=== PATIENT | male | born 1950 | race Caucasian/White ===

== ENCOUNTER → 2023-05-11 08:31 | Outpatient (REF) | payer MEDICARE, SELFPAY ==
[2023-05-11 09:22] LABS: % Basophils 0.8 % (0-2); % Immature Granulocytes 0.1 % (0-0.5); % Lymphocytes 28.5 % (20.5-51.1); % Monocytes 8.3 % (1.7-9.3); % Neutrophils 61.3 % (42.2-75.2); Absolute Basophils 0.1 10^3/uL (0-0.2); Absolute Eosinophils 0.1 10^3/uL (0-0.7); Absolute Lymphocytes 2.1 10^3/uL (1.2-3.4); Absolute Monocytes 0.6 10^3/uL (0.1-0.6); Absolute Neutrophils 4.4 10^3/uL (1.4-6.5); Hematocrit 43.9 % (39.0-52.0); Hemoglobin 15.1 g/dL (13.0-18.0); Mean Corp Hgb Conc. 34.4 g/dL (33.0-37.0); Mean Corpuscular Hgb 29.7 pg (27.0-31.0); Mean Corpuscular Volume 86.2 fL (80.0-94.0); Mean Platelet Volume 9.2 fL (7.4-10.4); Nucleated Red Blood Cells % 0 % (-); Platelet Count 311 10^3/uL (130-400); Red Blood Cell Count 5.09 10^6/uL (4.70-6.10); White Blood Cell Count 7.2 10^3/uL (4.8-10.8)
[2023-05-11 10:07] LABS: ALT (SGPT) 40 U/L (0-50); AST (SGOT) 41 U/L (17-59); Albumin 4.4 g/dl (3.5-5.0); Alkaline Phosphatase 74 U/L (38-126); Blood Urea Nitrogen 23 mg/dl (9-20); Carbon Dioxide 28 mmol/L (22-30); Chloride 101 mmol/L (98-107); Glucose 109 mg/dl (70-99); HDL Cholesterol 41 mg/dl; LDL Cholesterol, Calculated 71 mg/dl; Potassium 3.6 mmol/L (3.5-5.1); Sodium 139 mmol/L (135-145); Total Bilirubin 0.9 mg/dl (0.2-1.3); Total Cholesterol 153 mg/dl (50-199); Total Protein 7.1 g/dl (6.3-8.2); Triglyceride 207 mg/dl (10-149); Very Low Density Lipoprotein 41 mg/dl (0-30); eGFR > 60.00
[2023-05-11 12:10] LABS: C-Reactive Protein < 5.00 mg/L (0.0-10.00)
[2023-05-11 12:41] LABS: TSH 2.59 uIU/ml (0.47-4.68)
[2023-05-11 13:16] LABS: Folate > 20.0 ng/ml (2.76-20); Vitamin B12 421 pg/ml (239-931)
[2023-05-14 01:05] LABS: Albumin 4.23 g/dL (3.75-5.01); Alpha 1 Globulin 0.28 g/dL (0.19-0.46); Alpha 2 Globulin 0.73 g/dL (0.48-1.05); SPEP IFE Reflex Not Done; Total Protein-Electrophoresis 7.2 g/dL (6.3-8.2)
== END ==
LOC: REG 08:31
PROVIDERS: ATTENDING PHYSICIAN Internal Medicine Rheumatology; FAMILY PHYSICIAN Internal Medicine
DX: L40.50 Arthropathic psoriasis, unspecified (principal); L40.9 Psoriasis, unspecified; M25.511 Pain in right shoulder; M79.641 Pain in right hand; R94.5 Abnormal results of liver function studies; S43.101S Unspecified dislocation of right acromioclavicular joint, sequela; Z11.1 Encounter for screening for respiratory tuberculosis; Z11.59 Encounter for screening for other viral diseases; Z68.29 Body mass index [BMI] 29.0-29.9, adult; I48.20 Chronic atrial fibrillation, unspecified; I25.10 Atherosclerotic heart disease of native coronary artery without angina pectoris; I35.0 Nonrheumatic aortic (valve) stenosis; D68.69 Other thrombophilia; I10 Essential (primary) hypertension; E78.00 Pure hypercholesterolemia, unspecified; G62.89 Other specified polyneuropathies; Z76.89 Persons encountering health services in other specified circumstances; N40.0 Benign prostatic hyperplasia without lower urinary tract symptoms; R97.20 Elevated prostate specific antigen [PSA]; Z79.899 Other long term (current) drug therapy; R94.6 Abnormal results of thyroid function studies; E53.8 Deficiency of other specified B group vitamins
CPT/HCPCS: 36415; 80053; 80061; 82607; 82746; 84153; 84154; 84155; 84165; 84443; 85025; 86140

== ENCOUNTER → 2023-05-31 12:34 | Outpatient (REF) | payer MEDICARE, SELFPAY ==
[2023-05-31 14:49] LABS: C-Reactive Protein < 5.00 mg/L (0.0-10.00)
== END ==
LOC: REG 12:34
PROVIDERS: ATTENDING PHYSICIAN Internal Medicine Rheumatology; FAMILY PHYSICIAN Internal Medicine
DX: L40.50 Arthropathic psoriasis, unspecified (principal); L40.9 Psoriasis, unspecified
CPT/HCPCS: 36415; 86140

== ENCOUNTER → 2023-06-09 09:47 | Outpatient (REF) | payer MEDICARE, SELFPAY | LOC: MRI 3T 09:47 | PROVIDERS: ATTENDING PHYSICIAN Internal Medicine Rheumatology; FAMILY PHYSICIAN Internal Medicine | DX: L40.50 Arthropathic psoriasis, unspecified (principal); M25.531 Pain in right wrist | CPT/HCPCS: 73221 ==

== ENCOUNTER → 2023-09-15 11:33 | Outpatient (REF) | payer MEDICARE, SELFPAY ==
[2023-09-15 12:25] LABS: % Eosinophils 1.4 % (0-6); % Immature Granulocytes 0.5 % (0-0.5); % Lymphocytes 34.1 % (20.5-51.1); % Monocytes 8.6 % (1.7-9.3); % Neutrophils 54.4 % (42.2-75.2); Absolute Basophils 0.1 10^3/uL (0-0.2); Absolute Eosinophils 0.1 10^3/uL (0-0.7); Absolute Lymphocytes 2.5 10^3/uL (1.2-3.4); Absolute Monocytes 0.6 10^3/uL (0.1-0.6); Hematocrit 41.6 % (39.0-52.0); Mean Corp Hgb Conc. 36.1 g/dL (33.0-37.0); Mean Corpuscular Hgb 30.7 pg (27.0-31.0); Mean Corpuscular Volume 85.1 fL (80.0-94.0); Mean Platelet Volume 9.3 fL (7.4-10.4); Nucleated Red Blood Cells % 0 % (-); Platelet Count 294 10^3/uL (130-400); Red Blood Cell Count 4.89 10^6/uL (4.70-6.10); Red Cell Dist. Width 13.2 % (11.5-14.5); White Blood Cell Count 7.3 10^3/uL (4.8-10.8)
[2023-09-15 12:54] LABS: ALT (SGPT) 46 U/L (0-50); AST (SGOT) 55 U/L (17-59); Albumin 4.7 g/dl (3.5-5.0); Alkaline Phosphatase 73 U/L (38-126); Blood Urea Nitrogen 17 mg/dl (9-20); Calcium 10.4 mg/dl (8.4-10.2); Carbon Dioxide 27 mmol/L (22-30); Chloride 103 mmol/L (98-107); Glucose 103 mg/dl (70-99); Potassium 4.3 mmol/L (3.5-5.1); Sodium 139 mmol/L (135-145); Total Bilirubin 1.6 mg/dl (0.2-1.3); Total Protein 7.5 g/dl (6.3-8.2); eGFR > 60.00
[2023-09-15 12:58] LABS: C-Reactive Protein < 5.00 mg/L (0.0-10.00)
[2023-09-15 13:14] LABS: Vitamin D, 25-OH*** 43.4 ng/mL (30-80)
== END ==
LOC: REG 11:33
PROVIDERS: ATTENDING PHYSICIAN Internal Medicine Rheumatology; FAMILY PHYSICIAN Internal Medicine
DX: E55.9 Vitamin D deficiency, unspecified (principal); L40.50 Arthropathic psoriasis, unspecified; L40.9 Psoriasis, unspecified; M19.031 Primary osteoarthritis, right wrist; M19.049 Primary osteoarthritis, unspecified hand; M25.511 Pain in right shoulder; S43.101S Unspecified dislocation of right acromioclavicular joint, sequela; Z68.29 Body mass index [BMI] 29.0-29.9, adult
CPT/HCPCS: 36415; 80053; 82306; 85025; 86140

== ENCOUNTER → 2023-11-17 10:59 | Outpatient (REF) | payer MEDICARE, SELFPAY ==
[2023-11-17 12:16] LABS: PSA, Total - Diagnostic 9.15 ng/ml (0.0-4.0)
== END ==
LOC: REG 10:59
PROVIDERS: ATTENDING PHYSICIAN Specialist; FAMILY PHYSICIAN Internal Medicine
DX: R97.20 Elevated prostate specific antigen [PSA] (principal)
CPT/HCPCS: 36415; 84153

== ENCOUNTER → 2023-12-19 10:58 | Outpatient (REF) | payer MEDICARE, SELFPAY | LOC: RCS 10:58 | PROVIDERS: ATTENDING PHYSICIAN Internal Medicine Cardiovascular Disease; FAMILY PHYSICIAN Internal Medicine | DX: Z95.5 Presence of coronary angioplasty implant and graft (principal); I35.0 Nonrheumatic aortic (valve) stenosis | CPT/HCPCS: 93306 ==

== ENCOUNTER 2023-12-20 23:01 | Observation (INO) | payer MEDICARE, SELFPAY ==
[2023-12-20] VITALS (7 sets, daily range): BP systolic 97–147; BP diastolic 58–105; BMI 25.9
--- NOTE | 2023-12-20 14:26 | ED.GENMED ---
History of Present Illness
General
Chief Complaint: Bowel Problem
Source: patient and spouse
Exam Limitations: none
Time Seen by Provider: 12/20/23 14:06
Nursing documentation reviewed up to this point in time: agreed with
History of Present Illness
History of Present Illness:
73-year-old male with a past medical history as noted presents to the emergency room for evaluation of constipation. Patient reports that he has not been able to pass stool in 4 days despite taking p.o. Dulcolax and trying Fleet enemas. He says
that when he tried to use a Fleet enema today he was having a hard piece of stool and could not even administer the enema. He is having increasing pressure in his rectum and this morning has not been able to urinate and so he came to the ER for
evaluation. He denies any abdominal pain, nausea, vomiting. He is not on any opiates or other constipating medications.
Past History
Past History
ED Past Medical History: HTN and Hypercholesterolemia; Negative Asthma or NIDDM
ED Past Surgical History: Cardiac (Stent)
Social History
Tobacco: Non-smoker
Alcohol: Daily (wine 2-3 glasses)
Drug: None
Personal:
Living: with family
Review of Systems
Review of Systems
All Other Systems: ROS reviewed and negative except as documented in HPI and ROS
Constitutional: Denies fever
ABD/GI: Reports constipated and other (Rectal pain/fullness); Denies abdominal pain, nausea or vomiting
: Reports difficulty voiding
Phy Exam
Physical Exam
Physical Exam:
General: Awake, alert, oriented x3; no acute distress
Head: Normocephalic, atraumatic
Eyes: Conjunctiva normal
Throat: Airway intact, handling secretions
Neck: Trachea midline
Lungs: Breathing comfortably no distress
Heart: Regular rate
Abd: Soft, non distended, nontender
Rectal: External hemorrhoids; patient has hard piece of stool in the rectal vault consistent with a fecal impaction
Neuro: No gross deficits
Extremities: Warm and well-perfused
Scores
Heart Failure Risk
Heart Failure Risk Score: Not Applicable
Heart Score for Chest Pain Patients
STEMI patient?: Not applicable
Withdrawal Assessment of Alcohol
Withdrawal Assessment Completed?: Not applicable
Course
Orders/Labs/Results
Orders:
Orders
12/20/23 14:25
Enema- Treatment ONCE
Type: Milk of Molasses
12/20/23 16:47
Ondansetron Injectable [Zofran] 4 mg IV NOW STA
12/20/23 17:08
Complete Blood Count/With Diff Urgent
Comprehensive Metabolic Panel Urgent
TSH Reflex To Free T4 Urgent
12/20/23 17:15
CT Abd/pelvis W Iv Cont Urgent
Comment:
Reason For Exam: rectal pain
12/20/23 17:19
Lidocaine HCl 4% [Xylocaine 4% Topical Solution] 1 ml TOPICAL ONCE ONE
12/20/23 18:36
Lidocaine 2% [Lidocaine Uro-Jet 2%] 1 syringe TOPICAL NOW STA
12/20/23 19:48
Urinalysis Reflex To Culture Urgent
Date Specimen was Collected: 12/20/23
Time Specimen was Collected: 20:15
12/20/23 20:08
0.9% Sodium Chloride 1000 ml [Nss] 1,000 ml IV BOLUS
CefTRIAXone [Rocephin] 1,000 mg IV NOW STA
MetroNIDAZOLE 500 MG/100 ML [Flagyl 500 mg] 100 ml IV NOW
Abnormal Lab Results
12/20/23
17:08
WBC 19.9 H 10^3/uL
(4.8-10.8)
Abs Immat Gran (auto) 0.1 H 10^3/uL
(0-0.05)
Absolute Neuts (auto) 16.5 H 10^3/uL
(1.4-6.5)
Absolute Monos (auto) 1.6 H 10^3/uL
(0.1-0.6)
Neutrophils % 83.0 H %
(42.2-75.2)
Lymphocytes % 7.8 L %
(20.5-51.1)
BUN 21 H mg/dl
(9-20)
Glucose 146 H mg/dl
(70-99)
12/20/23 17:08
12/20/23 17:08
Vital Signs
Initial and Last Documented VS:
Initial Vital Signs
Temp Pulse Resp BP Pulse Ox
37.2 C 57 16 147/66 98
12/20/23 13:46 12/20/23 13:46 12/20/23 13:46 12/20/23 13:46 12/20/23 13:46
Last Documented Vital Signs
Temp Pulse Resp BP Pulse Ox
36.9 C 86 20 131/72 99
12/20/23 15:15 12/20/23 15:15 12/20/23 15:15 12/20/23 15:15 12/20/23 15:15
MDM/Problems Addressed
Differential Diagnosis Includes:
Fecal impaction
MDM/Problems Addressed:
73-year-old male presents to the emergency room with a fecal impaction�has had constipation x 4 days refractory to Dulcolax and Fleet enema. Having increasing rectal fullness and difficulty urinating this morning. Vitals and exam as
above�consistent with a fecal impaction. He was disimpacted at bedside--impaction broken up and removed, still some part of it which is beyond my reach and so we will treat with an enema here. Reassess after the above.
Patient no result from initial enema, will try second enema and reassess.
After second enema patient started to have some nausea�will place an IV and give some Zofran. Send off basic labs to rule out electrolyte derangement and thyroid dysfunction with significant constipation/fecal impaction.
Patient passed a large amount of stool after second enema and says that he feels much better. No longer nauseated, resting comfortably in the bed. He is having some soreness from disimpaction and enemas and he did have prominent hemorrhoids on
exam�can apply some topical lidocaine. Labs reviewed he does have leukocytosis to 19.9; CMP unremarkable. Thyroid studies normal. He still has not been able to urinate and he still feels some slight rectal fullness. Check CT abdomen pelvis.
CT shows no clear acute pathology does have slight prostate enlargement. Bladder distended and patient has tried multiple times to urinate since passing his impaction unsuccessfully. Will place Abraham catheter for acute urinary retention. I had a
long discussion with patient and his daughter�some concern despite no clear infection on CT that this leukocytosis could represent some occult stercoral colitis and patient is immune compromised is on Humira for psoriatic arthritis. Pending UA to
rule out infection in the urine we will plan to cover with antibiotics and admit for trending of labs and observation.
Chronic conditions affecting care:
Psoriatic arthritis on Humira
*Radiology
Radiology exam reviewed: radiology read reviewed
*Pulse Oximetry
Patient hypoxic: no
*Critical Care Note
Total Time (30-74mins, 75-104mins- exclusive of procedures): Not Applicable
Data Reviewed
Source: patient, spouse and family (Discussed with daughter who is a physician)
Patient Management
Discussion with other providers: Hospitalist (Discussed with hospitalist) and PCP
Escalation/DeEscalation of care consider admission/obs:
Admission indicated
ED Attending Note
-
Portions of this chart may have been created with voice recognition software.� Occasional wrong word or��sound alike� substitutions may have occurred due to the inherent limitations of voice recognition software.
Discharge Plan
Departure
Patient with high blood pressure during this ER visit?: No
Discharge Problem:
Fecal impaction
Prescriptions:
No Action
chlorthalidone 25 MG tablet
25 mg PO DAILY
rosuvastatin [Crestor] 10 MG tablet
10 mg PO HS
aspirin 81 MG tablet,delayed release (DR/EC)
81 mg PO HS
metoprolol succinate 25 MG tablet extended release 24 hr
25 mg PO DAILY
duloxetine 30 MG capsule,delayed release(DR/EC)
30 mg PO BID
Eliquis 5 MG tablet
5 mg PO BID
Theragen Tablet
1 tab PO DAILY
acetaminophen [Tylenol Extra Strength] 500 mg Tablet
1,000 mg PO Q6HPRN PRN (Reason: mild pain)
pantoprazole 20 mg Tablet,Delayed Release (Dr/Ec)
20 mg PO DAILY
fluocinonide 0.05 % Cream
1 applic TOPICAL BIDPRN PRN (Reason: eczema)
Cimzia 400 mg/2 mL (200 mg/mL x 2) Syringe Kit
400 mg SC Q4W
Interventions
Interventions:
*Risk Screen - Suicide Last Done: 12/20/23 13:46
*General Assessment Last Done: 12/20/23 15:15
*Neglect/Abuse Screening Last Done: 12/20/23 13:46
ED- Fall Risk Assessment Last Done: 12/20/23 15:15
*ED COVID-19 Vaccine History Last Done: 12/20/23 15:15
JA-Kmxxwo-Rqgcwddlks Assessment Last Done: 12/20/23 15:15
Discharge Date and Time
Print Language: MACEDONIAN
--- NOTE | 2023-12-20 16:45 | EDRN ---
this RN administered the second MOM enema and the pt stopped this RN half way through and got up to use the bathroom and sat on the toilet and the pt stated, 'Pure liquid is coming out nothing is helping i don't want to do this anymore, i feel like
i am going to throw up', this RN provided the pt with a vomit bag and the pt started to dry heave into the bag, Dr. Guzman came to the pts bedside and spoke with the pt and wants a PIV and labs drawn, the pt stated to this RN after this RN asked how
the pt was feeling while he was sitting on the toilet and the pt stated, 'Just stop talking to me right now', this RN left the pts bathroom and the pts is sitting at the pts bedside, will reassess the pt
[2023-12-20] MEDS: ZOFRAN 4 MG IV (17:08)
[2023-12-20 17:17] LABS: % Basophils 0.4 % (0-2); % Eosinophils 0.1 % (0-6); % Immature Granulocytes 0.5 % (0-0.5); % Lymphocytes 7.8 % (20.5-51.1); % Monocytes 8.2 % (1.7-9.3); Absolute Basophils 0.1 10^3/uL (0-0.2); Absolute Immature Granulocytes 0.1 10^3/uL (0-0.05); Absolute Lymphocytes 1.6 10^3/uL (1.2-3.4); Absolute Monocytes 1.6 10^3/uL (0.1-0.6); Absolute Neutrophils 16.5 10^3/uL (1.4-6.5); Hematocrit 41.6 % (39.0-52.0); Hemoglobin 15.3 g/dL (13.0-18.0); Mean Corp Hgb Conc. 36.8 g/dL (33.0-37.0); Mean Corpuscular Hgb 29.8 pg (27.0-31.0); Mean Corpuscular Volume 80.9 fL (80.0-94.0); Nucleated Red Blood Cells % 0 % (-); Platelet Count 341 10^3/uL (130-400); Red Blood Cell Count 5.14 10^6/uL (4.70-6.10); Red Cell Dist. Width 12.4 % (11.5-14.5); White Blood Cell Count 19.9 10^3/uL (4.8-10.8)
[2023-12-20 17:39] LABS: ALT (SGPT) 48 U/L (0-50); AST (SGOT) 54 U/L (17-59); Albumin 4.6 g/dl (3.5-5.0); Alkaline Phosphatase 75 U/L (38-126); Blood Urea Nitrogen 21 mg/dl (9-20); Carbon Dioxide 25 mmol/L (22-30); Chloride 102 mmol/L (98-107); Estimated Creatinine Clearance 80 ml/min; Glucose 146 mg/dl (70-99); Potassium 3.5 mmol/L (3.5-5.1); Sodium 141 mmol/L (135-145); Total Bilirubin 1.3 mg/dl (0.2-1.3); Total Protein 7.3 g/dl (6.3-8.2); eGFR > 60.00
[2023-12-20 18:24] LABS: TSH Reflex To Free T4 1.99 uIU/ml (0.47-4.68)
[2023-12-20] MEDS: LIDOCAINE URO-JET 2% 1 SYRINGE TOPICAL (20:25)
[2023-12-20] MEDS: NSS 1000 IV (20:26)
[2023-12-20 20:40] LABS: Urine Albumin Trace (Neg - Trace); Urine Bilirubin Negative (Negative); Urine Character Clear (Clear); Urine Color Amber; Urine Glucose Negative (Negative); Urine Ketone Negative (Negative); Urine Leukocyte Trace (Negative); Urine Nitrite Negative (Negative); Urine Occult Blood 4+ (Negative); Urine Urobilinogen 2+ (Neg - 1+)
[2023-12-20] MEDS: ROCEPHIN 1000 MG IV (20:42)
[2023-12-20 20:59] LABS: Urine Squamous Cell 0-2 /LPF (Few)
[2023-12-20 21:00] LABS: Urine Bacteria Few (Negative); Urine Red Blood Cell 70-80 /HPF (0-2); Urine White Cell 0-2 /HPF (0-5)
[2023-12-20] MEDS: FLAGYL 500 MG 100 IV (21:02)
--- NOTE | 2023-12-20 22:08 | HPS.HSE ---
Addendum entered and electronically signed by Bay Rivera DO 12/20/23 23:33:
Patient seen and examined independently. Agree with findings and plan as set forth by Amber De Leon PA-C.
Patient is a 73y M with PMH significant for ASCVD, A-Fib and Psoriatic arthritis who presents to ED complaining of constipation and rectal pain. Patient reports about 4 days since last BM. He became increasingly uncomfortable and attempted an
enema at home without success. He presented to ED for further evaluation and underwent fecal dis-impaction in the ED with significant amount of hard stool removed. He then received an enema which resulted in a very large BM. Patient states
that he feels much improved following these interventions; however, he continues to complain of significant rectal discomfort. Other evaluation in the ED revealed leukocytosis and patient will be monitored overnight for suspected stercoral colitis.
Ass:
Severe Constipation / Fecal Impaction
Suspected Stercoral Colitis
Acute Urinary Retention secondary to the above
Prostatomegaly / Abnormal PSA
ASCVD
Paroxysmal Atrial Fibrillation
Benign Hypertension
Psoriatic Arthritis
GERD
Plan:
Observe overnight for further evaluation and treatment.
Fecal impaction / constipation improved with treatment in the ED.
Continue bowel regimen with MiraLax daily for now.
IV abx for now for suspected stercoral colitis / bacterial translocation after significant fecal impaction / dis-impaction.
Follow for clinical improvement.
Maintain Abraham for now. Tamsulosin.
Consider TOV prior to discharge; however, with known prostate enlargement (has MRI planned as outpatient) - may need to keep Abraham on discharge.
Continue usual home medications.
Original Note:
Family Physician
-
Family Physician: Giacomo Miller
Chief Complaint
-
Constipation and Rectal Pain
History of Present Illness
Patient is a 73 y/o male past medical history of CAD, A-Fib, and Psoriatic Arthritis who presents with constipation and rectal pain. Patient reports he has trouble with constipation, but was not able to pass any stool for 4 days. He reports taking
Dulcolax at home without any results. He attempts a Fleet enema at home but was unable to instill any liquid due to hard stool. While in the ED he was disimpacted for a large amount of stool, and passed additional stool following an enema.
Patient was unable to urinate while in ED and Abraham catheter was placed. At this time patient continues to complain of some rectal pain. He denies any fevers, sweats or chills.
Medical History
Past Medical History
Past Medical History: Reports Other
Additional Past Medical History:
Coronary Artery Disease s/p Stent
Paroxysmal Atrial Fibrillation
Essential Hypertension
Hyperlipidemia
Psoriatic Arthritis
Depression
Obstructive Sleep Apnea
Past Surgical History: Reports Other
Additional Past Surgical History:
Right Hip Replacement
Left Knee Replacement
Social History
Tobacco: Non-smoker
Alcohol: Occasional
Family History
Family History: Not pertinent
Allergies / Home Medications
Allergies reflects when Allergies were last updated in [facility].
Home Medications with original date entered in [facility]
Allergy/Medication List:
Allergies
Allergy/AdvReac Type Severity Reaction Status Date / Time
oxycodone Allergy hallucinati Verified 12/20/23 13:48
ons
Home Medications
aspirin 81 mg tablet,delayed release 81 mg PO HS Blood clot prevention/tx 05/31/18
chlorthalidone 25 mg tablet 25 mg PO DAILY Blood pressure 05/31/18
duloxetine 30 mg capsule,delayed release 30 mg PO BID Mental Health/Anxiety 05/31/18
metoprolol succinate 25 mg tablet,extended release 24 hr 25 mg PO DAILY Blood pressure 05/31/18
rosuvastatin 10 mg tablet (Crestor) 10 mg PO HS High cholesterol 05/31/18
apixaban 5 mg tablet (Eliquis) 5 mg PO BID 01/21/21
acetaminophen 500 mg tablet (Tylenol Extra Strength) 1,000 mg PO Q6HPRN PRN mild pain 12/20/23
certolizumab pegol 400 mg/2 mL (200 mg/mL x2) subcutaneous syringe kit (Cimzia) 400 mg SC Q4W 12/20/23
fluocinonide 0.05 % topical cream 1 applic topical BIDPRN PRN eczema 12/20/23
pantoprazole 20 mg tablet,delayed release 20 mg PO DAILY 12/20/23
therapeutic multivitamin 1 tab PO DAILY 12/20/23
Review of Systems
-
A 12 point ROS was completed and negative except as noted: Yes
Constitutional: Denies Fever or Chills
Respiratory: Denies Cough or Trouble Breathing
Cardiac: Denies Chest Pain or Palpitations
Abdomen/GI: Reports See HPI
Physical Exam
Vital Signs
Vital Signs
Temp Pulse Resp BP Pulse Ox
98.5 F 86 20 125/73 97
12/20/23 15:15 12/20/23 15:15 12/20/23 15:15 12/20/23 21:00 12/20/23 21:01
Physical Exam
General: Comfortable and Conversant
HEENT: Anicteric and Moist mucous membranes
Respiratory: Clear and Non Labored Respirations
Cardiac: S1/S2, Regular Rhythm and Murmur
GI: Soft, Non Tender and Other (Protuberant Abdomen; Hypoactive bowel sounds)
Genito-urinary: Abraham
Musculoskeletal: No Clubbing, No Cyanosis and No Edema
Skin: Warm and Dry
Neuro: Awake, Alert, Oriented and Nonfocal/grossly intact
Psych: Calm
Laboratory Results
-
12/20/23 17:08
12/20/23 17:08
Laboratory Results
Total Bilirubin 1.3 mg/dl (0.2-1.3) 12/20/23 17:08
AST 54 U/L (17-59) 12/20/23 17:08
ALT 48 U/L (0-50) 12/20/23 17:08
Alkaline Phosphatase 75 U/L (38-126) 12/20/23 17:08
Data Reviewed
-
CT Scan: Report Reviewed by me
Lab Data: Labs Reviewed by me
Impression/Plan
-
Constipation with Fecal Impaction, and Suspected Stercoral Colitis
-Improvement following disimpaction and enema given in ED
-Continue bowel regimen with Miralax Daily
-Continue ceftriaxone and metronidazole
Urinary Retention
-Abraham catheter placed in ED
-Start Flomax
-Patient is scheduled for Prostate MRI on Monday for elevated PSA as outpatient
Coronary Artery Disease s/p Stent
-Continue aspirin
Paroxysmal Atrial Fibrillation
-Continue Eliquis
-Continue Metoprolol
Essential Hypertension
-Continue chlorthalidone and Metoprolol
Hyperlipidemia
-Continue Crestor
Psoriatic Arthritis
-Patient maintained on Cimzia as outpatient
Depression
-Continue duloxetine
GERD
-Continue Protonix
DVT proph: Eliquis
Code Status: Full Code
[2023-12-21] VITALS: BP 148/69
[2023-12-21 00:15] VITALS: BMI 28.5
[2023-12-21 00:18] VITALS: BMI 28.5
[2023-12-21 00:22] VITALS: BP 127/80; BMI 28.5
[2023-12-21] MEDS: FLAGYL 500 MG 100 IV ×2 (04:55→13:25)
[2023-12-21 07:23] VITALS: BP 111/63
[2023-12-21 07:47] LABS: Hematocrit 37.4 % (39.0-52.0); Hemoglobin 13.6 g/dL (13.0-18.0); Mean Corp Hgb Conc. 36.4 g/dL (33.0-37.0); Mean Corpuscular Hgb 29.6 pg (27.0-31.0); Mean Corpuscular Volume 81.5 fL (80.0-94.0); Mean Platelet Volume 9.3 fL (7.4-10.4); Platelet Count 299 10^3/uL (130-400); Red Blood Cell Count 4.59 10^6/uL (4.70-6.10); Red Cell Dist. Width 12.8 % (11.5-14.5)
[2023-12-21 08:06] LABS: Blood Urea Nitrogen 18 mg/dl (9-20); Carbon Dioxide 28 mmol/L (22-30); Chloride 101 mmol/L (98-107); Estimated Creatinine Clearance 82 ml/min; Glucose 113 mg/dl (70-99); Magnesium 1.9 mg/dl (1.6-2.3); Potassium 3.6 mmol/L (3.5-5.1); Sodium 144 mmol/L (135-145); eGFR > 60.00
[2023-12-21] MEDS: MIRALAX 17 GRAMS PO (09:21)
[2023-12-21] MEDS: FLOMAX 0.4 MG PO (09:21)
[2023-12-21] MEDS: ELIQUIS 5 MG PO (09:21)
[2023-12-21] MEDS: TOPROL XL 25 MG PO (09:21)
[2023-12-21] MEDS: PROTONIX 20 MG PO (09:26)
[2023-12-21] MEDS: CYMBALTA DELAYED RELEASE 30 MG PO (09:26)
--- NOTE | 2023-12-21 10:14 | W.PN.HOSP.TC ---
Addendum entered and electronically signed by Mitali Busch MD 12/21/23 19:57:
I saw and evaluated the patient independently. I reviewed the resident�s note and agree with findings and plan as documented by Dr. Lizarraga.
GENERAL: well developed, well nourished, male in no apparent distress
HEENT: NC/AT
HEART: regular rate and rhythm, +S1, +S2
LUNGS : clear to auscultation bilaterally
ABDOM: soft, nontender, nondistended, + bowel sounds
EXT: no cyanosis, clubbing, or edema
NEUROLOGIC: grossly intact
: faith with dark urine
Constipation with Fecal Impaction, and Suspected Stercoral Colitis--not confirmed by CT scan--Improvement following disimpaction and enema given in ED--Continue bowel regimen with Miralax Daily (goal to have daily BM)-Continue ceftriaxone and
metronidazole but likely will not need at d/c
Urinary Retention--likely due to stool burden and fecal impaction--cont flomax (BPH on CT scan)--faith out and TOV successful--Patient is scheduled for Prostate MRI on Monday for elevated PSA as outpatient
Coronary Artery Disease s/p Stent--Continue aspirin
Paroxysmal Atrial Fibrillation--Continue Eliquis--Continue Metoprolol
Essential Hypertension--Continue chlorthalidone and Metoprolol
Hyperlipidemia--Continue Crestor
Psoriatic Arthritis--Patient maintained on Cimzia as outpatient
Depression--Continue duloxetine
GERD-Continue Protonix
DVT proph- Eliquis
Code Status- Full Code
ok for d/c
Original Note:
Today's Communication/Plan
-
.
Assessment / Plan
Assessment / Plan
1. Constipation/fecal impaction
-Fecal disimpaction/Fleet enema x 2 yesterday; improved.
-Suspected stercoral colitis; WBC 14.0, down from 19.9 yesterday[address]
-CT scan benign.
-Continue bowel regimen, diet as tolerated.
-Continue IV antibiotics for now, follow for clinical improvement.
2, acute urinary retention secondary to fecal impaction
-Faith draining clear urine; trial of void prior to discharge.
-Continue Flomax.
-Patient has prostate issues to be followed up outpatient.
3. GERD
-Continue Protonix.
4. Hypertension
-Continue metoprolol.
5. CAD
-Continue ASA, chlorthalidone, rosuvastatin
6. A-fib
-Continue metoprolol, apixaban.
Anticipated Discharge: Today
Subjective/Interval History
-
Date of Service: December 21, 2023
Pt notes he is feeling better today s/p fecal disimpaction and fleet enema yesterday. Notes that he does not have CP, SOB, abdominal pain, nausea, vomiting, or diarrhea. Pt has not yet had a bowel movement today as a result of not having eaten since
admission.
Objective Data
-
Labs:
Laboratory Results
12/21/23
07:09
WBC 14.0 H
Hgb 13.6
Hct 37.4 L
Plt Count 299
Sodium 144
Potassium 3.6
Chloride 101
Carbon Dioxide 28
BUN 18
Creatinine 0.9
Glucose 113 H
Calcium 9.0
Vital Signs:
Vital Signs
Temp Pulse Resp BP Pulse Ox
98.9 F 88 20 111/63 100
12/21/23 07:23 12/21/23 07:23 12/21/23 07:23 12/21/23 09:13 12/21/23 07:23
I&O
12/20/23 12/21/23 12/22/23
06:59 06:59 06:59
Intake Total 120 / 120
Output Total 800 / 800
Balance -680 / -680
Review of Systems
-
History Source: Patient
Constitutional: Reports No Symptoms
Respiratory: Reports No Symptoms
Cardiac: Reports No Symptoms
Abdomen/GI: Reports No Symptoms
Musculoskeletal: Reports No Symptoms
Neuro: Reports No Symptoms
Physical Exam
-
General: Well Developed, No Apparent Distress and Comfortable
HEENT: Normocephalic and Atraumatic
Respiratory: Clear to Auscultation
Cardiac: Regular Rhythm and S1/S2
GI: Soft, Nontender, Normal Bowel Sounds and Other (moderately distended, no peritoneal signs. )
Skin: Warm and Dry
Neuro: Awake and Alert
Psych: Calm
Data Reviewed
-
CT Scan: Report Reviewed by me
Labs: Labs Reviewed by me and Discussed with Patient
--- NOTE | 2023-12-21 14:35 | CM ---
Patient seen at bedside with physician. Patient stated that he lives with in a 2 story home. Patient PCP is Dr. Dias and he uses [facility] in [place]. Patient plan is for discharge home today. IMM reviewed and completed form placed on chart.
CM will continue to follow for discharge planning needs.
Plan; home with no needs follow up with PCP
[2023-12-21 15:42] VITALS: BP 136/70
--- NOTE | 2023-12-22 16:09 | W.DCSUMMARY ---
Addendum entered and electronically signed by Mitali Busch MD 12/22/23 17:19:
Read, reviewed, and agree. See same day progress note for additional details. Time spent coordinating care, DC planning, review of DC plan of care with resident, transition of care, review of records in EMR, med rec, consults, notes, d/w
consultants, nursing, family, and CM = < 30 minutes
ACTUAL d/c date was 12/21/23
Original Note:
Discharge Summary
Discharge Data
Date of Admission: 12/20/23
Date of Discharge: 12/22/23
-
Pending Results: Yes
Additional Pending Results:
Urine Culture
Hospital Course
Mr. Clark is a 73 year old male with a past medical history of hypertension, hypercholesteremia, and chronic constipation who presented to the Emergency Department at [facility] on December, for the evaluation of constipation.
Per the patient, he has a history of constipation that is usually resolved after taking fiber pills. However, this episode did not resolve for 4 days despite the use of oral Dulcolax and Fleet enemas. He also noted having rectal pain, that was
described as increasing pressure since the morning of his visit. He had also not been able to urinate, and thus was prompted to visit the emergency room. He denied any abdominal pain, nausea, or vomiting.
In the emergency department, Mr. Moffett exhibited a relatively benign physical examination with the exception of a hard piece of stool in the rectal vault that was consistent with fecal impaction. In addition, the patient's white blood cell
count was elevated to 19.9. The patient was disimpacted at bedside with some small residual stools. In order to try and remove the residual stool, the patient was given an enema, which did not result in defecation. A second enema was attempted. Mr Zuhair (~) began to feel nauseous during this process and was given IV Zofran and basic labs were taken to look for electrolyte derangements. Shortly after the second enema was given, the patient passed a large amount of stool and subjectively felt
much better. He was no longer nauseated, but still had some discomfort that was resolved with lidocaine application.
After complete disimpaction, the patient still had urinary retention and slight rectal fullness. The emergency physician obtained a CT of the abdomen and pelvis which was a mostly limited evaluation as a result of beam hardening artifact and lack
of oral contrast, however, did not show any overt pathology. However due to his elevated white count and continued urinary retention the patient was admitted for potential stercoral colitis and bladder decompression.
Upon admission the patient was observed overnight for further evaluation and treatment. A bowel regimen was continued with MiraLAX daily, and the patient was drained using Abraham catheter and tamsulosin. Prophylactic antibiotics were started using
ceftriaxone and metronidazole. Following these interventions the patient felt much better. By the following morning the patient was feeling better and wants to go home. His white count had improved to 14.1 and his Abraham was draining clear yellow
urine. He denied any overt symptoms at that time and his physical examination was normal. Abraham was removed and the patient passed a trial of void, thus, the decision was made to discharge to home.
Patient was instructed to follow-up with his primary care provider, as well as his urologist, with whom he has an appointment for MRI on December 22 2023.
Discharge Plan
-
Patient Disposition: Home (Routine Discharge)
Discharge Diagnosis/Procedures: Fecal Impaction
Acute Urinary Retention Secondary to Constipation
Condition: Fair
Diet: 2 Gram Sodium
Activity: As tolerated
Referrals:
Giacomo Miller MD [Family Provider] - in less than 1 week
Additional Discharge Medication Instructions: Continue OTC Miralax/Colace/Senna for chronic constipation
Prescriptions:
New
tamsulosin 0.4 mg Capsule
0.4 mg PO DAILY Qty: 30 0RF
Continued
chlorthalidone 25 MG tablet
25 mg PO DAILY
rosuvastatin [Crestor] 10 MG tablet
10 mg PO HS
aspirin 81 MG tablet,delayed release (DR/EC)
81 mg PO HS
metoprolol succinate 25 MG tablet extended release 24 hr
25 mg PO DAILY
duloxetine 30 MG capsule,delayed release(DR/EC)
30 mg PO BID
Eliquis 5 MG tablet
5 mg PO BID
therapeutic multivitamin Tablet
1 tab PO DAILY
acetaminophen [Tylenol Extra Strength] 500 mg Tablet
1,000 mg PO Q6HPRN PRN (Reason: mild pain)
pantoprazole 20 mg Tablet,Delayed Release (Dr/Ec)
20 mg PO DAILY
fluocinonide 0.05 % Cream
1 applic TOPICAL BIDPRN PRN (Reason: eczema)
Cimzia 400 mg/2 mL (200 mg/mL x 2) Syringe Kit
400 mg SC Q4W
Discharge Orders:
Discharge Patient (As Directed); Ordered 12/21/23
Ordered By: Donovan Lizarraga
Discharge Date and Time
Discharge Date/Time: 12/21/23 16:30
Print Language: NIUEAN
== END 2023-12-21 16:30 | disposition home or self-care (01) ==
LOC: 4 WEST ACU 23:01
PROVIDERS: Physician Assistant Medical; ADMITTING PHYSICIAN Hospitalist; ATTENDING PHYSICIAN Internal Medicine; EMERGENCY PHYSICIAN Emergency Medicine; FAMILY PHYSICIAN Internal Medicine
DX: K56.41 Fecal impaction (principal); E78.00 Pure hypercholesterolemia, unspecified; I10 Essential (primary) hypertension; L40.50 Arthropathic psoriasis, unspecified; D84.821 Immunodeficiency due to drugs; N40.1 Benign prostatic hyperplasia with lower urinary tract symptoms; M43.17 Spondylolisthesis, lumbosacral region; R33.8 Other retention of urine; K64.9 Unspecified hemorrhoids; I25.10 Atherosclerotic heart disease of native coronary artery without angina pectoris; I48.0 Paroxysmal atrial fibrillation; K21.9 Gastro-esophageal reflux disease without esophagitis; G47.33 Obstructive sleep apnea (adult) (pediatric); F32.A Depression, unspecified; Z96.641 Presence of right artificial hip joint; Z96.652 Presence of left artificial knee joint; Z95.5 Presence of coronary angioplasty implant and graft; Z87.19 Personal history of other diseases of the digestive system; Z79.01 Long term (current) use of anticoagulants; Z88.5 Allergy status to narcotic agent
CPT/HCPCS: 51702; 74177; 80048; 80053; 81003; 81015; 83735; 84443; 85025; 85027; 87086; 96361; 96365; 96375; 99285; G0378; Q9967

== ENCOUNTER → 2023-12-22 18:58 | Outpatient (REF) | payer MEDICARE, SELFPAY | LOC: MRI 18:58 | PROVIDERS: ATTENDING PHYSICIAN Specialist; FAMILY PHYSICIAN Internal Medicine | DX: R97.20 Elevated prostate specific antigen [PSA] (principal) | CPT/HCPCS: 72197; A9575 ==

== ENCOUNTER → 2023-12-26 14:43 | Outpatient (REF) | payer MEDICARE, SELFPAY ==
[2023-12-26 16:34] LABS: % Basophils 0.9 % (0-2); % Eosinophils 1.1 % (0-6); % Immature Granulocytes 0.5 % (0-0.5); % Lymphocytes 36.4 % (20.5-51.1); % Monocytes 9.6 % (1.7-9.3); % Neutrophils 51.5 % (42.2-75.2); Absolute Basophils 0.1 10^3/uL (0-0.2); Absolute Eosinophils 0.1 10^3/uL (0-0.7); Absolute Lymphocytes 2.7 10^3/uL (1.2-3.4); Absolute Monocytes 0.7 10^3/uL (0.1-0.6); Absolute Neutrophils 3.8 10^3/uL (1.4-6.5); Hematocrit 39.9 % (39.0-52.0); Hemoglobin 14.1 g/dL (13.0-18.0); Mean Corp Hgb Conc. 35.3 g/dL (33.0-37.0); Mean Corpuscular Hgb 29.9 pg (27.0-31.0); Mean Corpuscular Volume 84.5 fL (80.0-94.0); Mean Platelet Volume 9.5 fL (7.4-10.4); Nucleated Red Blood Cells % 0 % (-); Platelet Count 310 10^3/uL (130-400); Red Blood Cell Count 4.72 10^6/uL (4.70-6.10); Red Cell Dist. Width 12.7 % (11.5-14.5); White Blood Cell Count 7.4 10^3/uL (4.8-10.8)
[2023-12-26 16:50] LABS: Urine Albumin Trace (Neg - Trace); Urine Bilirubin Negative (Negative); Urine Character Clear (Clear); Urine Color Yellow; Urine Glucose Negative (Negative); Urine Ketone Negative (Negative); Urine Leukocyte Negative (Negative); Urine Nitrite Negative (Negative); Urine Occult Blood Negative (Negative); Urine Specific Gravity 1.025 (<1.030); Urine Urobilinogen Negative (Neg - 1+)
[2023-12-26 16:55] LABS: ALT (SGPT) 48 U/L (0-50); AST (SGOT) 52 U/L (17-59); Albumin 4.4 g/dl (3.5-5.0); Alkaline Phosphatase 53 U/L (38-126); Blood Urea Nitrogen 16 mg/dl (9-20); Calcium 9.5 mg/dl (8.4-10.2); Carbon Dioxide 27 mmol/L (22-30); Chloride 101 mmol/L (98-107); Glucose 119 mg/dl (70-99); Potassium 3.7 mmol/L (3.5-5.1); Sodium 141 mmol/L (135-145); eGFR > 60.00
== END ==
LOC: REG 14:43
PROVIDERS: ATTENDING PHYSICIAN Internal Medicine; OTHER PHYSICIAN Specialist; REFERRING PHYSICIAN Internal Medicine Rheumatology
DX: Z09 Encounter for follow-up examination after completed treatment for conditions other than malignant neoplasm (principal); K56.41 Fecal impaction; R33.9 Retention of urine, unspecified; R31.0 Gross hematuria; N40.0 Benign prostatic hyperplasia without lower urinary tract symptoms; R97.20 Elevated prostate specific antigen [PSA]; L40.0 Psoriasis vulgaris; I25.10 Atherosclerotic heart disease of native coronary artery without angina pectoris; I35.0 Nonrheumatic aortic (valve) stenosis
CPT/HCPCS: 36415; 80053; 81003; 85025

== ENCOUNTER → 2024-01-08 13:41 | Outpatient (REF) | payer MEDICARE, SELFPAY ==
[2024-01-08 15:55] LABS: IgA 213 mg/dl (70-400)
[2024-01-10 11:28] LABS: tTG IgA Antibody 8.2 EU/ml (0-19)
== END ==
LOC: REG 13:41
PROVIDERS: ATTENDING PHYSICIAN Internal Medicine Gastroenterology; FAMILY PHYSICIAN Internal Medicine Rheumatology; OTHER PHYSICIAN Internal Medicine Cardiovascular Disease; REFERRING PHYSICIAN Internal Medicine
DX: K59.00 Constipation, unspecified (principal)
CPT/HCPCS: 36415; 82784; 83516

== ENCOUNTER 2024-03-19 06:21 | Day surgery (SDC) | payer MEDICARE, SELFPAY | END 2024-03-19 13:16 | disposition home or self-care (01) | LOC: GI 06:21 | PROVIDERS: ATTENDING PHYSICIAN Internal Medicine Gastroenterology; FAMILY PHYSICIAN Internal Medicine | DX: Z12.11 Encounter for screening for malignant neoplasm of colon (principal); K62.5 Hemorrhage of anus and rectum; K64.0 First degree hemorrhoids; K57.30 Diverticulosis of large intestine without perforation or abscess without bleeding; K63.5 Polyp of colon | CPT/HCPCS: 45380; 88305 ==

== ENCOUNTER → 2024-04-03 16:23 | Outpatient (REF) | payer MEDICARE, SELFPAY | LOC: RAD 16:23 | PROVIDERS: ATTENDING PHYSICIAN Internal Medicine | DX: Z79.01 Long term (current) use of anticoagulants (principal); W19.XXXA Unspecified fall, initial encounter | CPT/HCPCS: 70450 ==

== ENCOUNTER 2024-04-05 08:00 | Inpatient (IN) | payer MEDICARE, SELFPAY ==
[2024-04-03] VITALS (7 sets, daily range): BP systolic 116–133; BP diastolic 82–94; PULSE 87; BMI 27.8
--- NOTE | 2024-04-03 18:43 | HPS.HSE ---
Family Physician
-
Family Physician: Giacomo Miller
Chief Complaint
-
mechanical fall
History of Present Illness
This is a 73-year-old with past medical history significant for atrial fibrillation on anticoagulation, BPH, hypertension, hyperlipidemia presented to the emergency department after a mechanical fall where he struck his head.
Patient reports walking in his yard trying to cut pieces of lower EXTR after falling due to the extensive wings. He denied any loss of consciousness. While moving the pieces of logs around he tripped and fell striking his head on a piece of stone.
It was a left side of the forehead. He had a minor bruise. He reported that after the fall he realized that he was on the floor and turned around but was having some difficulty getting up. Ultimately with the help of his spouse he was able to
get up and walk without any difficulty into the home. He went to sleep. He denied having any persistent headache. He denied any neck stiffness. He denies any blurry vision or double vision. He denies any numbness tingling. The following
morning he denies any ataxia or any new symptoms. He called his PMD about the fall who requested a CT scan. Patient ultimately had a CT scan at around 4:30 PM today and based on the results he was sent to the emergency department.
In the emergency department he was afebrile blood pressure was 182/84 with a pulse of 93 satting 98% on room air.
He had a CT of the head which shows to have a focus of increased density in the left superior cerebellar peduncle and extending into the adjacent anteromedial left cerebral hemisphere
With a history of recent fall, one consideration would be a focus of intraparenchymal hemorrhage. Differential consideration of a high density mass, and neoplasia is a possibility
Medical History
Past Medical History
Past Medical History: Reports Other
Additional Past Medical History:
Coronary Artery Disease s/p Stent
Paroxysmal Atrial Fibrillation
Essential Hypertension
Hyperlipidemia
Psoriatic Arthritis
Depression
Obstructive Sleep Apnea
Past Surgical History: Reports Other
Additional Past Surgical History:
Right Hip Replacement
Left Knee Replacement
Social History
Tobacco: Non-smoker
Alcohol: Occasional
Family History
Family History: Not pertinent
Allergies / Home Medications
Allergies reflects when Allergies were last updated in [facility].
Home Medications with original date entered in [facility]
Allergy/Medication List:
Allergies
Allergy/AdvReac Type Severity Reaction Status Date / Time
oxycodone Allergy hallucinati Verified 04/03/24 17:38
ons
Home Medications
aspirin 81 mg tablet,delayed release 81 mg PO HS Blood clot prevention/tx 05/31/18
chlorthalidone 25 mg tablet 25 mg PO DAILY Blood pressure 05/31/18
duloxetine 30 mg capsule,delayed release 30 mg PO BID Mental Health/Anxiety 05/31/18
metoprolol succinate 25 mg tablet,extended release 24 hr 25 mg PO DAILY Blood pressure 05/31/18
rosuvastatin 10 mg tablet (Crestor) 10 mg PO HS High cholesterol 05/31/18
apixaban 5 mg tablet (Eliquis) 5 mg PO BID Blood Clot Prevention/Tx 03/05/20
acetaminophen 500 mg tablet (Tylenol Extra Strength) 1,000 mg PO Q6HPRN PRN mild pain 12/20/23
certolizumab pegol 400 mg/2 mL (200 mg/mL x2) subcutaneous syringe kit (Cimzia) 400 mg SC Q4W Autoimmune Disorder 12/20/23
fluocinonide 0.05 % topical cream 1 applic topical BIDPRN PRN eczema 12/20/23
pantoprazole 20 mg tablet,delayed release 20 mg PO DAILY Blood Pressure 12/20/23
therapeutic multivitamin 1 tab PO DAILY Supplement 12/20/23
tamsulosin 0.4 mg capsule 0.4 mg PO DAILY #30 caps 12/21/23
Review of Systems
-
A 12 point ROS was completed and negative except as noted: Yes
Constitutional: Denies Fever or Chills
Respiratory: Denies Cough or Trouble Breathing
Cardiac: Denies Chest Pain or Palpitations
Abdomen/GI: Reports See HPI
Physical Exam
Vital Signs
Vital Signs
Temp Pulse Resp BP Pulse Ox
97.8 F 93 18 122/84 98
04/03/24 17:36 04/03/24 17:36 04/03/24 17:36 04/03/24 17:36 04/03/24 17:36
Physical Exam
General: Well Developed, Well Nourished, No Apparent Distress and Comfortable
HEENT: NormoCephalic, Anicteric, Moist mucous membranes and Atraumatic
Respiratory: Clear
Cardiac: S1/S2 and Regular Rhythm
GI: Soft, Non Tender, Non Distended and Normal Bowel Sounds
Rectal: Deferred by Provider
Genito-urinary: Deferred by me
Musculoskeletal: No Clubbing, No Cyanosis, No Edema and Normal Gait & Station
Skin: Warm
Neuro: AO x 3, No Motor Deficits, Cranial Nerves Intact and No Sensory Deficits; No Slurred Speech, Facial Droop or Tremors
Psych: Calm and Intact Judgment/Insight
Data Reviewed
-
CT Scan: Report Reviewed by me
Lab Data: Labs Reviewed by me
Old Records: Reviewed
Impression/Plan
-
IMPRESSION:
73-year-old male with past medical history of CAD, hypertension, proximal atrial fibrillation on anticoagulation status post mechanical fall presenting to the emergency department and found to have abnormal CT of the head with a focus of increased
density in the left superior cerebellar peduncle and extending into the adjacent anteromedial left cerebellar hemisphere concerning for intraparenchymal hemorrhage. On prophylactic tamiflu for 7 days, negative flu test yesterday.
Neurosurgery evaluated the CT scan. The way patient admitted for observation and IMU with neurochecks and repeat CT scan.
PLAN:
1. Fall on AC with possible intracranial hemorrhage - Patient had a fall about [address] scan later showed possible left cerebellar intracranial bleed. He is neurologial intact, has no pain and minimal external signs of trauma.
- admit to imu
- neurochecks q 4 hours
- last eliquis dose this am about 8 hours ago, hold eliquis for now
- holding aspirin
- repeat CT scan in 6 hours
- neurosurgery contacted and aware
- no reversal for now
- npo except meds for now
2. HTN -
- continue chlorthalidone in am
3. AFIB -
- telemetry
- continue metoprolol in am
- hold eliquis for now
4. BPH
- continue tamsulosin
CPAP 12 HS
DVT PPX - SCDs
Code status - Full Code
--- NOTE | 2024-04-03 18:50 | ED.GENMED ---
History of Present Illness
General
Chief Complaint: Head Injury
Source: patient, spouse and family
Exam Limitations: none
Time Seen by Provider: 04/03/24 18:00
Nursing documentation reviewed up to this point in time: agreed with
History of Present Illness
History of Present Illness:
The patient is a 73-year-old male with past medical history of atrial fibrillation currently on Eliquis, history of heart disease, CAD hypertension hyperlipidemia presenting to the emergency department today after slipping on ice yesterday hitting
the top of his head and left-sided frontal scalp. He went to get an outpatient CT scan and had questionable findings of possible acute bleed versus alternate finding. He denies any specific new or acute symptoms today. Last dose of Eliquis
yesterday.
Past History
Past History
ED Past Medical History: HTN and Hypercholesterolemia; Negative Asthma or NIDDM
ED Past Surgical History: Cardiac (Stent)
Social History
Tobacco: Non-smoker
Alcohol: Daily (wine 2-3 glasses)
Drug: None
Personal:
Living: with family
Review of Systems
Review of Systems
Allergies reviewed?: Yes
All Other Systems: ROS reviewed and negative except as documented in HPI and ROS
Phy Exam
Physical Exam
Physical Exam:
GENERAL: Alert , in no apparent distress
EYE: pupils equal and reactive
NECK: Supple, no significant adenopathy.
ENT: o/p clr, mmm.
CARDIAC: Regular rate and rhythm .
LUNGS: Clear breath sounds bilaterally, no acute respiratory distress, no wheezes/rales/rhonchi
ABDOMEN: Soft, without focal tenderness, no r/g, no cvat
NEUROLOGICAL: Alert and oriented, no focal neuro deficits 5 out of 5 upper and lower extremity strength normal sensation with palpating bilaterally normal finger-nose and [id number]-cd-vmpi no pronator drift
SKIN: Warm and dry, skin intact.
MUSCULOSKELETAL: No edema, well perfused.
PSYCH: Normal and appropriate interaction.
Course
Orders/Labs/Results
Orders:
Orders
04/03/24 18:33
CBC/With Diff [Complete Blood Count/With Diff] Urgent
CMP [Comprehensive Metabolic Panel] Urgent
PT/INR [Prothrombin Time] Urgent
PTT Urgent
Vital Signs
Initial and Last Documented VS:
Initial Vital Signs
Temp Pulse Resp BP Pulse Ox
97.8 F 93 18 122/84 98
04/03/24 17:36 04/03/24 17:36 04/03/24 17:36 04/03/24 17:36 04/03/24 17:36
Last Documented Vital Signs
Temp Pulse Resp BP Pulse Ox
97.8 F 93 18 122/84 98
04/03/24 17:36 04/03/24 17:36 04/03/24 17:36 04/03/24 17:36 04/03/24 17:36
MDM/Problems Addressed
MDM/Problems Addressed:
73-year-old male presenting to the emergency department today with abnormal CT scan findings. Had a ground-level fall yesterday. Does take Eliquis. Last dose was this morning he had a CT scan ordered and done as an outpatient that showed 'there
is a focus of increased density in the left superior cerebellar peduncle and extending into the adjacent anteromedial left cerebellar hemisphere. With a history of recent fall, one consideration would be a focus of intraparenchymal hemorrhage.
Differential consideration of a high density mass, and neoplasia is a possibility.' Case immediately discussed with neurosurgery who recommended repeat CT scan at 6-hour sreedhar and holding Eliquis for now. At this point patient asymptomatic with
normal neuroexam
*Critical Care Note
Total Time (30-74mins, 75-104mins- exclusive of procedures): Not Applicable
ED Attending Note
-
Portions of this chart may have been created with voice recognition software.� Occasional wrong word or��sound alike� substitutions may have occurred due to the inherent limitations of voice recognition software.
Discharge Plan
Departure
Patient Disposition: Admit
Date of Disposition: 04/03/24
Time of Disposition: 19:02
Admit to: IMU
Admit to doctor: Bobby
Presentation/result/management discussed w/ accepting MD/DO: Hospitalist
Patient with high blood pressure during this ER visit?: No
Condition: Good
Covid-19: Not Applicable
Discharge Problem:
Abnormal CT of the head
Prescriptions:
No Action
chlorthalidone 25 MG tablet
25 mg PO DAILY
rosuvastatin [Crestor] 10 MG tablet
10 mg PO HS
aspirin 81 MG tablet,delayed release (DR/EC)
81 mg PO HS
metoprolol succinate 25 MG tablet extended release 24 hr
25 mg PO DAILY
duloxetine 30 MG capsule,delayed release(DR/EC)
30 mg PO BID
Eliquis 5 MG tablet
5 mg PO BID
therapeutic multivitamin Tablet
1 tab PO DAILY
acetaminophen [Tylenol Extra Strength] 500 mg Tablet
1,000 mg PO Q6HPRN PRN (Reason: mild pain)
pantoprazole 20 mg Tablet,Delayed Release (Dr/Ec)
20 mg PO DAILY
fluocinonide 0.05 % Cream
1 applic TOPICAL BIDPRN PRN (Reason: eczema)
Cimzia 400 mg/2 mL (200 mg/mL x 2) Syringe Kit
400 mg SC Q4W
tamsulosin 0.4 mg Capsule
0.4 mg PO DAILY Qty: 30 0RF
Referrals:
Giacomo Miller MD [Family Provider] -
Discharge Date and Time
Print Language: URUGUAYAN
[2024-04-03 20:33] LABS: % Basophils 0.9 % (0-2); % Eosinophils 0.2 % (0-6); % Immature Granulocytes 0.4 % (0-0.5); % Lymphocytes 45.6 % (20.5-51.1); % Neutrophils 33.9 % (42.2-75.2); Absolute Lymphocytes 2.1 10^3/uL (1.2-3.4); Absolute Monocytes 0.9 10^3/uL (0.1-0.6); Absolute Neutrophils 1.6 10^3/uL (1.4-6.5); Hematocrit 42.9 % (39.0-52.0); Hemoglobin 15.4 g/dL (13.0-18.0); Mean Corp Hgb Conc. 35.9 g/dL (33.0-37.0); Mean Corpuscular Hgb 30.4 pg (27.0-31.0); Mean Corpuscular Volume 84.8 fL (80.0-94.0); Mean Platelet Volume 9.2 fL (7.4-10.4); Nucleated Red Blood Cells % 0 % (-); Platelet Count 207 10^3/uL (130-400); Red Blood Cell Count 5.06 10^6/uL (4.70-6.10); Red Cell Dist. Width 12.7 % (11.5-14.5); White Blood Cell Count 4.7 10^3/uL (4.8-10.8)
[2024-04-03 20:41] LABS: APTT 36.7 Sec (23.4-35.0); INR 1.18; PT 15.6 Sec (11.4-14.6)
[2024-04-03 21:23] LABS: ALT (SGPT) 87 U/L (0-50); AST (SGOT) 76 U/L (17-59); Albumin 4.7 g/dl (3.5-5.0); Alkaline Phosphatase 76 U/L (38-126); Blood Urea Nitrogen 16 mg/dl (9-20); Calcium 9.1 mg/dl (8.4-10.2); Carbon Dioxide 29 mmol/L (22-30); Chloride 96 mmol/L (98-107); Estimated Creatinine Clearance 93 ml/min; Glucose 97 mg/dl (70-99); Potassium 3.4 mmol/L (3.5-5.1); Sodium 135 mmol/L (135-145); Total Bilirubin 1.3 mg/dl (0.2-1.3); Total Protein 7.2 g/dl (6.3-8.2); eGFR > 60.00
[2024-04-03] MEDS: CRESTOR 10 MG PO (22:34)
[2024-04-03] MEDS: PROSCAR 5 MG PO (22:34)
[2024-04-03] MEDS: CYMBALTA DELAYED RELEASE 30 MG PO (22:34)
[2024-04-03] MEDS: MIRALAX PO (22:37)
--- NOTE | 2024-04-03 23:14 | PTCARENOTE ---
Received patient from ED via stretcher without issues. Patient orientated to room. Patient NPO. Afib on monitor. Patient resting in bed with call cai in reach.
[2024-04-04] VITALS (18 sets, daily range): BP systolic 95–133; BP diastolic 50–91; PULSE 80–82; O2SAT 92
--- NOTE | 2024-04-04 01:03 | PTCARENOTE ---
Transported patient to CT via bed without issue.
[2024-04-04 04:48] LABS: Hematocrit 44.3 % (39.0-52.0); Hemoglobin 15.5 g/dL (13.0-18.0); Mean Corpuscular Hgb 29.8 pg (27.0-31.0); Mean Corpuscular Volume 85.2 fL (80.0-94.0); Mean Platelet Volume 9.1 fL (7.4-10.4); Platelet Count 197 10^3/uL (130-400); Red Cell Dist. Width 12.8 % (11.5-14.5)
[2024-04-04 05:02] LABS: Blood Urea Nitrogen 16 mg/dl (9-20); Calcium 8.9 mg/dl (8.4-10.2); Carbon Dioxide 30 mmol/L (22-30); Chloride 97 mmol/L (98-107); Estimated Creatinine Clearance 93 ml/min; Glucose 103 mg/dl (70-99); Potassium 3.7 mmol/L (3.5-5.1); Sodium 137 mmol/L (135-145); eGFR > 60.00
[2024-04-04] MEDS: PROTONIX 20 MG PO (07:54)
[2024-04-04] MEDS: FLOMAX 0.4 MG PO (07:54)
[2024-04-04] MEDS: Hygroton 25 MG PO (07:54)
[2024-04-04] MEDS: CYMBALTA DELAYED RELEASE 30 MG PO ×2 (07:54→19:58)
[2024-04-04] MEDS: TOPROL XL 25 MG PO (07:54)
[2024-04-04] MEDS: MIRALAX 17 GRAMS PO ×2 (07:55→19:59)
--- NOTE | 2024-04-04 08:57 | W.PN.HOSP.TC ---
Addendum entered and electronically signed by Sherif Stein MD 04/04/24 21:23:
Attending Addendum-
I saw and evaluated the patient. I reviewed the resident�s note and agree with findings and plan as documented in the resident�s note. Sub: Complains of chronic neck pain radiating to left arm. 'I feel pretty good' Very pleasant. Denies SERRANO vision
changes weakness numbness tingling. Full 12 point ROS reviewed and negative except as documented Exam: Vitals reviewed in chart GEN-NAD heart irreg irreg lungs clear abd soft LE no edema Neruo AAO x 3 MS 5/ non ataxic gait neg finger to nose
sensation intact throughout PEERLA CN 2-12 GI EOMI
Plan:
# Traumatic Fall on NOAC with abnormal CT scan
- continue care in imu
- neurochecks per unit protocol
- hold asa
- repeated CT scan after 6 hours - no change
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
- vascular lesion incidentally found. not traumatic in nature.
- follow-up with cerebrovascular neurosurgery Dr. Armando- appt set for 04/25 by patients daughter
- appreciate NS input
- restart eliquis tonight
- PT/OT eval
- restart diet
# Influenza A pos
- was on prophylactic dose prior to admission due to exposure
- start treatment dose
- droplet precautions x 7 days and fever free x 24 hours
# HTN
- continue chlorthalidone
# Permanent AFIB
- telemetry
- continue metoprolol
- restart eliquis
# BPH
- continue tamsulosin
# RANDY
-CPAP 12 HS
# Psoriasis- cont cimzia
# Depression- cont duloxetine
# GERD- cont pantoprazole
DVT PPX - SCDs
Code status - Full Code
ACP
Patient consented to discuss, was alone, time spent explanation of advance directives, changes in health status, patient�s health care wishes if the patient becomes unable to make health decisions, goals of care, code status, and prognosis- 16
minutes
Time spent coordinating care, review of plan of care with resident, personally reviewed previous records in EMR, med rec, labs, radiology, d/w nursing, family total time documented is exclusive of any additional time listed that was spent in advance
care planning discussion -�56 minutes
Original Note:
Today's Communication/Plan
-
Will follow with neurosurgery
Brain MRI done
Can advance diet and resume Eliquis/aspirin if no plans by neurosurgery
OT PT
Assessment / Plan
Assessment / Plan
73-year-old mal with PMH of Afib on Eliquis, BPH, essential HTN, and HLD who presented to the ED with traumatic head injury after a mechanical fall. Patient was trying to remove a broken tree log from his yard, when he slipped on black ice and hit
his head on a piece of stone, resulting in a minor abrasion on his left forehead. Denies losing consciousness, nausea, or vomiting after hitting head. However, mentions difficulties getting up and had to seek help from his .
Initial head CT scan, 04/03/24, 16:27:
there is a focus of increased density in the left superior cerebellar peduncle and extending into the adjacent anteromedial left cerebellar hemisphere. With a history of recent fall, one consideration would be a focus of intraparenchymal hemorrhage.
Differential consideration of a high density mass, and neoplasia is a possibility.
Consider further evaluation with MRI of the brain without and with contrast if there are no contraindications. Continued CT follow-up could also be considered
Second head CT scan, 04/04/24, 12 AM
No significant change in previously described increased attenuation in the left superior cerebellar peduncle and anteromedial margin of the left cerebellar hemisphere. No extra-axial collection or hemorrhage.
# Traumatic head injury status post mechanical fall
-Patient admitted to IMU for further evaluation
-At baseline mentation; denies any headache, lightheadedness/dizziness, gait imbalance, nausea, vomiting, changes in his vision at the time of visit
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
-Continue to hold Eliquis and aspirin
-Neurosurgery consulted-[place] texted Dr. Cosby on and informed him about MRI result and inquired about additional plans�waiting to hear back
-Keep n.p.o. (with pral med allowance) until neurosurgery confirms no plans for surgery
# Essential HTN
-Blood pressure well-controlled at this time
-Continue home chlorthalidone
#Paroxysmal Afib
-Continue home metoprolol
-Monitor on telemetry
-Continue to hold Eliquis
# CAD status post stent
-Continue to hold aspirin
#BPH
-Continue Tamsulosin
#Psoriatic Arthritis
-Continue Cimzia
# Hyperlipidemia
- Continue Crestor
#Depression
-Continue Duloxetine
#RANDY
-CPAP at night
DVT prophylaxis
SCDs
Code status
Full Code
Anticipated Discharge: Within 24 hours
Subjective/Interval History
-
Date of Service: April 04, 2024
Patient does not offer any complaints. Mentions he is anxious about his MRI report.
Objective Data
-
Labs:
Laboratory Results
04/03/24 04/04/24
20:24 04:15
WBC 5.0
Hgb 15.5
Hct 44.3
Plt Count 197
Sodium 135 137
Potassium 3.4 L 3.7
Chloride 96 L 97 L
Carbon Dioxide 29 30
BUN 16 16
Creatinine 0.8 0.8
Glucose 97 103 H
Calcium 9.1 8.9
Total Bilirubin 1.3
AST 76 H
ALT 87 H
Alkaline Phosphatase 76
Vital Signs:
Vital Signs
Temp Pulse Resp BP Pulse Ox
98.2 F 79 24 128/86 93
04/04/24 07:21 04/04/24 06:00 04/04/24 06:00 04/04/24 06:00 04/04/24 06:00
I&O
04/03/24 04/04/24 04/05/24
06:59 06:59 06:59
Output Total 250 / 250
Balance -250 / -250
Review of Systems
-
History Source: Patient
All other systems: Reviewed and negative
Physical Exam
-
General: Well Developed, Well Nourished and No Apparent Distress
HEENT: Normocephalic, Moist Mucous Membranes and Other (1.5 cm superficial abrasion on left forehead)
Respiratory: Clear to Auscultation; Negative Wheezes, Rales, Rhonchi or Crackles
Cardiac: Regular Rhythm and S1/S2
GI: Soft, Nontender, Nondistended and Normal Bowel Sounds
Musculoskeletal: No Clubbing, No Cyanosis and No Edema
Skin: Warm and Dry
Neuro: Awake, Alert, Oriented, AO x 3 and No Motor Deficits; Negative Tremors, No Sensory Deficits, Slurred Speech or Facial Droop
Psych: Calm and Intact Judgement/Insight
--- NOTE | 2024-04-04 14:33 | PTCARENOTE ---
pt transferred to [facility]. ptransported via ambulance. report given to recieving alicia Gonzalez.
--- NOTE | 2024-04-04 15:08 | PTOTSP ---
Pt denies pain, denies dizziness or lightheadedness. He is able to get OOB and ambulate in room easily without an assistive device. Unable to assess on stairs due to being on droplet isolation, but I do not anticipate pt would have any difficulty.
PT will sign off.
--- NOTE | 2024-04-04 16:05 | CM ---
Patient with Dx traumatic head injury after a mechanical fall. CT Head & Brain MRI today. Room air. PT Eval; no skilled PT needed.
Met with patient and Dagoberto.
The patient resides with his in a 2 story house.
The patient was independent in ADLs and ambulation.
DME - CPAP
Prior VN - can't remember agency
SNF - none
PCP - Giacomo Miller
Pharmacy - [facility]
CM continuing to follow for d/c needs.
Plan home.
--- NOTE | 2024-04-04 17:11 | CON.NS ---
Consultation
-
Date/Time Consultation Performed: 04/04/2024;17:12
Performing Provider: Day
Chief Complaint
History of Present Illness
This is a consultation on a 73-year-old gentleman with a active medical history including atrial fibrillation, on anticoagulation, hypertension, who presented after mechanical fall where he struck his head the day prior. He reported that he was
walking in his yard trying to cut pieces of branches that had fallen to the ground due to the extensive winds. He denies any loss consciousness. He reported that he tripped and fell while moving pieces of logs around and hit his head on his piece
of stone. Patient then went to sleep that evening. He denied having any headaches. He ultimately called his primary care physician the day after, who, given his history of being on an anticoagulant, requested a CT scan. Patient had a CT of the
head performed yesterday afternoon, and based on abnormal results, advised to present to the emergency room. He was noted to be mildly hypertensive in the emergency room with a systolic blood pressure in the 180s. He had a noncontrast head CT,
which demonstrated an area of focused increased density within the left superior cerebellar peduncle. Neurosurgery was consulted. Differential diagnosis included hemorrhage, mass.
Patient seen and examined. Offers no complaints. Denies any headache. Does not have any chronic headaches.
Denies any nausea or vomiting. Denies having any prior cranial imaging in the past.
Review of Systems
-
10 point review of systems including constitutional, ENT, cardiovascular, respiratory, GI, , neurological, hematological, endocrinological, musculoskeletal was performed and was negative except for as stated in HPI.
Medication and Allergies
Home Medications
Home Medications
�Medication �Instructions �Recorded
chlorthalidone 25 mg tablet 25 mg PO DAILY Blood pressure 05/31/18
duloxetine 30 mg capsule,delayed 30 mg PO BID Mental Health/Anxiety 05/31/18
release
metoprolol succinate 25 mg 25 mg PO DAILY Blood pressure 05/31/18
tablet,extended release 24 hr
rosuvastatin 10 mg tablet (Crestor) 10 mg PO HS High cholesterol 05/31/18
apixaban 5 mg tablet (Eliquis) 5 mg PO BID Blood Clot 03/05/20
Prevention/Tx
certolizumab pegol 400 mg/2 mL 400 mg SC Q4W Autoimmune Disorder 12/20/23
(200 mg/mL x2) subcutaneous
syringe kit (Cimzia)
pantoprazole 20 mg tablet,delayed 20 mg PO DAILY Blood Pressure 12/20/23
release
therapeutic multivitamin 1 tab PO DAILY Supplement 12/20/23
tamsulosin 0.4 mg capsule 0.4 mg PO DAILY #30 caps 12/21/23
aspirin 81 mg chewable tablet 81 mg PO HS 04/03/24
finasteride 5 mg tablet 5 mg PO HS 04/03/24
oseltamivir 75 mg capsule (Tamiflu) 75 mg PO DAILY 04/03/24
polyethylene glycol 3350 17 gram 17 g PO BID 04/03/24
oral powder packet (Miralax)
psyllium husk 3.4 gram/5.4 gram 2 tbsp PO BID 04/03/24
oral powder (Metamucil)
Allergies
Allergies
Allergy/AdvReac Type Severity Reaction Status Date / Time
oxycodone Allergy hallucinati Verified 04/03/24 17:38
ons
Physical Exam
-
Exam:
Awake, alert, no apparent distress.
Pupils are equal reactive to light.
Extraocular movements are full, without any nystagmus.
Face symmetric, tongue is midline.
Motor: 5/5 strength bilaterally in upper extremities and lower extremities with no evidence of pronator drift.
No evidence of dysmetria on finger-nose testing.
Head is normocephalic atraumatic
Neck is supple
Breathing nonlabored
Cardiac: Atrial fibrillation
Abdomen is soft, nondistended
Extremities warm
Noncontrast CT scan of the head performed on 04/03/2024 at approximately 4:30 PM was reviewed. This was also compared with follow-up CT performed on 04/04/2024 at approximately 4:35 AM. There is stable appearance of hyperdensity along the left
aspect of the midbrain extending into the cerebellum, superior cerebellar peduncle, which could be consistent with possible ICH versus underlying mass lesion. Images were personally viewed and interpreted by me.
MRI of the brain with and without contrast performed on 04/04/2024 at approximately 8:30 AM was reviewed. Images were personally reviewed by me. DWI imaging studies do not demonstrate any obvious evidence of stroke. Gradient echo imaging studies
do demonstrate blooming artifact in this area of concern. No obvious evidence of FLAIR signal hyperintensity surrounding this area is noted to suggest vasogenic edema. Postcontrast imaging studies demonstrates this to be likely closely associated
with possible superior cerebellar vein as it appears to be draining into dural venous sinus. Differential diagnosis could be dural AV fistula, venous aneurysm with associated arteriovenous lesion. No obvious evidence of acute hemorrhage is seen.
Problems
-
Problem Status Onset Code
Abnormal CT of the head R93.0
Assessment / Plan
-
This is 73-year-old gentleman who presents for evaluation after sustaining mechanical fall, on Eliquis. His initial and follow-up head CT have been stable. He does demonstrate vascular lesion which appears to be incidentally found. This is not
traumatic in nature. However, I would recommend that he follow-up with cerebrovascular neurosurgery either at [place] (Dr. Armando) or [facility] for further secondary consultation regarding this. No immediate/urgent
neurosurgical intervention is needed/indicated at this time. Patient cleared to continue with Eliquis. Okay for discharge from neurosurgical standpoint.
Patient can go home per my specialty: Today
[2024-04-04] MEDS: PROSCAR 5 MG PO (19:58)
[2024-04-04] MEDS: CRESTOR 10 MG PO (19:58)
[2024-04-04] MEDS: TAMIFLU 75 MG PO (19:58)
--- NOTE | 2024-04-04 20:30 | PTCARENOTE ---
Assumed care of Pt at start of shift; Pt ambulatory in room without issue. Denies pain; Droplet precautions for Flu +, asymptomatic. Remains A-Fib on monitor, rate controlled. TT with hospitalist - to restart Suraj williamson. Med provided to
Pt. Will continue to monitor and assess.
[2024-04-04] MEDS: ELIQUIS 5 MG PO (21:33)
[2024-04-05] VITALS (8 sets, daily range): BP systolic 110–127; BP diastolic 58–91; PULSE 71
[2024-04-05 05:08] LABS: Hematocrit 44.5 % (39.0-52.0); Hemoglobin 15.7 g/dL (13.0-18.0); Mean Corp Hgb Conc. 35.3 g/dL (33.0-37.0); Mean Corpuscular Hgb 29.9 pg (27.0-31.0); Mean Corpuscular Volume 84.8 fL (80.0-94.0); Mean Platelet Volume 9.1 fL (7.4-10.4); Platelet Count 201 10^3/uL (130-400); Red Blood Cell Count 5.25 10^6/uL (4.70-6.10); Red Cell Dist. Width 12.6 % (11.5-14.5); White Blood Cell Count 4.7 10^3/uL (4.8-10.8)
[2024-04-05 05:34] LABS: Blood Urea Nitrogen 22 mg/dl (9-20); Calcium 8.9 mg/dl (8.4-10.2); Carbon Dioxide 34 mmol/L (22-30); Chloride 99 mmol/L (98-107); Estimated Creatinine Clearance 106 ml/min; Glucose 122 mg/dl (70-99); Potassium 3.7 mmol/L (3.5-5.1); Sodium 139 mmol/L (135-145); eGFR > 60.00
[2024-04-05] MEDS: PROTONIX 20 MG PO (08:02)
[2024-04-05] MEDS: MIRALAX 17 GRAMS PO (08:02)
[2024-04-05] MEDS: CYMBALTA DELAYED RELEASE 30 MG PO (08:02)
[2024-04-05] MEDS: FLOMAX 0.4 MG PO (08:03)
[2024-04-05] MEDS: TAMIFLU 75 MG PO (08:03)
[2024-04-05] MEDS: Hygroton 25 MG PO (08:03)
[2024-04-05] MEDS: TOPROL XL 25 MG PO (08:03)
[2024-04-05] MEDS: ELIQUIS 5 MG PO (08:03)
--- NOTE | 2024-04-05 08:23 | W.PN.HOSP.TC ---
Addendum entered and electronically signed by Sherif Stein MD 04/05/24 23:56:
Attending Addendum-
I saw and evaluated the patient. I reviewed the resident�s note and agree with findings and plan as documented in the resident�s note. Sub: NAEON, No complaints. Very pleasant. Denies SERRANO vision changes weakness numbness tingling. Full 12 point ROS
reviewed and negative except as documented Exam: Vitals reviewed in chart GEN-NAD heart irreg irreg lungs clear abd soft LE no edema Neuro AAO x 3 MS 5/5 non ataxic gait JULIANA, CN 2-12 GI, EOMI
Plan:
# Traumatic Fall on NOAC with abnormal CT scan
- neurochecks per unit protocol
- restart asa on DC
- repeat CT scan after 6 hours - no change
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
- vascular lesion incidentally found. not traumatic in nature.
- follow-up with cerebrovascular neurosurgery Dr. Armando- appt set for 04/25 by patients daughter
- appreciate NS input
- restarted eliquis
# Influenza A pos
- was on prophylactic dose prior to admission due to exposure
- cont treatment dose
- droplet precautions x 7 days and fever free x 24 hours
# HTN
- continue chlorthalidone
# Permanent AFIB
- telemetry
- continue metoprolol
- restarted eliquis
# BPH
- continue tamsulosin
# RANDY
-CPAP 12 HS
# Psoriasis- cont cimzia
# Depression- cont duloxetine
# GERD- cont pantoprazole
DVT PPX - SCDs
Code status - Full Code
Time spent coordinating care, DC planning, review of DC plan of care with resident, transition of care, review of records, med rec/scripts sent electronically, consults, notes, d/w consultants, nursing, daughter, and CM� 33 mins
Original Note:
Today's Communication/Plan
-
Confirmed with Neurosurgery that it is OK to resume both Aspirin and Eliquis
Can be discharged to home today- Cont Tamiflu BID for another 4 days after discharge
Outpatient follow-up appointment set for 04/[address] Armando at [facility]
Assessment / Plan
Assessment / Plan
73-year-old mal with PMH of Afib on Eliquis, BPH, essential HTN, and HLD who presented to the ED with traumatic head injury after a mechanical fall. Patient was trying to remove a broken tree log from his yard, when he slipped on black ice and hit
his head on a piece of stone, resulting in a minor abrasion on his left forehead. Denies losing consciousness, nausea, or vomiting after hitting head. However, mentions difficulties getting up and had to seek help from his .
Initial head CT scan, 04/03/24, 16:27:
there is a focus of increased density in the left superior cerebellar peduncle and extending into the adjacent anteromedial left cerebellar hemisphere. With a history of recent fall, one consideration would be a focus of intraparenchymal hemorrhage.
Differential consideration of a high density mass, and neoplasia is a possibility.
Consider further evaluation with MRI of the brain without and with contrast if there are no contraindications. Continued CT follow-up could also be considered
Second head CT scan, 04/04/24, 12 AM
No significant change in previously described increased attenuation in the left superior cerebellar peduncle and anteromedial margin of the left cerebellar hemisphere. No extra-axial collection or hemorrhage.
# Traumatic head injury status post mechanical fall
-Patient admitted to IMU for further evaluation
-At baseline mentation; denies any headache, lightheadedness/dizziness, gait imbalance, nausea, vomiting, changes in his vision at the time of visit
-Brain MRI done this morning suggesting cerebral varix with possible underlying cavernoma-no acute abnormalities
-Continue to hold Eliquis and aspirin
- Appreciate neurosurgery -would recommend that he follow-up with cerebrovascular neurosurgery either at [place] (Dr. Armando) or [facility] for further secondary consultation regarding this. No immediate/urgent
neurosurgical intervention is needed/indicated at this time. Patient cleared to continue with Eliquis. Okay for discharge from neurosurgical standpoint.
# Essential HTN
-Blood pressure well-controlled at this time
-Continue home chlorthalidone
#Paroxysmal Afib
-Continue home metoprolol
-Monitor on telemetry
- Cleared by neurosurgery yesterday fo resuming Eliquis-Had PM Eliquis last night and AM dose this morning
# CAD status post stent
- TT'ed Dr. Bernstein- Ok to cont aspirin
#BPH
-Continue Tamsulosin
#Psoriatic Arthritis
-Continue Cimzia
# Hyperlipidemia
- Continue Crestor
#Depression
-Continue Duloxetine
#RANDY
-CPAP at night
DVT prophylaxis
on Eliquis
Code status
Full Code
Anticipated Discharge: Today
Subjective/Interval History
-
Date of Service: April 05, 2024
Does not offer any complaints.
Objective Data
-
Labs:
Laboratory Results
04/05/24
04:50
WBC 4.7 L
Hgb 15.7
Hct 44.5
Plt Count 201
Sodium 139
Potassium 3.7
Chloride 99
Carbon Dioxide 34 H
BUN 22 H
Creatinine 0.7
Glucose 122 H
Calcium 8.9
Vital Signs:
Vital Signs
Temp Pulse Resp BP Pulse Ox
98.5 F 89 21 117/91 96
04/05/24 07:25 04/05/24 08:03 04/05/24 06:00 04/05/24 08:03 02/20/25 23:00
I&O
04/04/24 04/05/24 04/06/24
06:59 06:59 06:59
Intake Total 830 / 830
Output Total 250 / 250 250 / 250
Balance -250 / -250 580 / 580
Review of Systems
-
History Source: Patient
All other systems: Reviewed and negative
Respiratory: Reports Cough (occasional coughs and PND)
Physical Exam
-
General: Well Developed, Well Nourished and No Apparent Distress
HEENT: Normocephalic, Moist Mucous Membranes and Other (1.5 cm superficial abrasion on left forehead)
Respiratory: Clear to Auscultation; Negative Wheezes, Rales, Rhonchi or Crackles
Cardiac: Regular Rhythm and S1/S2
GI: Soft, Nontender, Nondistended and Normal Bowel Sounds
Musculoskeletal: No Clubbing, No Cyanosis and No Edema
Skin: Warm and Dry
Neuro: Awake, Alert, Oriented, AO x 3 and No Motor Deficits; Negative Tremors, No Sensory Deficits, Slurred Speech or Facial Droop
Psych: Calm and Intact Judgement/Insight
--- NOTE | 2024-04-05 12:13 | CM ---
Met with patient who was preparing for discharge. The patient says he feels ready to go home today. IMM completed. Patient declined offer for VN for nurse check, saying his daughter Yasmin Clark, lives next door and would be available to
assist him as needed. A family member will provide transport home today.
No CM d/c needs identified.
Plan home today.
--- NOTE | 2024-04-05 12:14 | PTCARENOTE ---
Assumed care of patient at beginning of this shift from previous RN. Remains afib on monitor. Denies h/a, dizziness, SOB; ambulates with steady gait. Patient for discharge; will bring him home. All d/c instructions provided; med list reviewed
and given. Patient stated he has tamiflu at home that had been prescribed to him prior to admission. See worklist for full assessment.
--- NOTE | 2024-04-05 20:37 | W.DCSUMMARY ---
Addendum entered and electronically signed by Sherif Stein MD 04/05/24 23:57:
Read, reviewed, and agree. See same day progress note for additional details. D/W NS on DC
Jermaine Stein MD
Original Note:
Documented by User: Lito Melendez MD, Resident 04/05/24 21:09
Discharge Summary
Discharge Data
Date of Admission: 04/03/24
Date of Discharge: 04/05/24
-
Pending Results: No
Hospital Course
Patient is 73-year-old male with PMH of Afib on Eliquis who reported slipping on black ice and hitting his head on a piece of stone while trying to remove a broken tree log, which resulted in minor abrasion of left forehead. He denied losing
consciousness, nausea, or vomiting after hitting his head and went back to sleep. He visited his PCP the next morning, who requested a head CT scan. He was referred to the ED by his PCP after CT showed a focus of increased density in the left
superior cerebellar peduncle concerning for intraparenchymal hemorrhage vs neoplasia. A repeat CT was obtained six hours later which showed no significant change in previously described lesion. Patient was admitted to IMU for observation.
Problem list:
1. Traumatic Fall on Eliquis and aspirin with abnormal CT scan
Eliquis and Aspirin were held and neurosurgery was consulted. Brain MRI showed no ICH and findings were most in keeping with a cerebral varix (cerebral venous aneurysm) along the superior margin of the left middle cerebellar peduncle/cerebellar
vermis, with possible underlying cavernoma. MRI was also read by neurosurgery who confirmed this to be an incidentally found vascular lesion, which is not traumatic in nature. No immediate/urgent neurosurgical intervention was needed/indicated and
patient was cleared to resume Eliquis and aspirin by neurosurgery. Outpatient follow-up appointment has been set with cerebrovascular neurosurgery (Dr. Armando) for 04/25 at [facility].
2. Influenza A
Patient tested positive for Influenza A during stay. He was placed on droplet precautions and Tamiflu 75 BID was started. Remained afebrile during stay.
3. Rest of chronic conditions, including HTN and BPH were managed as prior to admission.
New changes in medications include Tamiflu 75 BID for another 4 days (patient has already received 3 doses). Rest of medications should be continued as prior to admission.
We recommend follow-up as OP with Dr. Armando on 04/25.
Discharge Plan
-
Patient Disposition: Home (Routine Discharge)
Discharge Diagnosis/Procedures: Traumatic fall with abnormal CT scan (on Eliquis)
Condition: Good
Diet: No restrictions
Activity: No restrictions
Driving Restrictions: As prior to admission
Bathing Restrictions: None
Referrals:
Doris Armando MD [Non-Admitting Privileges] - 04/25/24
Giacomo Miller MD [Family Provider] - in less than 1 week
Prescriptions:
New
oseltamivir 75 mg Capsule
75 mg PO BID 4 Days Qty: 7 0RF
Continued
chlorthalidone 25 MG tablet
25 mg PO DAILY
rosuvastatin [Crestor] 10 MG tablet
10 mg PO HS
metoprolol succinate 25 MG tablet extended release 24 hr
25 mg PO DAILY
duloxetine 30 MG capsule,delayed release(DR/EC)
30 mg PO BID
Eliquis 5 MG tablet
5 mg PO BID
therapeutic multivitamin Tablet
1 tab PO DAILY
pantoprazole 20 mg Tablet,Delayed Release (Dr/Ec)
20 mg PO DAILY
Cimzia 400 mg/2 mL (200 mg/mL x 2) Syringe Kit
400 mg SC Q4W
tamsulosin 0.4 mg Capsule
0.4 mg PO DAILY Qty: 30 0RF
polyethylene glycol 3350 [Miralax] 17 gram Powder In Packet
17 g PO BID
aspirin 81 mg Tablet,Chewable
81 mg PO HS
finasteride 5 mg Tablet
5 mg PO HS
Metamucil 3.4 gram/5.4 gram Powder
2 tbsp PO BID
Discontinued
oseltamivir [Tamiflu] 75 mg Capsule
75 mg PO DAILY
Discharge Orders:
Discharge Patient (As Directed); Ordered 04/05/24
Ordered By: Lito Melendez
Discharge Date and Time
Discharge Date/Time: 04/05/24 12:30
Print Language: SLOVENIAN

Documented by User: Sherif Stein MD 04/05/24 23:53
Discharge Summary
Discharge Data
Date of Admission: 04/03/24
Date of Discharge: 04/05/24
Discharge Plan
-
Patient Disposition: Home (Routine Discharge)
Discharge Diagnosis/Procedures: Traumatic fall with abnormal CT scan (on Eliquis)
Condition: Good
Diet: No restrictions
Activity: No restrictions
Driving Restrictions: As prior to admission
Bathing Restrictions: None
Referrals:
Doris Armando MD [Non-Admitting Privileges] - 04/25/24
Giacomo Miller MD [Family Provider] - in less than 1 week
Prescriptions:
New
oseltamivir 75 mg Capsule
75 mg PO BID 4 Days Qty: 7 0RF
Continued
chlorthalidone 25 MG tablet
25 mg PO DAILY
rosuvastatin [Crestor] 10 MG tablet
10 mg PO HS
metoprolol succinate 25 MG tablet extended release 24 hr
25 mg PO DAILY
duloxetine 30 MG capsule,delayed release(DR/EC)
30 mg PO BID
Eliquis 5 MG tablet
5 mg PO BID
therapeutic multivitamin Tablet
1 tab PO DAILY
pantoprazole 20 mg Tablet,Delayed Release (Dr/Ec)
20 mg PO DAILY
Cimzia 400 mg/2 mL (200 mg/mL x 2) Syringe Kit
400 mg SC Q4W
tamsulosin 0.4 mg Capsule
0.4 mg PO DAILY Qty: 30 0RF
polyethylene glycol 3350 [Miralax] 17 gram Powder In Packet
17 g PO BID
aspirin 81 mg Tablet,Chewable
81 mg PO HS
finasteride 5 mg Tablet
5 mg PO HS
Metamucil 3.4 gram/5.4 gram Powder
2 tbsp PO BID
Discontinued
oseltamivir [Tamiflu] 75 mg Capsule
75 mg PO DAILY
Discharge Orders:
Discharge Patient (As Directed); Ordered 04/05/24
Ordered By: Lito Melendez
Discharge Date and Time
Discharge Date/Time: 04/05/24 12:30
Print Language: SLOVENIAN
== END 2024-04-05 12:30 | disposition home or self-care (01) | DRG 604 ==
LOC: IMU 08:00
PROVIDERS: Nurse Practitioner Family; Physician Assistant; ADMITTING PHYSICIAN Internal Medicine; ATTENDING PHYSICIAN Family Medicine; EMERGENCY PHYSICIAN Emergency Medicine; FAMILY PHYSICIAN Internal Medicine; OTHER PHYSICIAN Neurological Surgery
DX: S00.81XA Abrasion of other part of head, initial encounter (principal); Q28.3 Other malformations of cerebral vessels; J10.1 Influenza due to other identified influenza virus with other respiratory manifestations; I25.10 Atherosclerotic heart disease of native coronary artery without angina pectoris; I10 Essential (primary) hypertension; E78.00 Pure hypercholesterolemia, unspecified; I48.0 Paroxysmal atrial fibrillation; F32.A Depression, unspecified; G47.33 Obstructive sleep apnea (adult) (pediatric); L40.50 Arthropathic psoriasis, unspecified; N40.0 Benign prostatic hyperplasia without lower urinary tract symptoms; W00.0XXA Fall on same level due to ice and snow, initial encounter; Z96.652 Presence of left artificial knee joint; Z96.641 Presence of right artificial hip joint; Z88.5 Allergy status to narcotic agent; Z79.82 Long term (current) use of aspirin; Z79.01 Long term (current) use of anticoagulants; Z79.899 Other long term (current) drug therapy; Z95.5 Presence of coronary angioplasty implant and graft
CPT/HCPCS: 70450; 70553; 80048; 80053; 85025; 85027; 85610; 85730; 87502; 94660; 97162; 97165; 99285; G0378

== ENCOUNTER 2024-04-25 08:01 | Inpatient (IN) | payer MEDICARE, SELFPAY ==
[2024-04-25 08:10] VITALS: BP 116/73
--- NOTE | 2024-04-25 08:13 | CON.CAR ---
Addendum entered and electronically signed by Ml Velazquez MD 04/25/24 11:38:
I spoke to an updated the patient's daughter Anabell Clark. She also gave us quite a bit of information regarding his past medical history.
Addendum entered and electronically signed by Ml Velazquez MD 04/25/24 11:29:
I saw and examined the patient.
The Optomechanical Engineer's note was reviewed and I agree with the note.
Patient is a very pleasant man. His is at the bedside. He had sudden cardiac while swimming in the pool at the [facility] as noted. He had swam an hour according to bystanders in the last 5 to 10 minutes he was starting and stopping. He has
had no decline in activity level or chest discomfort and even cutting wood within the week prior to this occurrence. First rhythm was torsades. He was resuscitated/shocked/medications/intubated/cooling protocol. Details below. He has some mild
short-term memory loss but otherwise is doing well and can answer questions. He has known history of aortic valve stenosis. Prior history of coronary artery disease with stent in 2003. Currently no chest pain or palpitations. He has atrial
fibrillation with dose of Eliquis last night at [place]. Currently he is hemodynamically stable. Labs, chest x-ray and EKG pending. He has a known cerebral venous aneurysm which has been being assessed. Initially felt to be inconsequential.
Echocardiogram performed here today with ejection fraction 60 to 65%. Basal inferior akinesis (which was not described on report of last echo but visually present on [id number]-iv-[id number] comparison). Trace MR. Severe with peak/mean gradient 73/36
mmHg. Aortic valve area 0.8 cm�. PA pressure normal.
Exam: Heart: Irregularly irregular with 4/6 crescendo decrescendo murmur at the base radiating throughout
Lungs: Coarse breath sounds anteriorly bilaterally.
Abdomen: Soft nontender nondistended
Extremities: No clubbing cyanosis or edema
Neuro: Some short-term memory loss noted
Comment: Impression:
Out of hospital cardiac arrest 04/23/2024-postresuscitation Targeted temperature management performed at [facility]
Transferred to for cardiac catheterization and possible ICD 04/25/2024
Severe aortic valve stenosis echo 04/25/2024 [facility].
Tongue laceration, s/p sutures x2 at [facility] 04/23/24
s/p VDRF 04/23/2024 until 04/24/2024
CAD s/p 2.5 mm Cypher SIMEON to the mid to distal LAD 11/04/2003
Abnormal stress test with basal inferior and basal inferolateral segment fixed defect c/w infarction 01/31/23
Permanent A-fib
Chronic Eliquis OAC
Last dose of Eliquis 04/24/2024 PM
Hyperlipidemia
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
Venous cerebral aneurysm seen on MRI 04/04/[address] Bernstein at 04/04/24 and then scheduled for f/u with neurosurgeon at [place] 04/25/24, missed appt due to admission
Plan:
Spoke to patient and his at great length. Patient continues to recover status post cardiac arrest with first rhythm being torsades. No premonitory symptoms for days leading up to event. He was active without decline prior.
Severe aortic valve stenosis noted by echocardiogram. In addition inferior basal akinetic wall consistent with scar noted on echocardiogram today, visually 12/2023 and on stress testing 01/2023.
Sudden could have been in part related to aortic valve stenosis but cannot exclude primary arrhythmogenic event despite ejection fraction being normal. Noted scar in the inferobasal area may be disposed to ventricular arrhythmia.
Sudden cardiac with first rhythm being torsades
-Given recent dose of Eliquis 04/24/2024 delay cardiac catheterization. Consider tomorrow pending status. Patient currently clinically stable.
-Follow telemetry
-Patient will need aortic valve surgery/replacement this admission for severe aortic valve stenosis.
-Await coronary anatomy
-Check EKG and labs
-Echocardiogram reviewed and noted. Discussed with family at the bedside. Have discussed with electrophysiology. Given sudden cardiac , inferobasal scar of significance will need defibrillator prior to discharge.
Severe aortic valve stenosis
-Certainly may be contributing to recent event
-Aortic valve replacement this admission.
-Await cardiac catheterization
Coronary artery disease
-Await catheterization
-Basal inferior scar
-Risk factor modification
Permanent atrial fibrillation
-Transition Eliquis to heparin for now
-Continue rate control
Neurologic status
-Memory loss postcode follow. Neurology consult.
-Neurology consult given that patient will need aortic valve replacement plus or minus CABG. Noted to have cerebral venous aneurysm. This was being evaluated
Tongue laceration
-Primary service to assess recommend ENT assessment prior to sedation.
Possible aspiration
-Await chest x-ray
-Defer to primary service recommends pulmonary assessment
Original Note:
Consultation
Consultation Request
Date/Time Consultation Requested: 04/25/24
Date/Time Consultation Performed: 04/25/24
Requesting Provider: Dr. Powell
Performing Provider: Dr. Ml Velazquez
Reason for Consultation: Out of hospital cardiac arrest, mod-sev
Medical History
-
History of Present Illness:
Patient came to today as a transfer from [facility] for cardiac cath and cardiology has been consulted. Patient was admitted to [facility] on 04/23/24 after a witnessed out of hospital cardiac arrest while swimming for exercise at a local pool. Patient was
removed from the pool immediately and there was no suggestion of inhaled or ingested water. Bystanders started CPR immediately and AED was applied with 2 defibrillations followed by EMS arrival who found the patient to be in pulseless VT and
administered 2 additional defibrillations along with lidocaine x 1 and epinephrine x 1 resulting in ROSC. Patient was intubated upon arrival to [facility] and there was also initial concern for posturing, left to right slow nystagmus and myoclonic
movements along with considerable oral bleeding, but no overt tonic-clonic movement was seen and Ceribell device application indicated no seizures. ECG did not show ST elevation and CT of the head only showed a known cerebral venous aneurysm.
Patient underwent targeted temperature management and was warmed and extubated yesterday. Patient was recommended cardiology evaluation including cardiac catheterization and his daughter, who is a local PCP to and also part of the residency
program here at , requested transfer to .
PMH:
Out of hospital 04/23/2024
Immediate bystander CPR with 2 defibrillations by AED, EMS administered 2 additional shocks for pulseless VT, 1 amp lidocaine and 1 amp epi given with ROSC
Concern for xatt-xv-ihdvb slow nystagmus and myoclonic movements on admission to [facility], but no overt tonic-clonic movement
s/p VDRF 04/23/2024 until 04/24/2024
Targeted temperature management performed at [facility] 04/23/2024
CAD s/p 2.5 mm Cypher SIMEON to the mid to distal LAD 11/04/2003
Abnormal stress test with basal inferior and basal inferolateral segment fixed defect c/w infarction 01/31/23
Permanent A-fib
Chronic Eliquis OAC
Last dose of Eliquis 04/24/2024 PM
Moderate to severe mean gradient 27 mmHg by echo at 12/19/2023 and mean gradient 22.4 mmHg by echo at [facility] 04/24/2024
Hyperlipidemia
Past Medical History
Past Medical History: Other (in HPI)
Past Surgical History: Cardiac (Cypher to LAD 2003), Cholecystectomy and Orthopedic
Social History
Tobacco: Former Smoker
Alcohol: None
Drug: None
Personal:
Living: With Family
Family History
Family History: CAD and Other (Afib)
Allergies / Home Medications
Allergy/AdvReac Type Severity Reaction Status Date / Time
oxycodone Allergy hallucinati Verified 04/03/24 17:38
ons
�Medication �Instructions �Recorded �Confirmed �Type
chlorthalidone 25 mg tablet 25 mg PO DAILY Blood pressure 05/31/18 04/03/24 History
duloxetine 30 mg capsule,delayed 30 mg PO BID Mental Health/Anxiety 05/31/18 04/03/24 History
release
metoprolol succinate 25 mg 25 mg PO DAILY Blood pressure 05/31/18 04/03/24 History
tablet,extended release 24 hr
rosuvastatin 10 mg tablet (Crestor) 10 mg PO HS High cholesterol 05/31/18 04/03/24 History
apixaban 5 mg tablet (Eliquis) 5 mg PO BID Blood Clot 03/05/20 04/03/24 History
Prevention/Tx
certolizumab pegol 400 mg/2 mL 400 mg SC Q4W Autoimmune Disorder 12/20/23 04/03/24 History
(200 mg/mL x2) subcutaneous
syringe kit (Cimzia)
pantoprazole 20 mg tablet,delayed 20 mg PO DAILY Blood Pressure 12/20/23 04/03/24 History
release
therapeutic multivitamin 1 tab PO DAILY Supplement 12/20/23 04/03/24 History
tamsulosin 0.4 mg capsule 0.4 mg PO DAILY #30 caps 12/21/23 04/03/24 Rx
aspirin 81 mg chewable tablet 81 mg PO HS 04/03/24 04/03/24 History
finasteride 5 mg tablet 5 mg PO HS 04/03/24 04/03/24 History
polyethylene glycol 3350 17 gram 17 g PO BID 04/03/24 04/03/24 History
oral powder packet (Miralax)
psyllium husk 3.4 gram/5.4 gram 2 tbsp PO BID 04/03/24 04/03/24 History
oral powder (Metamucil)
oseltamivir 75 mg capsule 75 mg PO BID 4 days #7 caps 04/05/24 Rx
Review of Systems
-
History Source: Patient
All other systems: Negative unless noted
Physical Exam
Vital Signs
116/73, HR 76, RR 18, pulse ox 98% on RA, temp 98.4 �F
Lab Results
CBC and CMP ordered by me now
Impression / Plan
-
PCP: Dr. Som Miller
Cardiology: Previously Dr. Boucher
Impression:
Admitted to [facility] with out of hospital cardiac arrest 04/23/2024
Transferred to for cardiac catheterization and possible ICD 04/25/2024
Out of hospital 04/23/2024
Immediate bystander CPR with 2 defibrillations by AED, EMS administered 2 additional shocks for pulseless VT, 1 amp lidocaine and 1 amp epi given with ROSC
Concern for ecuq-cp-xgqrb slow nystagmus and myoclonic movements on admission to [facility], but no overt tonic-clonic movement
Tongue laceration, s/p sutures x2 at [facility] 04/23/24
s/p VDRF 04/23/2024 until 04/24/2024
Targeted temperature management performed at [facility] 04/23/2024
CAD s/p 2.5 mm Cypher SIMEON to the mid to distal LAD 11/04/2003
Abnormal stress test with basal inferior and basal inferolateral segment fixed defect c/w infarction 01/31/23
Permanent A-fib
Chronic Eliquis OAC
Last dose of Eliquis 04/24/2024 PM
Moderate to severe mean gradient 27 mmHg by echo at 12/19/2023 and mean gradient 22.4 mmHg by echo at [facility] 04/24/2024
Hyperlipidemia
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
Venous cerebral aneurysm seen on MRI 04/04/[address] Bernstein at 04/04/24 and then scheduled for f/u with neurosurgeon at [place] 04/25/24, missed appt due to admission
Lexiscan nuclear stress test 01/31/2023: Medium area of severely decreased/absent tracer uptake perfusion that was fixed in the mid inferior segment and apical inferior segment C/W soft tissue attenuation as it improves with prone imaging, small
area of severely decreased/absent perfusion fixed in the basal inferior segment consistent with infarction, EF 52%
Echo 12/19/23: EF 55 to 60%, mild concentric LVH, normal RV size and function, moderate to severe with peak/mean 55/27 mmHg and CHRISTIAN 1.0 cm sq, mildly dilated aortic root and ascending aorta with sinuses of Valsalva 4.1 cm, sinotubular junction 3.7
cm and ascending aorta 4.4 cm
Echo 04/24/24: [facility] study, EF 50 to 55%, normal RV size and function, at least moderate with peak/mean 42.3/22.4 mmHg, trace MR, trace TR, aortic root 4.16, aortic sinus 3.83, sinotubular junction 2.9 and ascending aorta 4.36
Echo 04/25/24: Final report pending, but preliminarily the EF is preserved, severe peak/mean 73/36 mmHg and CHRISTIAN 0.75 cm sq, inferobasal scar
Plan:
-Patient came to today as a transfer from [facility] for cardiac cath and cardiology has been consulted. Patient was admitted to [facility] on 04/23/24 after a witnessed out of hospital cardiac arrest while swimming for exercise at a local pool. Patient was
removed from the pool immediately and there was no suggestion of inhaled or ingested water. Bystanders started CPR immediately and AED was applied with 2 defibrillations followed by EMS arrival who found the patient to be in pulseless VT and
administered 2 additional defibrillations along with lidocaine x 1 and epinephrine x 1 resulting in ROSC. Patient was intubated upon arrival to [facility] and there was also initial concern for posturing, left to right slow nystagmus and myoclonic
movements along with considerable oral bleeding, but no overt tonic-clonic movement was seen and Ceribell device application indicated no seizures. ECG did not show ST elevation and CT of the head only showed a known cerebral venous aneurysm.
Patient underwent targeted temperature management and was warmed and extubated yesterday. Patient was recommended cardiology evaluation including cardiac catheterization and his daughter, who is a local PCP to and also part of the residency
program here at , requested transfer to .
-ECG ordered by me. ECG report from [facility] study reviewed by me showed no evidence of ST elevation
-Patient with known history of mid to distal LAD Cypher SIMEON in 2003. There was no ischemia on the last ischemic evaluation as noted above showed small area of severely decreased/absent perfusion fixed in the basal inferior segment consistent with
infarction. Reviewed old echoes and there appears to be inferobasal scar on echo from 12/2023, but not seen on echo 10/2022 although fewer images of that area were taken.
-Due to presenting rhythm plan will be for cardiac catheterization on 04/26/24
-Last dose of Eliquis 5 mg BID (age 76, wt 102 kg) was 04/24/2024 PM
-Check urgent CBC and CMP, ordered by me
-Patient also with a h/o moderate to severe with peak/mean 42/22 mmHg by echo at [facility]. Recheck echo now, ordered by me.
-Check CVE, ordered by me. Patient was taking Crestor 10 mg daily prior to admission
-Start aspirin 81 mg daily, ordered by me
-Await labs to review lytes. Hold chlorthalidone for now.
-Continue outpatient dose of Toprol-XL 25 mg daily
--- NOTE | 2024-04-25 09:10 | PTCARENOTE ---
Received patient as a transfer from [facility] at 0810 for cardiac cath and EP evaluation. Patient is AAO but has no recollection of what initially brought him to the hospital. Oriented to room and plan of care. NPO, placed on telemetry, VSS, faith in
place draining clear yellow urine. Call cai in reach, patient having echo at this time.
--- NOTE | 2024-04-25 10:05 | PHANOTE ---
med rec note- went to do med rec on patient but cardiology in room with patient and patient paperwork, will try back later so they can finish
[2024-04-25 10:13] VITALS: BMI 28.9
[2024-04-25 10:15] LABS: Hematocrit 34.6 % (39.0-52.0); Hemoglobin 12.3 g/dL (13.0-18.0); Mean Corp Hgb Conc. 35.5 g/dL (33.0-37.0); Mean Corpuscular Hgb 30.7 pg (27.0-31.0); Mean Corpuscular Volume 86.3 fL (80.0-94.0); Mean Platelet Volume 8.9 fL (7.4-10.4); Platelet Count 236 10^3/uL (130-400); Red Blood Cell Count 4.01 10^6/uL (4.70-6.10); Red Cell Dist. Width 13.5 % (11.5-14.5); White Blood Cell Count 10.2 10^3/uL (4.8-10.8)
[2024-04-25 10:32] LABS: COVID-19 Antigen Negative (Negative)
--- NOTE | 2024-04-25 10:43 | CON.PUL ---
Consultation
Consultation Request
Date/Time Consultation Requested: 04/25/2024- 45 AM
Date/Time Consultation Performed: 04/26/2019 5-10 40 5 AM
Requesting Provider: Hospitalist
Performing Provider: Dr. Brunson
Reason for Consultation: Possible aspiration
Medical History
-
Chief Complaint: Xyc-pn-bnaynseb cardiac arrest
History of Present Illness:
73-year-old male with a history of CAD/LAD stent, permanent atrial fibrillation on chronic Eliquis as well as moderate to severe aortic stenosis and hyperlipidemia who was swimming at a local pool and had a witnessed [id number]-si-rlrejhsl cardiac
arrest-patient removed from pool immediately, CPR bystander performed immediately and AED was applied with 2 defibrillations followed by EMS who found the patient to be in pulseless ventricular tachycardia and administered 2 additional
defibrillations along with lidocaine and epinephrine with resumption of spontaneous circulation-patient was intubated, targeted temperature management, and successfully extubated-there was a question on aspiration and pulmonary was consulted prior
to cardiac catheterization 04/25/2024.. The patient is remarkably alert and oriented and follows commands. He has minimal chest congestion, and offers no complaints of shortness of breath at rest, and has some pain from CPR and shocking and no
abdominal pain, nausea, focal weakness or leg swelling. He has an EEG that is being performed as I was examining the patient.
Past Medical History
Past Medical History: None (CAD/stent LAD 11/04/2003. Hypertension. Hyperlipidemia. Psoriatic arthritis. Depression. RANDY. Permanent atrial fibrillation. Chronic Eliquis. Moderate to severe aortic stenosis. Hyperlipidemia. Cholecystectomy.
Right hip replacement. Left knee replacement.)
Social History
Tobacco: Former Smoker (Very distant, less than 5-pack-year)
Alcohol: Occasional
Personal:
Living: With Family
Occupational Exposures: No known asbestos exposure
Environmental Exposures: No known tuberculosis exposure
Family History
Family History: Reviewed & Not Pertinent (CAD and atrial fibrillation)
Allergies / Home Medications
Allergies
Allergy/AdvReac Type Severity Reaction Status Date / Time
oxycodone Allergy hallucinati Verified 04/03/24 17:38
ons
Home Medications
�Medication �Instructions �Recorded �Confirmed �Last Taken �Type
chlorthalidone 25 mg tablet 25 mg PO DAILY Blood pressure 05/31/18 04/03/24 04/03/24 History
duloxetine 30 mg capsule,delayed 30 mg PO BID Mental Health/Anxiety 05/31/18 04/03/24 04/03/24 History
release
metoprolol succinate 25 mg 25 mg PO DAILY Blood pressure 05/31/18 04/03/24 04/03/24 History
tablet,extended release 24 hr
rosuvastatin 10 mg tablet (Crestor) 10 mg PO HS High cholesterol 05/31/18 04/03/24 04/02/24 History
apixaban 5 mg tablet (Eliquis) 5 mg PO BID Blood Clot 03/05/20 04/03/24 04/03/24 History
Prevention/Tx
certolizumab pegol 400 mg/2 mL 400 mg SC Q4W Autoimmune Disorder 12/20/23 04/03/24 2 Weeks Ago History
(200 mg/mL x2) subcutaneous ~03/20/24
syringe kit (Cimzia)
pantoprazole 20 mg tablet,delayed 20 mg PO DAILY Blood Pressure 12/20/23 04/03/24 04/03/24 History
release
tamsulosin 0.4 mg capsule 0.4 mg PO DAILY #30 caps 12/21/23 04/03/24 04/03/24 Rx
aspirin 81 mg chewable tablet 81 mg PO HS 04/03/24 04/03/24 04/02/24 History
finasteride 5 mg tablet 5 mg PO HS 04/03/24 04/03/24 04/02/24 History
Review of Systems
-
Unable to Obtain full review of systems at this time due to: Other (Per HPI)
Vitals / Labs / Diagnostic Testing
Vital Signs
Temp Pulse Resp BP Pulse Ox
98.4 F 76 18 116/73 98
04/25/24 08:10 04/25/24 09:00 04/25/24 08:10 04/25/24 08:10 04/25/24 08:10
Lab Data
04/25/24 09:57
Diagnostic Testing:
Physical Exam
-
Exam:
Well-nourished and well-developed in no apparent distress
HEENT-atraumatic, normocephalic
Neck-supple, no JVD, no bruit
Heart-regular rate and rhythm-no murmurs, rubs or gallops
Chest-clear to auscultation, no wheezes, crackles
Back-no tenderness
Abdomen-soft, nontender, nondistended, no hepatosplenomegaly
Extremities-no cyanosis, clubbing, edema and good peripheral pulses
Integument-intact, no rashes, lesions or ecchymosis
Neurology-alert and oriented, nonfocal motor and sensory exam
Assessment
-
73-year-old male with a history of CAD/LAD stent, permanent atrial fibrillation on chronic Eliquis as well as moderate to severe aortic stenosis and hyperlipidemia who was swimming at a local pool and had a witnessed eof-xw-pdpettve cardiac
arrest-patient removed from pool immediately, CPR bystander performed immediately and AED was applied with 2 defibrillations followed by EMS who found the patient to be in pulseless ventricular tachycardia and administered 2 additional
defibrillations along with lidocaine and epinephrine with resumption of spontaneous circulation-patient was intubated, targeted temperature management, and successfully extubated-there was a question on aspiration and pulmonary was consulted prior
to cardiac catheterization 04/25/2024.
Zww-lm-cdnynghx cardiac arrest-witnessed, bystander CPR/defibrillation with ROSC
Status post ventilator, targeted temperature management at [place]-transferred to for cardiac catheterization after extubated
CAD with a history of LAD stent 2003
Recent influenza A 03/2024
Atrial fibrillation
Mild mctqxo-blhjrdnepk-bgmhknvlxo 12.3
Mild transaminitis
Mild hyperglycemia
Conditions present prior to admission:
CAD/stent LAD 11/04/2003.
Hypertension.
Hyperlipidemia.
Psoriatic arthritis.
Depression.
RANDY.
Permanent atrial fibrillation.
Chronic Eliquis.
Moderate to severe aortic stenosis.
Hyperlipidemia.
BPH
Cholecystectomy. Right hip replacement. Left knee replacement.
Plan
Unclear if definitive aspiration event occurred-currently afebrile, no leukocytosis, mild chest congestion
Supplemental oxygen as needed
Aspiration precautions
Inhalers or nebulizers if needed-currently not bronchospastic
Mucolytic's if needed
Bronchodilators if needed
Check sputum culture
Empiric antibiotics-Zosyn initiated
Check chest x-ray
Cardiology following-correspondence reviewed
Cardiac catheterization pending
Heparin drip continues
Neurologic status appears to be close to baseline
EEG pending
DVT prophylaxis-on heparin
GI prophylaxis-on pantoprazole
Nutrition
Early mobilization/physical therapy
Reviewed with nursing, nuclear cardiology technologist as well as at the bedside
Outpatient sleep disordered breathing follow-up
Diagnostic data:
Chest x-ray 01/12/2020-NAD
Brain MRI 04/04/2024-no acute intracranial abnormalities
Echocardiogram 12/15/2022-EF 60%, moderate to severe aortic stenosis,
Nuclear stress test 12/15/2022-inconclusive for ischemia, EF 52%, moderate risk study
Data Reviewed
-
EKG: Report reviewed by me
MRI: Report reviewed by me
Labs: Labs reviewed by me
Old Records: Reviewed
Total Time Spent with Patient (in minutes): 55
[2024-04-25 10:59] LABS: ALT (SGPT) 136 U/L (0-50); AST (SGOT) 105 U/L (17-59); Albumin 3.5 g/dl (3.5-5.0); Alkaline Phosphatase 74 U/L (38-126); Blood Urea Nitrogen 18 mg/dl (9-20); Calcium 8.8 mg/dl (8.4-10.2); Carbon Dioxide 30 mmol/L (22-30); Chloride 99 mmol/L (98-107); Estimated Creatinine Clearance 93 ml/min; Glucose 119 mg/dl (70-99); HDL Cholesterol 50 mg/dl; LDL Cholesterol, Calculated 61 mg/dl; Potassium 3.8 mmol/L (3.5-5.1); Sodium 135 mmol/L (135-145); Total Bilirubin 1.9 mg/dl (0.2-1.3); Total Cholesterol 131 mg/dl (50-199); Total Protein 5.9 g/dl (6.3-8.2); Triglyceride 100 mg/dl (10-149); Very Low Density Lipoprotein 20 mg/dl (0-30); eGFR > 60.00
[2024-04-25 11:21] VITALS: BP 133/84
[2024-04-25 11:31] LABS: TSH 1.78 uIU/ml (0.47-4.68)
[2024-04-25] MEDS: NSS 1000 IV ×2 (11:57→20:20)
[2024-04-25] MEDS: LOW STRENGTH ASPIRIN 81 MG PO (11:58)
[2024-04-25] MEDS: PROTONIX 40 MG PO (11:58)
[2024-04-25] MEDS: UNASYN IV ×3 (11:58→22:38)
[2024-04-25] MEDS: TYLENOL 1000 MG PO ×2 (11:59→22:37)
[2024-04-25] MEDS: LIDOCAINE 4% PATCH 1 PATCH TOPICAL (11:59)
--- NOTE | 2024-04-25 11:59 | CM ---
spoke to pt in room, he is prev indep, lives with his in a 2 story home with 1 step to enter. he denies any dc planning needs or dme's. plan is for dc to home when medically stable.
[2024-04-25] MEDS: TORADOL 15 MG IV ×2 (12:17→18:11)
[2024-04-25 12:18] LABS: APTT 35.8 Sec (23.4-35.0)
--- NOTE | 2024-04-25 12:27 | EEG.RPT ---
Electroencephalogram Report
Recording
Date of EE04/25/24
Type of EEG: Routine
Length of EEG recordin mins
Done with Video Recording: No
Patient Status: Inpatient
Recording Conditions: Awake and Drowsy
Hyperventilation Performed: No
Photic Stimulation Performed: Yes
Report
Clinical Background:�cardiac arrest, tongue bite
Introduction: A routine bedside EEG was done using [employer] 10-20 electrode placement protocol.
Background: In the most alert state, the PDR is 9 Hz in frequency with normal amplitude. There is spontaneous variability and reactivity.�
Sleep: no sleep is seen.�
Focal/epileptiform: There were no focal or epileptiform discharges. No clinical or electrographic seizures occurred during this recording.
Photic stimulation: resulted in normal driving response. There was no photo myogenic or photoparoxysmal response.�
Impression: Normal EEG
--- NOTE | 2024-04-25 12:30 | CON.NEURO ---
Neuro Assessment/Plan
Assessment
cardiac arrest, appears to have made a full neurological recovery
possible seizure given tongue bite
I would only treat if there were evidence that the seizure preceded his sudden cardiac , which does not appear to be the case
EEG is normal
MRI imgs rev'd with family medicine team, left middle cerebellar peduncle/cerebellar vermis enhancing ovoid structure either a varicose vein or cavernoma. it is not pressing against the mid temporal lobe, and would not expect this to be a source of
seizures
Plan
no further workup
Consultation
Order
Date of Consultation: 04/25/24
Requesting Provider: Ney Barry
Reason for Consult: possible seizure
Subjective/Objective
Subjective Data
Date of Service: April 25, 2024
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 Shocked x3, intubated, cooled, extubated, neurologically intact
patient tongue bite, question for seizure
Objective Data
Vital Signs
Temp Pulse Resp BP Pulse Ox
37.2 C 76 20 116/73 100
04/25/24 11:21 04/25/24 09:00 04/25/24 11:21 04/25/24 08:10 04/25/24 11:21
Lab Results
04/25/24 09:57
04/25/24 09:57
APTT 35.8 Sec (23.4-35.0) H 04/25/24 11:53
Sodium 135 mmol/L (135-145) 04/25/24 09:57
Potassium 3.8 mmol/L (3.5-5.1) 04/25/24 09:57
BUN 18 mg/dl (9-20) 04/25/24 09:57
Glucose 119 mg/dl (70-99) H 04/25/24 09:57
Calcium 8.8 mg/dl (8.4-10.2) 04/25/24 09:57
LDL Cholesterol, Calc 61 mg/dl 04/25/24 09:57
Patient Allergies
oxycodone Allergy (Verified 04/03/24 17:38)
hallucinations
Physical Exam
-
AAOx3, speech clear, language intact
VFF, EOMI, face symmetric
full strength b/l UE/LE
sensation intact touch/temp
Medications
-
Active Medications
Generic Name Dose Route Start Last Admin
Trade Name Freq PRN Reason Stop Dose Admin
Acetaminophen 1,000 mg 04/25/24 09:26 04/25/24 11:59
Acetaminophen 500 Mg Tablet PO 05/23/24 09:25 1,000 mg
Q6HPRN PRN Administration
pain
Aspirin 81 mg 04/25/24 10:00 04/25/24 11:58
Aspirin 81 Mg Chewable Tablet PO 05/23/24 09:59 81 mg
DAILY BEN Administration
Ampicillin Sodium/Sulbactam 120 mls @ 240 mls/hr 04/25/24 10:00 04/25/24 11:58
Sodium 3 gm/ Sodium Chloride IV 120 mls
Q6H BEN Administration
Sodium Chloride 1,000 mls @ 120 mls/hr 04/25/24 09:30 04/25/24 11:57
Nss IV 1,000 mls
.Q8H20M BEN Administration
Heparin Sodium 25,000 units in 250 mls @ 0 mls/hr 04/25/24 11:00
Heparin 12691 Units/250 Ml IV
PER PROTOCOL BEN
Protocol
Per Protocol
Ketorolac Tromethamine 15 mg 04/25/24 12:00 04/25/24 12:17
Ketorolac 15 Mg/Ml Injection IV 04/30/24 11:59 15 mg
Q6HPRN PRN Administration
moderate pain
Lidocaine 1 patch 04/25/24 11:30 04/25/24 11:59
Lidocaine 4% Topical Patch TOPICAL 05/23/24 11:29 1 patch
DAILY BEN Administration
Protocol
Pantoprazole Sodium 40 mg 04/25/24 10:00 04/25/24 11:58
Pantoprazole 40 Mg Delayed Release Tablet PO 05/23/24 09:59 40 mg
DAILY BEN Administration
Patch Removal 1 patch 04/25/24 20:00
Remove Lidocaine Patch REMOVE 05/23/24 19:59
DAILY@2000 BEN
Home Medications
�Medication �Instructions �Recorded
chlorthalidone 25 mg tablet 25 mg PO DAILY Blood pressure 05/31/18
duloxetine 30 mg capsule,delayed 30 mg PO BID Mental Health/Anxiety 05/31/18
release
metoprolol succinate 25 mg 25 mg PO DAILY Blood pressure 05/31/18
tablet,extended release 24 hr
rosuvastatin 10 mg tablet (Crestor) 10 mg PO HS High cholesterol 05/31/18
apixaban 5 mg tablet (Eliquis) 5 mg PO BID Blood Clot 03/05/20
Prevention/Tx
certolizumab pegol 400 mg/2 mL 400 mg SC Q4W Autoimmune Disorder 12/20/23
(200 mg/mL x2) subcutaneous
syringe kit (Cimzia)
pantoprazole 20 mg tablet,delayed 20 mg PO DAILY Blood Pressure 12/20/23
release
tamsulosin 0.4 mg capsule 0.4 mg PO DAILY #30 caps 12/21/23
aspirin 81 mg chewable tablet 81 mg PO HS 04/03/24
finasteride 5 mg tablet 5 mg PO HS 04/03/24
--- NOTE | 2024-04-25 12:37 | CON.MD ---
Consultation - Medical
-
tongue laceration
73 yo c Hx CAD, stent on Suraj had an ME while swimming, CPR performed, intubated
Oral bleeding noted likely from biting of tongue or intubation trauma, sutured at outside hospital
Pt able to be extubated and transferred to N
Presently awake and alert, no drooling, no c/o oral pain or bleeding
Hematoma /ecchymosis R lateral tongue
Small area of granulation tissue from trauma / sutures
No active bleeding or significant deformity
Tongue laceration
Healing well , no airway issues
Should continue to heal without additional treatment
Follow up as needed
[2024-04-25 12:54] LABS: Troponin I 0.097 ng/ml
[2024-04-25] MEDS: HEPARIN 25000 UNITS/250 ML IV (13:01)
--- NOTE | 2024-04-25 14:39 | PTOTSP ---
BEVERAGE STEWARD Evaluations
Oral/pharyngeal swallowing WFL. Will re-evaluate s/p cardiac surgeries as able/appropriate given potential elevated risk for acute dysphagia.
Cognitive linguistic changes noted to executive function, attention, delayed short term recall, and word fluency on MOCA 8.1 Afghan version (score 19/30; normal is 26 or higher). Multiple acute factors may be exacerbating. Will repeat cognitive
screener with alternate version to track improvement and determine need for outpatient rehabilitation pending progress.
Recommend:
1. Regular, Thin
2. Medications as best tolerated
3. General aspiration precautions
4. Dysphagia re-evaluation as appropriate
5. Cognitive re-assessment at the acute care level and after D/C as appropriate
[2024-04-25 15:15] VITALS: BP 117/72
--- NOTE | 2024-04-25 17:16 | HPS.HSE ---
Addendum entered and electronically signed by Sherif Stein MD 04/25/24 21:02:
Attending Addendum-
I performed a history and physical exam of the patient and discussed his management with the resident. I reviewed the resident's note and agree with the documented findings and plan of care CC/HPI- Patient transfered from [facility] s/p OOH cardiac arrest
at the [employer] post swilling. CPR immediately initiated and shicked x 3 due to v fib. Patient was taken to [facility] sedated and cooled and intubated. Was able to be successfully extubated on 04/24. Also noted to have aspirated blood secondary to tongue lac
and started on abx. Had stitches placed at [facility]. Currently patient complaints of severe chest pain on inspiration due to CPR. Had fever last PM at [facility]. Seen with present. Full 12 point ROS reviewed and negative except as documented Exam- vitals
reviewed in EMR GEN-mild distress due to pain heart RRR 04/18 SM @ [facility] HEENT tongue lac with stiches present non bleeding Chest TTP anterior chest Lungs RLL rhonchi no crackles no wheeze Abd soft NT ND LE no edema Neuro AAO x 3 MS 5/5 Sensation
intact PEERLA CN 2-12 GI, short and alf memory intact
Plan:
# OOH Cardiac Arrest
- s/p CPR and defib x 3, intubated and cooled at [facility] - 04/23
- extubated 04/24
- for cardiac cath and ICD placement 04/26
- hold eliquis
- start heparin gtt
- ECHO 04/24- Basal inferior akinesis. Left ventricular ejection fraction is 60-65%
Severe aortic stenosis- 0.8 cm2
-NPOpMN
# Severe Aortic Stenosis
- for eventual TAVR possibly during this admission
- has progressed to severe per echo
# Tongue Laceration
- doubt seizure episode
- EEG 04/24 WNL
- neuro on board
- c/s ENT for eval
# Aspiration PNA
- cxr- RLL infiltrate
- start unasyn
# Transaminitis
- cont to monitor
# Persistent A fib
- now in sinus
- Eliquis on hold for cath/ICD
- cont metoprolol
- start heparin gtt
# HTN- chlorthalidone on hold
# Cerebral Venous Aneurysm- stable, supposed to have appt with NS Dr Sheth today- f/u as OP
# BPH- cont tamsulosin and finasteride
# Recent influenza A pos
# CAD s/p LAD stent- 2003- cont asa
# HLD- cont rosuvastatin
# Depression- cont duloxetine
# Psoriatic Arthritis- on Cimzia x 6 months- hold
# GERD- cont pantoprazole
Code Full
Dispo eventual DC home with
ACP
Patient consented to discuss, was with , time spent explanation of advance directives, changes in health status, patient�s health care wishes if the patient becomes unable to make health decisions, goals of care, code status, and prognosis- 16
minutes
Time spent coordinating care, review of plan of care with resident, personally reviewed previous records in EMR, med rec, labs, radiology, d/w nursing, family total time documented is exclusive of any additional time listed that was spent in advance
care planning discussion -�85 minutes
Original Note:
Family Physician
-
Family Physician: Giacomo Miller
Chief Complaint
-
Status-post cardiac arrest
History of Present Illness
Nader Clark, 73-year-old male, was swimming on 04-23-24 when he had a cardiac arrest. He was swimming for approximately 1 hour, and reportedly took more breaks than usual. After an hour, he got to the edge and was visibly looking ill.
Fortunately, a pediatric neuropsychologist was right by the patient who went to check on him when he became unconscious. No pulse was detected so they initiated CPR. He was found to be in ventricular fibrillation, and [facility] and twice
again when paramedics arrived. ROSC was achieved after approximately 15 minutes of ACLS. Admitted to [facility] and intubated with cooling protocol.
[facility] course was notable for a tongue laceration that was found on admission, requiring stitches. He also spiked a fever and presumed to have aspirated blood from the laceration; he was started on piperacillin-tazobactam at the ICU. He was
successfully extubated on 04-24-24, after which he had difficulties with short-term recall and persistent confusion. This continued to improve, and he was eventually transferred to for catheterization and implantable cardioverter-defibrillator
placement. Before he was transferred, he was noted to have low potassium and magnesium which were both repleted, per report.
Medical History
Past Medical History
Past Medical History: Reports Other
Additional Past Medical History:
Coronary artery disease s/p stent
Paroxysmal atrial fibrillation
Essential hypertension
Hyperlipidemia
Psoriatic arthritis
Depression
Obstructive sleep apnea
Gastroesophageal reflux disease
Past Surgical History: Reports Other
Additional Past Surgical History:
Right Hip Replacement
Left Knee Replacement
Social History
Tobacco: Non-smoker
Alcohol: Occasional
Drug: None
Personal:
Living: With Family
Employment: Retired
Family History
Family History: Not pertinent
Allergies / Home Medications
Allergies reflects when Allergies were last updated in [facility].
Home Medications with original date entered in [facility]
Allergy/Medication List:
Allergies
Allergy/AdvReac Type Severity Reaction Status Date / Time
oxycodone Allergy hallucinati Verified 04/03/24 17:38
ons
Home Medications
chlorthalidone 25 mg tablet 25 mg PO DAILY Blood pressure 05/31/18
duloxetine 30 mg capsule,delayed release 30 mg PO BID Mental Health/Anxiety 05/31/18
metoprolol succinate 25 mg tablet,extended release 24 hr 25 mg PO DAILY Blood pressure 05/31/18
rosuvastatin 10 mg tablet (Crestor) 10 mg PO HS High cholesterol 05/31/18
apixaban 5 mg tablet (Eliquis) 5 mg PO BID Blood Clot Prevention/Tx 03/05/20
certolizumab pegol 400 mg/2 mL (200 mg/mL x2) subcutaneous syringe kit (Cimzia) 400 mg SC Q4W Autoimmune Disorder 12/20/23
pantoprazole 20 mg tablet,delayed release 40 mg PO DAILY Blood Pressure 12/20/23
tamsulosin 0.4 mg capsule 0.4 mg PO DAILY #30 caps 12/21/23
aspirin 81 mg chewable tablet 81 mg PO HS 04/03/24
Review of Systems
-
History Source: Patient and Family
Constitutional: Reports Fatigue
EENT: Reports No Symptoms
Respiratory: Reports No Symptoms
Cardiac: Reports Chest Pain (chest wall pain)
Abdomen/GI: Reports No Symptoms
: Reports No Symptoms
Musculoskeletal: Reports No Symptoms
Skin: Reports No Symptoms
Neurological: Reports Other (some short-term recall difficulties)
Endocrine: Reports No Symptoms
Hematologic/Lymphatic: Reports No Symptoms
Psych: Reports No Symptoms
Physical Exam
Vital Signs
Vital Signs
Temp Pulse Resp BP Pulse Ox
98.8 F 84 20 133/84 95
04/25/24 15:15 04/25/24 12:45 04/25/24 15:15 04/25/24 11:21 04/25/24 15:15
Physical Exam
General: No Apparent Distress and Comfortable
HEENT: NormoCephalic, Anicteric, Moist mucous membranes, Atraumatic and No Ptosis
Respiratory: Clear and Non Labored Respirations
Cardiac: S1/S2 and Regular Rhythm
GI: Soft, Non Tender, Non Distended and No Hepatosplenomegaly
Genito-urinary: No costovertebral tender
Musculoskeletal: No Clubbing, No Cyanosis and No Edema
Skin: Warm, Dry and IV/Catheter Site
Neuro: Awake, Alert, Oriented, No Motor Deficits, No Sensory Deficits and DTR's Intact & Symmetrical
Hematologic/Lymphatic: No Lymphadenopathy
Psych: Calm and Intact Judgment/Insight
Laboratory Results
-
04/25/24 09:57
04/25/24 09:57
Laboratory Results
APTT 35.8 Sec (23.4-35.0) H 04/25/24 11:53
Total Bilirubin 1.9 mg/dl (0.2-1.3) H 04/25/24 09:57
AST 105 U/L (17-59) H 04/25/24 09:57
ALT 136 U/L (0-50) H 04/25/24 09:57
Alkaline Phosphatase 74 U/L (38-126) 04/25/24 09:57
Troponin I 0.097 ng/ml H* 04/25/24 12:11
Impression/Plan
-
Impression and plan
[id number]-[id number] cardiac arrest
Bystander pediatric neuropsychologist ACLS
ROSC after 15 minutes of CPR time
- Status-post cooling protocol at [facility].
- Intubated 04-23-24 and extubated 04-24-24.
- Saturating well on room air, and hemodynamically stable.
- Pain and tenderness over the chest wall, traumatic; pain management as needed.
- Monitor in the IVU.
- ICD placement planned following cath, per below.
- Cardiology following.
Coronary artery disease
Status-post LAD stent - 2003
- Concern for underlying ischemic etiology based on presentation.
- Cath planned for 04-26-24.
- NPO after midnight.
- Continue aspirin and rosuvastatin.
Troponin elevation
- Likely following the cardiac arrest.
- Asymptomatic from an ischemic stand-point.
- Trend to peak.
Permanent atrial fibrillation
- On apixaban, held pending cath and ICD placement.
- On heparin.
- Continue metoprolol.
Severe aortic valve stenosis
- Noted on echocardiogram.
- Planned replacement following cath.
Aspiration event
- Unclear if he was febrile due to an infectious etiology vs. post-code.
- Empirically covered with piperacillin-tazobactam at [facility].
- Narrow to ampicillin-sulbactam since now stable.
- Day 3 of antibiotics; to be completed on 04-28-23.
- Follow CBC and temperature curve.
- Request BC reports from [facility].
- Pulmonary consulted.
- Aspiration precautions and supplemental oxygen as needed.
- Incentive spirometry.
Tongue laceration
- Status-post stitches at .
- Otorhinolaryngology consultation; no further interventions necessary.
- Neurology consulted to evaluate for possible seizure disorder; unlikely and EEG normal.
Cerebral venous aneurysm
- Chronic and asymptomatic, per neurology.
Cognitive impairment
- Likely secondary to the cardiac arrest.
- WIRE FENCE ERECTOR consultation; will follow to evaluate for outpatient needs.
Primary hypertension
- Continue antihypertensives.
- Stable and asymptomatic.
Hyperlipidemia
- Continue statin.
Depression
- Continue duloxetine.
Benign prostatic hyperplasia
- Continue tamsulosin.
Psoriatic arthritis
- On certolizumab pegol.
Recent influenza A infection
- Asymptomatic.
Thromboprophylaxis
- Heparin.
Code status
- Full.
--- NOTE | 2024-04-25 17:44 | PTCARENOTE ---
Patient has voided x 2 since faith discontinued. Medicated with toradol and lidoderm patch applied to sternum. Patient states his pain is 0/10 when he is lying quiet, with movement pain increases to 8/10. at the bedside, patient waiting for
dinner, aware he is NPO after midnight for cardiac cath tomorrow.
[2024-04-25 20:00] VITALS: BP 133/75
[2024-04-25] MEDS: CYMBALTA DELAYED RELEASE 30 MG PO (20:22)
[2024-04-25 20:42] LABS: APTT 39.8 Sec (23.4-35.0)
[2024-04-25 20:59] LABS: Troponin I 0.074 ng/ml
[2024-04-25] MEDS: CRESTOR 10 MG PO (22:37)
[2024-04-25 22:45] VITALS: BP 141/74
[2024-04-25 23:01] VITALS: BP 141/79
--- NOTE | 2024-04-25 23:46 | PTCARENOTE ---
Received patient at change of shift. SR with PVCs on the monitor, HR in the 80s. Pt oriented but forgetful. Pt urinating blood tinged urine with blood clots in urinal. No complaints from pt at this time, call cai within reach.
[2024-04-26] VITALS (16 sets, daily range): BP systolic 121–156; BP diastolic 74–114
[2024-04-26] MEDS: TORADOL 15 MG IV ×2 (02:06→16:44)
[2024-04-26] MEDS: NSS 1000 IV (02:07)
[2024-04-26] MEDS: UNASYN IV ×4 (03:43→22:36)
[2024-04-26] MEDS: HEPARIN 25000 UNITS/250 ML IV ×2 (03:43→19:24)
[2024-04-26 04:49] LABS: ALT (SGPT) 100 U/L (0-50); AST (SGOT) 67 U/L (17-59); Albumin 3.1 g/dl (3.5-5.0); Alkaline Phosphatase 77 U/L (38-126); Blood Urea Nitrogen 14 mg/dl (9-20); Calcium 8.6 mg/dl (8.4-10.2); Carbon Dioxide 27 mmol/L (22-30); Chloride 104 mmol/L (98-107); Estimated Creatinine Clearance 106 ml/min; Glucose 107 mg/dl (70-99); Potassium 3.6 mmol/L (3.5-5.1); Sodium 136 mmol/L (135-145); Total Bilirubin 1.4 mg/dl (0.2-1.3); Total Protein 5.5 g/dl (6.3-8.2); eGFR > 60.00
[2024-04-26 04:55] LABS: APTT 45.8 Sec (23.4-35.0)
[2024-04-26] MEDS: CYMBALTA DELAYED RELEASE 30 MG PO (08:40)
[2024-04-26] MEDS: FLOMAX 0.4 MG PO (08:40)
[2024-04-26] MEDS: LIDOCAINE 4% PATCH 1 PATCH TOPICAL (08:40)
[2024-04-26] MEDS: TYLENOL 1000 MG PO ×2 (08:41→15:55)
[2024-04-26] MEDS: LOW STRENGTH ASPIRIN 81 MG PO (08:42)
[2024-04-26] MEDS: PROTONIX 40 MG PO (08:42)
[2024-04-26] MEDS: TOPROL XL 25 MG PO (08:42)
--- NOTE | 2024-04-26 09:24 | W.PN.PUL.V3 ---
Today's Communication / Plan
-
Oxygen supplementation as needed
Empiric Zosyn
Follow radiographically
Cardiac catheterization today
Assessment
-
73-year-old male with a history of CAD/LAD stent, permanent atrial fibrillation on chronic Eliquis as well as moderate to severe aortic stenosis and hyperlipidemia who was swimming at a local pool and had a witnessed [id number] cardiac
arrest-patient removed from pool immediately, CPR bystander performed immediately and AED was applied with 2 defibrillations followed by EMS who found the patient to be in pulseless ventricular tachycardia and administered 2 additional
defibrillations along with lidocaine and epinephrine with resumption of spontaneous circulation-patient was intubated, targeted temperature management, and successfully extubated-there was a question on aspiration and pulmonary was consulted prior
to cardiac catheterization 04/25/2024.
Kle-cu-wghwxmje cardiac arrest-witnessed, bystander CPR/defibrillation x 3 with ROSC
Status post ventilator-extubated 04/24/2024, targeted temperature management at [facility]-transferred to for cardiac catheterization after extubated
CAD with a history of LAD stent 2003
Severe aortic stenosis
Recent influenza A 03/2024
Atrial fibrillation
Mild wcjrog-tezadtnnnk-pknxelxjrv 12.3
Mild transaminitis
Mild hyperglycemia
Tongue laceration-seen by ENT
Conditions present prior to admission:
CAD/stent LAD 11/04/2003.
Hypertension.
Hyperlipidemia.
Psoriatic arthritis.
Depression.
RANDY.
Permanent atrial fibrillation.
Chronic Eliquis.
Moderate to severe aortic stenosis.
Hyperlipidemia.
BPH
Cholecystectomy. Right hip replacement. Left knee replacement.
Plan
Respiratory status stable-suspect aspiration event during resuscitation-also was on the ventilator briefly
Supplemental oxygen as needed 95% on room air
Aspiration precautions
Inhalers or nebulizers if needed-currently not bronchospastic
Mucolytic's if needed
Bronchodilators if needed
Cultures reviewed
Sputum culture 04/25/2024-many WBCs, mixed organisms-ID pending
Empiric antibiotics-Zosyn initiated-finite course-say 5 days of IV/oral
Chest x-ray 04/25/2024-mild right infrahilar pneumonia
Chest x-ray 04/26/2024-increased left basilar consolidation, mild interstitial edema
Follow temperature curve and leukocytosis-Tmax 99.9, WBC 10.2
Cardiology following-correspondence reviewed
Cardiac catheterization 04/26/2024-pending
Heparin drip continues
Possible TAVR for severe aortic stenosis
Monitor for atrial fibrillation recurrence
ENT evaluation of tongue laceration-healing well
Neurologic status appears to be close to baseline
EEG pending
Mental status excellent-great to long-term memory
DVT prophylaxis-on heparin
GI prophylaxis-on pantoprazole
Nutrition
Early mobilization/physical therapy
Reviewed with daughter-local physician at the bedside
Outpatient sleep disordered breathing follow-up
Diagnostic data:
Chest x-ray 01/12/2020-NAD
Brain MRI 04/04/2024-no acute intracranial abnormalities
Echocardiogram 12/15/2022-EF 60%, moderate to severe aortic stenosis,
Nuclear stress test 12/15/2022-inconclusive for ischemia, EF 52%, moderate risk study
Subjective Data
-
Date of Service:
Date of Service: April 26, 2024
Chief Complaint: Pulmonary Follow Up and Dyspnea Follow Up
Subjective:
Complains of significant anterior chest pain likely from CPR, no complaints of shortness of breath, chest congestion or productive cough
Review of Systems
General: Other (Per HPI)
Objective Data
Data Reviewed
Vital Signs / I&O:
Vital Signs
Temp Pulse Resp BP Pulse Ox
99.4 F 80 20 137/76 2
04/26/24 07:09 04/26/24 09:15 04/26/24 07:09 04/26/24 07:09 04/26/24 08:00
Intake and Output
04/25/24 04/26/24 04/27/24
06:59 06:59 06:59
Intake Total 1370 / 1370
Output Total 1900 / 1900 200 / 200
Balance -530 / -530 -200 / -200
SaO2: 2
Nasal Cannula flow liters per minute: 2
Physical Exam
General: Respiratory Distress (n) and Comfortable
HEENT: Normocephalic, Anicteric and Moist Mucous Membranes
Cardiovascular: Regular Rhythm and Murmur (3/6 systolic)
Respiratory: Wheeze (n), Crackles (Rare basilar), Rhonchi (n), Non-Labored Respirations, Accessory Resp Muscle Use (n) and Other (No anterior ecchymosis at site of CPR)
GI: Soft, Non Distended and Non Tender
Neurology: Awake, Alert and No Motor Deficits
Skin: Warm, Good Color, Cyanosis (n), Jaundice (n) and Rash (n)
Labs/Micro/Reports
Lab Data
04/26/24 03:45
Laboratory Results
04/25/24 04/25/24 04/26/24
11:53 20:24 03:45
APTT 35.8 H 39.8 H 45.8 H
Microbiology
04/25/24 13:13 Sputum Gram Stain - Preliminary
--- NOTE | 2024-04-26 11:57 | PTCARENOTE ---
About 1115: Report called to greenskeeper laborer.
1158: Patient transported to greenskeeper laborer via bed in stable condition at this time. Heparin and IVF stopped per greenskeeper laborer prior to transport.
[2024-04-26] MEDS: FLEXERIL 5 MG PO (13:56)
[2024-04-26] MEDS: DICLOFENAC 1% TOPICAL GEL 4 GRAM TOPICAL (14:06)
--- NOTE | 2024-04-26 14:17 | W.PN.HOSP.TC ---
Addendum entered and electronically signed by Sherif Stein MD 04/26/24 19:51:
Attending Addendum-I saw and evaluated the patient. I reviewed the resident�s note and agree with findings and plan as documented in the resident�s note. Sub: Josh was agitated and confused last pm. Continues to complain of chest pain associated with
CP. Seen pre cath. Denies SOB fevers chills. Does have moist cough which exacerbated CP. Seem mildly confused and likely fatigued as patient did not sleep well last PM. Has not had BM for days. Full 12 point ROS reviewed and negative except as
documented Exam- vitals reviewed in EMR GEN-NAD heart RRR 04/18 SM @ [facility] HEENT tongue lac with stitches present non bleeding Chest TTP, Lungs RLL rhonchi no crackles no wheeze Abd soft NT ND LE no edema Neuro AAO x 2-3 MS 5/5 Sensation intact PEERLA
CN 2-12 GI
Plan:
# OOH Cardiac Arrest
- s/p CPR and defib x 3, intubated and cooled at [facility] - 04/23
- likely underlying cardiac etiology
- extubated 04/24
- cardiac cath-04/26
- hold eliquis
- cont heparin gtt
- ECHO 04/24- Basal inferior akinesis. Left ventricular ejection fraction is 60-65%
Severe aortic stenosis- 0.8 cm2
-NPO for procedure
# Elevated Troponin
- s/p CPR and likely ischemic component as well
- peaked
- echo as above
- for cath 04/26
# Severe Aortic Stenosis
- for eventual TAVR likely during this admission
- has progressed to severe per echo
- for cath today
# CIMS/Agitation
- possible underlying etoh abuse history-per family has not been drinking as he used to
- ativan seems to work
- start thiamine IV
- t/c MSAS protocol
# Tongue Laceration
- doubt seizure episode
- stiches placed at [facility]
- EEG 04/24 WNL
- neuro on board
- wound care
# Aspiration PNA
- cxr- RLL infiltrate
- cont unasyn #2
# Transaminitis
- cont to monitor
- trending down
# Persistent A fib
- now in sinus s/p de fib
- Eliquis on hold for cath/ICD
- cont metoprolol
- cont heparin gtt
# HTN- chlorthalidone on hold
# Cerebral Venous Aneurysm- stable, was scheduled to have appt with Paras Sheth 04/25- f/u as OP
# BPH- cont tamsulosin and finasteride
# Recent influenza A pos
# CAD s/p LAD stent- 2003- cont asa
# HLD- cont rosuvastatin
# Depression- cont duloxetine
# Psoriatic Arthritis- on Cimzia x 6 months- hold
# GERD- cont pantoprazole
Code Full
DVTp- heparin gtt
Time spent coordinating care, review of plan of care with resident, personally reviewed records in EMR, med rec, consults, notes, labs, radiology, d/w nursing consultants and family � 60 mins
Original Note:
Today's Communication/Plan
-
* Cardiac catheterization today.
* Continue pain management.
* Day 4 of antibiotics.
* Re-start home bowel regimen.
Assessment / Plan
Assessment / Plan
Assessment
Nader Clark, 73-year-old male, was swimming on 04-23-24 when he had a cardiac arrest. He was swimming for approximately 1 hour, and reportedly took more breaks than usual. After an hour, he got to the edge and was visibly looking ill.
Fortunately, a grain elevator superintendent was right by the patient who went to check on him when he became unconscious. No pulse was detected so they initiated CPR. He was found to be in ventricular fibrillation, and was shocked twice by the [facility], and twice
again when paramedics arrived. ROSC was achieved after approximately 15 minutes of ACLS. Admitted to [facility] and intubated with cooling protocol.
[facility] course was notable for a tongue laceration that was found on admission, requiring stitches. He also spiked a fever and presumed to have aspirated blood from the laceration; he was started on piperacillin-tazobactam at the ICU. He was
successfully extubated on 04-24-24, after which he had difficulties with short-term recall and persistent confusion. This continued to improve, and he was eventually transferred to for catheterization and implantable cardioverter-defibrillator
placement. Before he was transferred, he was noted to have low potassium and magnesium which were both repleted, per report.
Impression and plan
[id number] cardiac arrest
Bystander grain elevator superintendent ACLS
ROSC after 15 minutes of CPR time
- Status-post cooling protocol at [facility].
- Intubated 04-23-24 and extubated 04-24-24.
- Saturating well on room air, and hemodynamically stable.
- Pain and tenderness over the chest wall, traumatic; pain management as needed.
- Monitor in the IVU.
- ICD placement planned following cath, per below.
- Cardiology following.
Coronary artery disease
Status-post LAD stent - 2003
- Concern for underlying ischemic etiology based on presentation.
- Cath today.
- NPO.
- Continue aspirin and rosuvastatin.
Troponin elevation
- Likely following the cardiac arrest.
- Asymptomatic from an ischemic stand-point.
- Down-trending.
Permanent atrial fibrillation
- On apixaban, held pending cath and ICD placement.
- On heparin.
- Continue metoprolol.
Severe aortic valve stenosis
- Noted on echocardiogram.
- Planned replacement following cath.
Aspiration pneumonia
- Unclear if he was febrile due to an infectious etiology vs. post-code.
- Empirically covered with piperacillin-tazobactam at [facility].
- Narrow to ampicillin-sulbactam since now stable.
- Day 4 of antibiotics; to be completed on 04-28-23.
- Follow CBC and temperature curve.
- Request BC reports from [facility].
- Pulmonary consulted.
- Aspiration precautions and supplemental oxygen as needed.
- Incentive spirometry.
Tongue laceration
- Status-post stitches at .
- Otorhinolaryngology consultation; no further interventions necessary.
- Neurology consulted to evaluate for possible seizure disorder; unlikely and EEG normal.
Cerebral venous aneurysm
- Chronic and asymptomatic, per neurology.
Cognitive impairment
- Likely secondary to the cardiac arrest.
- RN IMAGING consultation; will follow to evaluate for outpatient needs.
Chronic constipation
- On polyethylene glycol and psyllium twice a day; re-start today.
- May need additional support if unable to pass BM; last reported on 04-22-24.
Primary hypertension
- Continue antihypertensives.
- Stable and asymptomatic.
Hyperlipidemia
- Continue statin.
Depression
- Continue duloxetine.
Benign prostatic hyperplasia
- Continue tamsulosin.
Psoriatic arthritis
- On certolizumab pegol.
Recent influenza A infection
- Asymptomatic.
Thromboprophylaxis
- Heparin.
Code status
- Full.
Anticipated Discharge: > 48 hours
Subjective/Interval History
-
Date of Service: April 26, 2024
Stable overnight. Got anxious and called family a few times. Some confusion. No agitation or aggression.
Objective Data
-
Labs:
Laboratory Results
04/26/24 04/26/24 04/26/24
03:45 07:47 11:45
WBC Pending
Hgb Pending
Hct Pending
Plt Count Pending
APTT 45.8 H Pending
Sodium 136
Potassium 3.6
Chloride 104
Carbon Dioxide 27
BUN 14
Creatinine 0.7
Glucose 107 H
Calcium 8.6
Total Bilirubin 1.4 H
AST 67 H
ALT 100 H
Alkaline Phosphatase 77
Vital Signs:
Vital Signs
Temp Pulse Resp BP Pulse Ox
99 F 77 20 137/76 90
04/26/24 13:51 04/26/24 12:00 04/26/24 13:51 04/26/24 07:09 04/26/24 13:51
I&O
04/25/24 04/26/24 04/27/24
06:59 06:59 06:59
Intake Total 1370 / 1370 100 / 100
Output Total 1900 / 1900 500 / 500
Balance -530 / -530 -400 / -400
Review of Systems
-
History Source: Patient
Constitutional: Reports No Symptoms
EENT: Reports No Symptoms Reported
Respiratory: Reports No Symptoms
Cardiac: Reports Chest Pain (wall pain)
Abdomen/GI: Reports Constipated
Breast: Reports No Symptoms
Genitourinary: Reports No Symptoms
Musculoskeletal: Reports No Symptoms
Neuro: Reports Other (short term memory issues)
Endocrine: Reports No Symptoms
Hematologic / Lymphatic: Reports No Symptoms
Allergy / Immunology: Reports No Symptoms
Physical Exam
-
General: No Apparent Distress and Comfortable
HEENT: Normocephalic, Atraumatic, Moist Mucous Membranes, Anicteric and No Ptosis
Respiratory: Clear to Auscultation and Non Labored Respirations
Cardiac: Regular Rhythm, S1/S2 and Other (systolic ejection murmur - III/)
GI: Soft, Nontender, Nondistended and No Hepatosplenomegaly
Genito-urinary: No Costovertebral Tender
Musculoskeletal: No Clubbing, No Cyanosis, Edema, Right Lower Extrem (trace) and Edema, Left Lower Extrem (trace)
Skin: Warm, Dry and IV Access / Catheter Site
Neuro: Awake, Alert, Oriented, No Motor Deficits, No Sensory Deficits and Other (short-term recall difficulties)
Hematologic / Lymphatic: No Lymphadenopathy
Psych: Calm
[2024-04-26] MEDS: NSS IV (14:20)
--- NOTE | 2024-04-26 14:36 | PTCARENOTE ---
Patient arrived back from outside laborer around 1400. Patient is very forgetful at this time and required frequent reminding to not pull at lines, that he cannot get OOB at this time, and that he cannot utilize R wrist d/t hemostatic compression device.
Family at bedside at this time to assist in observation. Patient c/o pain at this time, flexaril and diclofenac ointment given. Brachial site CDI ans softt with no sign of bleeding or hematoma. R radial site CDI with hemostatic device in place.
Per protocol, 1 hr after TR band in place, 3cc air left out, no oozing seen at this time.
~1445: Patient is very restless and continually removing oxygen and attempting to get OOB. Bed alarm in place, 1:1 initiated for safety at this time.
[2024-04-26 15:13] LABS: Hematocrit 35.7 % (39.0-52.0); Hemoglobin 12.5 g/dL (13.0-18.0); Mean Corpuscular Hgb 30.3 pg (27.0-31.0); Mean Corpuscular Volume 86.7 fL (80.0-94.0); Mean Platelet Volume 8.9 fL (7.4-10.4); Platelet Count 258 10^3/uL (130-400); Red Blood Cell Count 4.12 10^6/uL (4.70-6.10); Red Cell Dist. Width 13.3 % (11.5-14.5); White Blood Cell Count 9.8 10^3/uL (4.8-10.8)
--- NOTE | 2024-04-26 15:17 | CONSULT.CT ---
Consultation
-
Date/Time Consultation Performed: 04/26/24 15:30
Patient History
History of Present Illness
Patient interviewed with at bedside. Patient was admitted to [facility] on 04/23/24 after a witnessed out of hospital cardiac arrest while swimming for exercise at a local pool. Patient was removed from the pool immediately and there was no suggestion
of inhaled or ingested water. Bystanders started CPR immediately and AED was applied with 2 defibrillations followed by EMS arrival who found the patient to be in pulseless VT and administered 2 additional defibrillations along with lidocaine x 1
and epinephrine x 1 resulting in ROSC. Patient was intubated upon arrival to [facility] and there was also initial concern for posturing, left to right slow nystagmus and myoclonic movements along with considerable oral bleeding, but no overt tonic-clonic
movement was seen and Ceribell device application indicated no seizures. ECG did not show ST elevation and CT of the head only showed a known cerebral venous aneurysm. Patient underwent targeted temperature management and was warmed and extubated
yesterday. Patient was recommended cardiology evaluation including cardiac catheterization and his daughter, who is a local PCP to and also part of the residency program here at , requested transfer to . Upon my exam the patient is oriented
to person and place, however, he does have periods of difficulty getting words out and making coherent statements. Neurology was consulted also.
Past Medical History
Past Medical History: Atrial Fib, BPH, CAD, HTN, RANDY and Valvular Disease (known )
Past Surgical History
Past Surgical History: Cholecystectomy and PCI/Stent
Social History
Alcohol: None
Drug: None
Tobacco: Former Smoker
Personal:
Living: With Spouse
Allergies
Allergy/AdvReac Type Severity Reaction Status Date / Time
oxycodone Allergy hallucinati Verified 04/03/24 17:38
ons
Home Medications
�Medication �Instructions �Recorded �Confirmed �Type
chlorthalidone 25 mg tablet 25 mg PO DAILY Blood pressure 05/31/18 04/25/24 History
duloxetine 30 mg capsule,delayed 30 mg PO BID Mental Health/Anxiety 05/31/18 04/25/24 History
release
metoprolol succinate 25 mg 25 mg PO DAILY Blood pressure 05/31/18 04/25/24 History
tablet,extended release 24 hr
rosuvastatin 10 mg tablet (Crestor) 10 mg PO HS High cholesterol 05/31/18 04/25/24 History
apixaban 5 mg tablet (Eliquis) 5 mg PO BID Blood Clot 03/05/20 04/25/24 History
Prevention/Tx
certolizumab pegol 400 mg/2 mL 400 mg SC Q4W Autoimmune Disorder 12/20/23 04/25/24 History
(200 mg/mL x2) subcutaneous
syringe kit (Cimzia)
pantoprazole 20 mg tablet,delayed 40 mg PO DAILY Blood Pressure 12/20/23 04/25/24 History
release
tamsulosin 0.4 mg capsule 0.4 mg PO DAILY #30 caps 12/21/23 04/25/24 Rx
aspirin 81 mg chewable tablet 81 mg PO HS 04/03/24 04/25/24 History
Review of Systems
-
History Source: Patient and Family
General: Reports Fatigue
Respiratory: Denies SOB or CALVILLO
Cardiac: Reports CAD and Palpitations; Denies Edema
Abdomen/GI: Reports No Symptoms
Musculoskeletal: Reports No Symptoms
Neurological: Reports Other (AV malformation in brain); Denies CVA or TIA
Physical Exam
Vital Signs
Temp 99.1 F 04/26/24 14:59
Temp route: Oral 04/26/24 14:59
Pulse 64 04/26/24 14:52
Rhythm: Normal sinus rhythm 04/26/24 08:00
With- First Degree Heart Block 04/26/24 08:00
Resp Rate 20 04/26/24 14:59
Blood pressure 147/84 04/26/24 14:52
Blood pressure extremity used: Left upper arm 04/26/24 14:59
Position: Lying 04/26/24 14:59
MAP (cuff-Taras Monitor) 105 04/26/24 14:52
SaO2 95 04/26/24 14:59
Nasal Cannula flow liters per minute 6 04/26/24 14:59
Oxygen Mode of Delivery Room air 04/26/24 08:00
Can the patient verbally communicate their pain? Yes 04/26/24 10:00
Pain scale ratin 04/26/24 10:00
Actual Weight 224 lb 13.944 oz 04/25/24 10:13
Body Mass Index (BMI) 28.9 04/25/24 10:13
Labs
04/26/24 14:51
04/26/24 03:45
APTT 45.8 Sec (23.4-35.0) H 04/26/24 03:45
Troponin I 0.074 ng/ml H* 04/25/24 20:24
Exam
General: Well Developed and No Apparent Distress
HEENT: Normocephalic and Anicteric
Respiratory: Clear
Cardiac: Irregular Rhythm and Murmur (3/6 sys murmur)
GI: Soft, Non Tender and Non Distended
Rectal: Deferred by Provider
Neuro: Awake, Alert, No Motor Deficits and Other (expressive aphasia at times)
Extremities: Negative Upper Level Edema or Lower Level Edema
Assessment / Plan
-
1. severe
2. CAD
Patient had witnessed arrest with ROSC after DCC and emergency meds. Underwent targeted temperature management at OSH. He does have obvious neuro deficits on exam. We will need to coordinate plan with Neurology and Cardiology. His STS risk are as
listed below, however, I believe these are underestimated given his presentation. Will obtain TAVR CT scan. Further plan and recommendations per attendings attestation/addendum.
Procedure Type:�CABG + AVR
Perioperative Outcome Estimate %
Operative Mortality 3.58%
Morbidity & Mortality 9.47%
Stroke 0.997%
Renal Failure 2.36%
Reoperation 3.42%
Prolonged Ventilation 6.8%
Deep Sternal Wound Infection 0.119%
Long Hospital Stay (>14 days) 7.27%
Short Hospital Stay (<6 days)* 29.1%
[2024-04-26] MEDS: METAMUCIL, KONSYL 1 PACKET PO (15:54)
[2024-04-26] MEDS: MIRALAX 17 GRAMS PO (15:54)
[2024-04-26] MEDS: KCL 40 MEQ PO (15:55)
[2024-04-26] MEDS: LASIX 20 MG IV (15:55)
[2024-04-26] MEDS: ATIVAN 1 MG IV (16:40)
--- NOTE | 2024-04-26 16:40 | W.PN.UPDATE ---
Update Note
Progress Note Update
Patient agitated after the procedure.
Pulling at lines and attempting to jump off the bed which is causing him worsening pain.
Possibly post-anesthesia.
Lorazepam stat for now - prn in as well.
--- NOTE | 2024-04-26 16:52 | PTCARENOTE ---
~1600: Patient increasingly more agitated and not redirectional now, this RN TT Dr. Barry who came up to see patient. Patient appears to be hallucinating at times and occassionally disoriented to place and situation. Patient outbursts appear to
correlate to pain from coughing. PRN pain meds given with little affect. Dr. Barry ordered PRN ativan that was given which had a positive affect. Patient given fresh linens and a calm environment created to promote rest. Family at bedside as well
as 1:1.
TR band also able to bee removed with no sign of bleeding or hematoma at this time.
[2024-04-26] MEDS: NSS (PRESERVATIVE FREE) 0.5 ML IV (17:32)
--- NOTE | 2024-04-26 17:48 | ITS.CL.CATH ---
Dispensing Lead - Catheterization
Cardiac Catheterization
Procedure Report:
LEFT AND RIGHT HEART CATHETERIZATION
Date of Procedure: April 26, 2024
Referring: Ml Velazquez MD
PROCEDURES:
1. Left catheterization, coronary angiogram.
2. Right heart catheterization.
3. Ultrasound-guided access
INDICATION: Recent VT arrest and concern for severe aortic stenosis based.
ACCESS:
1. Right radial artery, 6 Malaysian sheath, under ultrasound guidance.
2. Right brachial vein, 6 Malaysian sheath
Ultrasound was utilized for vascular access. The radial artery was visualized under ultrasound, and the vessel was patent and pulsatile. An image was stored permanently in the patient's medical record. Under direct ultrasound guidance, a 6 Malaysian
sheath was inserted into the artery using a micropuncture kit through a modified Seldinger technique.
HEMODYNAMICS : (mmHg)
RA (m) : 18
RV (s/d,m) : 59/10, 24
PA (s/d, m) : 54/26, 40
PCWP (m) : 25 with V waves up to 33
PA saturation: 61.3% on 5 L of oxygen via nasal cannula
AO saturation: 90.5% on 5 L of oxygen via nasal cannula
SVC saturation: 61.8% on 5 L of oxygen via nasal cannula
Cardiac Output : 5.94 L/min
Cardiac Index : 2.61 L/min/m-2
Systemic vascular resistance: 1198 dsc^(-5)
Pulmonary vascular resistance: 202 choe unit
AO (s/d) : 118/72
LV (s/d) : 169/19
LVEDP : 32
Estimated mean invasive aortic gradient of 41 mmHg, aortic valve area calculated at 0.93 cm� consistent with severe aortic stenosis.
CORONARY FINDINGS
DOMINANCE: Right
LEFT MAIN: The left main artery is a large-caliber vessel which gives rise to the left anterior descending artery and the left circumflex artery. In the caudal views there appears to be mild diffuse atherosclerotic plaque. In the cranial views
there is suggestion of eccentric ostial 40 to 50% left main stenosis.
LEFT ANTERIOR DESCENDING: The left anterior descending artery is a medium caliber vessel which gives rise to multiple small to medium caliber diagonal branches as it courses to the anterior interventricular groove towards the apex. There is diffuse
up to 70 to 80% stenosis in the proximal to mid LAD including in-stent restenosis of the prior mid LAD stent.
CIRCUMFLEX: The left circumflex artery is a medium caliber vessel which gives rise to a branching obtuse marginal branches with tubular 70 to 80% stenosis in the lower OM branch. [id number] collaterals are noted.
RIGHT CORONARY ARTERY: The right coronary artery is a large-caliber, dominant vessel which gives rise to the right posterior descending artery and the right posterolateral system. There is a focal 70% stenosis in the proximal portion of the RPDA.
There appears to be a chronic total occlusion of the ostial RPL branch which is well collateralized from the left side.
SEDATION: 48 minutes of procedural sedation was utilized. An independent site medical director was present to assist with and help manage the patient's level of consciousness and physiologic status.
RADIATION SUMMARY: Fluoro Time (min): 8 point dose (mGy): 952.3 DAP (Gy.cm2) : 77.6
Closure Device: 1. Vascular band over right radial artery, 11 cc of air.
2. Manual pressure was held over the right brachial venous access site with successful hemostasis.
CONCLUSIONS
1. Significant multivessel coronary artery disease possibly involving ostial left main. Ideally, we would have proceeded with intravascular ultrasound for further assessment however given worsening respiratory status on the table likely due to
acute diastolic heart failure, we decided to abort the case.
2. Significantly elevated right and left-sided filling pressures with normal cardiac output.
3. Estimated mean invasive aortic gradient of 41 mmHg, aortic valve area calculated at 0.93 cm� consistent with severe aortic stenosis.
RECOMMENDATIONS
1. Wean radioman per protocol.
2. Aggressive IV diuresis over the weekend with close monitoring of renal function and electrolytes with repletion as needed.
3. Pursue CTA of chest, abdomen and pelvis per TAVR protocol.
4. Ongoing discussions with CT surgery consult in regards to best management strategy: SAVR/CABG versus consideration for IVUS of left main and if not significant, consideration for multivessel PCI and TAVR.
5. Aggressive management of cardiovascular risk factors.
Copy to: Ml Velazquez MD
Laurita Euceda MD, [facility], [facility]
[2024-04-26] MEDS: DICLOFENAC 1% TOPICAL GEL TOPICAL ×2 (21:33→22:37)
[2024-04-26] MEDS: MIRALAX PO (21:34)
[2024-04-26] MEDS: CYMBALTA DELAYED RELEASE PO (21:34)
[2024-04-26] MEDS: METAMUCIL, KONSYL PO (21:34)
[2024-04-26] MEDS: MUCINEX PO (21:35)
[2024-04-26] MEDS: THIAMINE INJECTION 200 MG IV (22:36)
[2024-04-26] MEDS: TYLENOL PO (22:37)
[2024-04-26] MEDS: CRESTOR PO (22:37)
--- NOTE | 2024-04-26 23:18 | PTCARENOTE ---
Addendum entered by Lilia Gupta RN 04/26/24 23:20:
heparin gtt restarted per orders.
Original Note:
Received pt at change of shift. 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 1:1 at bedside. SHAKIRA, on tele monitor. CAll cai within reach.
[2024-04-27] VITALS (12 sets, daily range): BP systolic 106–136; BP diastolic 52–112; PULSE 67–69; O2SAT 93–94; BMI 29.1
[2024-04-27] MEDS: TESSALON PERLES 200 MG PO (02:00)
[2024-04-27] MEDS: TORADOL 15 MG IV ×2 (02:01→20:20)
[2024-04-27 02:03] LABS: Hematocrit 33.4 % (39.0-52.0); Hemoglobin 11.7 g/dL (13.0-18.0); Mean Corpuscular Hgb 30.4 pg (27.0-31.0); Mean Corpuscular Volume 86.8 fL (80.0-94.0); Platelet Count 238 10^3/uL (130-400); Red Blood Cell Count 3.85 10^6/uL (4.70-6.10); Red Cell Dist. Width 13.3 % (11.5-14.5); White Blood Cell Count 7.6 10^3/uL (4.8-10.8)
[2024-04-27 02:09] LABS: INR 1.17; PT 15.2 Sec (11.4-14.6)
[2024-04-27 02:10] LABS: APTT 44.3 Sec (23.4-35.0)
[2024-04-27 02:21] LABS: ALT (SGPT) 79 U/L (0-50); AST (SGOT) 55 U/L (17-59); Albumin 3.6 g/dl (3.5-5.0); Alkaline Phosphatase 72 U/L (38-126); Blood Urea Nitrogen 16 mg/dl (9-20); Calcium 8.6 mg/dl (8.4-10.2); Carbon Dioxide 27 mmol/L (22-30); Chloride 102 mmol/L (98-107); Direct Bilirubin 0.1 mg/dl (0.0-0.4); Estimated Creatinine Clearance 124 ml/min; Glucose 124 mg/dl (70-99); Magnesium 1.9 mg/dl (1.6-2.3); Potassium 3.6 mmol/L (3.5-5.1); Sodium 137 mmol/L (135-145); Total Bilirubin 1.8 mg/dl (0.2-1.3); eGFR > 60.00
[2024-04-27] MEDS: UNASYN IV ×4 (04:29→22:52)
--- NOTE | 2024-04-27 05:16 | PTCARENOTE ---
Pt NSR on monitor. C/o pain with caught or movements. PRN meds given. Pt AAOx3, pleasant and cooperative. Observing pt off 1:1. safety measures in place, call cai in reach.
--- NOTE | 2024-04-27 07:40 | W.PN.CARDCBS ---
Addendum entered and electronically signed by Ml Velazquez MD 04/27/24 11:39:
I saw and examined the patient.
The [employer]'s note was reviewed and I agree with the note.
Comment: Spoke to the patient and his at the bedside. Patient had ajn-wr-eejyvbxq cardiac arrest 04/23/2024. Neurologically continues to recover but yesterday had some behavioral disturbance transiently. Today appears appropriate. He
underwent left and right heart catheterization 04/26/2024 reviewed.
-Right heart catheterization with PA pressure 54/26 mean 40. PCW 25 with V waves up to 33. Cardiac output 5.94 cardiac index 2.61 SVR 1198.
-Complex coronary anatomy with significant multivessel disease possibly involving the left main. Ideally they would have proceeded with intravascular ultrasound however giving worsening respiratory status and acute diastolic heart failure case was
aborted. Diffuse 70 to 80% stenosis proximal to mid LAD including in-stent restenosis of prior mid LAD stent. Obtuse marginal branch 70 to 80% stenosis with jcto-fg-ugjsv collaterals. 70% stenosis proximal portion RPDA chronic total occlusion
ostial RPL collateralized.
-Mean aortic valve gradient 41 mmHg aortic valve area calculated 0.93 cm� consistent with severe aortic valve stenosis.
Plan at this time:
Continue multidisciplinary team approach in discussion of management strategies which include SAVR/CABG versus TAVR/PCI, but again will need IVUS assessment of LM. There was also 70 to 80% in-stent restenosis of the previously placed proximal to
mid LAD Cypher SIMEON from 2003. He has multivessel coronary disease and severe aortic valve stenosis.
Volume overload noted. Likely related to initial cardiac arrest, resuscitation and cooling protocol. Diuresing well. Blood pressure stable. Continue to follow. Continue current dose of diuretic.
Continue to assess neurologic recovery. Postcardiac cath confusion and agitated noted, he is AAOx3 on 04/27/2024.
Continue heparin gtt . Last dose of Eliquis 5 mg BID (age 76, wt 102 kg) was 04/24/2024 PM. History of atrial fibrillation currently in sinus rhythm.
LFTs improving LDL is 61 and outpatient dose of Crestor 10 mg daily has been continued. Goal would be less than 50. If LFTs remain stable would increase Crestor
Outpatient dose of aspirin 81 mg daily has been continued
Original Note:
Today's Communication / Plan
-
Cont Heparin gtt, Eliquis on hold
Previously permanent Afib and has been in SR since admission to and presumably since code event and shocks
Weight up 2 lbs, cont Lasix 20 mg IV BID
52 min face to face and coordination of care
Impression / Plan
-
PCP: Dr. Som Miller
Cardiology: Previously Dr. Boucher
Impression:
Admitted to [facility] with out of hospital cardiac arrest 04/23/2024
Transferred to for cardiac catheterization and possible ICD 04/25/2024
Out of hospital cardiac arrest 04/23/2024
Immediate bystander CPR with 2 defibrillations by AED, EMS administered 2 additional shocks for pulseless VT, 1 amp lidocaine and 1 amp epi given with ROSC
Concern for mzvs-lj-uipnd slow nystagmus and myoclonic movements on admission to [facility], but no overt tonic-clonic movement
Tongue laceration, s/p sutures x2 at [facility] 04/23/24
s/p VDRF 04/23/2024 until 04/24/2024
Targeted temperature management performed at [facility] 04/23/2024
CAD
CAD s/p 2.5 mm Cypher SIMEON to the mid to distal LAD 11/04/2003
Abnormal stress test with basal inferior and basal inferolateral segment fixed defect c/w infarction 01/31/23
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
Permanent A-fib
has been in SR since admission to 04/25/24
Chronic Eliquis OAC
Last dose of Eliquis 04/24/2024 PM
Moderate to severe mean gradient 27 mmHg by echo at 12/19/2023 and mean gradient 22.4 mmHg by echo at [facility] 04/24/2024
Hyperlipidemia
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
Venous cerebral aneurysm seen on MRI 04/04/[address] Bernstein at 04/04/24 and then scheduled for f/u with neurosurgeon at [place] 04/25/24, missed appt due to admission
Acute HFpEF, PCWP [address] [facility] 04/26/2024
Lexiscan nuclear stress test 01/31/2023: Medium area of severely decreased/absent tracer uptake perfusion that was fixed in the mid inferior segment and apical inferior segment C/W soft tissue attenuation as it improves with prone imaging, small
area of severely decreased/absent perfusion fixed in the basal inferior segment consistent with infarction, EF 52%
Echo 12/19/23: EF 55 to 60%, mild concentric LVH, normal RV size and function, moderate to severe with peak/mean 55/27 mmHg and CHRISTIAN 1.0 cm sq, mildly dilated aortic root and ascending aorta with sinuses of Valsalva 4.1 cm, sinotubular junction 3.7
cm and ascending aorta 4.4 cm
Echo 04/24/24: GVH study, EF 50 to 55%, normal RV size and function, at least moderate with peak/mean 42.3/22.4 mmHg, trace MR, trace TR, aortic root 4.16, aortic sinus 3.83, sinotubular junction 2.9 and ascending aorta 4.36
Echo 04/25/24: EF 60 to 65%, basal inferior akinesis, mild concentric LVH, normal RV size and function, severe peak/mean 73/36 mmHg and CHRISTIAN 0.75 cm sq, no aortic regurgitation, mild TR with PAP 25 to 30 mmHg, compared to echo 12/19/2023 although
not previously noted by visual comparison the basal inferior akinesis persists
Plan:
-Patient had cardiac cath 04/26/2024 and was found to have significant MV CAD including possible ostial LM, but will need IVUS for further assessment that could not be performed during time of cath due to worsening respiratory status. In the
meantime patient is being seen in consultation by CT surgery team and also has known severe . Currently discussing management strategies which include SAVR/CABG versus TAVR/PCI, but again will need IVUS assessment of LM. There was also 70 to 80%
in-stent restenosis of the previously placed proximal to mid LAD Cypher SIMEON from 2003
-Postcardiac cath confusion and agitated noted, he is AAOx3 on 04/27/2024.
-Troponin on admission to was 0.097 and then trended down to 0.074. Suspect troponin may have been higher at [facility] and this would be a nonischemic myocardial injury troponin elevation in the setting of mbm-tr-[id number] cardiac arrest and CPR. No
obvious ACS signs or symptoms.
-Heparin gtt running. Last dose of Eliquis 5 mg BID (age 76, wt 102 kg) was 04/24/2024 PM
-LDL is 61 and outpatient dose of Crestor 10 mg daily has been continued
-Outpatient dose of aspirin 81 mg daily has been continued
-Echo reviewed above, the EF is preserved and there is severe
-PCWP was [address] [facility] 04/26/2024. Lasix 20 mg IV BID ordered. Patient was not taking a loop diuretic prior to admission. Outpatient dose of chlorthalidone remains on hold.
-Daily weights and HF education ordered. Weight is up 2 lbs compared to admission.
-New to Toprol XL 25 mg daily this admission
-Hold chlorthalidone for now.
-Continue outpatient dose of Toprol-XL 25 mg daily
-Patient was not taking JOSEFA/ARB/ARNI prior to admission and will hold at this time due to hypotension and need for diuresis
-Patient previously diagnosed as permanent A-fib, but has been in SR throughout admission to . ECG reviewed by me 04/26/2024 shows SR with QTc 481 ms. Recheck ECG in AM, ordered by me.
HPI: Patient came to today as a transfer from [facility] for cardiac cath and cardiology has been consulted. Patient was admitted to [facility] on 04/23/24 after a witnessed out of hospital cardiac arrest while swimming for exercise at a local pool. Patient
was removed from the pool immediately and there was no suggestion of inhaled or ingested water. Bystanders started CPR immediately and AED was applied with 2 defibrillations followed by EMS arrival who found the patient to be in pulseless VT and
administered 2 additional defibrillations along with lidocaine x 1 and epinephrine x 1 resulting in ROSC. Patient was intubated upon arrival to [facility] and there was also initial concern for posturing, left to right slow nystagmus and myoclonic
movements along with considerable oral bleeding, but no overt tonic-clonic movement was seen and Ceribell device application indicated no seizures. ECG did not show ST elevation and CT of the head only showed a known cerebral venous aneurysm.
Patient underwent targeted temperature management and was warmed and extubated yesterday. Patient was recommended cardiology evaluation including cardiac catheterization and his daughter, who is a local PCP to and also part of the residency
program here at , requested transfer to .
Progress Note - Lactation Specialist
Subjective
Date of Service: April 27, 2024
Feels great this morning, no CP
Objective
Labs:
04/27/24 01:44
04/27/24 01:44
Labs
Hgb 11.7 g/dL (13.0-18.0) L 04/27/24 01:44
Hct 33.4 % (39.0-52.0) L 04/27/24 01:44
Plt Count 238 10^3/uL (130-400) 04/27/24 01:44
PT 15.2 Sec (11.4-14.6) H 04/27/24 01:44
INR 1.17 04/27/24 01:44
APTT 44.3 Sec (23.4-35.0) H 04/27/24 01:44
APTT Cancelled 04/27/24 01:44
Sodium 137 mmol/L (135-145) 04/27/24 01:44
Potassium 3.6 mmol/L (3.5-5.1) 04/27/24 01:44
BUN 16 mg/dl (9-20) 04/27/24 01:44
Creatinine 0.6 mg/dL (0.7-1.3) L 04/27/24 01:44
Glucose 124 mg/dl (70-99) H 04/27/24 01:44
Troponins
04/25/24 04/25/24
12:11 20:24
Troponin I 0.097 H* 0.074 H*
Vital Signs and I&O:
Vital Signs
Temp Pulse Resp BP Pulse Ox
98.7 F 74 18 106/63 95
04/27/24 03:00 04/27/24 06:00 04/27/24 03:00 04/27/24 06:00 04/27/24 03:00
Vital Signs
Temp Pulse Resp BP Pulse Ox
98.7 F 74 18 106/63 95
04/27/24 03:00 04/27/24 06:00 04/27/24 03:00 04/27/24 06:00 04/27/24 03:00
Intake & Output
04/25/24 04/26/24 04/27/24 04/28/24
06:59 06:59 06:59 06:59
Intake Total 1370 / 1370 100 / 100
Output Total 1900 / 1900 2800 / 2800
Balance -530 / -530 -2700 / -2700
Physical Exam
Physical Exam
GEN: No distress, AAOx3
HEENT: EOMI, MMM
LUNGS: RA. No audible wheeze
CV: SR on tele. 05/19 crescendo decrescendo basal murmur
ABD: ND
EXT: No edema
NEURO: Gross non-focal
SKIN: No rash
[2024-04-27] MEDS: CYMBALTA DELAYED RELEASE 30 MG PO ×2 (07:51→20:19)
[2024-04-27] MEDS: DICLOFENAC 1% TOPICAL GEL 4 GRAM TOPICAL ×2 (07:51→15:28)
[2024-04-27] MEDS: FLOMAX 0.4 MG PO (07:52)
[2024-04-27] MEDS: TOPROL XL 25 MG PO (07:52)
[2024-04-27] MEDS: PROTONIX 40 MG PO (07:52)
[2024-04-27] MEDS: KCL 20 MEQ PO (07:53)
[2024-04-27] MEDS: LOW STRENGTH ASPIRIN 81 MG PO (07:53)
[2024-04-27] MEDS: TYLENOL 1000 MG PO ×3 (07:53→22:51)
[2024-04-27] MEDS: LASIX 20 MG IV ×2 (07:53→16:44)
[2024-04-27] MEDS: MUCINEX 1200 MG PO ×2 (07:53→20:19)
[2024-04-27] MEDS: MIRALAX 17 GRAMS PO ×2 (07:54→20:20)
[2024-04-27] MEDS: LIDOCAINE 4% PATCH 1 PATCH TOPICAL (07:54)
[2024-04-27] MEDS: THIAMINE INJECTION 200 MG IV ×3 (07:54→22:52)
[2024-04-27] MEDS: METAMUCIL, KONSYL 1 PACKET PO ×2 (07:55→20:20)
[2024-04-27 09:26] LABS: Glycohemoglobin (HgbA1c) 6.1 % (4.0-5.6)
--- NOTE | 2024-04-27 09:56 | W.PN.HOSP.TC ---
Today's Communication/Plan
-
mag citrate
agree with PT/OT
await further CT surgery decisions
Assessment / Plan
Assessment / Plan
Assessment
Nader Clark, 73-year-old male, was swimming on 04-23-24 when he had a cardiac arrest. He was swimming for approximately 1 hour, and reportedly took more breaks than usual. After an hour, he got to the edge and was visibly looking ill.
Fortunately, a logistics team lead was right by the patient who went to check on him when he became unconscious. No pulse was detected so they initiated CPR. He was found to be in ventricular fibrillation, and was shocked twice by [facility], and twice
again when paramedics arrived. ROSC was achieved after approximately 15 minutes of ACLS. Admitted to [facility] and intubated with cooling protocol.
[facility] course was notable for a tongue laceration that was found on admission, requiring stitches. He also spiked a fever and presumed to have aspirated blood from the laceration; he was started on piperacillin-tazobactam at the ICU. He was
successfully extubated on 04-24-24, after which he had difficulties with short-term recall and persistent confusion. This continued to improve, and he was eventually transferred to for catheterization and implantable cardioverter-defibrillator
placement. Before he was transferred, he was noted to have low potassium and magnesium which were both repleted, per report.
Impression and plan
Vrm-vu-runjipac cardiac arrest--await final decisions from CT surgery
Bystander logistics team lead ACLS
ROSC after 15 minutes of CPR time
- Status-post cooling protocol at [facility].
- Intubated 04-23-24 and extubated 04-24-24.
- Saturating well on room air, and hemodynamically stable.
- Pain and tenderness over the chest wall, traumatic; pain management as needed.
- Monitor in the IVU.
- ICD placement planned following cath, per below--not sure he received ICD placement based on cath report
- Apprec cardiology
Coronary artery disease
Status-post LAD stent - 2003
- Concern for underlying ischemic etiology based on presentation.
- s/p cath--Significant multivessel coronary artery disease possibly involving ostial left main, severe aortic stenosis
- Continue aspirin and rosuvastatin.
Troponin elevation
- Likely following the cardiac arrest.
- Asymptomatic from an ischemic stand-point.
- Down-trending.
Permanent atrial fibrillation--renew IV heparin drip
- On apixaban, held pending cath and ICD placement.
- Continue metoprolol.
Severe aortic valve stenosis
- Noted on echocardiogram.
- Planned replacement per CT surgery
Aspiration pneumonia
- Unclear if he was febrile due to an infectious etiology vs. post-code.
- Empirically covered with piperacillin-tazobactam at [facility].
- Narrow to ampicillin-sulbactam since now stable.
- Day 5 of antibiotics; to be completed on 04-28-23.
- Follow CBC and temperature curve.
- Request BC reports from [facility].
- Pulmonary consulted.
- Aspiration precautions and supplemental oxygen as needed.
- Incentive spirometry.
Tongue laceration
- Status-post stitches at .
- Otorhinolaryngology consultation; no further interventions necessary.
- Neurology consulted to evaluate for possible seizure disorder; unlikely and EEG normal.
Cerebral venous aneurysm
- Chronic and asymptomatic, per neurology.
Cognitive impairment--appears improved from 04/26/24--cont to follow
- Likely secondary to the cardiac arrest.
- [employer] consultation
Chronic constipation
- On polyethylene glycol and psyllium twice a day; re-start today.
- May need additional support if unable to pass BM; last reported on 04-22-24.
Essential hypertension
- Continue antihypertensives.
- Stable and asymptomatic.
Hyperlipidemia
- Continue statin.
Depression
- Continue duloxetine.
Benign prostatic hyperplasia
- Continue tamsulosin.
Psoriatic arthritis
- On certolizumab pegol.
Recent influenza A infection
- Asymptomatic.
Thromboprophylaxis
- Heparin.
Code status
- Full.
Anticipated Discharge: > 48 hours
Subjective/Interval History
-
Date of Service: April 27, 2024
pt appears to be more lucid today
Objective Data
-
Labs:
Laboratory Results
04/27/24 04/27/24 04/27/24
01:44 01:44 08:32
WBC 7.6
Hgb 11.7 L
Hct 33.4 L
Plt Count 238
PT 15.2 H
INR 1.17
APTT 44.3 H Cancelled 51.0 H
Sodium 137
Potassium 3.6
Chloride 102
Carbon Dioxide 27
BUN 16
Creatinine 0.6 L
Glucose 124 H
Calcium 8.6
Total Bilirubin 1.8 H
AST 55
ALT 79 H
Alkaline Phosphatase 72
Vital Signs:
max temp for 24 hours
04/26/24
14:59
Temp 99.1 F
Vital Signs
Temp Pulse Resp BP Pulse Ox
97.8 F 74 20 106/63 95
04/27/24 06:51 04/27/24 06:00 04/27/24 06:51 04/27/24 06:00 04/27/24 06:51
I&O
04/26/24 04/27/24 04/28/24
06:59 06:59 06:59
Intake Total 1370 / 1370 100 / 100
Output Total 1900 / 1900 2800 / 2800
Balance -530 / -530 -2700 / -2700
Review of Systems
-
All other systems: Reviewed and negative
Physical Exam
-
General: Well Developed, Well Nourished and No Apparent Distress
HEENT: Normocephalic and Atraumatic; Negative Oxygen
Respiratory: Clear to Auscultation; Negative Wheezes or Rhonchi
Cardiac: Irregular Rhythm
GI: Soft, Nontender, Nondistended and Normal Bowel Sounds
Musculoskeletal: No Clubbing, No Cyanosis and No Edema
Skin: Warm and Dry
Neuro: Awake and Alert
Psych: Calm
[2024-04-27] MEDS: HEPARIN 25000 UNITS/250 ML IV (10:07)
--- NOTE | 2024-04-27 14:19 | W.PN.UPDATE ---
Update Note
Progress Note Update
Patient undergoing ongoing preoperative studies. A TAVR CT is ordered for Saturday 04/29. Depending on findings carotid ultrasounds will be ordered. Final surgical determination will be by attending.
--- NOTE | 2024-04-27 16:48 | W.PN.PUL3 ---
Today's Communication / Plan
-
Continue empiric antibiotics with Unasyn, giving for total of 5-7 days
Aspiration precautions
Recommend repeat CXR in 4 to 6 weeks to follow pneumonia resolution
Heparin drip
Diuresis per cardiology
CT TAVR is pending
Defer coronary intervention to CT surgery for SAVR/CABG vs multivessel PCI + TAVR via interventional cardiology
No additional recommendations at this time. Pulmonary service will now sign off. Outpatient pulmonary office follow-up will be arranged. Please reconsult if there are any additional questions/concerns, or if patient's respiratory status
deteriorates.
Assessment
-
73-year-old male with a history of CAD/LAD stent, permanent atrial fibrillation on chronic Eliquis as well as moderate to severe aortic stenosis and hyperlipidemia who was swimming at a local pool and had a witnessed bhy-ac-mwvpuiqo cardiac
arrest-patient removed from pool immediately, CPR bystander performed immediately and AED was applied with 2 defibrillations followed by EMS who found the patient to be in pulseless ventricular tachycardia and administered 2 additional
defibrillations along with lidocaine and epinephrine with resumption of spontaneous circulation-patient was intubated, targeted temperature management, and successfully extubated-there was a question on aspiration and pulmonary was consulted prior
to cardiac catheterization 04/25/2024.
Kee-it-xgwxdxqx cardiac arrest-witnessed, bystander CPR/defibrillation x 3 with ROSC
Status post ventilator-extubated 04/24/2024, targeted temperature management at [facility]-transferred to for cardiac catheterization after extubated
CAD with a history of LAD stent 2003
Severe aortic stenosis
Recent influenza A 03/2024
Atrial fibrillation
Mild pyyyka-itnuxcofxo-atciqzzlpq 11.7 today
Mild transaminitis - improving
Mild hyperglycemia
Tongue laceration-seen by ENT
Conditions present prior to admission:
CAD/stent LAD 11/04/2003.
Hypertension.
Hyperlipidemia.
Psoriatic arthritis.
Depression.
RANDY.
Permanent atrial fibrillation.
Chronic Eliquis.
Moderate to severe aortic stenosis.
Hyperlipidemia.
BPH
Cholecystectomy. Right hip replacement. Left knee replacement.
Plan
Respiratory status stable-suspect aspiration event during resuscitation-also was on the ventilator briefly
Supplemental oxygen as needed - now 94-95% on room air
Aspiration precautions
Inhalers or nebulizers if needed-currently not bronchospastic
Mucolytics if needed
Bronchodilators if needed
Cultures reviewed
Sputum culture 04/25/2024-many WBCs, mixed organisms-usual respiratory kyle on culture
Empiric antibiotics-Unasyn initiated on 04/25/2024 � would complete 5-7 days and then stop
Follow temperature curve and trend WBC
Cardiology following-correspondence reviewed
Cardiac catheterization 04/26/2024-significant multivessel CAD involving the ostial left main with elevated right and left-sided filling pressures with preserved cardiac output, also severe aortic stenosis with CHRISTIAN 0.93 cm� and mean aortic gradient
41 mmHg
Diuresis per cardiology
Defer coronary intervention to CT surgery for SAVR/CABG vs multivessel PCI + TAVR via interventional cardiology
Heparin drip continues
ENT evaluation of tongue laceration-healing well; ENT signed off on 04/25
Neurologic status is at baseline
EEG done on 04/25 was normal
Mental status excellent-great to long-term memory
DVT prophylaxis-on heparin gtt
Continue pantoprazole (home med)
Nutrition with cholesterol-lowering diet - will add a fluid restriction, and continue with 2 g sodium restriction
Early mobilization/physical therapy
Dr. Meraz reviewed with daughter, Vi, at the bedside
Outpatient sleep disordered breathing follow-up
No additional recommendations at this time. Pulmonary service will now sign off. Thank you for allowing us to be involved in the care of this patient. Please reconsult if there are any additional questions/concerns, or if patient's respiratory
status deteriorates.
Diagnostic data:
Chest x-ray 01/12/2020-NAD
Brain MRI 04/04/2024-no acute intracranial abnormalities
Echocardiogram 12/15/2022-EF 60%, moderate to severe aortic stenosis,
Nuclear stress test 12/15/2022-inconclusive for ischemia, EF 52%, moderate risk study
Total time spent today was 36 minutes for this encounter. Time includes reviewing laboratory test/imaging results, reviewing pertinent medical records, obtaining and reviewing medical history, performing an appropriate exam, ordering medications,
tests and procedures. Time also includes documentation of this encounter, coordinating patient care and communicating with other healthcare professionals. Total time does not include separately billed tests performed on this date of service.
Subjective Data
-
Date of Service:
Date of Service: April 27, 2024
Chief Complaint: Pulmonary Follow Up and Dyspnea Follow Up
Subjective:
Patient seen earlier today (late note entry). Patient is sitting in a chair no acute distress. Patient's daughter, Vi, at bedside. Patient feels well, still has some phlegm production but it is not bothersome. Heart rate 60, BP 107/66 and
saturating 93% on room air. He currently denies chest pain, SERRANO, nausea, fevers or chills.
Review of Systems
General: Other (Negative unless mentioned above)
Objective Data
Data Reviewed
Vital Signs / I&O / Oxygen:
Vital Signs
Temp Pulse Resp BP Pulse Ox
97.8 F 74 20 106/63 95
04/27/24 06:51 04/27/24 06:00 04/27/24 06:51 04/27/24 06:00 04/27/24 06:51
Intake and Output
04/26/24 04/27/24 04/28/24
06:59 06:59 06:59
Intake Total 1370 / 1370 100 / 100
Output Total 1900 / 1900 2800 / 2800
Balance -530 / -530 -2700 / -2700
SaO2 95
Nasal Cannula flow liters per 4
minute
Physical Exam
General: Respiratory Distress (n) and Comfortable
HEENT: Normocephalic, Anicteric and Moist Mucous Membranes
Cardiovascular: Irregular Rhythm, Murmur (CRISTIAN heard best at RUSB; grade IV/) and Peripheral Edema (negative)
Respiratory: Clear, Wheeze (n), Crackles (negative), Rhonchi (n), Non-Labored Respirations, Accessory Resp Muscle Use (n) and Other (No anterior ecchymosis at site of CPR)
GI: Soft, Non Distended and Non Tender
Neurology: AO x 3 and Tremors (negative)
Skin: Warm, Dry, Cyanosis (n), Jaundice (n) and Rash (n)
Labs/Micro/Reports
Lab Data
04/27/24 01:44
04/27/24 01:44
Laboratory Results
04/26/24 04/27/24 04/27/24
11:45 01:44 01:44
PT 15.2 H
INR 1.17
APTT Cancelled 44.3 H Cancelled
04/27/24
08:32
PT
INR
APTT 51.0 H
Microbiology
04/25/24 11:53 Nose MRSA Screen - Final
No Methicillin Resistant Staphylococcus aureus isolated.
04/25/24 13:13 Sputum Respiratory Culture - Preliminary
Usual Respiratory Kyle
04/25/24 13:13 Sputum Gram Stain - Preliminary
[2024-04-27 17:06] LABS: Glucose - Point of Care 187 mg/dl (70-99)
[2024-04-27 17:28] LABS: APTT 55.5 Sec (23.4-35.0)
--- NOTE | 2024-04-27 18:04 | PTCARENOTE ---
Patient comfortable today. AOx3, short term memory impairment improving. Weaned to room air POX 96%, lungs fine crackles right base. NSR on telemetry. Residual chest soreness improving. Using urinal at bedside, urine autumn color. 2 large bowel
movements today following Miralax and Metamucil, held mag citrate. Heparin gtt at 1600 units/hr. Walked in hallway today and in the room. Gait is fairly steady. Bed and chair alarms audible, he can be impulsive and forgetful but improving. Right
radial and right brachial sites dressing dry and soft. Abrasions on back and chest from removing defib pads, dry and healing. Family attentive at bedside
[2024-04-27] MEDS: DICLOFENAC 1% TOPICAL GEL 2 GRAM TOPICAL (20:18)
[2024-04-27] MEDS: COLACE 100 MG PO (20:19)
[2024-04-27 21:03] LABS: Glucose - Point of Care 131 mg/dl (70-99)
--- NOTE | 2024-04-27 21:52 | PTCARENOTE ---
Received patient at change of shift. A&Ox3. Vitals stable. Daughter bedside. Heparin gtt running @ 1600 units/hr through left hand. Right radial site clean, dry, and intact. No ecchymosis and soft to touch. Right brachial site clean, dry, and
intact. Ecchymosis present, but soft to touch. Bed alarm on. Discussed plan of care for evening. Patient verbalized understanding. Call cai within reach.
[2024-04-27] MEDS: SENOKOT 17.2 MG PO (22:51)
[2024-04-27] MEDS: CRESTOR 10 MG PO (22:51)
[2024-04-27] MEDS: DICLOFENAC 1% TOPICAL GEL TOPICAL (23:10)
[2024-04-28] VITALS (9 sets, daily range): BP systolic 110–145; BP diastolic 60–118; BMI 28.9
[2024-04-28 00:50] LABS: APTT 83.6 Sec (23.4-35.0)
[2024-04-28] MEDS: UNASYN IV ×4 (03:40→21:13)
[2024-04-28] MEDS: HEPARIN 25000 UNITS/250 ML IV ×2 (03:40→19:09)
[2024-04-28 06:22] LABS: Hematocrit 32.8 % (39.0-52.0); Hemoglobin 11.6 g/dL (13.0-18.0); Mean Corp Hgb Conc. 35.4 g/dL (33.0-37.0); Mean Corpuscular Hgb 30.2 pg (27.0-31.0); Mean Corpuscular Volume 85.4 fL (80.0-94.0); Mean Platelet Volume 8.6 fL (7.4-10.4); Platelet Count 237 10^3/uL (130-400); Red Blood Cell Count 3.84 10^6/uL (4.70-6.10); Red Cell Dist. Width 13.2 % (11.5-14.5); White Blood Cell Count 6.6 10^3/uL (4.8-10.8)
[2024-04-28 06:30] LABS: APTT 58.6 Sec (23.4-35.0)
[2024-04-28 06:45] LABS: ALT (SGPT) 55 U/L (0-50); AST (SGOT) 39 U/L (17-59); Albumin 3.1 g/dl (3.5-5.0); Alkaline Phosphatase 74 U/L (38-126); Blood Urea Nitrogen 18 mg/dl (9-20); Calcium 8.9 mg/dl (8.4-10.2); Carbon Dioxide 29 mmol/L (22-30); Chloride 103 mmol/L (98-107); Estimated Creatinine Clearance 106 ml/min; Glucose 102 mg/dl (70-99); Magnesium 1.9 mg/dl (1.6-2.3); Potassium 3.5 mmol/L (3.5-5.1); Sodium 137 mmol/L (135-145); Total Bilirubin 1.2 mg/dl (0.2-1.3); Total Protein 5.5 g/dl (6.3-8.2); eGFR > 60.00
[2024-04-28] MEDS: MIRALAX 17 GRAMS PO ×2 (09:27→19:49)
[2024-04-28] MEDS: LIDOCAINE 4% PATCH 1 PATCH TOPICAL (09:27)
[2024-04-28] MEDS: METAMUCIL, KONSYL 1 PACKET PO ×2 (09:27→19:49)
[2024-04-28 09:30] LABS: Glucose - Point of Care 114 mg/dl (70-99)
[2024-04-28] MEDS: CYMBALTA DELAYED RELEASE 30 MG PO ×2 (09:31→19:49)
[2024-04-28] MEDS: MUCINEX 1200 MG PO ×2 (09:31→19:49)
[2024-04-28] MEDS: PROTONIX 40 MG PO (09:31)
[2024-04-28] MEDS: TYLENOL 1000 MG PO ×3 (09:31→21:13)
[2024-04-28] MEDS: KCL 20 MEQ PO (09:32)
[2024-04-28] MEDS: TOPROL XL 25 MG PO (09:32)
[2024-04-28] MEDS: LASIX 20 MG IV ×2 (09:32→16:07)
[2024-04-28] MEDS: FLOMAX 0.4 MG PO (09:32)
[2024-04-28] MEDS: LOW STRENGTH ASPIRIN 81 MG PO (09:33)
[2024-04-28] MEDS: DICLOFENAC 1% TOPICAL GEL 4 GRAM TOPICAL ×3 (09:33→19:49)
[2024-04-28] MEDS: COLACE 100 MG PO ×2 (09:33→19:49)
--- NOTE | 2024-04-28 10:17 | W.PN.CARDCBS ---
Today's Communication / Plan
-
Continue IV heparin
Continue diuresis
Await results of TAVR CT which is planned for tomorrow
Impression / Plan
-
PCP: Dr. Som Miller
Cardiology: Previously Dr. Boucher
Impression:
Admitted to [facility] with out of hospital cardiac arrest 04/23/2024
Transferred to for cardiac catheterization and possible ICD 04/25/2024
Out of hospital cardiac arrest 04/23/2024
Immediate bystander CPR with 2 defibrillations by AED, EMS administered 2 additional shocks for pulseless VT, 1 amp lidocaine and 1 amp epi given with ROSC
Concern for [id number] slow nystagmus and myoclonic movements on admission to [facility], but no overt tonic-clonic movement
Tongue laceration, s/p sutures x2 at [facility] 04/23/24
s/p VDRF 04/23/2024 until 04/24/2024
Targeted temperature management performed at [facility] 04/23/2024
CAD
CAD s/p 2.5 mm Cypher SIMEON to the mid to distal LAD 11/04/2003
Abnormal stress test with basal inferior and basal inferolateral segment fixed defect c/w infarction 01/31/23
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
Permanent A-fib
has been in SR since admission to 04/25/24
Chronic Eliquis OAC
Last dose of Eliquis 04/24/2024 PM
Moderate to severe mean gradient 27 mmHg by echo at 12/19/2023 and mean gradient 22.4 mmHg by echo at [facility] 04/24/2024
Hyperlipidemia
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
Venous cerebral aneurysm seen on MRI 04/04/[address] Bernstein at 04/04/24 and then scheduled for f/u with neurosurgeon at [facility] 04/25/24, missed appt due to admission
Acute HFpEF, PCWP by [facility] 04/26/2024
Lexiscan nuclear stress test 01/31/2023: Medium area of severely decreased/absent tracer uptake perfusion that was fixed in the mid inferior segment and apical inferior segment C/W soft tissue attenuation as it improves with prone imaging, small
area of severely decreased/absent perfusion fixed in the basal inferior segment consistent with infarction, EF 52%
Echo 12/19/23: EF 55 to 60%, mild concentric LVH, normal RV size and function, moderate to severe with peak/mean 55/27 mmHg and CHRISTIAN 1.0 cm sq, mildly dilated aortic root and ascending aorta with sinuses of Valsalva 4.1 cm, sinotubular junction 3.7
cm and ascending aorta 4.4 cm
Echo 04/24/24: [facility] study, EF 50 to 55%, normal RV size and function, at least moderate with peak/mean 42.3/22.4 mmHg, trace MR, trace TR, aortic root 4.16, aortic sinus 3.83, sinotubular junction 2.9 and ascending aorta 4.36
Echo 04/25/24: EF 60 to 65%, basal inferior akinesis, mild concentric LVH, normal RV size and function, severe peak/mean 73/36 mmHg and CHRISTIAN 0.75 cm sq, no aortic regurgitation, mild TR with PAP 25 to 30 mmHg, compared to echo 12/19/2023 although
not previously noted by visual comparison the basal inferior akinesis persists
Plan:
Patient had cardiac cath 04/26/2024 and was found to have significant MV CAD including possible ostial LM, but will need IVUS for further assessment that could not be performed during time of cath due to worsening respiratory status. In the meantime
patient is being seen in consultation by CT surgery team and also has known severe . Currently discussing management strategies which include SAVR/CABG versus TAVR/PCI. There was also 70 to 80% in-stent restenosis of the previously placed
proximal to mid LAD Cypher SIMEON from 2003
Troponin on admission to was 0.097 and then trended down to 0.074. Suspect troponin may have been higher at [facility] and this would be a nonischemic myocardial injury troponin elevation in the setting of [id number] cardiac arrest and CPR. No
obvious ACS signs or symptoms.
PCWP was 25 by [facility] 04/26/2024.
Echocardiogram with severe aortic stenosis.
Volume overload noted. Likely related to initial cardiac arrest, resuscitation and cooling protocol. Diuresing well. Blood pressure stable. Continue to follow. Continue current dose of diuretic.
Continue to assess neurologic recovery. Postcardiac cath confusion and agitated noted, improved he is AAOx3 on 04/27/2024.
Continue heparin gtt . Last dose of Eliquis 5 mg BID (age 76, wt 102 kg) was 04/24/2024 PM. History of atrial fibrillation currently in sinus rhythm.
LFTs improving LDL is 61 and outpatient dose of Crestor 10 mg daily has been continued. Goal would be less than 50. If LFTs remain stable will increase Crestor
Outpatient dose of aspirin 81 mg daily has been continued
New to Toprol this admission, continue Toprol-XL 25 mg daily
There is a history of permanent atrial fibrillation, possibly cardioverted from A-fib to sinus during his cardiac arrest treated with AED shocks, currently maintaining sinus rhythm however. Maintain heparin
We await further direction from the multidisciplinary interventional cardiology/cardiothoracic surgery team regarding next steps in evaluation and treatment.
Await results of TAVR CT to decide best option for aortic valve replacement, whether SAVR or TAVR, this would then decide best strategy for coronary revascularization, CABG or PCI.
Given VT cardiac arrest and known inferior akinesis/scar, he will remain at elevated risk of ventricular arrhythmias and sudden cardiac therefore secondary prevention ICD is recommended prior to hospital discharge
Total time spent today was 53 minutes in preparing to see the patient, seeing the patient and coordination of care. This included review of recent laboratory evaluations, cardiact testing, imaging studies, primary care rtecords, specialty
consultations, hospital records, as well as personally interviewing and examining the patient, which included discussion of their tests, review/ordering medications, and communicating with other healthcare professionals and also treatment planning
as well as counseling.
HPI: Patient came to today as a transfer from [facility] for cardiac cath and cardiology has been consulted. Patient was admitted to [facility] on 04/23/24 after a witnessed out of hospital cardiac arrest while swimming for exercise at a local pool. Patient
was removed from the pool immediately and there was no suggestion of inhaled or ingested water. Bystanders started CPR immediately and AED was applied with 2 defibrillations followed by EMS arrival who found the patient to be in pulseless VT and
administered 2 additional defibrillations along with lidocaine x 1 and epinephrine x 1 resulting in ROSC. Patient was intubated upon arrival to [facility] and there was also initial concern for posturing, left to right slow nystagmus and myoclonic
movements along with considerable oral bleeding, but no overt tonic-clonic movement was seen and Ceribell device application indicated no seizures. ECG did not show ST elevation and CT of the head only showed a known cerebral venous aneurysm.
Patient underwent targeted temperature management and was warmed and extubated yesterday. Patient was recommended cardiology evaluation including cardiac catheterization and his daughter, who is a local PCP to and also part of the residency
program here at , requested transfer to .
Progress Note - Insurance Appraiser
Subjective
Date of Service: April 28, 2024
He denies any chest pain shortness of breath or palpitations today
Objective
Labs:
04/28/24 05:59
04/28/24 05:59
Labs
Hgb 11.6 g/dL (13.0-18.0) L 04/28/24 05:59
Hct 32.8 % (39.0-52.0) L 04/28/24 05:59
Plt Count 237 10^3/uL (130-400) 04/28/24 05:59
PT 15.2 Sec (11.4-14.6) H 04/27/24 01:44
INR 1.17 04/27/24 01:44
APTT 58.6 Sec (23.4-35.0) H 04/28/24 05:59
Sodium 137 mmol/L (135-145) 04/28/24 05:59
Potassium 3.5 mmol/L (3.5-5.1) 04/28/24 05:59
BUN 18 mg/dl (9-20) 04/28/24 05:59
Creatinine 0.7 mg/dL (0.7-1.3) 04/28/24 05:59
Glucose 102 mg/dl (70-99) H 04/28/24 05:59
Troponins
04/25/24 04/25/24
12:11 20:24
Troponin I 0.097 H* 0.074 H*
Vital Signs and I&O:
Vital Signs
Temp Pulse Resp BP Pulse Ox
98.5 F 57 20 132/76 95
04/28/24 07:08 04/28/24 07:00 04/28/24 07:08 04/28/24 05:25 04/28/24 07:08
Vital Signs
Temp Pulse Resp BP Pulse Ox
98.5 F 57 20 132/76 95
04/28/24 07:08 04/28/24 07:00 04/28/24 07:08 04/28/24 05:25 04/28/24 07:08
Intake & Output
04/26/24 04/27/24 04/28/24 04/29/24
06:59 06:59 06:59 06:59
Intake Total 1370 / 1370 100 / 100 100 / 100
Output Total 1900 / 1900 2800 / 2800 2275 / 2275
Balance -530 / -530 -2700 / -2700 -2175 / -2175
Physical Exam
Physical Exam
Well-appearing, no acute distress sitting in chair.
Regular rate and rhythm with normal S1, delayed S2, grade 2/6 basal systolic ejection murmur loudest at the right upper sternal border, no S3 no S4, normal PMI
Lungs are clear to auscultation bilaterally
Extremities show no clubbing or cyanosis, there is trace pretibial edema bilaterally
[2024-04-28] MEDS: THIAMINE INJECTION 200 MG IV (10:37)
--- NOTE | 2024-04-28 11:34 | W.PN.HOSP.TC ---
Today's Communication/Plan
-
ongoing workup for CT surgery
Assessment / Plan
Assessment / Plan
Assessment
Nader Clark, 73-year-old male, was swimming on 04-23-24 when he had a cardiac arrest. He was swimming for approximately 1 hour, and reportedly took more breaks than usual. After an hour, he got to the edge and was visibly looking ill.
Fortunately, a engine house helper was right by the patient who went to check on him when he became unconscious. No pulse was detected so they initiated CPR. He was found to be in ventricular fibrillation, and was shocked [facility], and twice
again when paramedics arrived. ROSC was achieved after approximately 15 minutes of ACLS. Admitted to [facility] and intubated with cooling protocol.
[facility] course was notable for a tongue laceration that was found on admission, requiring stitches. He also spiked a fever and presumed to have aspirated blood from the laceration; he was started on piperacillin-tazobactam at the ICU. He was
successfully extubated on 04-24-24, after which he had difficulties with short-term recall and persistent confusion. This continued to improve, and he was eventually transferred to for catheterization and implantable cardioverter-defibrillator
placement. Before he was transferred, he was noted to have low potassium and magnesium which were both repleted, per report.
Impression and plan
no changes--had BM--panorex without dental abscess--workup ongoing for CT surgery eval
[id number] cardiac arrest--await final decisions from CT surgery
Bystander engine house helper ACLS
ROSC after 15 minutes of CPR time
- Status-post cooling protocol at [facility].
- Intubated 04-23-24 and extubated 04-24-24.
- Saturating well on room air, and hemodynamically stable.
- Pain and tenderness over the chest wall, traumatic; pain management as needed.
- Monitor in the IVU.
- ICD placement planned following cath, per below--did not receive ICD placement based on cath report
- Apprec cardiology
Coronary artery disease
Status-post LAD stent - 2003
- Concern for underlying ischemic etiology based on presentation.
- s/p cath--Significant multivessel coronary artery disease possibly involving ostial left main, severe aortic stenosis
- Continue aspirin and rosuvastatin.
Troponin elevation
- Likely following the cardiac arrest.
- Asymptomatic from an ischemic stand-point.
- Down-trending.
Permanent atrial fibrillation--renew IV heparin drip
- On apixaban, held pending cath and ICD placement.
- Continue metoprolol.
Severe aortic valve stenosis
- Noted on echocardiogram.
- Planned replacement per CT surgery
Aspiration pneumonia
- Unclear if he was febrile due to an infectious etiology vs. post-code.
- Empirically covered with piperacillin-tazobactam at [facility].
- Narrow to ampicillin-sulbactam since now stable--05/01 would be 7th day
- Follow CBC and temperature curve.
- Request BC reports from [facility].
- Pulmonary consulted.
- Aspiration precautions and supplemental oxygen as needed.
- Incentive spirometry.
Tongue laceration
- Status-post stitches at .
- Otorhinolaryngology consultation; no further interventions necessary.
- Neurology consulted to evaluate for possible seizure disorder; unlikely and EEG normal.
Cerebral venous aneurysm
- Chronic and asymptomatic, per neurology.
Cognitive impairment--appears improved from 04/26/24--cont to follow
- Likely secondary to the cardiac arrest.
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
Chronic constipation
- On polyethylene glycol and psyllium twice a day; re-start today.
- May need additional support if unable to pass BM; last reported on 04-22-24--had BM 04/27/24--no need to start mag citrate as planned
Essential hypertension
- Continue antihypertensives.
- Stable and asymptomatic.
Hyperlipidemia
- Continue statin.
Depression
- Continue duloxetine.
Benign prostatic hyperplasia
- Continue tamsulosin.
Psoriatic arthritis
- On certolizumab pegol.
Recent influenza A infection
- Asymptomatic.
Thromboprophylaxis
- Heparin.
Code status
- Full.
Anticipated Discharge: > 48 hours
Subjective/Interval History
-
Date of Service: April 28, 2024
pt sitting in the chair having breakfast
Objective Data
-
Labs:
Laboratory Results
04/28/24 04/28/24 04/28/24
00:24 05:59 12:30
WBC 6.6
Hgb 11.6 L
Hct 32.8 L
Plt Count 237
APTT 83.6 H 58.6 H Pending
Sodium 137
Potassium 3.5
Chloride 103
Carbon Dioxide 29
BUN 18
Creatinine 0.7
Glucose 102 H
Calcium 8.9
Total Bilirubin 1.2
AST 39
ALT 55 H
Alkaline Phosphatase 74
Vital Signs:
max temp for 24 hours
04/27/24
22:44
Temp 98.7 F
Vital Signs
Temp Pulse Resp BP Pulse Ox
98.3 F 53 20 131/63 95
04/28/24 11:27 04/28/24 10:15 04/28/24 11:27 04/28/24 09:44 04/28/24 11:27
I&O
04/27/24 04/28/24 04/29/24
06:59 06:59 06:59
Intake Total 100 / 100 100 / 100
Output Total 2800 / 2800 2275 / 2275
Balance -2700 / -2700 -2175 / -2175
Review of Systems
-
All other systems: Reviewed and negative
Physical Exam
-
General: Well Developed, Well Nourished and No Apparent Distress
HEENT: Normocephalic and Atraumatic; Negative Oxygen
Respiratory: Clear to Auscultation; Negative Wheezes or Rhonchi
Cardiac: Regular Rhythm, S1/S2 and Murmur
GI: Soft, Nontender, Nondistended and Normal Bowel Sounds
Musculoskeletal: No Clubbing, No Cyanosis and No Edema
Neuro: Awake and Alert
Psych: Calm
--- NOTE | 2024-04-28 12:29 | PTCARENOTE ---
Wide complex athymia at 1125. Dr. Busch notified. Magnesium and potassium replacements ordered
[2024-04-28 12:49] LABS: Glucose - Point of Care 134 mg/dl (70-99)
[2024-04-28] MEDS: MAGNESIUM SULFATE 50 IV (13:28)
[2024-04-28] MEDS: KCL 40 MEQ PO (13:29)
[2024-04-28 14:12] LABS: APTT 76.9 Sec (23.4-35.0)
[2024-04-28 17:04] LABS: Glucose - Point of Care 140 mg/dl (70-99)
--- NOTE | 2024-04-28 17:21 | PTCARENOTE ---
Patient is AO x3, short term memory impairment. SB/NSR 50-60's, PAC's frequent. Lungs CTA, occasional dry cough, chest soreness from CPR. Walking to the bathroom. Voiding large volumes of urine. Gait is steady. Heparin infusing at 1800 units/hr, bed
and chair alarms for safety
[2024-04-28 20:22] LABS: APTT 78.5 Sec (23.4-35.0)
--- NOTE | 2024-04-28 20:42 | PTCARENOTE ---
Patient received at change of shift resting in the bed. The patient's only complaint is mild discomfort from CPR, see MAR for scheduled medication administration. Sinus rhythm/Sinus alia on tele with frequent PACs and occasional PVCs. Patient AOx3
but is forgetful, bed alarm armed. Patient requested his right brachial and radial dressings be removed as they were irritating his skin, both dressings removed, both sites intact but ecchymotic, surrounding area soft to palpation. Bilateral radial
pulses palpable. Heparin gtt infusing at 1800 units/hr. Plan of care discussed with patient. Call cai within reach. Care ongoing.
[2024-04-28 21:13] LABS: Glucose - Point of Care 113 mg/dl (70-99)
[2024-04-28] MEDS: SENOKOT 17.2 MG PO (21:13)
[2024-04-28] MEDS: CRESTOR 10 MG PO (21:13)
[2024-04-28] MEDS: DICLOFENAC 1% TOPICAL GEL TOPICAL (21:13)
[2024-04-29] VITALS (9 sets, daily range): BP systolic 84–126; BP diastolic 55–88; PULSE 60; BMI 28.5
[2024-04-29] MEDS: UNASYN IV (03:22)
[2024-04-29 04:28] LABS: Hematocrit 34.1 % (39.0-52.0); Hemoglobin 12.1 g/dL (13.0-18.0); Mean Corp Hgb Conc. 35.5 g/dL (33.0-37.0); Mean Corpuscular Hgb 30.2 pg (27.0-31.0); Mean Platelet Volume 8.8 fL (7.4-10.4); Platelet Count 260 10^3/uL (130-400); Red Blood Cell Count 4.01 10^6/uL (4.70-6.10); Red Cell Dist. Width 13.2 % (11.5-14.5); White Blood Cell Count 7.9 10^3/uL (4.8-10.8)
[2024-04-29 04:31] LABS: APTT 83.2 Sec (23.4-35.0)
[2024-04-29 04:47] LABS: Blood Urea Nitrogen 12 mg/dl (9-20); Calcium 9.1 mg/dl (8.4-10.2); Carbon Dioxide 25 mmol/L (22-30); Chloride 102 mmol/L (98-107); Estimated Creatinine Clearance 124 ml/min; Glucose 104 mg/dl (70-99); Potassium 3.7 mmol/L (3.5-5.1); Sodium 137 mmol/L (135-145); eGFR > 60.00
[2024-04-29 07:29] LABS: Glucose - Point of Care 107 mg/dl (70-99)
[2024-04-29] MEDS: COLACE 100 MG PO ×2 (08:25→21:00)
[2024-04-29] MEDS: MUCINEX 1200 MG PO ×2 (08:25→21:01)
[2024-04-29] MEDS: CYMBALTA DELAYED RELEASE 30 MG PO ×2 (08:25→21:01)
[2024-04-29] MEDS: TYLENOL 1000 MG PO ×3 (08:25→21:02)
[2024-04-29] MEDS: FLOMAX 0.4 MG PO (08:26)
[2024-04-29] MEDS: KCL 20 MEQ PO ×2 (08:26→21:00)
[2024-04-29] MEDS: LOW STRENGTH ASPIRIN 81 MG PO (08:26)
[2024-04-29] MEDS: PROTONIX 40 MG PO (08:27)
[2024-04-29] MEDS: LASIX 20 MG IV ×2 (08:27→16:07)
[2024-04-29] MEDS: TOPROL XL 25 MG PO (08:27)
[2024-04-29] MEDS: DICLOFENAC 1% TOPICAL GEL 100 GRAM TOPICAL ×3 (08:33→23:02)
[2024-04-29] MEDS: VITAMIN B1 100 MG PO (08:43)
[2024-04-29] MEDS: METAMUCIL, KONSYL 1 PACKET PO ×2 (08:51→21:02)
[2024-04-29] MEDS: MIRALAX 17 GRAMS PO ×2 (08:53→21:02)
[2024-04-29] MEDS: LIDOCAINE 4% PATCH 1 PATCH TOPICAL (09:01)
--- NOTE | 2024-04-29 09:51 | W.PN.CARDCBS ---
Addendum entered and electronically signed by Laurita Eucdea MD 04/29/24 21:45:
I saw and examined the patient.
The Advertising Account Executive's note was reviewed and I agree with the note.
Comment: Patient was initially sleeping when I went by to see him so per daughters request, returned back to examine pt.
He reports doing well. Diuresed well over the weekend.
On exam, patient is pleasantly confused at times, but A+O x 3 for me, +JVD, RR, normal S1 and soft S2, 3/6 CRISTIAN, +bibasilar rales, abd soft, NT, ND +BS, warm ext.
Labs and Vitals reviewed.
Reccs:
1. Ongoing discussions with surgery pending CTA C/A/P TAVR protocol today.
2. Contd diuresis
3. Discussions with daughter regarding decision making betweem TAVr/PCI, vs. SAVR/CABG and role for IVUS assessment of left main if need be.
4. Continued ASA, Crestor for underlying CAD and severe . Eliquis on hold. Cont heparin IV drip.
Laurita Euceda MD, [facility], [facility]
Total time spent: 54mins
Original Note:
Today's Communication / Plan
-
TAVR CT today and pending results will need cardiac cath and IVUS to reassess ostial LM
Ongoing diuresis
52 min in face to face and coordination of care
Impression / Plan
-
PCP: Dr. Som Miller
Cardiology: Previously Dr. Boucher
Impression:
Admitted to [facility] with out of hospital cardiac arrest 04/23/2024
Transferred to for cardiac catheterization and possible ICD 04/25/2024
Out of hospital cardiac arrest 04/23/2024
Immediate bystander CPR with 2 defibrillations by AED, EMS administered 2 additional shocks for pulseless VT, 1 amp lidocaine and 1 amp epi given with ROSC
Concern for heya-ry-vqjrx slow nystagmus and myoclonic movements on admission to [facility], but no overt tonic-clonic movement
Tongue laceration, s/p sutures x2 at [facility] 04/23/24
s/p VDRF 04/23/2024 until 04/24/2024
Targeted temperature management performed at [facility] 04/23/2024
CAD
CAD s/p 2.5 mm Cypher SIMEON to the mid to distal LAD 11/04/2003
Abnormal stress test with basal inferior and basal inferolateral segment fixed defect c/w infarction 01/31/23
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
Permanent A-fib
has been in SR since admission to 04/25/24
Chronic Eliquis OAC
Last dose of Eliquis 04/24/2024 PM
Moderate to severe mean gradient 27 mmHg by echo at 12/19/2023 and mean gradient 22.4 mmHg by echo at [facility] 04/24/2024
Hyperlipidemia
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
Venous cerebral aneurysm seen on MRI 04/04/[address] Bernstein at 04/04/24 and then scheduled for f/u with neurosurgeon at [place] 04/25/24, missed appt due to admission
Acute HFpEF, PCWP 25 by C 04/26/2024
Lexiscan nuclear stress test 01/31/2023: Medium area of severely decreased/absent tracer uptake perfusion that was fixed in the mid inferior segment and apical inferior segment C/W soft tissue attenuation as it improves with prone imaging, small
area of severely decreased/absent perfusion fixed in the basal inferior segment consistent with infarction, EF 52%
Echo 12/19/23: EF 55 to 60%, mild concentric LVH, normal RV size and function, moderate to severe with peak/mean 55/27 mmHg and CHRISTIAN 1.0 cm sq, mildly dilated aortic root and ascending aorta with sinuses of Valsalva 4.1 cm, sinotubular junction 3.7
cm and ascending aorta 4.4 cm
Echo 04/24/24: [facility] study, EF 50 to 55%, normal RV size and function, at least moderate with peak/mean 42.3/22.4 mmHg, trace MR, trace TR, aortic root 4.16, aortic sinus 3.83, sinotubular junction 2.9 and ascending aorta 4.36
Echo 04/25/24: EF 60 to 65%, basal inferior akinesis, mild concentric LVH, normal RV size and function, severe peak/mean 73/36 mmHg and CHRISTIAN 0.75 cm sq, no aortic regurgitation, mild TR with PAP 25 to 30 mmHg, compared to echo 12/19/2023 although
not previously noted by visual comparison the basal inferior akinesis persists
Plan:
-Patient with out of hospital cardiac arrest with bystander CPR and shocks 04/23/24, taken to [facility] and managed with TTM. Once extubated at [facility] patient was transferred to for cardiac work-up 04/25/24
-Patient had cardiac cath 04/26/24 and found to have significant MV CAD including possible ostial LM, but will need IVUS for further assessment that could not be performed during time of cath due to worsening respiratory status.
-Plan is for TAVR CT on 04/29/24 and if results are favorable for TAVR approach then patient will need repeat cath to reassess LM disease. There was also 70 to 80% in-stent restenosis of the previously placed proximal to mid LAD Cypher SIMEON from 2003.
Patient prefers TAVR if possible
-In the meantime patient was seen by CT surgery team for SAVR/CABG assessment. Currently discussing management strategies which include SAVR/CABG versus TAVR/PCI.
-Troponin on admission to was 0.097 and then trended down to 0.074. Suspect troponin may have been higher at [facility] and this would be a nonischemic myocardial injury troponin elevation in the setting of [id number] cardiac arrest and CPR.
-LDL is 61 and outpatient dose of Crestor 10 mg daily has been continued
-Outpatient dose of aspirin 81 mg daily has been continued
-Heparin gtt running. Last dose of Eliquis 5 mg BID (age 76, wt 102 kg) was 04/24/2024 PM
-Patient previously diagnosed as permanent A-fib, but has been in SR throughout admission to . ECG reviewed by me 04/28/2024 shows SB with QTc 453 ms.
-PCWP was 25 by [facility] 04/26/2024. Volume overload likely related to initial cardiac arrest, resuscitation and cooling protocol. Weight is down 5 lbs since Lasix 20 mg IV BID started. Patient was not taking a loop diuretic prior to admission.
-New to Toprol this admission, continue Toprol-XL 25 mg daily
-Eventually add JOSEFA/ARB/ARNI pending Cre after contrast loads and BP
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 Bernstein at 04/04/24 and was scheduled to see Neurosurgeon at [place], but missed appt due to this event/admission. If there is a concern about risks posed by this
aneurysm and need for TAVR or SAVR then patient's daughter (Dr. Yasmin Clark) has offered to reach out to the neurosurgeon to get opinion.
-Given VT cardiac arrest and known inferior akinesis/scar, he will remain at elevated risk of ventricular arrhythmias and sudden cardiac therefore secondary prevention ICD is recommended prior to hospital discharge
HPI: Patient came to today as a transfer from [facility] for cardiac cath and cardiology has been consulted. Patient was admitted to [facility] on 04/23/24 after a witnessed out of hospital cardiac arrest while swimming for exercise at a local pool. Patient
was removed from the pool immediately and there was no suggestion of inhaled or ingested water. Bystanders started CPR immediately and AED was applied with 2 defibrillations followed by EMS arrival who found the patient to be in pulseless VT and
administered 2 additional defibrillations along with lidocaine x 1 and epinephrine x 1 resulting in ROSC. Patient was intubated upon arrival to [facility] and there was also initial concern for posturing, left to right slow nystagmus and myoclonic
movements along with considerable oral bleeding, but no overt tonic-clonic movement was seen and Ceribell device application indicated no seizures. ECG did not show ST elevation and CT of the head only showed a known cerebral venous aneurysm.
Patient underwent targeted temperature management and was warmed and extubated yesterday. Patient was recommended cardiology evaluation including cardiac catheterization and his daughter, who is a local PCP to and also part of the residency
program here at , requested transfer to .
Progress Note - Dependency Counselor
Subjective
Date of Service: April 29, 2024
Did not sleep well, ongoing chest discomfort from compressions, no SOB
Objective
Labs:
04/29/24 04:09
04/29/24 04:09
Labs
Hgb 12.1 g/dL (13.0-18.0) L 04/29/24 04:09
Hct 34.1 % (39.0-52.0) L 04/29/24 04:09
Plt Count 260 10^3/uL (130-400) 04/29/24 04:09
PT 15.2 Sec (11.4-14.6) H 04/27/24 01:44
INR 1.17 04/27/24 01:44
APTT 83.2 Sec (23.4-35.0) H 04/29/24 04:03
Sodium 137 mmol/L (135-145) 04/29/24 04:09
Potassium 3.7 mmol/L (3.5-5.1) 04/29/24 04:09
BUN 12 mg/dl (9-20) 04/29/24 04:09
Creatinine 0.6 mg/dL (0.7-1.3) L 04/29/24 04:09
Glucose 104 mg/dl (70-99) H 04/29/24 04:09
Vital Signs and I&O:
Vital Signs
Temp Pulse Resp BP Pulse Ox
98.7 F 83 18 108/81 94
04/29/24 07:32 04/29/24 06:00 04/29/24 07:32 04/29/24 03:20 04/29/24 07:32
Vital Signs
Temp Pulse Resp BP Pulse Ox
98.7 F 83 18 108/81 94
04/29/24 07:32 04/29/24 06:00 04/29/24 07:32 04/29/24 03:20 04/29/24 07:32
Intake & Output
04/27/24 04/28/24 04/29/24 04/30/24
06:59 06:59 06:59 06:59
Intake Total 100 / 100 100 / 100 1416 / 1416
Output Total 2800 / 2800 2275 / 2275 3725 / 3725
Balance -2700 / -2700 -2175 / -2175 -2309 / -2309
Physical Exam
Physical Exam
GEN: NAD, AAOx3
HEENT: MMM
LUNGS: RA. CTA B/L. No audible wheeze
CV: SR on tele. 05/19 crescendo decrescendo basal murmur
ABD: ND
EXT: No edema. +2 radial and PT pulses B/L
NEURO: No focal or lateralizing weakness
SKIN: No rash
[2024-04-29] MEDS: HEPARIN 25000 UNITS/250 ML IV (10:00)
--- NOTE | 2024-04-29 11:35 | CM ---
Chart reviewed. Patient's daughter at bedside. Patient is waiting for CT Scan to determine TAVR vs SAVR. Patient is independent of ADLS, lives with his in a 2 STH, 1 TRU, 0 DME. Patient with a daughter who lives close by and a daughter who
lives in a addition on to the house. Plan is for the patient to return home. CM to follow
--- NOTE | 2024-04-29 12:02 | W.PN.HOSP.TC ---
Today's Communication/Plan
-
* CT TAVR today.
* Discontinue antibiotics.
* Lorazepam for anxiety/sleep issues.
Assessment / Plan
Assessment / Plan
Assessment
Nader Clark, 73-year-old male, was swimming on 04-23-24 when he had a cardiac arrest. He was swimming for approximately 1 hour, and reportedly took more breaks than usual. After an hour, he got to the edge and was visibly looking ill.
Fortunately, a clinical manager was right by the patient who went to check on him when he became unconscious. No pulse was detected so they initiated CPR. He was found to be in ventricular fibrillation, and was shocked twice by the [facility]ED [facility] the [facility], and twice
again when paramedics arrived. ROSC was achieved after approximately 15 minutes of ACLS. Admitted to [facility] and intubated with cooling protocol.
[facility] course was notable for a tongue laceration that was found on admission, requiring stitches. He also spiked a fever and presumed to have aspirated blood from the laceration; he was started on piperacillin-tazobactam at the ICU. He was
successfully extubated on 04-24-24, after which he had difficulties with short-term recall and persistent confusion. This continued to improve, and he was eventually transferred to for catheterization and implantable cardioverter-defibrillator
placement. Before he was transferred, he was noted to have low potassium and magnesium which were both repleted, per report.
Impression and plan
Owi-uj-czkdkqml cardiac arrest
Bystander clinical manager ACLS
ROSC after 15 minutes of CPR time
- Status-post cooling protocol at [facility].
- Intubated 04-23-24 and extubated 04-24-24.
- Saturating well on room air, and hemodynamically stable.
- Pain and tenderness over the chest wall, traumatic; pain management as needed.
- Monitor in the IVU.
- Will need ICD eventually.
- Cardiology following.
Coronary artery disease
Status-post LAD stent - 2003
- Concern for underlying ischemic etiology based on presentation.
- Significant multivessel coronary artery disease possibly involving ostial left main, severe aortic stenosis
- Continue aspirin and rosuvastatin.
Troponin elevation
- Likely following the cardiac arrest.
- Asymptomatic from an ischemic stand-point.
- Down-trending.
Permanent atrial fibrillation
- On apixaban, held pending cath and ICD placement.
- On heparin.
- Continue metoprolol.
Severe aortic valve stenosis
- Noted on echocardiogram.
- Planned replacement per CT surgery
Aspiration pneumonia, resolved
- Unclear if he was febrile due to an infectious etiology vs. post-code.
- Empirically covered with piperacillin-tazobactam at [facility].
- Ampicillin-sulbactam here for a total of 6 days of antibiotics.
- Follow CBC and temperature curve.
- Pulmonary consulted.
- Aspiration precautions and supplemental oxygen as needed.
- Incentive spirometry.
Tongue laceration
- Status-post stitches at .
- Otorhinolaryngology consultation; no further interventions necessary.
- Neurology consulted to evaluate for possible seizure disorder; unlikely and EEG normal.
Cerebral venous aneurysm
- Chronic and asymptomatic, per neurology.
Cognitive impairment
- Likely secondary to the cardiac arrest.
- Continues to improve.
- [facility] consultation
Chronic constipation
- On home regimen, with additional support.
Essential hypertension
- Continue antihypertensives.
- Stable and asymptomatic.
Hyperlipidemia
- Continue statin.
Depression
- Continue duloxetine.
Benign prostatic hyperplasia
- Continue tamsulosin.
Psoriatic arthritis
- On certolizumab pegol.
Recent influenza A infection
- Asymptomatic.
Thromboprophylaxis
- Heparin.
Code status
- Full.
Anticipated Discharge: > 48 hours
Subjective/Interval History
-
Date of Service: April 29, 2024
Stable and doing well.
Objective Data
-
Labs:
Laboratory Results
04/29/24 04/29/24
04:03 04:09
WBC 7.9
Hgb 12.1 L
Hct 34.1 L
Plt Count 260
APTT 83.2 H
Sodium 137
Potassium 3.7
Chloride 102
Carbon Dioxide 25
BUN 12
Creatinine 0.6 L
Glucose 104 H
Calcium 9.1
Vital Signs:
Vital Signs
Temp Pulse Resp BP Pulse Ox
98.3 F 53 16 108/70 95
04/29/24 11:06 04/29/24 11:04 04/29/24 11:06 04/29/24 11:04 04/29/24 11:06
I&O
04/28/24 04/29/24 04/30/24
06:59 06:59 06:59
Intake Total 100 / 100 1416 / 1416
Output Total 2275 / 2275 3725 / 3725
Balance -2175 / -2175 -2309 / -2309
Review of Systems
-
History Source: Patient and Family
Constitutional: Reports No Symptoms
EENT: Reports No Symptoms Reported
Respiratory: Reports No Symptoms
Cardiac: Reports Chest Pain (wall pain)
Abdomen/GI: Reports No Symptoms
Genitourinary: Reports No Symptoms
Musculoskeletal: Reports No Symptoms
Skin: Reports No Symptoms
Neuro: Reports No Symptoms
Endocrine: Reports No Symptoms
Hematologic / Lymphatic: Reports No Symptoms
Allergy / Immunology: Reports No Symptoms
Physical Exam
-
General: No Apparent Distress and Comfortable
HEENT: Normocephalic, Atraumatic, Moist Mucous Membranes, Anicteric and No Ptosis
Respiratory: Clear to Auscultation and Non Labored Respirations
Cardiac: Regular Rhythm, S1/S2 and Murmur (CRISTIAN III/)
GI: Soft, Nontender, Nondistended and No Hepatosplenomegaly
Genito-urinary: No Costovertebral Tender
Musculoskeletal: No Clubbing, No Cyanosis and No Edema
Skin: Warm, Dry and IV Access / Catheter Site
Neuro: Awake, Alert, Oriented, No Motor Deficits and No Sensory Deficits
Hematologic / Lymphatic: No Lymphadenopathy
Psych: Calm and Intact Judgement/Insight
[2024-04-29 13:15] LABS: Glucose - Point of Care 107 mg/dl (70-99)
--- NOTE | 2024-04-29 17:00 | PTCARENOTE ---
Pt received this am OOB in the chair. Denies any chest pain or sob but does c/o of muscular soreness from having had CPR. Room air sat 95%. Heparin infusing as ordered. Gait steady when being assisted to the BR and in the room.
[2024-04-29 18:27] LABS: Glucose - Point of Care 100 mg/dl (70-99)
[2024-04-29] MEDS: DICLOFENAC 1% TOPICAL GEL TOPICAL (19:08)
[2024-04-29] MEDS: SENOKOT 17.2 MG PO (21:02)
[2024-04-29] MEDS: CRESTOR 20 MG PO (21:02)
[2024-04-29] MEDS: ATIVAN 0.5 MG IV (23:03)
[2024-04-29 23:15] LABS: Glucose - Point of Care 114 mg/dl (70-99)
[2024-04-30] VITALS (8 sets, daily range): BP systolic 105–133; BP diastolic 61–72
[2024-04-30] MEDS: HEPARIN 25000 UNITS/250 ML IV ×2 (01:22→16:47)
--- NOTE | 2024-04-30 05:41 | PTCARENOTE ---
Pt NSR on monitor. Denies pain or SOB. Using his own CPAP at HS. Heparin gtt per protocol
[2024-04-30] MEDS: LIDOCAINE 4% PATCH 1 PATCH TOPICAL (08:33)
[2024-04-30] MEDS: MIRALAX 17 GRAMS PO (08:34)
[2024-04-30] MEDS: METAMUCIL, KONSYL 1 PACKET PO ×2 (08:34→20:58)
[2024-04-30] MEDS: MUCINEX 1200 MG PO ×2 (08:34→20:58)
[2024-04-30] MEDS: COLACE 100 MG PO (08:35)
[2024-04-30] MEDS: LOW STRENGTH ASPIRIN 81 MG PO (08:36)
[2024-04-30] MEDS: TYLENOL 1000 MG PO ×3 (08:36→22:06)
[2024-04-30] MEDS: VITAMIN B1 100 MG PO (08:36)
[2024-04-30] MEDS: KCL 20 MEQ PO ×2 (08:36→20:58)
[2024-04-30] MEDS: FLOMAX 0.4 MG PO (08:36)
[2024-04-30] MEDS: TOPROL XL 25 MG PO (08:37)
[2024-04-30] MEDS: DICLOFENAC 1% TOPICAL GEL 100 GRAM TOPICAL ×2 (08:37→14:56)
[2024-04-30] MEDS: PROTONIX 40 MG PO (08:37)
[2024-04-30] MEDS: CYMBALTA DELAYED RELEASE 30 MG PO ×2 (09:10→20:58)
[2024-04-30] MEDS: LASIX 20 MG IV ×2 (09:10→14:56)
[2024-04-30 10:10] LABS: Glucose - Point of Care 126 mg/dl (70-99)
--- NOTE | 2024-04-30 10:31 | CM ---
Reviewed chart. Met with and Mrs. Clark to review discharge plans. He states prior to admission he resides with his spouse in a two story home with a two steps to enter. He states he has a full flight of steps to get to bedroom/full
bathroom. He states he has a powder room on the first floor. He states prior to admission he was independent with ambulation and adls. He states he has a CPAP Machine at home and no other DME in the home. He states he has a prescription plan and
uses [facility] in [place], [place]. He states his one daughter and son-in-law resides in an addition in his home. His other daughter resides about 300 feet from his house. Medical work-up in progress. The discharge plan is to return
home with his spouse, supportive daughters and a home visit by the Transitional Care Nurse when medically stable.
We reviewed the pre-op and post-op routines. We briefly reviewed the shower instructions. We also reviewed restrictions including sternal precautions and driving restrictions. We discussed a home visit by the Transitional Care Nurse. He is
agreeable to a home visit. Gave him the Cardiothoracic Surgery Educational Booklet. The plan is for AVR/CABG on Tuesday, April 30, 2024.
--- NOTE | 2024-04-30 11:14 | W.PN.UPDATE ---
Update Note
Progress Note Update
CARDIAC SURGERY ATTENDING:
It was my pleasure to meet with Mr. Nader Clark. I have reviewed his medical history, presentation, and all available imaging. He will benefit from surgical coronary revascularization with concurrent aortic valve replacement and encompass
maze/exclusion of his left atrial appendage. I anticipate MELIDA to LAD, GSV to lower OM branch, and GSV to RPDA. I had a greater than 60-minute conversation with Mr. Clark and his . We reviewed his pathology, discussed the proposed
operative inventions, reviewed the periprocedural risks (including, but not limited to, , stroke, NH, arrhythmia, PPM requirement [EP planning AICD], PNA, SUSANA/F, bleeding, and infection), discussed the expected in-hospital postprocedural
course, and reviewed the expected outpatient recovery. All questions were answered to the best of my abilities. The patient is agreeable to proceed. I have suggested, and the patient has agreed to a biologic aortic valve replacement. I also
spoke via telephone with his daughter, Dr. Yasmin Clark.
He has been tentatively scheduled for operative intervention tomorrow 05/01/2024.
Will plan to type and cross for 2 units packed red blood cells and 1 pack of platelets.
Thank you for the opportunity participate in the care of this kind gentleman.
Please call with any questions or concerns.
Yfn Doe MD
[phone]
--- NOTE | 2024-04-30 11:37 | W.PN.CARDCBS ---
Addendum entered and electronically signed by Laurita Euceda MD 04/30/24 17:09:
I saw and examined the patient.
The Book Store Associate's note was reviewed and I agree with the note.
Comment: Patient was initially sleeping when I went by to see him so I returned back late morning to examine pt and speak to him. No family was at bedside at this time.
He reports doing well. No acitve CP or SOB.
On exam, patient is pleasantly confused at times, but remains A+O x 3 for me today, RR, normal S1 and soft S2, 3/6 CRISTIAN at RUSB, +fine bibasilar rales, abd soft, NT, ND +BS, warm ext.
Labs and Vitals reviewed.
Reccs:
1. Dr. Yfn Doe from CT surgery saw patient and had an extensive discussion with patient, his at bedside and called his daughter, Yasmin. Dr. Doe and myself also spoke over the phone in regards to this case reviewing his cath films as
well as recent CT and we think the best approach would be to pursue a bioprosthetic AVR/CABG with grafts to LAD, RPDA, at least OM 2, +/- OM1. Patient and family in agreement with surgery planned with Dr. Yfn Doe tomorrow, May 01, 2024.
2. We will continue IV diuresis today to optimize for the OR tomorrow.
3. Given patient was alone when I saw him, I reached out separately over the phone and spoke at length with his daughter and answered all of her questions in detail to the best of my ability. Question was brought up about indication for ICD still
prior to discharge. We discussed that I would have EP weigh in again postoperatively given most recent echocardiogram showed basal inferior akinesis.
4. Continued ASA, Crestor for underlying CAD and severe . Eliquis on hold. Cont heparin IV drip and Toprol XL.
5. Patient will be made n.p.o. after midnight for planned surgery tomorrow.
Laurita Euceda MD, FAC, [facility]
Total time spent: 51mins
Original Note:
Today's Communication / Plan
-
for CABG/AVR in AM
will need ICD prior to DC
continue asa, statin, IV heparin, toprol
continue IV lasix
Impression / Plan
-
PCP: Dr. Som Miller
Cardiology: Previously Dr. Boucher
Impression:
Admitted to [facility] with out of hospital cardiac arrest 04/23/2024
Transferred to for cardiac catheterization and possible ICD 04/25/2024
Out of hospital cardiac arrest 04/23/2024
Immediate bystander CPR with 2 defibrillations by AED, EMS administered 2 additional shocks for pulseless VT, 1 amp lidocaine and 1 amp epi given with ROSC
Concern for kbqi-iz-pqlix slow nystagmus and myoclonic movements on admission to [facility], but no overt tonic-clonic movement
Tongue laceration, s/p sutures x2 at [facility] 04/23/24
s/p VDRF 04/23/2024 until 04/24/2024
Targeted temperature management performed at [facility] 04/23/2024
CAD
CAD s/p 2.5 mm Cypher SIMEON to the mid to distal LAD 11/04/2003
Abnormal stress test with basal inferior and basal inferolateral segment fixed defect c/w infarction 01/31/23
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
Permanent A-fib
has been in SR since admission to 04/25/24
Chronic Eliquis OAC
Last dose of Eliquis 04/24/2024 PM
Moderate to severe mean gradient 27 mmHg by echo at 12/19/2023 and mean gradient 22.4 mmHg by echo at [facility] 04/24/2024
Hyperlipidemia
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
Venous cerebral aneurysm seen on MRI 04/04/[address] Bernstein at 04/04/24 and then scheduled for f/u with neurosurgeon at [place] 04/25/24, missed appt due to admission
Acute HFpEF, PCWP 25 by [facility] 04/26/2024
Lexiscan nuclear stress test 01/31/2023: Medium area of severely decreased/absent tracer uptake perfusion that was fixed in the mid inferior segment and apical inferior segment C/W soft tissue attenuation as it improves with prone imaging, small
area of severely decreased/absent perfusion fixed in the basal inferior segment consistent with infarction, EF 52%
Echo 12/19/23: EF 55 to 60%, mild concentric LVH, normal RV size and function, moderate to severe with peak/mean 55/27 mmHg and CHRISTIAN 1.0 cm sq, mildly dilated aortic root and ascending aorta with sinuses of Valsalva 4.1 cm, sinotubular junction 3.7
cm and ascending aorta 4.4 cm
Echo 04/24/24: [facility] study, EF 50 to 55%, normal RV size and function, at least moderate with peak/mean 42.3/22.4 mmHg, trace MR, trace TR, aortic root 4.16, aortic sinus 3.83, sinotubular junction 2.9 and ascending aorta 4.36
Echo 04/25/24: EF 60 to 65%, basal inferior akinesis, mild concentric LVH, normal RV size and function, severe peak/mean 73/36 mmHg and CHRISTIAN 0.75 cm sq, no aortic regurgitation, mild TR with PAP 25 to 30 mmHg, compared to echo 12/19/2023 although
not previously noted by visual comparison the basal inferior akinesis persists
Plan:
-Patient with out of hospital cardiac arrest with bystander CPR and shocks 04/23/24, taken to [facility] and managed with TTM. Once extubated at [facility] patient was transferred to for cardiac work-up 04/25/24
-Patient had cardiac cath 04/26/24 and found to have significant MV CAD including possible ostial LM, but will need IVUS for further assessment that could not be performed during time of cath due to worsening respiratory status.
-plan for CABG/AVR 05/01/24
-continue asa, statin, IV heparin. Last dose of Eliquis 5 mg BID (age 76, wt 102 kg) was 04/24/2024 PM
-Patient previously diagnosed as permanent A-fib, but has been in SR throughout admission to on review of tele
-PCWP was 25 by [facility] 04/26/2024. Volume overload likely related to initial cardiac arrest, resuscitation and cooling protocol. Weight trending down with diuresis, continue IV lasix 20mg BID. Cr pending 04/30. Patient was not taking a loop diuretic
prior to admission.
-continue Toprol-XL 25 mg daily, started this admission. Eventually add JOSEFA/ARB pending post op BP
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 Bernstein at 04/04/24 and was scheduled to see Neurosurgeon at [place], but missed appt due to this event/admission. If there is a concern about risks posed by this
aneurysm and need for TAVR or SAVR then patient's daughter (Dr. Yasmin Clark) has offered to reach out to the neurosurgeon to get opinion.
-Given VT cardiac arrest and known inferior akinesis/scar, he will remain at elevated risk of ventricular arrhythmias and sudden cardiac therefore secondary prevention ICD is recommended prior to hospital discharge
-d/w patient and at bedside
HPI: Patient came to today as a transfer from [facility] for cardiac cath and cardiology has been consulted. Patient was admitted to [facility] on 04/23/24 after a witnessed out of hospital cardiac arrest while swimming for exercise at a local pool. Patient
was removed from the pool immediately and there was no suggestion of inhaled or ingested water. Bystanders started CPR immediately and AED was applied with 2 defibrillations followed by EMS arrival who found the patient to be in pulseless VT and
administered 2 additional defibrillations along with lidocaine x 1 and epinephrine x 1 resulting in ROSC. Patient was intubated upon arrival to [facility] and there was also initial concern for posturing, left to right slow nystagmus and myoclonic
movements along with considerable oral bleeding, but no overt tonic-clonic movement was seen and Ceribell device application indicated no seizures. ECG did not show ST elevation and CT of the head only showed a known cerebral venous aneurysm.
Patient underwent targeted temperature management and was warmed and extubated yesterday. Patient was recommended cardiology evaluation including cardiac catheterization and his daughter, who is a local PCP to and also part of the residency
program here at , requested transfer to .
Progress Note - Blanket Cutter Hand
Subjective
Date of Service: April 30, 2024
No cardiac complaints. Reports good urine output with IV Lasix. Complains of tongue discomfort related to his stitches
Objective
Labs:
Labs
Hgb 12.1 g/dL (13.0-18.0) L 04/29/24 04:09
Hct 34.1 % (39.0-52.0) L 04/29/24 04:09
Plt Count 260 10^3/uL (130-400) 04/29/24 04:09
PT 15.2 Sec (11.4-14.6) H 04/27/24 01:44
INR 1.17 04/27/24 01:44
APTT 116.0 Sec (23.4-35.0) H 04/30/24 04:12
Sodium 137 mmol/L (135-145) 04/29/24 04:09
Potassium 3.7 mmol/L (3.5-5.1) 04/29/24 04:09
BUN 12 mg/dl (9-20) 04/29/24 04:09
Creatinine 0.6 mg/dL (0.7-1.3) L 04/29/24 04:09
Glucose 104 mg/dl (70-99) H 04/29/24 04:09
Vital Signs and I&O:
Vital Signs
Temp Pulse Resp BP Pulse Ox
98.3 F 62 18 117/71 94
04/30/24 11:10 04/30/24 08:37 04/30/24 11:10 04/30/24 08:37 04/30/24 11:10
Vital Signs
Temp Pulse Resp BP Pulse Ox
98.3 F 62 18 117/71 94
04/30/24 11:10 04/30/24 08:37 04/30/24 11:10 04/30/24 08:37 04/30/24 11:10
Intake & Output
04/28/24 04/29/24 04/30/24 05/01/24
07:59 07:59 07:59 07:59
Intake Total 100 / 100 1416 / 1416 300 / 300 216 / 216
Output Total 2275 / 2275 3725 / 3725 415 / 415 700 / 700
Balance -2175 / -2175 -2309 / -2309 -115 / -115 -484 / -484
Physical Exam
Physical Exam
GEN: No distress, awake, alert, oriented x3. sitting in chair
HEENT: supple, anicteric, mmm, eomi
LUNGS: CTA B/L, no wheezes
CV: Reg and alia, S1/S2, 2/6 syst LSB
ABD: soft, BS+, NT/ND
EXT: No cyanosis, clubbing, edema
NEURO: Gross non-focal
SKIN: Warm, pink, dry. No rash
[2024-04-30 11:57] LABS: Hematocrit 38.5 % (39.0-52.0); Hemoglobin 13.1 g/dL (13.0-18.0); Mean Corpuscular Volume 88.3 fL (80.0-94.0); Mean Platelet Volume 8.6 fL (7.4-10.4); Platelet Count 297 10^3/uL (130-400); Red Blood Cell Count 4.36 10^6/uL (4.70-6.10); Red Cell Dist. Width 13.4 % (11.5-14.5); White Blood Cell Count 7.3 10^3/uL (4.8-10.8)
[2024-04-30 12:11] LABS: APTT 78.4 Sec (23.4-35.0)
[2024-04-30 12:21] LABS: Blood Urea Nitrogen 15 mg/dl (9-20); Calcium 9.8 mg/dl (8.4-10.2); Chloride 98 mmol/L (98-107); Estimated Creatinine Clearance 93 ml/min; Glucose 105 mg/dl (70-99); Sodium 139 mmol/L (135-145); eGFR > 60.00
[2024-04-30 12:23] LABS: Carbon Dioxide 28 mmol/L (22-30)
--- NOTE | 2024-04-30 12:31 | W.PN.HOSP.TC ---
Today's Communication/Plan
-
* Continue analgesics.
* Lorazepam for anxiety/sleep issues.
* CT surgery tentatively planned for tomorrow.
Assessment / Plan
Assessment / Plan
Assessment
Nader Clark, 73-year-old male, was swimming on 04-23-24 when he had a cardiac arrest. He was swimming for approximately 1 hour, and reportedly took more breaks than usual. After an hour, he got to the edge and was visibly looking ill.
Fortunately, a benefits specialist recruiter was right by the patient who went to check on him when he became unconscious. No pulse was detected so they initiated CPR. He was found to be in ventricular fibrillation, and was shocked twice by [facility], and twice
again when paramedics arrived. ROSC was achieved after approximately 15 minutes of ACLS. Admitted to [facility] and intubated with cooling protocol.
[facility] course was notable for a tongue laceration that was found on admission, requiring stitches. He also spiked a fever and presumed to have aspirated blood from the laceration; he was started on piperacillin-tazobactam at the ICU. He was
successfully extubated on 04-24-24, after which he had difficulties with short-term recall and persistent confusion. This continued to improve, and he was eventually transferred to for catheterization and implantable cardioverter-defibrillator
placement. Before he was transferred, he was noted to have low potassium and magnesium which were both repleted, per report.
Impression and plan
Wel-hw-juepzsav cardiac arrest
Bystander benefits specialist recruiter ACLS
ROSC after 15 minutes of CPR time
- Status-post cooling protocol at [facility].
- Intubated 04-23-24 and extubated 04-24-24.
- Saturating well on room air, and hemodynamically stable.
- Pain and tenderness over the chest wall, traumatic; pain management as needed.
- Monitor in the IVU.
- Cardiology following.
Coronary artery disease
Status-post LAD stent - 2003
- Concern for underlying ischemic etiology based on presentation.
- Significant multivessel coronary artery disease possibly involving ostial left main, severe aortic stenosis
- Continue aspirin and rosuvastatin.
- Cardiothoracic surgery following.
- CABG + AVR scheduled for 05-01-24.
Troponin elevation
- Likely following the cardiac arrest.
- Asymptomatic from an ischemic stand-point.
- Down-trending.
Permanent atrial fibrillation
- On apixaban, held pending cath and ICD placement.
- On heparin.
- Continue metoprolol.
Severe aortic valve stenosis
- Noted on echocardiogram.
- Planned replacement per above.
Aspiration pneumonia, resolved
- Unclear if he was febrile due to an infectious etiology vs. post-code.
- Empirically covered with piperacillin-tazobactam at [facility].
- Ampicillin-sulbactam here for a total of 6 days of antibiotics.
- Follow CBC and temperature curve.
- Pulmonary consulted.
- Aspiration precautions and supplemental oxygen as needed.
- Incentive spirometry.
Tongue laceration
- Status-post stitches at .
- Otorhinolaryngology consultation; no further interventions necessary.
- Neurology consulted to evaluate for possible seizure disorder; unlikely and EEG normal.
Cerebral venous aneurysm
- Chronic and asymptomatic, per neurology.
Cognitive impairment
- Likely secondary to the cardiac arrest.
- Continues to improve.
- [facility] consultation
Chronic constipation
- On home regimen, with additional support.
Essential hypertension
- Continue antihypertensives.
- Stable and asymptomatic.
Hyperlipidemia
- Continue statin.
Depression
- Continue duloxetine.
Benign prostatic hyperplasia
- Continue tamsulosin.
Psoriatic arthritis
- On certolizumab pegol.
Recent influenza A infection
- Asymptomatic.
Thromboprophylaxis
- Heparin.
Code status
- Full.
Anticipated Discharge: > 48 hours
Subjective/Interval History
-
Date of Service: April 30, 2024
Stable and doing well.
Objective Data
-
Labs:
Laboratory Results
04/30/24 04/30/24
04:12 11:41
WBC 7.3
Hgb 13.1
Hct 38.5 L
Plt Count 297
APTT 116.0 H 78.4 H
Sodium 139
Potassium 4.0
Chloride 98
Carbon Dioxide 28
BUN 15
Creatinine 0.8
Glucose 105 H
Calcium 9.8
Vital Signs:
Vital Signs
Temp Pulse Resp BP Pulse Ox
98.3 F 62 18 117/71 94
04/30/24 11:10 04/30/24 08:37 04/30/24 11:10 04/30/24 08:37 04/30/24 11:10
I&O
04/29/24 04/30/24 05/01/24
06:59 06:59 06:59
Intake Total 1416 / 1416 300 / 300 216 / 216
Output Total 3725 / 3725 415 / 415 700 / 700
Balance -2309 / -2309 -115 / -115 -484 / -484
Review of Systems
-
History Source: Patient and Family
Constitutional: Reports No Symptoms
EENT: Reports No Symptoms Reported
Respiratory: Reports No Symptoms
Cardiac: Reports Chest Pain (wall pain)
Abdomen/GI: Reports No Symptoms
Genitourinary: Reports No Symptoms
Musculoskeletal: Reports No Symptoms
Skin: Reports No Symptoms
Neuro: Reports No Symptoms
Endocrine: Reports No Symptoms
Hematologic / Lymphatic: Reports No Symptoms
Allergy / Immunology: Reports No Symptoms
Physical Exam
-
General: No Apparent Distress and Comfortable
HEENT: Normocephalic, Atraumatic, Moist Mucous Membranes, Anicteric and No Ptosis
Respiratory: Clear to Auscultation and Non Labored Respirations
Cardiac: Regular Rhythm, S1/S2 and Murmur (CRISTIAN III/)
GI: Soft, Nontender, Nondistended and No Hepatosplenomegaly
Genito-urinary: No Costovertebral Tender
Musculoskeletal: No Clubbing, No Cyanosis and No Edema
Skin: Warm, Dry and IV Access / Catheter Site
Neuro: Awake, Alert, Oriented, No Motor Deficits and No Sensory Deficits
Hematologic / Lymphatic: No Lymphadenopathy
Psych: Calm and Intact Judgement/Insight
[2024-04-30 14:44] LABS: Glucose - Point of Care 97 mg/dl (70-99)
--- NOTE | 2024-04-30 15:53 | W.PN.UPDATE ---
Update Note
Progress Note Update
STS RISK SCORE
Procedure Type:�CABG + AVR
Perioperative Outcome Estimate %
Operative Mortality 2.3%
Morbidity & Mortality 11.5%
Stroke 1.67%
Renal Failure 2.04%
Reoperation 4.24%
Prolonged Ventilation 5.49%
Deep Sternal Wound Infection 0.17%
Long Hospital Stay (>14 days) 9.04%
Short Hospital Stay (<6 days)* 26.8%
Clinical Summary
Planned Surgery: CABG + AVR, Urgent, First cardiovascular surgery
Demographics: 73 year old, White, male, 102kg, 188cm, BMI: 28.9 kg/m�
Lab Values: Creatinine: 0.7 mg/dL, Hematocrit: 35.7%, WBC Count: 9.8 10�/�L, Platelet Count: 340054 cells/�L
Substance Abuse: Never smoker
Risk Factors / Comorbidities: Hypertension, Immunocompromised
Pulmonary RF: Sleep Apnea
Cardiac Status: Ejection Fraction = 63%
Coronary Artery Disease: 3 vessels diseased, Proximal LAD Stenosis >=70%, Unstable Angina
Valve Disease: Aortic Stenosis, Trivial/Trace MR, Mild TR
Arrhythmia: Recent V. Tach / V. Fib
Prev. Cardiac Interv: Previous PCI: Not during this episode of care
[2024-04-30 17:04] LABS: Glucose - Point of Care 101 mg/dl (70-99)
[2024-04-30] MEDS: DICLOFENAC 1% TOPICAL GEL TOPICAL ×2 (19:42→22:06)
[2024-04-30 20:15] LABS: APTT 71.9 Sec (23.4-35.0)
[2024-04-30] MEDS: COLACE PO (20:58)
--- NOTE | 2024-04-30 21:00 | PTCARENOTE ---
Pt admitted to room 2261 from IVU. Report received from елена RN. Pt AAOx3. Walks independently. Sinus alia on the tele monitor. HR 50s. BP stable. DP pulses weak B/L. Radial pulses palpable. Pt 95% on RA. Lung sounds diminished bilaterally in
the base. Deep breathing and IS encouraged. Abdomen round. Slightly distended. Pt reports that is normal. +BS. Pt voiding w/o issue. PIV x 2 intact. Heparin infusing as ordered. PTT drawn and sent. Pt w/ injury on his tongue from events during code.
Medication brought from home to put on tongue sent down to pharmacy to be processed. Pt oriented to room and updated w/ plan of care for the night. See worklist for full nursing assessment and interventions. Call cai within reach.
[2024-04-30] MEDS: CRESTOR 20 MG PO (22:06)
[2024-04-30] MEDS: ATIVAN 0.5 MG IV (22:06)
--- NOTE | 2024-04-30 23:40 | PTCARENOTE ---
Pt clipped and given CHG bath #1. Gown and linens changed. Pt OOB to void and perform mouth care the repositioned back into bed. Remains sinus alia on the tele monitor. HR 50s. Will drop into the high 40s. BP stable. Pt 95% on home CPAP machine.
Respiratory contacted via TT to add 2 L O2 to CPAP per CTPA request. Heparin infusion maintained. Call cai within reach.
[2024-05-01] VITALS (12 sets, daily range): BP systolic 96–142; BP diastolic 59–99; PULSE 50–68; BMI 27.5
[2024-05-01] MEDS: NON-FORMULARY ITEM 1 UNIT PO (00:52)
[2024-05-01 04:46] LABS: Hematocrit 34.8 % (39.0-52.0); Hemoglobin 12.6 g/dL (13.0-18.0); Mean Corp Hgb Conc. 36.2 g/dL (33.0-37.0); Mean Corpuscular Hgb 30.9 pg (27.0-31.0); Mean Corpuscular Volume 85.3 fL (80.0-94.0); Mean Platelet Volume 8.6 fL (7.4-10.4); Platelet Count 291 10^3/uL (130-400); Red Blood Cell Count 4.08 10^6/uL (4.70-6.10); Red Cell Dist. Width 13.3 % (11.5-14.5); White Blood Cell Count 7.1 10^3/uL (4.8-10.8)
[2024-05-01 04:51] LABS: APTT 120.7 Sec (23.4-35.0)
[2024-05-01 05:00] LABS: Blood Urea Nitrogen 16 mg/dl (9-20); Calcium 9.5 mg/dl (8.4-10.2); Carbon Dioxide 24 mmol/L (22-30); Chloride 102 mmol/L (98-107); Estimated Creatinine Clearance 124 ml/min; Glucose 102 mg/dl (70-99); Potassium 4.1 mmol/L (3.5-5.1); Sodium 136 mmol/L (135-145); eGFR > 60.00
--- NOTE | 2024-05-01 05:38 | DOWNTIME ---
There was a the[employer]ench Client Plate Maker Downtime on 05/01/2024 from 0100 to 05/02/2023 at 0420 . Downtime documentation of patient's care, including medication administrations, has been reconciled in the electronic record per guidelines. Refer to the
patient's paper chart under the miscellaneous tab to see printed paper medication records and downtime forms.
--- NOTE | 2024-05-01 05:38 | PTCARENOTE ---
No acute change in assessment. Pt given CHG cloth bath #2 and then wiped w/ CHG wipes. Gown and linens changed. Weight and VS obtained. Pt NPO since ~2200 last night (04/30). Pt remains sinus alia on the tele monitor. HR 50s - will drop to high 40s
while asleep. Pt now on RA. POX 93%. Heparin infusion maintained. Pt voiding w/o issue. Morning labs drawn and sent. Call cai within reach.
[2024-05-01] MEDS: MAGNESIUM OXIDE 500 MG PO (06:07)
[2024-05-01] MEDS: PROTONIX 40 MG PO (06:07)
[2024-05-01] MEDS: BACTROBAN 2% OINTMENT 1 APPLIC NASAL ×2 (06:07→21:15)
--- NOTE | 2024-05-01 06:48 | W.PN.UPDATE ---
Update Note
Progress Note Update
Pt's preop BB contraindicated d/t HR 49 bpm this AM and was not given
[2024-05-01 08:01] LABS: ACT+ - POC 98 Seconds (82-134)
[2024-05-01 08:19] LABS: Urine Albumin Negative (Neg - Trace); Urine Bilirubin Negative (Negative); Urine Character Clear (Clear); Urine Color Yellow; Urine Glucose Negative (Negative); Urine Ketone Negative (Negative); Urine Leukocyte Negative (Negative); Urine Nitrite Negative (Negative); Urine Occult Blood 3+ (Negative); Urine Urobilinogen Negative (Neg - 1+)
[2024-05-01 09:35] LABS: Urine Amorphous Seen; Urine Squamous Cell 0-2 /LPF (Few)
[2024-05-01 09:40] LABS: Urine White Cell 0-2 /HPF (0-5)
[2024-05-01 10:05] LABS: ACT+ - POC 424 Seconds (82-134)
[2024-05-01 10:15] LABS: ACT+ - POC 426 Seconds (82-134)
--- NOTE | 2024-05-01 10:15 | CM ---
Patient in OR today for planned CT Surgery procedure.
Reviewed initial assessment.
Pt. comes from private 2 story home w/ 1 TRU w/ spouse.
Functionally, patient is indep. w/ ADLs, mobility.
Antic. DC to home w/ CT Transitional Care RN.
CM to follow.
[2024-05-01 10:25] LABS: ACT+ - POC 489 Seconds (82-134)
[2024-05-01 10:42] LABS: ACT+ - POC 486 Seconds (82-134)
[2024-05-01 11:03] LABS: B.E. - POC -1.7 mmol/L; Glucose - POC 112 mg/dl (70-99); HCO3 - POC 23 mmol/L (21-28); Hematocrit - POC 34 % PCV (42-52); Hemodilution- POC No; Hemoglobin Calculated - POC 11.6; Ionized Calcium - POC 1.17 mmol/L (1.15-1.33); Lactate - POC 0.56 mmol/L (0.36-0.75); O2 Saturation %Calculated-POC 94.4 % (94-98); PCO2 - POC 39 mmHg (35-48); PO2 - POC 74 mmHg (83-108); Potassium - POC 3.6 mmol/L (3.5-5.1); Sodium - POC 139 mmol/L (136-145); Specimen Type - POC Arterial; pH - POC 7.38 (7.35-7.45)
[2024-05-01 11:13] LABS: ACT+ - POC 522 Seconds (82-134)
[2024-05-01 11:38] LABS: B.E. - POC 0.5 mmol/L; Glucose - POC 161 mg/dl (70-99); HCO3 - POC 26 mmol/L (21-28); Hematocrit - POC 29 % PCV (42-52); Hemodilution- POC Yes; Hemoglobin Calculated - POC 9.9; Lactate - POC 0.44 mmol/L (0.36-0.75); O2 Saturation %Calculated-POC 99.9 % (94-98); PCO2 - POC 42 mmHg (35-48); PO2 - POC 324 mmHg (83-108); Sodium - POC 138 mmol/L (136-145); Specimen Type - POC Arterial; pH - POC 7.39 (7.35-7.45)
[2024-05-01 11:47] LABS: ACT+ - POC 505 Seconds (82-134)
[2024-05-01 12:15] LABS: B.E. - POC 1.9 mmol/L; Glucose - POC 193 mg/dl (70-99); HCO3 - POC 27 mmol/L (21-28); Hematocrit - POC 31 % PCV (42-52); Hemodilution- POC Yes; Hemoglobin Calculated - POC 10.7; Ionized Calcium - POC 1.06 mmol/L (1.15-1.33); Lactate - POC 0.64 mmol/L (0.36-0.75); O2 Saturation %Calculated-POC 99.9 % (94-98); PCO2 - POC 46 mmHg (35-48); PO2 - POC 344 mmHg (83-108); Potassium - POC 4.6 mmol/L (3.5-5.1); Sodium - POC 137 mmol/L (136-145); Specimen Type - POC Arterial; pH - POC 7.39 (7.35-7.45)
[2024-05-01 12:23] LABS: ACT+ - POC 464 Seconds (82-134)
--- NOTE | 2024-05-01 12:50 | PN.CDI ---
CDI
- -
CDI:
Physician Documentation Request
Admit Date: 04/25/24 08:01
Dear Doctor Nader,
Patient presented to ED after out of hospital cardiac arrest. Troponin noted to be elevated.(0.097, 0.74 )
Hospitalist progress note states ' Troponin elevation -likely following the cardiac arrest'
Patient underwent right and left heart catheterization and found to have significant multivessel cad. Plan is to undergo surgical coronary revascularization.
Could you please clarify the etiology of elevated troponin:
Type II IL demand ischemia,
NSTEMI
Nonischemic myocardial injury
Other
Use of terms such as suspected, likely, concern for, or probable (associated with a specific diagnosis that is being evaluated, monitored, or treated as if it exists) are acceptable and can be coded in the inpatient setting, when documented at the
time of discharge.
Thank you,
Mary Cannon RN, BSN
CDI Specialist
tiger text
Please use your independent medical judgment in providing your response.
[2024-05-01 12:56] LABS: B.E. - POC 3.6 mmol/L; Glucose - POC 181 mg/dl (70-99); HCO3 - POC 29 mmol/L (21-28); Hematocrit - POC 29 % PCV (42-52); Hemodilution- POC Yes; Hemoglobin Calculated - POC 9.9; Ionized Calcium - POC 1.07 mmol/L (1.15-1.33); Lactate - POC 1.06 mmol/L (0.36-0.75); O2 Saturation %Calculated-POC 99.9 % (94-98); PCO2 - POC 49 mmHg (35-48); PO2 - POC 321 mmHg (83-108); Potassium - POC 3.9 mmol/L (3.5-5.1); Sodium - POC 140 mmol/L (136-145); Specimen Type - POC Arterial; pH - POC 7.39 (7.35-7.45)
[2024-05-01 13:05] LABS: ACT+ - POC 498 Seconds (82-134)
[2024-05-01 13:35] LABS: B.E. - POC 1.5 mmol/L; Glucose - POC 153 mg/dl (70-99); HCO3 - POC 26 mmol/L (21-28); Hematocrit - POC 28 % PCV (42-52); Hemodilution- POC Yes; Hemoglobin Calculated - POC 9.6; Ionized Calcium - POC 1.05 mmol/L (1.15-1.33); Lactate - POC 1.33 mmol/L (0.36-0.75); O2 Saturation %Calculated-POC 99.9 % (94-98); PCO2 - POC 41 mmHg (35-48); PO2 - POC 336 mmHg (83-108); Potassium - POC 3.6 mmol/L (3.5-5.1); Sodium - POC 141 mmol/L (136-145); Specimen Type - POC Arterial; pH - POC 7.41 (7.35-7.45)
[2024-05-01 13:45] LABS: ACT+ - POC 472 Seconds (82-134)
[2024-05-01 14:07] LABS: B.E. - POC 1.6 mmol/L; Glucose - POC 146 mg/dl (70-99); HCO3 - POC 25 mmol/L (21-28); Hematocrit - POC 29 % PCV (42-52); Hemodilution- POC Yes; Hemoglobin Calculated - POC 9.8; Ionized Calcium - POC 0.92 mmol/L (1.15-1.33); Lactate - POC 2.33 mmol/L (0.36-0.75); PCO2 - POC 34 mmHg (35-48); PO2 - POC 385 mmHg (83-108); Potassium - POC 4.3 mmol/L (3.5-5.1); Sodium - POC 142 mmol/L (136-145); Specimen Type - POC Arterial; pH - POC 7.47 (7.35-7.45)
[2024-05-01 14:23] LABS: ACT+ - POC 109 Seconds (82-134)
[2024-05-01] MEDS: CYMBALTA DELAYED RELEASE PO ×2 (14:32→22:14)
[2024-05-01] MEDS: PROTONIX PO (14:32)
[2024-05-01] MEDS: DICLOFENAC 1% TOPICAL GEL TOPICAL ×2 (14:32)
[2024-05-01] MEDS: TYLENOL PO ×3 (14:33→22:18)
[2024-05-01] MEDS: NOVOLOG FLEXPEN SC ×2 (14:33→17:36)
[2024-05-01] MEDS: FLOMAX PO (14:34)
[2024-05-01] MEDS: COLACE PO (14:34)
[2024-05-01] MEDS: LIDOCAINE 4% PATCH TOPICAL (14:35)
[2024-05-01] MEDS: LASIX IV (14:35)
[2024-05-01] MEDS: KCL PO (14:35)
[2024-05-01] MEDS: LOW STRENGTH ASPIRIN PO (14:35)
[2024-05-01] MEDS: METAMUCIL, KONSYL PO (14:36)
[2024-05-01] MEDS: TOPROL XL PO (14:37)
[2024-05-01] MEDS: MUCINEX PO (14:37)
[2024-05-01] MEDS: VITAMIN B1 PO (14:38)
--- NOTE | 2024-05-01 14:51 | W.CVOR.SURPR ---
CVOR Surgeon Immed Pre Op
-
I have examined this patient prior to performance of the scheduled procedure.
The patient's condition is unchanged from the time of the dictated/written History and
Physical and the patient is able to undergo the scheduled procedure.
--- NOTE | 2024-05-01 14:52 | W.IMMPOSTOP ---
Addendum entered and electronically signed by Yfn Doe MD 05/01/24 15:59:
[id number]
Original Note:
Surgical Immed Post Op Note
-
CARDIAC SURGERY OPERATIVE NOTE:
Preoperative Dx:
Recent pyz-ux-zyzspqfh cardiac arrest w/ ROSC
Ndcwlvwm-xe-kezqjz aortic stenosis (P/M: 73/36; mean 41 @ cath)
Multivessel CAD including in-stent restenosis of prior mid LAD stent
Postoperative Dx:
Same
Procedures:
1) Median sternotomy
2) Takedown of MELIDA (narrow pedicle)
3) Endoscopic harvest/prep of RLE GSV
4) Encompass MAZE procedure
5) CABG x 3 (MELIDA to LAD, GSV to OM [lower branch], GSV to RPDA)
6) ELAA (50mm AtriClip)
7) AVR (#29 Inspiris Resilia)
Surgeon:
Yfn Doe M.D.
Assistants:
Loida Higuera P.A.-C. - endoscopic harvest/prep of RLE GSV; first dyer throughout
Skyla Cole P.A.-C. - closure of RLE GSV harvest incisions
Polo Galindo P.A.-C. - oadxlw-mnvr-cusw sternotomy closure
Perfusion:
Zaida Calabrese C.C.P.; XC: 170min; CPB: 207min
Anesthesia:
Carlos Joseph M.D. and Genna FoleyN.A.
Findings:
Minor fascia bruising noted presumptively from ACLS/CPR
MELIDA was a healthy appearing vessel w/ very brisk blood flow; ELD 2.5mm
GSV was healthy appearing conduit w/ slightly thickened dee; ELD 3.5mm
Encompass MAZE completed w/ posterior box & B/L PV lesions created simultaneously; ligament of chayo taken down with electrocautery
LAD was visible on the epicardial surface, prior stent visible, anastomosis performed ~3cm distal - normal dee at this location w/ ELD 2.5mm
OM [lower branch] was visible on the epicardial surface, scattered proximal calcifications, normal dee at midpoint anastomosis w/ ELD 3.0mm
RPDA was visible on the epicardial surface, scattered proximal calcifications, minor scattered calcifications but otherwise normal dee at proximal 1/3 anastomosis; ELD 3.25mm
CAROL ANN was large w/ windsock morphology - good appearance of AtriClip at base; confirmed w/ postoperative RAPHAEL
AV was trileaflet w/ extensive leaflet calcifications w/ annular extensions circumferentially. There was a bar of calcium extending from the NCC onto the aortomitral curtain and ventricular surface of the anterior mitral valve leaflet that was
also debrided. LM and RM coronary heights were excellent.
#29 Inspiris Resilia valve placed w/ 19 interrupted, pledgetted valve sutures; no PVL/AI on postoperative RAPHAEL w/ mean gradient under GA of 4mmHg.
Post-RAPHAEL: Well-seated AVR w/o PVL/AI, mean 4mmHg, Normal biventricular function, CAROL ANN confirmed excluded at base
Starting/final rhythm: Sinus
Implants:
[employer], 29mm Inspiris Resilia; Model [id number], SN: [id number]
AtriClip 50mm (ACHV50); LOT [id number]
Temporary epicardial V-wires x 2
CT x 4 (B/L pleural, inferior mediastinal, superior mediastinal)
Sternal wires x 8
Sternal 'X' plate w/ 4 - 16mm and 4 - 14mm screws
Sternal 'Square' plate w/ 4 - 14mm screws
Transfusions:
None
Complications:
None
Condition:
73 sinus (0.3/0.3); 112/66; 39/27; CVP 18; CO/CI: 4.84/2.16
GTTS: levophed 4, insulin 1, precedex 0.3
Stable/guarded to CVICU
[2024-05-01 14:56] LABS: B.E. - POC 1.1 mmol/L; Glucose - POC 137 mg/dl (70-99); HCO3 - POC 26 mmol/L (21-28); Hematocrit - POC 27 % PCV (42-52); Hemodilution- POC Yes; Hemoglobin Calculated - POC 9.1; Ionized Calcium - POC 1.12 mmol/L (1.15-1.33); Lactate - POC 2.24 mmol/L (0.36-0.75); O2 Saturation %Calculated-POC 91.6 % (94-98); PCO2 - POC 42 mmHg (35-48); PO2 - POC 63 mmHg (83-108); Potassium - POC 3.5 mmol/L (3.5-5.1); Sodium - POC 143 mmol/L (136-145); Specimen Type - POC Arterial
[2024-05-01 15:25] LABS: Glucose - Point of Care 143 mg/dl (70-99)
[2024-05-01] MEDS: LR 250 ML IV ×4 (15:30→17:12)
[2024-05-01 15:34] LABS: B.E. 2.6 mmol/L; HCO3 27.9 mmol/L (21-28); Ionized Calcium 1.16 mMOL/L (1.15-1.33); O2 Saturation % 98.7 % (94-98); PCO2 45 mmHg (35-48); PO2 82 mmHg (83-108); Sodium 137 mMOL/L (136-145)
[2024-05-01 15:37] LABS: Mixed Venous O2 Saturation 62.4 %
[2024-05-01 15:38] LABS: Hematocrit 29.3 % (39.0-52.0); Hemoglobin 10.3 g/dL (13.0-18.0); Platelet Count 236 10^3/uL (130-400)
--- NOTE | 2024-05-01 15:40 | PTCARENOTE ---
Patient received from CVOR at 1515. Patient out w/ Precedex, levo, insulin. Patient intubated and sedated. PERRLA. Pupils 3cm. Sinus rhythm w/ first degree heart block. BP labile. 500 LR bolus given. HR 78. Heart sounds audible. Radial and
posterior tibialis pulses present bilaterally. No edema noted. V-wires plugged in but turned off. Lungs clear but diminished anterior and bilaterally. ETT size 8, 24 at the lip. Ventilator settings SIMV 550/100/14/7 POX 100%. CTx4 set to wall
suction at -20 draining red fluid WNL. No tidaling, crepitus, or air leaks noted. Abraham draining yellow reddish urine WNL. ALISON mosquera w/ kapil @ 52. CI 2.09 CO 4.19. PAP 34/21. Right PIV and Left PIV. Left Radial A-line. Sternal Incisions w/
scant drainage noted and circled w/ marker. Right groin puncture dry and intact. Right leg incision w/ nathan wrap dry and intact.
--- NOTE | 2024-05-01 15:45 | W.PN.UPDATE ---
Update Note
Progress Note Update
73-year-old male was admitted to [facility] after a VT cardiac arrest while in the pool. Immediate CPR was initiated and ROSC achieved. Patient was placed on TTM protocol. Patient transferred to [facility] on 04/26/2024
for left heart cath which revealed triple-vessel coronary disease. Neuro checks were intact. Patient completed preop cardiac workup in preparation for AVR, CABG, left atrial clip, and maze.
IV fluids: �
U.O.:� 800
Blood:� none
Wires:� 2 V-wires
Inotropes:� none
Pressors:� Levophed @ 4
Sedatives:� Precedex @ 0.3
�
NEURO: sedated , pupils +2mm B/L
RESP: #8OT @24cm> 550/100%/26/08. Lungs clear B/L. 2 mediastinal (0cc on arrival) and R/L pleural (5cc on arrival) chest tubes to -20cm suction. Sanguineous drainage, no airleak, no crepitus
CV: RRR +S1, S2, no S3, no�rub, no murmur. Aquacel to sternotomy. RIJ w/[place] locked @ 56cm. PA 26/9; CVP 5; C.O 4.68/CI 2.09
ABD: round, soft, no BS
EXT: no edema, +2/4 DP pulses B/L, no femoral bruit, RLE JOSEFA wrap intact; left radial A-line intact
: Abraham with clear marina tinged urine
�
A/P: POD #0 s/p AVR #29mm Inspiris, CABG x 3 (MELIDA to LAD, GSV to OM [lower branch], GSV to RPDA), Encompass MAZE, CAROL ANN #50mm AtriClip
RAPHAEL: EF�55-60%, AV mean 4mmHg, no AI
- wean and extubate
- will need instruction regarding antibiotic prophylaxis for dental and invasive procedures
# CAD/pre-hospital VT arrest
- will initiate ASA, Plavix, statin, beta-kiesha when off pressors and extubated
- EP to comment on need for ICD
# Hx PAF
- maintaining SR
- last Eliquis 04/24, continue on ASA/Plavix for now
�
# acute surgical blood loss anemia-expected
- trend CBC
�
# Psoriatic arthritis
- Cimza 400mg SC q 4 weeks
# Anxiety
- continue Duloxetine 30mg BID, watch QTc w/Amio combo
�
# BPH
- resume�Flomax prior to Abraham removal
[2024-05-01 15:54] LABS: Blood Urea Nitrogen 17 mg/dl (9-20); Estimated Creatinine Clearance 106 ml/min; Glucose 140 mg/dl (70-99)
[2024-05-01] MEDS: CALCIUM GLUCONATE 100 IV (16:00)
--- NOTE | 2024-05-01 16:10 | PTCARENOTE ---
Respiratory therapist at bedside. CPAP trial started at 1555.
[2024-05-01 16:12] LABS: Glucose - Point of Care 155 mg/dl (70-99)
--- NOTE | 2024-05-01 16:17 | W.PN.CARDCBS ---
Addendum entered and electronically signed by Laurita Euceda MD 05/01/24 17:20:
I saw and examined the patient.
The Regulatory Affairs Analyst's note was reviewed and I agree with the note.
Comment: Patient is status post coronary artery bypass grafting x 3 with MATT to LAD, saphenous vein graft to OM (lower branch), saphenous vein graft to RPDA, 29 mm Inspiris Resilia AVR with concurrent debridement of calcium extension onto anterior
leaflet of mitral valve, left atrial appendage excluded at base. Post surgical RAPHAEL with well-seated AVR with no AI or PVL, mean gradient of 4 mmHg under general anesthesia and normal biventricular function.
Vital signs and lab work reviewed. ECG with no acute ischemic changes, prolonged QTc noted
On exam, patient is intubated and sedated, tolerating CPAP over the last hour, was on low-dose Levophed and nitroglycerin. Regular rate, normal S1 and S2, no murmurs, rubs or gallops, sternotomy wound is dressed which is clean, dry and intact,
abdomen is soft, nontender, nondistended with active bowel sounds, warm extremities without significant edema.
Recommendations:
1. Wean pressors and ventilator as tolerated.
2. Plan to attempt extubation this evening.
3. Close monitoring of blood counts and renal function along with heart rhythm on telemetry.
4. Continue postoperative supportive care.
5. Likely ICD prior to discharge.
Laurita Euceda MD, [facility], [facility]
Original Note:
Today's Communication / Plan
-
continue post op care
will need ICD prior to DC, will discuss timing with CT surg
Impression / Plan
-
PCP: Dr. Som Miller
Cardiology: Previously Dr. Boucher
Impression:
Admitted to [facility] with out of hospital cardiac arrest 04/23/2024
Transferred to for cardiac catheterization and possible ICD 04/25/2024
Out of hospital cardiac arrest 04/23/2024
Immediate bystander CPR with 2 defibrillations by AED, EMS administered 2 additional shocks for pulseless VT, 1 amp lidocaine and 1 amp epi given with ROSC
Concern for gxaj-nr-[id number] slow nystagmus and myoclonic movements on admission to [facility], but no overt tonic-clonic movement
Tongue laceration, s/p sutures x2 at [facility] 04/23/24
s/p VDRF 04/23/2024 until 04/24/2024
Targeted temperature management performed at [facility] 04/23/2024
CAD
CAD s/p 2.5 mm Cypher SIMEON to the mid to distal LAD 11/04/2003
Abnormal stress test with basal inferior and basal inferolateral segment fixed defect c/w infarction 01/31/23
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
Permanent A-fib
has been in SR since admission to 04/25/24
Chronic Eliquis OAC
Last dose of Eliquis 04/24/2024 PM
Moderate to severe mean gradient 27 mmHg by echo at 12/19/2023 and mean gradient 22.4 mmHg by echo at [facility] 04/24/2024
Hyperlipidemia
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
Venous cerebral aneurysm seen on MRI 04/04/[address] Bernstein at 04/04/24 and then scheduled for f/u with neurosurgeon at [place] 04/25/24, missed appt due to admission
Acute HFpEF, PCWP 25 by [facility] 04/26/2024
Lexiscan nuclear stress test 01/31/2023: Medium area of severely decreased/absent tracer uptake perfusion that was fixed in the mid inferior segment and apical inferior segment C/W soft tissue attenuation as it improves with prone imaging, small
area of severely decreased/absent perfusion fixed in the basal inferior segment consistent with infarction, EF 52%
Echo 12/19/23: EF 55 to 60%, mild concentric LVH, normal RV size and function, moderate to severe with peak/mean 55/27 mmHg and CHRISTIAN 1.0 cm sq, mildly dilated aortic root and ascending aorta with sinuses of Valsalva 4.1 cm, sinotubular junction 3.7
cm and ascending aorta 4.4 cm
Echo 04/24/24: [facility] study, EF 50 to 55%, normal RV size and function, at least moderate with peak/mean 42.3/22.4 mmHg, trace MR, trace TR, aortic root 4.16, aortic sinus 3.83, sinotubular junction 2.9 and ascending aorta 4.36
Echo 04/25/24: EF 60 to 65%, basal inferior akinesis, mild concentric LVH, normal RV size and function, severe peak/mean 73/36 mmHg and CHRISTIAN 0.75 cm sq, no aortic regurgitation, mild TR with PAP 25 to 30 mmHg, compared to echo 12/19/2023 although
not previously noted by visual comparison the basal inferior akinesis persists
Plan:
-Patient with out of hospital cardiac arrest with bystander CPR and shocks 04/23/24, taken to [facility] and managed with TTM. Once extubated at [facility] patient was transferred to for cardiac work-up 04/25/24
-Patient had cardiac cath 04/26/24 and found to have significant MV CAD including possible ostial LM
-s/p CABG x 3 related to LAD, GSV to OM, GSV to RPDA, bioprosthetic AVR, left atrial appendage clip, maze 05/01/2024
-Remains intubated, sedated
-On levo at 2, insulin at 3, wean as able. CI 2.09
-EKG sinus rhythm with evidence of prior inferior infarct, stable compared to prior
-Patient previously diagnosed as permanent A-fib, but has been in SR throughout admission to on review of tele. follow post op
-eventual resume DOAC
-follow post op volume status, was on IV lasix 20mg BID prior to surgery. was not on loop diuretic prior to admission
-continue BB, started this admission. Eventually add JOSEFA/ARB pending post op BP
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 Bernstein at 04/04/24 and was scheduled to see Neurosurgeon at [place], but missed appt due to this event/admission. If there is a concern about risks posed by this
aneurysm and need for TAVR or SAVR then patient's daughter (Dr. Yasmin Clark) has offered to reach out to the neurosurgeon to get opinion.
-Given VT cardiac arrest and known inferior akinesis/scar, he will remain at elevated risk of ventricular arrhythmias and sudden cardiac therefore secondary prevention ICD is recommended prior to hospital discharge
-d/w nursing
HPI: Patient came to today as a transfer from [facility] for cardiac cath and cardiology has been consulted. Patient was admitted to [facility] on 04/23/24 after a witnessed out of hospital cardiac arrest while swimming for exercise at a local pool. Patient
was removed from the pool immediately and there was no suggestion of inhaled or ingested water. Bystanders started CPR immediately and AED was applied with 2 defibrillations followed by EMS arrival who found the patient to be in pulseless VT and
administered 2 additional defibrillations along with lidocaine x 1 and epinephrine x 1 resulting in ROSC. Patient was intubated upon arrival to [facility] and there was also initial concern for posturing, left to right slow nystagmus and myoclonic
movements along with considerable oral bleeding, but no overt tonic-clonic movement was seen and Ceribell device application indicated no seizures. ECG did not show ST elevation and CT of the head only showed a known cerebral venous aneurysm.
Patient underwent targeted temperature management and was warmed and extubated yesterday. Patient was recommended cardiology evaluation including cardiac catheterization and his daughter, who is a local PCP to and also part of the residency
program here at , requested transfer to .
Progress Note - Supervisor Hardboard
Subjective
Date of Service: May 01, 2024
intubated, sedated
Objective
Labs:
05/01/24 15:24
Labs
Hgb 10.3 g/dL (13.0-18.0) L 05/01/24 15:24
Hct 29.3 % (39.0-52.0) L 05/01/24 15:24
Plt Count 236 10^3/uL (130-400) 05/01/24 15:24
PT 15.2 Sec (11.4-14.6) H 04/27/24 01:44
INR 1.17 04/27/24 01:44
APTT 120.7 Sec (23.4-35.0) H 05/01/24 04:23
Sodium 136 mmol/L (135-145) 05/01/24 04:23
Potassium 4.1 mmol/L (3.5-5.1) 05/01/24 04:23
BUN 17 mg/dl (9-20) 05/01/24 15:24
Creatinine 0.7 mg/dL (0.7-1.3) 05/01/24 15:24
Glucose 140 mg/dl (70-99) H 05/01/24 15:24
Vital Signs and I&O:
Vital Signs
Temp Pulse Resp BP Pulse Ox
97.5 F 95
05/01/24 15:46 05/01/24 16:05 05/01/24 16:05 05/01/24 04:05 05/01/24 16:05
Vital Signs
Temp Pulse Resp BP Pulse Ox
97.5 F 95
05/01/24 15:46 05/01/24 16:05 05/01/24 16:05 05/01/24 04:05 05/01/24 16:05
Intake & Output
04/29/24 04/30/24 05/01/24 05/02/24
07:59 07:59 07:59 07:59
Intake Total 1416 / 1416 300 / 300 445 / 445 583.3 / 583.3
Output Total 3725 / 3725 415 / 415 2100 / 2100 70 70
Balance -2309 / -2309 -115 / -115 -1655 / -1655 513.3 / 513.3
Physical Exam
Physical Exam
GEN: No distress, intubated, sedated
HEENT: supple, mmm
LUNGS: CTA B/L, no wheezes/rales
CV: Reg, S1/S2, no murmur
EXT: No cyanosis, clubbing, edema
NEURO: sedated
SKIN: Warm, pink, dry. No rash. Sternotomy dressing c/d/i. CTs in place
--- NOTE | 2024-05-01 16:29 | CON.INTV ---
Consultation
Consultation Request
Date/Time Consultation Requested: 05/01/2024
Date/Time Consultation Performed: 05/01/2024
Requesting Provider: Yfn Doe
Performing Provider: Lloyd Barakat
Reason for Consultation: S/p CABG
Medical History
-
Chief Complaint: Out of hospital cardiac arrest
History of Present Illness:
73-year-old male with a history of CAD/LAD stent, permanent atrial fibrillation on chronic Eliquis as well as moderate to severe aortic stenosis and hyperlipidemia who was swimming at a local pool and had a witnessed [id number] cardiac
arrest-patient removed from pool immediately, CPR bystander performed immediately and AED was applied with 2 defibrillations followed by EMS who found the patient to be in pulseless ventricular tachycardia and administered 2 additional
defibrillations along with lidocaine and epinephrine with resumption of spontaneous circulation-patient was intubated, targeted temperature management, and successfully extubated-there was a question on aspiration and pulmonary was consulted prior
to cardiac catheterization 04/25/2024.
Patient had cardiac cath performed and was noted to have severe multivessel disease. 05/01, patient had CABG and AVR performed, and post-op was brought ro CVICU, intubated. Assistant Project Engineer consult was requested for further recommendations.
Past Medical History
Past Medical History: None (CAD/stent LAD 11/04/2003. Hypertension. Hyperlipidemia. Psoriatic arthritis. Depression. RANDY. Permanent atrial fibrillation. Chronic Eliquis. Moderate to severe aortic stenosis. Hyperlipidemia. Cholecystectomy.
Right hip replacement. Left knee replacement.)
Social History
Tobacco: Former Smoker (Very distant, less than 5-pack-year)
Alcohol: Occasional
Personal:
Living: With Family
Occupational Exposures: No known asbestos exposure
Environmental Exposures: No known tuberculosis exposure
Family History
Family History: Reviewed & Not Pertinent (CAD and atrial fibrillation)
Allergies / Home Medications
Allergies
Allergy/AdvReac Type Severity Reaction Status Date / Time
oxycodone Allergy hallucinati Verified 04/03/24 17:38
ons
Home Medications
�Medication �Instructions �Recorded �Confirmed �Last Taken �Type
chlorthalidone 25 mg tablet 25 mg PO DAILY Blood pressure 05/31/18 04/25/24 04/03/24 History
duloxetine 30 mg capsule,delayed 30 mg PO BID Mental Health/Anxiety 05/31/18 04/25/24 04/03/24 History
release
metoprolol succinate 25 mg 25 mg PO DAILY Blood pressure 05/31/18 04/25/24 04/03/24 History
tablet,extended release 24 hr
rosuvastatin 10 mg tablet (Crestor) 10 mg PO HS High cholesterol 05/31/18 04/25/24 04/02/24 History
apixaban 5 mg tablet (Eliquis) 5 mg PO BID Blood Clot 03/05/20 04/25/24 04/24/24 20:00 History
Prevention/Tx
certolizumab pegol 400 mg/2 mL 400 mg SC Q4W Autoimmune Disorder 12/20/23 04/25/24 2 Weeks Ago History
(200 mg/mL x2) subcutaneous ~03/20/24
syringe kit (Cimzia)
pantoprazole 20 mg tablet,delayed 40 mg PO DAILY Blood Pressure 12/20/23 04/25/24 04/03/24 History
release
tamsulosin 0.4 mg capsule 0.4 mg PO DAILY #30 caps 12/21/23 04/25/24 04/03/24 Rx
aspirin 81 mg chewable tablet 81 mg PO HS 04/03/24 04/25/24 04/02/24 History
Review of Systems
-
Unable to Obtain full review of systems at this time due to: Patient Intubation
Vitals / Labs / Diagnostic Testing
Vital Signs
Temp Pulse Resp BP Pulse Ox
97.5 F 67 22 115/71 95
05/01/24 15:46 05/01/24 16:05 05/01/24 16:05 05/01/24 04:05 05/01/24 16:05
Lab Data
05/01/24 15:24
Laboratory Results
04/30/24 05/01/24 05/01/24
19:54 04:23 15:24
APTT 71.9 H 120.7 H
pH 7.40
pCO2 45
pO2 82 L
HCO3 27.9
O2 Delivery Level
Diagnostic Testing:
Physical Exam
-
HEENT: Normocephalic
Cardiovascular: Regular Rhythm
Respiratory: Clear and Non-Labored Respirations
GI: Soft and Non Distended
Neurology: Other (Patient still drowsy, has good respiratory drive with good tidal volume)
Skin: Warm
General: Comfortable
Assessment
-
S/p coronary artery bypass graft x 3 along with AVR with left atrial appendage exclusion POD #0
Titrate off pressors per protocol, currently on Levo @3
ECHO reviewed
PA catheter readings reviewed, O2 sats 89-94%
Management of chest tubes per primary service
Intubated/tolerating PS with 5/5 with good tidal volumes, Anticipate extubation in coming hours
Pain control
Current vent settings: PS with 5/5
ABG(s) reviewed 7.4, 43, 77
CXR reviewed, no significant abnormality
Extubate per protocol
Maintain supplement oxygen as needed
Advance diet as tolerated following extubation
GI prophylaxis if indicated for mechanical ventilation >48 hours
Monitor critical I/O's
Abraham/chest tube output
Hb/platelets postoperatively stable
Trend CBC for now
Can transfuse if indicated for Hb <7, plt <50 in surgical patients
DVT prophylaxis including SCD
Insulin protocol initiated and ongoing
Transition to SQ/off as indicated per team
Brief Hospital stay and events:
-Zmj-lc-iwruejoz cardiac arrest-witnessed, bystander CPR/defibrillation x 3 with ROSC
-Status post ventilator-extubated 04/24/2024, targeted temperature management at [facility]-transferred to for cardiac catheterization after extubated
-Treated for Aspiration Pneumonia
-CAD with a history of LAD stent 2003
- aortic stenosis
-Recent influenza A 03/2024
-Atrial fibrillation
-Mild gonjmv-andtgwysmz-wlhzqlyyde 11.7 today
-Mild transaminitis - improving
-Tongue laceration-seen by ENT
Conditions present prior to admission:
CAD/stent LAD 11/04/2003.
Hypertension.
Hyperlipidemia.
Psoriatic arthritis.
Depression.
RANDY.
Permanent atrial fibrillation.
Chronic Eliquis.
Moderate to severe aortic stenosis.
Hyperlipidemia.
BPH
Cholecystectomy. Right hip replacement. Left knee replacement.
Critical Care time 65 mins -- The patient is admitted for acute critical illness for the treatment of vital organ failure and/or prevention of further life-threatening conditions. Total care includes time spent in review of history, physical exam,
medications, hemodynamic/ventilator parameters, laboratory data, imaging and discussion with house staff, pharmacy, respiratory therapy, director retail brand development, and nursing.
Cardiac Cath 04/2024:
1. Significant multivessel coronary artery disease possibly involving ostial left main. Ideally, we would have proceeded with intravascular ultrasound for further assessment however given worsening respiratory status on the table likely due to
acute diastolic heart failure, we decided to abort the case.
2. Significantly elevated right and left-sided filling pressures with normal cardiac output.
3. Estimated mean invasive aortic gradient of 41 mmHg, aortic valve area calculated at 0.93 cm� consistent with severe aortic stenosis.
[2024-05-01 16:31] LABS: INR 1.38; PT 17.5 Sec (11.4-14.6)
[2024-05-01 16:32] LABS: APTT 30.9 Sec (23.4-35.0)
[2024-05-01 16:43] LABS: B.E. 1.5 mmol/L; HCO3 26.6 mmol/L (21-28); O2 Saturation % 97.5 % (94-98); PCO2 43 mmHg (35-48); PO2 77 mmHg (83-108)
[2024-05-01 17:10] LABS: Glucose - Point of Care 136 mg/dl (70-99)
[2024-05-01] MEDS: NSS 500 IV (17:12)
[2024-05-01] MEDS: ANCEF 10 IV ×2 (17:12)
[2024-05-01] MEDS: DILAUDID 0.5 MG IV ×2 (17:20→21:42)
[2024-05-01] MEDS: CALCIUM CHLORIDE 10% SYRINGE 500 MG IV (17:21)
[2024-05-01] MEDS: NEURONTIN PO (17:36)
[2024-05-01] MEDS: PACERONE PO ×2 (17:36→22:17)
[2024-05-01] MEDS: OFIRMEV 100 IV (17:53)
[2024-05-01 17:57] LABS: Glucose - Point of Care 135 mg/dl (70-99)
[2024-05-01 18:09] LABS: B.E. 0.8 mmol/L; HCO3 25.3 mmol/L (21-28); O2 Saturation % 98.9 % (94-98); PCO2 39 mmHg (35-48); PO2 82 mmHg (83-108); pH 7.42 (7.35-7.45)
--- NOTE | 2024-05-01 18:15 | RESPNOTE ---
patient extubated at 1815 without incident. placed patient on 6L nasal cannula-85%. patient placed on cpap 10 and oxygen saturations did not recover above 88%. patient placed on 100% NRM-94%.
--- NOTE | 2024-05-01 18:25 | PTCARENOTE ---
Respiratory therapist at bedside. Extubated @ [address] PA[address] Patient placed on nonrebreather POX 97% w/ nonrebreather. IS 750. Drowsy but oriented. Moves all extremities and listens to commands.
[2024-05-01 19:17] LABS: Glucose - Point of Care 125 mg/dl (70-99)
[2024-05-01 19:27] LABS: B.E. 1.3 mmol/L; HCO3 25.9 mmol/L (21-28); Ionized Calcium 1.24 mMOL/L (1.15-1.33); PCO2 40 mmHg (35-48); PO2 127 mmHg (83-108); Potassium 4.4 mMOL/L (3.5-5.1); pH 7.42 (7.35-7.45)
[2024-05-01 19:29] LABS: Hemoglobin 9.8 g/dL (13.0-18.0); Platelet Count 255 10^3/uL (130-400)
[2024-05-01] MEDS: TORADOL 15 MG IV (19:41)
--- NOTE | 2024-05-01 20:00 | PTCARENOTE ---
Assumed care of the patient at 1900. Patient in bed, AOx3, drowsy, daughter at bedside. SR with 1st degree HB, rate 70's, v wire present connected to pacer box - powered off, palpable pulses throughout, no edema appreciated. CTx4 present to -20 cm
wall suction, no air leak, tidaling or crepitus noted - sanguineous drainage; lungs clear throughout, on NRB @ 15LPM satting 97%, switched to 6LNC after some time, satting 94%. Abd SNT, BS normoactive, patient c/o thirst, no n/v. Abraham present
draining clear, reddish urine. MS enedina with old drainage CDI, RLE nathan wrap and RSVG site CDI and R groin intact. RIJ Cordis with Mallika present @52; L radial art line, PIV x2. On Levo and insulin. Adjusted per protocol. Patient and daughter
updated on POC, in agreement, assessment of needs ongoing. See nursing worklist for additional intervention details.
[2024-05-01 20:06] LABS: Glucose - Point of Care 134 mg/dl (70-99)
[2024-05-01] MEDS: LOW STRENGTH ASPIRIN 81 MG PO (21:16)
[2024-05-01 22:05] LABS: Glucose - Point of Care 117 mg/dl (70-99)
[2024-05-01] MEDS: CRESTOR 20 MG PO (22:15)
[2024-05-01] MEDS: NEURONTIN 100 MG PO (22:15)
[2024-05-01] MEDS: SENOKOT-S 1 TABLET PO (22:15)
[2024-05-01] MEDS: ANCEF 5 IV (22:15)
[2024-05-01] MEDS: VERSED 0.5 MG IV (22:30)
--- NOTE | 2024-05-01 22:30 | PTCARENOTE ---
Patient awoke from sleeping agitated, confused and violent. Would not follow commands. Primary RNs at bedside. CVPA at beside, Versed administered, patient placed in 4 point restraints for safety for trying to pull out tubes, attempting to
punch/kick/hit nurses assisting, and trying to sit up out of bed. Patient calm after Versed administration, reoriented, apologetic, therapeutic communication utilized and patient settled in bed. Restraints maintained at this time. Patient switched
from CPAP to 6LNC at this time.
[2024-05-02] VITALS (32 sets, daily range): BP systolic 91–139; BP diastolic 48–75; PULSE 65; BMI 27.5
[2024-05-02] LABS: Glucose - Point of Care 139 mg/dl (70-99)
--- NOTE | 2024-05-02 | PTCARENOTE ---
Patient calm, apologetic, sleeping between care. Mentation improved after Versed. VSS.
[2024-05-02] MEDS: FLEXERIL 5 MG PO (00:26)
[2024-05-02 01:11] LABS: Glucose - Point of Care 109 mg/dl (70-99)
[2024-05-02 02:04] LABS: Glucose - Point of Care 106 mg/dl (70-99)
[2024-05-02] MEDS: OFIRMEV 100 IV (02:13)
[2024-05-02] MEDS: TORADOL 15 MG IV ×3 (02:46→16:29)
[2024-05-02 03:00] LABS: Glucose - Point of Care 112 mg/dl (70-99)
[2024-05-02 03:26] LABS: B.E. 2.9 mmol/L; HCO3 27.1 mmol/L (21-28); Ionized Calcium 1.19 mMOL/L (1.15-1.33); O2 Saturation % 97.9 % (94-98); PCO2 39 mmHg (35-48); PO2 75 mmHg (83-108); Potassium 4.1 mMOL/L (3.5-5.1); pH 7.45 (7.35-7.45)
[2024-05-02 03:35] LABS: Hematocrit 25.7 % (39.0-52.0); Hemoglobin 9.2 g/dL (13.0-18.0); Mean Corp Hgb Conc. 35.8 g/dL (33.0-37.0); Mean Corpuscular Hgb 30.9 pg (27.0-31.0); Mean Corpuscular Volume 86.2 fL (80.0-94.0); Platelet Count 258 10^3/uL (130-400); Red Blood Cell Count 2.98 10^6/uL (4.70-6.10); Red Cell Dist. Width 13.6 % (11.5-14.5); White Blood Cell Count 16.9 10^3/uL (4.8-10.8)
[2024-05-02 03:50] LABS: Blood Urea Nitrogen 22 mg/dl (9-20); Calcium 8.7 mg/dl (8.4-10.2); Carbon Dioxide 26 mmol/L (22-30); Chloride 106 mmol/L (98-107); Estimated Creatinine Clearance 106 ml/min; Glucose 102 mg/dl (70-99); Magnesium 2.3 mg/dl (1.6-2.3); Potassium 4.2 mmol/L (3.5-5.1); Sodium 138 mmol/L (135-145); eGFR > 60.00
--- NOTE | 2024-05-02 04:00 | PTCARENOTE ---
Patient mentation much improved. Restraints d/c'ed, labs drawn and sent, patient sleeping between care.
--- NOTE | 2024-05-02 04:31 | W.PN.CT ---
Today's Communication / Plan
-
-pod #1
-an episode of confusion with severe agitation, tried to pull out a-line, Cpap- required iv Versed and restraints - reoriented afterwards and was apologetic. Pt has hx of confusion/agitation after anesthesia in the past. Minimize narcotics as
possible. iv Toradol, Tylenol, Gabapentin, Flexeril for pain
-CI 2.39, CO 5.36. Drips: insulin, Levo 1
-CT outputs: 2 meds 95/170; 2 pleur 65/100 in 12/24 hrs
-deline
-d/c Abraham
-continue insulin
-current meds (ASA, Plavix, Crestor, Lopressor, Amio, Cymbalta, Protonix)
-encourage IS, OOB
Assessment / Plan
-
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 Doe on 05/01/24, pod #1
- Post-RAPHAEL: Well-seated AVR w/o PVL/AI, mean 4mmHg, Normal biventricular function, CAROL ANN confirmed excluded at base
- Admitted to [facility] with out of hospital cardiac arrest 04/23/2024
- Transferred to for cardiac catheterization and possible ICD 04/25/2024
Immediate bystander CPR with 2 defibrillations by AED, EMS administered 2 additional shocks for pulseless VT, 1 amp lidocaine and 1 amp epi given with ROSC. Concern for firw-hm-uyygx slow nystagmus and myoclonic movements on admission to [facility], but
no overt tonic-clonic movement
- Tongue laceration, s/p sutures x2 at [facility] 04/23/24
- s/p VDRF 04/23/2024 until 04/24/2024
- Targeted temperature management performed at [facility] 04/23/2024
- CAD
CAD s/p 2.5 mm Cypher SIMEON to the mid to distal LAD 11/04/2003
Abnormal stress test with basal inferior and basal inferolateral segment fixed defect c/w infarction 01/31/23
Significant MV CAD possibly involving the ostial LM by cardiac cath 04/26/2024Permanent A-fib
has been in SR since admission to 04/25/24Chronic Eliquis OAC
Last dose of Eliquis 04/24/2024 PM.
- Moderate to severe mean gradient 27 mmHg by echo at 12/19/2023 and mean gradient 22.4 mmHg by echo at [facility] 04/24/2024
- HTN/ Hyperlipidemia
- Psoriatic arthritis
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 Bernstein at 04/04/24 and then scheduled for f/u with neurosurgeon at [place] 04/25/24, missed appt due to admission.
- Acute HFpEF, PCWP 25 by [facility] 04/26/2024
- Echo 12/19/23: EF 55 to 60%, mild concentric LVH, normal RV size and function, moderate to severe with peak/mean 55/27 mmHg and CHRISTIAN 1.0 cm sq, mildly dilated aortic root and ascending aorta with sinuses of
Valsalva 4.1 cm, sinotubular junction 3.7 cm and ascending aorta 4.4 cm
- Echo 04/24/24: [facility] study, EF 50 to 55%, normal RV size and function, at least moderate with peak/mean 42.3/22.4 mmHg, trace MR, trace TR, aortic root 4.16, aortic sinus 3.83, sinotubular junction 2.9 and
ascending aorta 4.36
- Echo 04/25/24: EF 60 to 65%, basal inferior akinesis, mild concentric LVH, normal RV size and function, severe peak/mean 73/36 mmHg and CHRISTIAN 0.75 cm sq, no aortic regurgitation, mild TR with PAP 25 to 30 mmHg,
compared to echo 12/19/2023 although not previously noted by visual comparison the basal inferior akinesis persists
- Acute postop blood loss anemia- stable, no transfusion
- Acute postop atelectasis
- Acute postop hypovolemia with subsequent hypervolemia
- Acute post anesthesia confusion/agitation
Discussed patient care with: Nursing and Care Team
Subjective
-
Date of Service: May 01, 2024
Objective Data
-
Lab Results
05/01/24 19:14
05/01/24 15:24
PT 17.5 Sec (11.4-14.6) H 05/01/24 15:24
INR 1.38 05/01/24 15:24
APTT 30.9 Sec (23.4-35.0) 05/01/24 15:24
Vital Signs
Vital Signs
Temp Pulse Resp BP Pulse Ox
98.3 F 56 15 117/69 94
05/01/24 23:00 05/01/24 23:25 05/01/24 23:25 05/01/24 23:00 05/01/24 23:25
CT Intake/Output/Weight
05/01/24 05/01/24 05/02/24
06:59 18:59 06:59
Intake Total 212 / 445 1216.0 / 1403.4 187.4 / 1403.4
Output Total 750 / 2100 335 / 615 280 / 615
Balance -538 / -1655 881.0 / 788.4 -92.6 / 788.4
SaO2: 94
Physical Exam
-
General: Awake and AOx3
Cardiovascular: Regular rate & rhythm, No Murmurs and Rub
Respiratory: Decreased Breath Sounds
Sternum: Stable
Incision: Clean, Dry and Dressing Intact
Extremities: No Edema (1+ DP b/l, warm b/l)
Abdomen: soft, nondistended, nontender, +decreased bowel sounds
Data Reviewed
-
Lab Results: Results Reviewed
Medications: Active Meds Reviewed
Chest X-Ray: Report Reviewed and Image Reviewed
ECG: Report Reviewed and Image Reviewed
[2024-05-02 04:38] LABS: Glucose - Point of Care 98 mg/dl (70-99)
[2024-05-02] MEDS: TYLENOL PO (05:42)
[2024-05-02] MEDS: ANCEF 5 IV ×2 (05:59→14:26)
[2024-05-02] MEDS: CYMBALTA DELAYED RELEASE 30 MG PO ×2 (07:32→20:28)
[2024-05-02] MEDS: MAGNESIUM OXIDE 500 MG PO ×2 (07:32→20:28)
[2024-05-02] MEDS: SENOKOT-S 1 TABLET PO ×2 (07:32→20:28)
[2024-05-02] MEDS: PACERONE 200 MG PO ×3 (07:32→21:55)
[2024-05-02] MEDS: PLAVIX 75 MG PO (07:32)
[2024-05-02] MEDS: LOPRESSOR 12.5 MG PO (07:32)
[2024-05-02] MEDS: VITAMIN C 500 MG PO (07:32)
[2024-05-02] MEDS: LOW STRENGTH ASPIRIN 81 MG PO (07:32)
[2024-05-02] MEDS: FEOSOL 325 MG PO (07:32)
[2024-05-02] MEDS: NEURONTIN 100 MG PO ×3 (07:32→21:55)
[2024-05-02] MEDS: PROTONIX 40 MG PO (07:33)
[2024-05-02] MEDS: NOVOLOG FLEXPEN 4 UNITS SC ×3 (07:33→17:18)
[2024-05-02] MEDS: BACTROBAN 2% OINTMENT 1 APPLIC NASAL ×2 (07:33→20:28)
[2024-05-02 08:12] LABS: Glucose - Point of Care 122 mg/dl (70-99)
[2024-05-02 08:12] LABS: Glucose - Point of Care 140 mg/dl (70-99)
--- NOTE | 2024-05-02 08:34 | PTCARENOTE ---
Assumed care of patient at 0700. Pt is awake, alert, and oriented to person, place, time, and situation. Pt reports to feel he is hallucinating and appears overall anxious and restless. Pt currently SR with HR 60's. BP 105/54 MAP 68. Epicardial V
wire in place, currently off. Pulse oximetry 95% on 4L nasal cannula. Mediastinal chest tubes x2 and left/right pleural chest tubes in place, no sign of air leak or crepitus, drainage dark red in color. Pt tolerating PO. Pt is due to void.
Midsternal dressing intact, small amount of old drainage present. Right groin puncture intact. Right leg incision covered with nathan wrap. Right IJ cordis in place with KVO. Pt remains on insulin gtt at this time. Pt currently OOB in chair with chair
alarm active and call cai within reach.
--- NOTE | 2024-05-02 09:21 | PN.CDI ---
CDI
- -
CDI:
Physician Documentation Request
Admit Date: 04/25/24 08:01
Dear Doctor Ok,
Patient underwent bilateral heart catheterization on 04/26 after VT arrest.
Conclusion states 'Significant multivessel coronary artery disease possibly involving ostial left main. Ideally, we would have proceeded with intravascular ultrasound for further assessment however given worsening respiratory status on the table
likely due to acute diastolic heart failure, we decided to abort the case'
Patient was placed on 6L 04/26
Please clarify which of the following accurately represents the patient's respiratory status:
Acute respiratory failure- please indicate type
Hypoxia
Other
Additional information for Respiratory Failure:
Recognized criteria for Respiratory Failure (Source: [facility] Hospitalist Dec 2012)
ABGs: (1 or more) Symptoms Please indicate type if known
1. p)2 <60 or RA SPO2 <91% on RA 1. Tachypnea, SOB, dyspnea Hypoxic
2. pCO2 50 and pH <7.35 2. Use of accessory muscles Hypercapnic
3. pO2 decrease of pCO2 increase by 3. Pallor or cyanosis Hypoxic and Hypercapnic
10 mmHg from baseline if known 4. Anxiety or restlessness Unable to determine
5. Unable to speak in full sentences
Supplemental O2 of > 40% (5LPM) Intubation is not required
Use of terms such as suspected, likely, concern for, or probable (associated with a specific diagnosis that is being evaluated, monitored, or treated as if it exists) are acceptable and can be coded in the inpatient setting, when documented at the
time of discharge.
Thank you,
Mary Cannon RN, BSN
CDI Specialist
tiger text
Please use your independent medical judgment in providing your response.
--- NOTE | 2024-05-02 09:23 | W.PN.ANS.POP ---
Anesthesia Post Operative
- Anesthesia Post Op Note
Vital Signs Stable-See Nursing Note: Yes
Airway Patent: Yes
Adequate Pain Control: Yes
Change in Mental Status: No
Current Postoperative Nausea & Vomiting: No
Anesthesia Complications: No
General Anesthetic Recall: No
Unplanned Admission: No
Post Op Hydration Adequate: Yes
--- NOTE | 2024-05-02 09:24 | W.PN.CARDCBS ---
Addendum entered and electronically signed by Nicola Santacruz MD 05/02/24 11:20:
Attending addendum: Patient seen and examined. PA note reviewed and findings confirmed by me. Patient's is in the room and helped to answer some questions. Mr. Clark is lying in bed. He is awake, engaged, pleasant. Some dizziness
this am but rhythm at that time okay.
Rhythm: Sinus rhythm with runs of what appears to be a junctional bradycardia
PE:
GEN: Awake, alert, interactive
Lungs: Clear anterior and lateral lung glass. Chest tubes in place
CV: RRR
Abd: Soft, bowel sounds present
Ext: No edema
RECOMMENDATIONS:
-Agree with holding oral beta ikesha
-Will continue amiodarone for now: Maintaining NSR
-Will review rhythm strips with EP
-Increased mobility as tolerated. Hoping chest tube out tomorrow
-Continue to monitor
Original Note:
Today's Communication / Plan
-
see below
continue postop care
follow BP/rhythm. may need to hold lopressor for now
Impression / Plan
-
PCP: Dr. Som Miller
Cardiology: Previously Dr. Boucher
Impression:
Admitted to [facility] with out of hospital cardiac arrest 04/23/2024
Transferred to for cardiac catheterization and possible ICD 04/25/2024
Out of hospital cardiac arrest 04/23/2024
Immediate bystander CPR with 2 defibrillations by AED, EMS administered 2 additional shocks for pulseless VT, 1 amp lidocaine and 1 amp epi given with ROSC
Concern for lgdl-ri-ffwyl slow nystagmus and myoclonic movements on admission to [facility], but no overt tonic-clonic movement
Tongue laceration, s/p sutures x2 at [facility] 04/23/24
s/p VDRF 04/23/2024 until 04/24/2024
Targeted temperature management performed at [facility] 04/23/2024
CAD
CAD s/p 2.5 mm Cypher SIMEON to the mid to distal LAD 11/04/2003
Abnormal stress test with basal inferior and basal inferolateral segment fixed defect c/w infarction 01/31/23
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
Permanent A-fib
has been in SR since admission to 04/25/24
Chronic Eliquis OAC
Last dose of Eliquis 04/24/2024 PM
Moderate to severe mean gradient 27 mmHg by echo at 12/19/2023 and mean gradient 22.4 mmHg by echo at [facility] 04/24/2024
Hyperlipidemia
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
Venous cerebral aneurysm seen on MRI 04/04/[address] Bernstein at 04/04/24 and then scheduled for f/u with neurosurgeon at [place] 04/25/24, missed appt due to admission
Acute HFpEF, PCWP 25 by [facility] 04/26/2024
Lexiscan nuclear stress test 01/31/2023: Medium area of severely decreased/absent tracer uptake perfusion that was fixed in the mid inferior segment and apical inferior segment C/W soft tissue attenuation as it improves with prone imaging, small
area of severely decreased/absent perfusion fixed in the basal inferior segment consistent with infarction, EF 52%
Echo 12/19/23: EF 55 to 60%, mild concentric LVH, normal RV size and function, moderate to severe with peak/mean 55/27 mmHg and CHRISTIAN 1.0 cm sq, mildly dilated aortic root and ascending aorta with sinuses of Valsalva 4.1 cm, sinotubular junction 3.7
cm and ascending aorta 4.4 cm
Echo 04/24/24: [facility] study, EF 50 to 55%, normal RV size and function, at least moderate with peak/mean 42.3/22.4 mmHg, trace MR, trace TR, aortic root 4.16, aortic sinus 3.83, sinotubular junction 2.9 and ascending aorta 4.36
Echo 04/25/24: EF 60 to 65%, basal inferior akinesis, mild concentric LVH, normal RV size and function, severe peak/mean 73/36 mmHg and CHRISTIAN 0.75 cm sq, no aortic regurgitation, mild TR with PAP 25 to 30 mmHg, compared to echo 12/19/2023 although
not previously noted by visual comparison the basal inferior akinesis persists
Plan:
-Patient with out of hospital cardiac arrest with bystander CPR and shocks 04/23/24, taken to [facility] and managed with TTM. Once extubated at [facility] patient was transferred to for cardiac work-up 04/25/24
-Patient had cardiac cath 04/26/24 and found to have significant MV CAD including possible ostial LM
-s/p CABG x 3 related to LAD, GSV to OM, GSV to RPDA, bioprosthetic AVR, left atrial appendage clip, maze 05/01/2024
-events of overnight noted - episode of confusion/delirium. he has history of delirium in setting of anesthesia in past
-was present in room examining patient this AM. nursing stood patient. he was noted with taking several small steps to have significant pain and was unsteady on his feet. he was helped back to the chair. he then had episode of
urinary incontinence and appeared presyncopal, diaphoretic. no rhythm issues noted during event. he was helped back to bed. initial BP back in bed was 96/57. BS was >100. repeat BP improved to 123/76.
-repeat EKG ordered
-off pressors but may need to hold lopressor for now, suspect orthostatic event.
-Patient previously diagnosed as permanent A-fib, but has been in SR throughout admission to on review of tele. follow post op. eventual resume DOAC
-follow post op volume status, was on IV lasix 20mg BID prior to surgery. was not on loop diuretic prior to admission
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 Bernstein at 04/04/24 and was scheduled to see Neurosurgeon at [place], but missed appt due to this event/admission. If there is a concern about risks posed by this
aneurysm and need for TAVR or SAVR then patient's daughter (Dr. Yasmin Clark) has offered to reach out to the neurosurgeon to get opinion.
-Given VT cardiac arrest and known inferior akinesis/scar, he will remain at elevated risk of ventricular arrhythmias and sudden cardiac therefore secondary prevention ICD is recommended prior to hospital discharge
-d/w nursing, CT surgery
-CCT 31 minutes
HPI: Patient came to today as a transfer from [facility] for cardiac cath and cardiology has been consulted. Patient was admitted to [facility] on 04/23/24 after a witnessed out of hospital cardiac arrest while swimming for exercise at a local pool. Patient
was removed from the pool immediately and there was no suggestion of inhaled or ingested water. Bystanders started CPR immediately and AED was applied with 2 defibrillations followed by EMS arrival who found the patient to be in pulseless VT and
administered 2 additional defibrillations along with lidocaine x 1 and epinephrine x 1 resulting in ROSC. Patient was intubated upon arrival to [facility] and there was also initial concern for posturing, left to right slow nystagmus and myoclonic
movements along with considerable oral bleeding, but no overt tonic-clonic movement was seen and Ceribell device application indicated no seizures. ECG did not show ST elevation and CT of the head only showed a known cerebral venous aneurysm.
Patient underwent targeted temperature management and was warmed and extubated yesterday. Patient was recommended cardiology evaluation including cardiac catheterization and his daughter, who is a local PCP to and also part of the residency
program here at , requested transfer to .
Progress Note - High Lift Operator
Subjective
Date of Service: May 02, 2024
reports back pain. remains confused at times
Objective
Labs:
05/02/24 02:58
05/02/24 02:58
Labs
Hgb 9.2 g/dL (13.0-18.0) L 05/02/24 02:58
Hct 25.7 % (39.0-52.0) L 05/02/24 02:58
Plt Count 258 10^3/uL (130-400) 05/02/24 02:58
PT 17.5 Sec (11.4-14.6) H 05/01/24 15:24
INR 1.38 05/01/24 15:24
APTT 30.9 Sec (23.4-35.0) 05/01/24 15:24
Sodium 138 mmol/L (135-145) 05/02/24 02:58
Potassium 4.2 mmol/L (3.5-5.1) 05/02/24 02:58
BUN 22 mg/dl (9-20) H 05/02/24 02:58
Creatinine 0.7 mg/dL (0.7-1.3) 05/02/24 02:58
Glucose 102 mg/dl (70-99) H 05/02/24 02:58
Vital Signs and I&O:
Vital Signs
Temp Pulse Resp BP Pulse Ox
98.4 F 62 18 96/57 95
05/02/24 07:27 05/02/24 09:00 05/02/24 07:27 05/02/24 09:00 05/02/24 09:08
Vital Signs
Temp Pulse Resp BP Pulse Ox
98.4 F 62 18 96/57 95
05/02/24 07:27 05/02/24 09:00 05/02/24 07:27 05/02/24 09:00 05/02/24 09:08
Intake & Output
04/30/24 05/01/24 05/02/24 05/03/24
07:59 07:59 07:59 07:59
Intake Total 300 / 300 445 / 445 1745.3 / 1758.8 27.0 / 27.0
Output Total 415 / 415 2100 / 2100 1285 / 1350 220 / 220
Balance -115 / -115 -1655 / -1655 460.3 / 408.8 -193.0 / -193.0
Physical Exam
Physical Exam
GEN: No distress, awake, alert, oriented to self, place
HEENT: supple, anicteric, mmm, eomi
LUNGS: Diminished at B/L bases, no wheezes
CV: Reg, S1/S2, no murmur
ABD: soft, BS+, NT/ND
EXT: No cyanosis, clubbing. trace edema of B/L LE
NEURO: confused at times
SKIN: Warm, pink, dry. No rash. Sternotomy dressing c/d/i. CTs in place.
[2024-05-02 09:27] LABS: Glucose - Point of Care 110 mg/dl (70-99)
--- NOTE | 2024-05-02 09:33 | W.PN.UPDATE ---
Update Note
Progress Note Update
CDI query:
NSTEMI
--- NOTE | 2024-05-02 09:37 | PTCARENOTE ---
Attempted to assist pt back to bed. Pt became weak and unable to remain standing, assisted back down to chair. Attempted again with additional assistance, pt stood became incontinent of urine and appeared to have minimal consciousness. Pt assisted
into bed, SBP 90's. Pt fully regained consciousness. CT NICOLLE, Marian, and Dr. Doe to bedside. No changes in cardiac rhythm at time.
[2024-05-02 09:59] LABS: Glucose - Point of Care 116 mg/dl (70-99)
[2024-05-02] MEDS: NSS (PRESERVATIVE FREE) 0.125 ML IV (11:10)
[2024-05-02] MEDS: ATIVAN 0.25 MG IV (11:10)
--- NOTE | 2024-05-02 11:43 | PTCARENOTE ---
Pt continues to be anxious, hallucinating, but able to answer orientation questions correctly. 0.25mg Ativan administered per order. Pt now sleeping at this time with at bedside. Pt remains SR, having occasional junctional rhythm/bundle rhythm,
HR 50's-60's. Cardiology and CT groups aware. BP 113/61 MAP 75. Pulse oximetry 95% on 4L nasal cannula. Pt remains on insulin gtt at this time.
[2024-05-02 12:08] LABS: Glucose - Point of Care 83 mg/dl (70-99)
--- NOTE | 2024-05-02 12:42 | W.PN.INTV ---
Addendum entered and electronically signed by Lloyd Barakat MD 05/03/24 14:11:
Patient transferred to telemetry
Manager Science service will sign off, please call as needed
Original Note:
Today's Communication / Plan
Recommendations
-CPAP nightly
-Delirium precautions, avoid Benzodiazepines
Assessment
-
73-year-old male with a history of CAD/LAD stent, permanent atrial fibrillation on chronic Eliquis as well as moderate to severe aortic stenosis and hyperlipidemia who was swimming at a local pool and had a witnessed vov-jh-xkbdfxac cardiac
arrest-patient removed from pool immediately, CPR bystander performed immediately and AED was applied with 2 defibrillations followed by EMS who found the patient to be in pulseless ventricular tachycardia and administered 2 additional
defibrillations along with lidocaine and epinephrine with resumption of spontaneous circulation-patient was intubated, targeted temperature management, and successfully extubated-there was a question on aspiration and pulmonary was consulted prior
to cardiac catheterization 04/25/2024.
Patient had cardiac cath performed and was noted to have severe multivessel disease. 05/01, patient had CABG and AVR performed, and post-op was brought ro CVICU, intubated. Manager Science consult was requested for further recommendations.
S/p coronary artery bypass graft x 3 along with AVR with left atrial appendage exclusion POD #1
Last 24 hrs:
-Patient extubated and weaned off pressors
-Mild delirium overnight
Off pressors, extubated 05/01
ECHO reviewed
PA catheter removed
Management of chest tubes per primary service
Saturating well on supplemental O2
ABG(s) reviewed 7.45, 39, 75
CXR reviewed, small left pleural effusion vs atelectasis
Maintain supplement oxygen as needed
Advance diet as tolerated following extubation
Monitor critical I/O's
Hb/platelets postoperatively stable
Trend CBC for now
Can transfuse if indicated for Hb <7, plt <50 in surgical patients
Insulin protocol initiated and ongoing, anticipate will come off insulin infusion by end of the day
Brief Hospital stay and events:
-Zby-ho-qdfokahd cardiac arrest-witnessed, bystander CPR/defibrillation x 3 with ROSC
-Status post ventilator-extubated 04/24/2024, targeted temperature management at [place]-transferred to for cardiac catheterization after extubated
-Treated for Aspiration Pneumonia
-CAD with a history of LAD stent 2003
- aortic stenosis
-Recent influenza A 03/2024
-Atrial fibrillation
-Mild esbebp-povylzkwbs-vqyeufamed 11.7 today
-Mild transaminitis - improving
-Tongue laceration-seen by ENT
Conditions present prior to admission:
CAD/stent LAD 11/04/2003.
Hypertension.
Hyperlipidemia.
Psoriatic arthritis.
Depression.
RANDY, using his own CPAP machine at night
Permanent atrial fibrillation.
Chronic Eliquis.
Moderate to severe aortic stenosis.
Hyperlipidemia.
BPH
Cholecystectomy. Right hip replacement. Left knee replacement.
Critical Care time 29 mins -- The patient is admitted for acute critical illness for the treatment of vital organ failure and/or prevention of further life-threatening conditions. Total care includes time spent in review of history, physical exam,
medications, hemodynamic/ventilator parameters, laboratory data, imaging and discussion with house staff, pharmacy, respiratory therapy, filament tester, and nursing.
Cardiac Cath 04/2024:
1. Significant multivessel coronary artery disease possibly involving ostial left main. Ideally, we would have proceeded with intravascular ultrasound for further assessment however given worsening respiratory status on the table likely due to
acute diastolic heart failure, we decided to abort the case.
2. Significantly elevated right and left-sided filling pressures with normal cardiac output.
3. Estimated mean invasive aortic gradient of 41 mmHg, aortic valve area calculated at 0.93 cm� consistent with severe aortic stenosis.
Subjective Dataa
Subjective Data
Date of Service:
Date of Service: May 02, 2024
Subjective:
Patient lying in bed, in no acute distress.
Review of Systems
Genitourinary: Other (Complains of mild throat discomfort, otherwise unremarkable.)
Objective Data
Data Reviewed
Vital Signs / I&O / Oxygen:
Vital Signs
Temp Pulse Resp BP Pulse Ox
98.4 F 72 18 103/66 95
05/02/24 07:27 05/02/24 12:00 05/02/24 07:27 05/02/24 12:00 05/02/24 09:08
Intake and Output
05/01/24 05/02/24 05/03/24
06:59 06:59 06:59
Intake Total 445 / 445 1730.8 / 1745.3 78.8 / 78.8
Output Total 2100 / 2100 1195 / 1285 395 / 395
Balance -1655 / -1655 535.8 / 460.3 -316.2 / -316.2
SaO2 [CPAP] 95
SaO2 [SIMV] 98
SaO2 95
Nasal Cannula flow liters per 4
minute
Physical Exam
General: Comfortable
HEENT: Normocephalic
Cardiovascular: Regular Rhythm
Respiratory: Clear and Non-Labored Respirations
GI: Soft and Distended
Neurology: Awake and Alert
Labs/Micro/Reports
Lab Data
05/02/24 02:58
05/02/24 02:58
Laboratory Results
05/01/24 05/01/24 05/01/24
15:24 16:35 17:57
PT 17.5 H
INR 1.38
APTT 30.9
pH 7.40 7.40 7.42
pCO2 45 43 39
pO2 82 L 77 L 82 L
HCO3 27.9 26.6 25.3
O2 Delivery Level
05/01/24 05/02/24
19:14 02:58
PT
INR
APTT
pH 7.42 7.45
pCO2 40 39
pO2 127 H 75 L
HCO3 25.9 27.1
O2 Delivery Level
[2024-05-02] MEDS: NOVOLIN R INSULIN INFUSION 100 IV (13:00)
[2024-05-02 13:21] LABS: Glucose - Point of Care 91 mg/dl (70-99)
[2024-05-02] MEDS: NOVOLOG FLEXPEN SC (13:31)
--- NOTE | 2024-05-02 13:52 | CM ---
CM following for DC planning needs.
Pt. POD#1 from AVR, CABG.
Did not disturb patient on this date as he has been having periods of confusion; goal is to rest per collaboration w/ RN.
Will plan to meet with patient on Mon., 05/03.
DC plan is for home w/ VN. CT Transitional Care RN unable to visit due to geographical area.
Will follow.
[2024-05-02] MEDS: TYLENOL 1000 MG PO ×2 (14:26→21:56)
[2024-05-02] MEDS: NSS IV (14:29)
[2024-05-02 14:52] LABS: Glucose - Point of Care 149 mg/dl (70-99)
[2024-05-02 16:21] LABS: Glucose - Point of Care 132 mg/dl (70-99)
--- NOTE | 2024-05-02 16:30 | PTCARENOTE ---
Pt with no changes in assessment. Daughter at bedside. Pt able top void in urinal.
[2024-05-02 17:25] LABS: Glucose - Point of Care 108 mg/dl (70-99)
[2024-05-02 20:09] LABS: Glucose - Point of Care 109 mg/dl (70-99)
--- NOTE | 2024-05-02 20:30 | PTCARENOTE ---
Patient received resting in bed. Dozing intermittently. Patient's daughter at bedside. Patient A+A+Ox2. Forgetful to time. Occasional difficulty with expressing an idea or finishing a thought. Occasional difficulty with word finding. Speech
clear, not garbled. Patient able to follow verbal commands without difficulty. Patient able to move all extremities without difficulty. No s/s of respiratory distress. No c/o SOB. O2 at 3L via NC. SpO2 95%. Four chest tubes - Mediastinal x2
and Right and Left Pleural - Intact and patent - Red drainage - No air leak - Dressing intact. Sinus Rhythm with PAC's. Heart rate 60-70's. V-Wire. No c/o chest pain, pressure or discomfort. Normoactive bowel sounds. No BM. No c/o nausea. No
vomiting. Voiding yellow urine. Generalized edema. Positive, palpable pulses. Sternal dressing intact. Right groin puncture site intact. Right knee incision intact - Surgical adhesive - Open to air. Patient with no c/o back of flank pain.
Assessment as documented.
[2024-05-02] MEDS: CRESTOR 20 MG PO (21:55)
[2024-05-02 22:07] LABS: Glucose - Point of Care 82 mg/dl (70-99)
[2024-05-03] VITALS (31 sets, daily range): BP systolic 83–145; BP diastolic 45–70; PULSE 999; BMI 28.4
--- NOTE | 2024-05-03 00:30 | PTCARENOTE ---
Patient A+A+Ox2. Forgetful to time. Watching television. Patient given CHG bath and linens changed. Right I.J. Cordis dressing changed. Chest tube dressing changed. Assessment as documented.
[2024-05-03 00:32] LABS: Glucose - Point of Care 103 mg/dl (70-99)
[2024-05-03 01:48] LABS: Glucose - Point of Care 101 mg/dl (70-99)
[2024-05-03 02:51] LABS: Glucose - Point of Care 109 mg/dl (70-99)
[2024-05-03 03:48] LABS: Glucose - Point of Care 105 mg/dl (70-99)
[2024-05-03] MEDS: NSS 500 IV (03:53)
[2024-05-03] MEDS: MELATONIN 5 MG PO ×2 (03:53→23:51)
[2024-05-03] MEDS: ANESTHETIC LOZENGE 1 LOZENGE PO ×2 (03:53→15:12)
[2024-05-03 03:54] LABS: Hematocrit 22.3 % (39.0-52.0); Hemoglobin 7.8 g/dL (13.0-18.0); Mean Corpuscular Hgb 30.7 pg (27.0-31.0); Mean Corpuscular Volume 87.8 fL (80.0-94.0); Mean Platelet Volume 9.1 fL (7.4-10.4); Platelet Count 212 10^3/uL (130-400); Red Blood Cell Count 2.54 10^6/uL (4.70-6.10); Red Cell Dist. Width 14.1 % (11.5-14.5)
--- NOTE | 2024-05-03 04:15 | PTCARENOTE ---
Patient mildly restless and unable to sleep. Melatonin 5mg PO ordered by PA and given. Patient with c/o sore throat - Lozenge PO ordered and given. AM labs collected and sent. Patient continues on Insulin gtt. Voided 150 ml yellow urine.
Patient resting in bed. Assessment/Interventions as documented.
[2024-05-03 04:26] LABS: Blood Urea Nitrogen 30 mg/dl (9-20); Calcium 8.2 mg/dl (8.4-10.2); Carbon Dioxide 28 mmol/L (22-30); Chloride 100 mmol/L (98-107); Estimated Creatinine Clearance 106 ml/min; Glucose 98 mg/dl (70-99); Magnesium 2.1 mg/dl (1.6-2.3); Potassium 3.8 mmol/L (3.5-5.1); Sodium 134 mmol/L (135-145); eGFR > 60.00
[2024-05-03 04:52] LABS: Glucose - Point of Care 125 mg/dl (70-99)
[2024-05-03] MEDS: KCL 40 MEQ PO (05:00)
[2024-05-03] MEDS: TYLENOL 1000 MG PO ×3 (05:01→22:18)
[2024-05-03 05:54] LABS: Glucose - Point of Care 88 mg/dl (70-99)
--- NOTE | 2024-05-03 06:30 | PTCARENOTE ---
Patient assisted to sitting position on edge of bed. Patient able to stand with assistance x2 - Sternal precautions. Patient stepped onto standing scale - Legs became too weak. Patient assisted back to bed. No c/o dizziness or lightheadedness.
c/o generalized weakness. Blood pressure 119/60 (77). Heart rate 80's. Patient now resting in bed. Assessment/Interventions as documented.
--- NOTE | 2024-05-03 07:06 | W.PN.CT ---
Documented by User: Claudia Mendosa PA-C 05/03/24 07:14
Today's Communication / Plan
-
-pod #2
-A&O x4, had some hallucinations yesterday. Avoiding narcotics
-gave Melatonin for sleep
-CT outputs: 2 meds 115/315, 2 pleur 50/310 in 12/24 hrs
-Hg 7.8 today (9.2 on 05/02)- follow
-Cr stable 0.7
-consider diuresis
-gave 40 kcl this am
-current meds (ASA, Plavix, Crestor, Lopressor, Amio, Cymbalta, Protonix)
-encourage IS, OOB
Assessment / Plan
-
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 Doe on 05/01/24, pod #2
- Post-RAPHAEL: Well-seated AVR w/o PVL/AI, mean 4mmHg, Normal biventricular function, CAROL ANN confirmed excluded at base
- Admitted to [facility] with out of hospital cardiac arrest 04/23/2024
- Transferred to for cardiac catheterization and possible ICD 04/25/2024
Immediate bystander CPR with 2 defibrillations by AED, EMS administered 2 additional shocks for pulseless VT, 1 amp lidocaine and 1 amp epi given with ROSC. Concern for [id number]-[id number] slow nystagmus and myoclonic movements on admission to [facility], but
no overt tonic-clonic movement
- Tongue laceration, s/p sutures x2 at [facility] 04/23/24
- s/p VDRF 04/23/2024 until 04/24/2024
- Targeted temperature management performed at [facility] 04/23/2024
- CAD
CAD s/p 2.5 mm Cypher SIMEON to the mid to distal LAD 11/04/2003
Abnormal stress test with basal inferior and basal inferolateral segment fixed defect c/w infarction 01/31/23
Significant MV CAD possibly involving the ostial LM by cardiac cath 04/26/2024Permanent A-fib
has been in SR since admission to 04/25/24Chronic Eliquis OAC
Last dose of Eliquis 04/24/2024 PM.
- Moderate to severe mean gradient 27 mmHg by echo at 12/19/2023 and mean gradient 22.4 mmHg by echo at [facility] 04/24/2024
- HTN/ Hyperlipidemia
- Psoriatic arthritis
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 Bernstein at 04/04/24 and then scheduled for f/u with neurosurgeon at [facility] 04/25/24, missed appt due to admission.
- Acute HFpEF, PCWP 25 by C 04/26/2024
- Echo 12/19/23: EF 55 to 60%, mild concentric LVH, normal RV size and function, moderate to severe with peak/mean 55/27 mmHg and CHRISTIAN 1.0 cm sq, mildly dilated aortic root and ascending aorta with sinuses of
Valsalva 4.1 cm, sinotubular junction 3.7 cm and ascending aorta 4.4 cm
- Echo 04/24/24: [facility] study, EF 50 to 55%, normal RV size and function, at least moderate with peak/mean 42.3/22.4 mmHg, trace MR, trace TR, aortic root 4.16, aortic sinus 3.83, sinotubular junction 2.9 and
ascending aorta 4.36
- Echo 04/25/24: EF 60 to 65%, basal inferior akinesis, mild concentric LVH, normal RV size and function, severe peak/mean 73/36 mmHg and CHRISTIAN 0.75 cm sq, no aortic regurgitation, mild TR with PAP 25 to 30 mmHg,
compared to echo 12/19/2023 although not previously noted by visual comparison the basal inferior akinesis persists
- Acute postop blood loss anemia- stable, no transfusion
- Acute postop atelectasis
- Acute postop hypovolemia with subsequent hypervolemia
- Acute post anesthesia confusion/agitation
Discussed patient care with: Nursing and Care Team
Subjective
-
Date of Service: May 03, 2024
Objective Data
-
Lab Results
05/03/24 03:42
05/03/24 03:42
PT 17.5 Sec (11.4-14.6) H 05/01/24 15:24
INR 1.38 05/01/24 15:24
APTT 30.9 Sec (23.4-35.0) 05/01/24 15:24
Vital Signs
Vital Signs
Temp Pulse Resp BP Pulse Ox
99.6 F 68 18 119/60 93
05/03/24 03:40 05/03/24 06:30 05/03/24 06:20 05/03/24 06:20 05/03/24 06:20
CT Intake/Output/Weight
05/02/24 05/03/24 05/03/24
18:59 06:59 18:59
Intake Total 151.5 / 773.0 621.5 / 773.0
Output Total 660 / 1405 745 / 1405
Balance -508.5 / -632.0 -123.5 / -632.0
SaO2: 93
Physical Exam
-
General: Awake and AOx3
Cardiovascular: Regular rate & rhythm, No Murmurs and Rub
Respiratory: Clear and Decreased Breath Sounds
Sternum: Stable
Incision: Clean, Dry and Intact
Extremities: No Edema
Abdomen: soft, nontender, + bowel sounds
Data Reviewed
-
Lab Results: Results Reviewed
Medications: Active Meds Reviewed
Chest X-Ray: Report Reviewed and Image Reviewed
ECG: Report Reviewed and Image Reviewed

Documented by User: JUSTYN Stein 05/03/24 10:56
Assessment / Plan
-
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 Doe on 05/01/24, pod #2
- Post-RAPHAEL: Well-seated AVR w/o PVL/AI, mean 4mmHg, Normal biventricular function, CAROL ANN confirmed excluded at base
- Admitted to [facility] with out of hospital cardiac arrest 04/23/2024
- Transferred to for cardiac catheterization and possible ICD 04/25/2024
Immediate bystander CPR with 2 defibrillations by AED, EMS administered 2 additional shocks for pulseless VT, 1 amp lidocaine and 1 amp epi given with ROSC. Concern for [id number]-hl-[id number] slow nystagmus and myoclonic movements on admission to [facility], but
no overt tonic-clonic movement
- Tongue laceration, s/p sutures x2 at [facility] 04/23/24
- s/p VDRF 04/23/2024 until 04/24/2024
- Targeted temperature management performed at [facility] 04/23/2024
- CAD
CAD s/p 2.5 mm Cypher SIMEON to the mid to distal LAD 11/04/2003
Abnormal stress test with basal inferior and basal inferolateral segment fixed defect c/w infarction 01/31/23
Significant MV CAD possibly involving the ostial LM by cardiac cath 04/26/2024Permanent A-fib
has been in SR since admission to 04/25/24Chronic Eliquis OAC
Last dose of Eliquis 04/24/2024 PM.
- Moderate to severe mean gradient 27 mmHg by echo at 12/19/2023 and mean gradient 22.4 mmHg by echo at [facility] 04/24/2024
- HTN/ Hyperlipidemia
- Psoriatic arthritis
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 Bernstein at 04/04/24 and then scheduled for f/u with neurosurgeon at [facility] 04/25/24, missed appt due to admission.
- Acute HFpEF, PCWP 25 by [facility] 04/26/2024
- Echo 12/19/23: EF 55 to 60%, mild concentric LVH, normal RV size and function, moderate to severe with peak/mean 55/27 mmHg and CHRISTIAN 1.0 cm sq, mildly dilated aortic root and ascending aorta with sinuses of
Valsalva 4.1 cm, sinotubular junction 3.7 cm and ascending aorta 4.4 cm
- Echo 04/24/24: [facility] study, EF 50 to 55%, normal RV size and function, at least moderate with peak/mean 42.3/22.4 mmHg, trace MR, trace TR, aortic root 4.16, aortic sinus 3.83, sinotubular junction 2.9 and
ascending aorta 4.36
- Echo 04/25/24: EF 60 to 65%, basal inferior akinesis, mild concentric LVH, normal RV size and function, severe peak/mean 73/36 mmHg and CHRISTIAN 0.75 cm sq, no aortic regurgitation, mild TR with PAP 25 to 30 mmHg,
compared to echo 12/19/2023 although not previously noted by visual comparison the basal inferior akinesis persists
- Acute postop blood loss anemia- stable, no transfusion
- Acute postop atelectasis
- Acute postop hypovolemia with subsequent hypervolemia
- Acute post anesthesia confusion/agitation
- Acute post-op encephalopathy due to CVA
--- NOTE | 2024-05-03 07:44 | PTCARENOTE ---
Received pt from chemical strength tester RN; pt AAOx2 and pleasant; NSR PACs and Prolonged QT on monitor and VSS; RIJ Cordis and PIV x2 patent; Insulin infusing per Glycemic protocol see flow sheet for details; Lungs diminished and shallow; IS to 1500; CT x4 to
-20 wall suction no air leak and no crepitus noted; positive bowel sounds; pt voiding yellow urine; +1 generalized edema; pulses palpable throughout; all surgical sites C/D/I; see nursing documentation for further details.
--- NOTE | 2024-05-03 07:48 | SUR.OPER ---
Epicardial V wires in place and box off.
[2024-05-03] MEDS: LASIX 40 MG IV (07:58)
[2024-05-03 08:03] LABS: Glucose - Point of Care 120 mg/dl (70-99)
[2024-05-03] MEDS: NEURONTIN 100 MG PO ×3 (08:04→22:18)
[2024-05-03] MEDS: PROTONIX 40 MG PO (08:04)
[2024-05-03] MEDS: MAGNESIUM OXIDE 500 MG PO ×2 (08:04→20:14)
[2024-05-03] MEDS: PLAVIX 75 MG PO (08:04)
[2024-05-03] MEDS: VITAMIN C 500 MG PO (08:04)
[2024-05-03] MEDS: SENOKOT-S 1 TABLET PO ×2 (08:04→20:14)
[2024-05-03] MEDS: CYMBALTA DELAYED RELEASE 30 MG PO ×2 (08:04→20:14)
[2024-05-03] MEDS: BACTROBAN 2% OINTMENT 1 APPLIC NASAL ×2 (08:05→20:14)
[2024-05-03] MEDS: FEOSOL 325 MG PO (08:05)
[2024-05-03] MEDS: PACERONE 200 MG PO (08:05)
[2024-05-03] MEDS: LOW STRENGTH ASPIRIN 81 MG PO (08:05)
[2024-05-03] MEDS: TORADOL 15 MG IV (08:30)
[2024-05-03] MEDS: LOPRESSOR PO (09:56)
[2024-05-03] MEDS: FLOMAX 0.8 MG PO (09:58)
--- NOTE | 2024-05-03 10:05 | PTCARENOTE ---
CT x4 removed per CT RAG INSPECTOR order; Insulin drip discontinue per CT RAG INSPECTOR orders; Pt OOB x2 to chair; family at bedside.
--- NOTE | 2024-05-03 10:07 | PN.CDI ---
CDI
- -
CDI:
Physician Documentation Request
Admit Date: 04/25/24 08:01
Dear Doctor Nader,
Patient is s/p CABG, ELL, AVR.
Railroad Dispatcher progress note 05/02 states 'delirium precautions..'
05/02 CT surgery note 'an episode of confusion with severe agitation'
Could you please further specify a diagnosis associated with the patient's confusion.
Encephalopathy - indicate type, such as metabolic, toxic, septic, alcoholic, anoxic, hypertensive etc. due to a specific condition such as UTI, CVA, hyponatremia etc.
Acute Delirium - indicate known or suspected etiology such as postoperative, due to opioids or other drugs etc. Can also indicate unknown or mixed etiologies
Other
Use of terms such as suspected, likely, concern for, or probable (associated with a specific diagnosis that is being evaluated, monitored, or treated as if it exists) are acceptable and can be coded in the inpatient setting, when documented at the
time of discharge.
Thank you,
Mary Cannon RN, BSN
CDI Specialist
tiger text
Please use your independent medical judgment in providing your response.
--- NOTE | 2024-05-03 11:38 | W.PN.CARDCBS ---
Addendum entered and electronically signed by Damon Monreal MD 05/03/24 14:21:
I saw and examined the patient.
The Charge Hand's note was reviewed and I agree with the note.
Comment:
GEN: No distress, awake, Ox3
HEENT: supple, anicteric, mmm
LUNGS: CTA, no wheezes/rales
CV: Reg, S1/S2, no gallop
ABD: soft, BS+, NT/ND
EXT: No edema
NEURO: Gross non-focal
SKIN: sternotomy
Plan:
Echo today with preserved ejection fraction, well-seated AVR and no significant pericardial effusion
He is having some episodes of hypotension and near syncope. This could be from orthostasis. Continue to hold metoprolol and amiodarone
Agree with transfusion and follow hemoglobin.
He is also having some occasional junctional rhythm
He will need an ICD prior to discharge early next week.
Original Note:
Today's Communication / Plan
-
check urgent echo
follow rhythm. hold amio/BB. for ICD prior to DC
follow hgb
Impression / Plan
-
PCP: Dr. Som Miller
Cardiology: Previously Dr. Boucher
Impression:
Admitted to [facility] with out of hospital cardiac arrest 04/23/2024
Transferred to for cardiac catheterization and possible ICD 04/25/2024
Out of hospital cardiac arrest 04/23/2024
Immediate bystander CPR with 2 defibrillations by AED, EMS administered 2 additional shocks for pulseless VT, 1 amp lidocaine and 1 amp epi given with ROSC
Concern for [id number]-cl-gdupr slow nystagmus and myoclonic movements on admission to [facility], but no overt tonic-clonic movement
Tongue laceration, s/p sutures x2 at [facility] 04/23/24
s/p VDRF 04/23/2024 until 04/24/2024
Targeted temperature management performed at [facility] 04/23/2024
CAD
CAD s/p 2.5 mm Cypher SIMEON to the mid to distal LAD 11/04/2003
Abnormal stress test with basal inferior and basal inferolateral segment fixed defect c/w infarction 01/31/23
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
Permanent A-fib
has been in SR since admission to 04/25/24
Chronic Eliquis OAC
Last dose of Eliquis 04/24/2024 PM
Moderate to severe mean gradient 27 mmHg by echo at 12/19/2023 and mean gradient 22.4 mmHg by echo at [facility] 04/24/2024
Hyperlipidemia
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
Venous cerebral aneurysm seen on MRI 04/04/[address] Bernstein at 04/04/24 and then scheduled for f/u with neurosurgeon at [facility] 04/25/24, missed appt due to admission
Acute HFpEF, PCWP 25 by C 04/26/2024
Lexiscan nuclear stress test 01/31/2023: Medium area of severely decreased/absent tracer uptake perfusion that was fixed in the mid inferior segment and apical inferior segment C/W soft tissue attenuation as it improves with prone imaging, small
area of severely decreased/absent perfusion fixed in the basal inferior segment consistent with infarction, EF 52%
Echo 12/19/23: EF 55 to 60%, mild concentric LVH, normal RV size and function, moderate to severe with peak/mean 55/27 mmHg and CHRISTIAN 1.0 cm sq, mildly dilated aortic root and ascending aorta with sinuses of Valsalva 4.1 cm, sinotubular junction 3.7
cm and ascending aorta 4.4 cm
Echo 04/24/24: [facility] study, EF 50 to 55%, normal RV size and function, at least moderate with peak/mean 42.3/22.4 mmHg, trace MR, trace TR, aortic root 4.16, aortic sinus 3.83, sinotubular junction 2.9 and ascending aorta 4.36
Echo 04/25/24: EF 60 to 65%, basal inferior akinesis, mild concentric LVH, normal RV size and function, severe peak/mean 73/36 mmHg and CHRISTIAN 0.75 cm sq, no aortic regurgitation, mild TR with PAP 25 to 30 mmHg, compared to echo 12/19/2023 although
not previously noted by visual comparison the basal inferior akinesis persists
Plan:
-Patient with out of hospital cardiac arrest with bystander CPR and shocks 04/23/24, taken to [facility] and managed with TTM. Once extubated at [facility] patient was transferred to for cardiac work-up 04/25/24
-Patient had cardiac cath 04/26/24 and found to have significant MV CAD including possible ostial LM
-s/p CABG x 3 related to LAD, GSV to OM, GSV to RPDA, bioprosthetic AVR, left atrial appendage clip, maze 05/01/2024
-with post op delirium. of note, he has had this in past in setting of anesthesia. appears clearer today than yesterday. follow mental status
-continues with episodes of presyncope particularly with ambulation, associated with hypotension and at times with junctional rhythm. of note, his episode of presyncope yesterday was not correlated with junctional rhythm.
-also with hgb down to 7.8 on 05/03. defer need for transfusion to primary service
-hold lopressor, amio for now with junctional rhythm. plan for ICD prior to DC, tentatively early next week given VT arrest and known inferior scar
-check urgent echo
-Patient previously diagnosed as permanent A-fib, but has been in SR throughout admission to on review of tele. follow post op. eventual resume DOAC
-follow post op volume status, was on IV lasix 20mg BID prior to surgery. weight down 17-18 pounds from admission. Cr stable. was not on loop diuretic prior to admission
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 Bernstein at 04/04/24 and was scheduled to see Neurosurgeon at [facility], but missed appt due to this event/admission. If there is a concern about risks posed by this
aneurysm and need for TAVR or SAVR then patient's daughter (Dr. Yasmin Clark) has offered to reach out to the neurosurgeon to get opinion.
-d/w nursing, CT surgery. d/w daughter Yasmin at bedside
HPI: Patient came to today as a transfer from [facility] for cardiac cath and cardiology has been consulted. Patient was admitted to [facility] on 04/23/24 after a witnessed out of hospital cardiac arrest while swimming for exercise at a local pool. Patient
was removed from the pool immediately and there was no suggestion of inhaled or ingested water. Bystanders started CPR immediately and AED was applied with 2 defibrillations followed by EMS arrival who found the patient to be in pulseless VT and
administered 2 additional defibrillations along with lidocaine x 1 and epinephrine x 1 resulting in ROSC. Patient was intubated upon arrival to [facility] and there was also initial concern for posturing, left to right slow nystagmus and myoclonic
movements along with considerable oral bleeding, but no overt tonic-clonic movement was seen and Ceribell device application indicated no seizures. ECG did not show ST elevation and CT of the head only showed a known cerebral venous aneurysm.
Patient underwent targeted temperature management and was warmed and extubated yesterday. Patient was recommended cardiology evaluation including cardiac catheterization and his daughter, who is a local PCP to and also part of the residency
program here at , requested transfer to .
Progress Note - Adjunct Teacher
Subjective
Date of Service: May 03, 2024
appears clearer today.
Objective
Labs:
05/03/24 03:42
05/03/24 03:42
Labs
Hgb 7.8 g/dL (13.0-18.0) L 05/03/24 03:42
Hct 22.3 % (39.0-52.0) L 05/03/24 03:42
Plt Count 212 10^3/uL (130-400) 05/03/24 03:42
PT 17.5 Sec (11.4-14.6) H 05/01/24 15:24
INR 1.38 05/01/24 15:24
APTT 30.9 Sec (23.4-35.0) 05/01/24 15:24
Sodium 134 mmol/L (135-145) L 05/03/24 03:42
Potassium 3.8 mmol/L (3.5-5.1) 05/03/24 03:42
BUN 30 mg/dl (9-20) H 05/03/24 03:42
Creatinine 0.7 mg/dL (0.7-1.3) 05/03/24 03:42
Glucose 98 mg/dl (70-99) 05/03/24 03:42
Vital Signs and I&O:
Vital Signs
Temp Pulse Resp BP Pulse Ox
99.4 F 54 20 108/55 95
05/03/24 08:00 05/03/24 09:56 05/03/24 08:00 05/03/24 08:00 05/03/24 08:38
Vital Signs
Temp Pulse Resp BP Pulse Ox
99.4 F 54 20 108/55 95
05/03/24 08:00 05/03/24 09:56 05/03/24 08:00 05/03/24 08:00 05/03/24 08:38
Intake & Output
05/01/24 05/02/24 05/03/24 05/04/24
07:59 07:59 07:59 07:59
Intake Total 445 / 445 1745.3 / 1758.8 768.9 / 779.3 30.4 / 30.4
Output Total 2100 / 2100 1285 / 1350 1315 / 1315 400 / 400
Balance -1655 / -1655 460.3 / 408.8 -546.1 / -535.7 -369.6 / -369.6
Physical Exam
Physical Exam
GEN: No distress, awake, alert, oriented x3. sitting in chair. on supp O2
HEENT: supple, anicteric, mmm, eomi
LUNGS: CTA B/L, no wheezes
CV: Reg, S1/S2, no murmur
EXT: No cyanosis, clubbing. trace edema of B/L LE
NEURO: Gross non-focal
SKIN: Warm, pink, dry. No rash. Sternotomy dressing c/d/i.
--- NOTE | 2024-05-03 12:10 | PTCARENOTE ---
textile technical officer at bedside and Dr Doe; 1 unit PRBC infusing per CVNP order.
--- NOTE | 2024-05-03 12:33 | CM ---
Addendum entered by NAZ Lott 05/03/24 15:30:
[facility]N able to accept.
Plan- home w/ [facility]
Original Note:
CM following for DC planning needs.
Met w/ patient + dtr., Yasmin at bedside.
Reviewed role of CM.
We reviewed post op restrictions; post op MD appointments; Cardiac Rehab.
Reviewed that [facility] RN unable to visit due to geographical area- offered VN, they are in agreement. Referral made to [facility]; awaiting response.
Plan is for home w/ [facility]N.
--- NOTE | 2024-05-03 15:43 | PTCARENOTE ---
Pt attempted to get OOB with 2 RNs; pt stood and became glassy eye/gonzalez tone skin; pt with minimal consciousness/confusion; incontinent on floor; pt placed back to bed with RNs and additional RNs in room along with CVNP; Junctions/NSR on monitor; BP
stable; pt fully regained consciousness; changes on skein washer; updated cardiology; BRITTANI stockings ordered.
[2024-05-03] MEDS: ProAmatine 5 MG PO ×2 (16:33→22:18)
--- NOTE | 2024-05-03 20:30 | PTCARENOTE ---
Patient received resting in bed. Dozing intermittently. Patient A+A+Ox3. No c/o pain or discomfort. No c/o headache, dizziness or lightheadedness. O2 3L via NC. SpO2 95%. Chest tube dressing intact. Sinus Rhythm. Heart rate 70's. Blood
pressure 124/56 (74). V-Wire insulated. No c/o chest pain, pressure or discomfort. Normoactive bowel sounds. No BM. Positive flatus. No c/o nausea. No vomiting. Voiding. Sternal dressing intact. Right groin puncture site intact. Right
knee incision intact - Surgical adhesive - Open to air. Positive, Palpable pulses. Right I.J. Cordis. Patient with no c/o back or flank pain. Calm and cooperative with care. Assessment as documented.
[2024-05-03 22:17] LABS: Glucose - Point of Care 132 mg/dl (70-99)
[2024-05-03] MEDS: CRESTOR 20 MG PO (22:18)
[2024-05-04] VITALS (12 sets, daily range): BP systolic 91–146; BP diastolic 56–77; BMI 28.5
--- NOTE | 2024-05-04 00:30 | PTCARENOTE ---
Patient sleeping intermittently. Briefly wore CPAP. Back on O2 3L via NC. Melatonin 5mg PO for HS. No c/o pain or discomfort. Assessment as documented.
--- NOTE | 2024-05-04 04:00 | PTCARENOTE ---
Patient resting in bed without difficulty. Patient A+A+Ox3. No neurological deficits noted. No c/o headache, dizziness or lightheadedness. AM lab work collected and sent. EKG completed. Patient given CHG bath and linens changed. Chest tube
dressing changed. V-Wire insulated. OOB in AM. Assessment/Interventions as documented.
[2024-05-04 04:15] LABS: Hematocrit 24.2 % (39.0-52.0); Hemoglobin 8.4 g/dL (13.0-18.0); Mean Corp Hgb Conc. 34.7 g/dL (33.0-37.0); Mean Corpuscular Volume 86.4 fL (80.0-94.0); Mean Platelet Volume 9.1 fL (7.4-10.4); Platelet Count 186 10^3/uL (130-400); White Blood Cell Count 13.8 10^3/uL (4.8-10.8)
[2024-05-04 04:28] LABS: Blood Urea Nitrogen 22 mg/dl (9-20); Calcium 7.8 mg/dl (8.4-10.2); Carbon Dioxide 29 mmol/L (22-30); Chloride 103 mmol/L (98-107); Estimated Creatinine Clearance 124 ml/min; Glucose 123 mg/dl (70-99); Magnesium 2.1 mg/dl (1.6-2.3); Potassium 4.1 mmol/L (3.5-5.1); Sodium 134 mmol/L (135-145); eGFR > 60.00
[2024-05-04] MEDS: TYLENOL 1000 MG PO ×3 (06:02→20:22)
[2024-05-04] MEDS: ProAmatine 5 MG PO ×3 (06:32→17:27)
--- NOTE | 2024-05-04 06:38 | W.PN.CT ---
Today's Communication / Plan
-
-pod #3
-no issues overnight
-speech is more fluid, much less difficulty finding words. Denies any hallucinations, no confusion. Avoiding narcotics
-started on Midodrine for suspected orthostasis. Holding Amio and BB
-Echo 05/03 was unremarkable: EF 65%, well functioning AV with 12/7 peak/mean gradients, trivial pericardial effusion
-follow L pleural effusion. Consider diuresis if BP allows
-gave Ca this am and Midodrine early
-noted plans for ICD prior to discharge
-encourage IS, OOB
Assessment / Plan
-
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 Doe on 05/01/24, pod #3
- Post-RAPHAEL: Well-seated AVR w/o PVL/AI, mean 4mmHg, Normal biventricular function, CAROL ANN confirmed excluded at base
- Admitted to [facility] with out of hospital cardiac arrest 04/23/2024
- Transferred to for cardiac catheterization and possible ICD 04/25/2024
Immediate bystander CPR with 2 defibrillations by AED, EMS administered 2 additional shocks for pulseless VT, 1 amp lidocaine and 1 amp epi given with ROSC. Concern for [id number] slow nystagmus and myoclonic movements on admission to [facility], but
no overt tonic-clonic movement
- Tongue laceration, s/p sutures x2 at [facility] 04/23/24
- s/p VDRF 04/23/2024 until 04/24/2024
- Targeted temperature management performed at [facility] 04/23/2024
- CAD
CAD s/p 2.5 mm Cypher SIMEON to the mid to distal LAD 11/04/2003
Abnormal stress test with basal inferior and basal inferolateral segment fixed defect c/w infarction 01/31/23
Significant MV CAD possibly involving the ostial LM by cardiac cath 04/26/2024Permanent A-fib
has been in SR since admission to 04/25/24Chronic Eliquis OAC
Last dose of Eliquis 04/24/2024 PM.
- Moderate to severe mean gradient 27 mmHg by echo at 12/19/2023 and mean gradient 22.4 mmHg by echo at [facility] 04/24/2024
- HTN/ Hyperlipidemia
- Psoriatic arthritis
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 Bernstein at 04/04/24 and then scheduled for f/u with neurosurgeon at [place] 04/25/24, missed appt due to admission.
- Acute HFpEF, PCWP 25 by [facility] 04/26/2024
- Echo 12/19/23: EF 55 to 60%, mild concentric LVH, normal RV size and function, moderate to severe with peak/mean 55/27 mmHg and CHRISTIAN 1.0 cm sq, mildly dilated aortic root and ascending aorta with sinuses of
Valsalva 4.1 cm, sinotubular junction 3.7 cm and ascending aorta 4.4 cm
- Echo 04/24/24: [facility] study, EF 50 to 55%, normal RV size and function, at least moderate with peak/mean 42.3/22.4 mmHg, trace MR, trace TR, aortic root 4.16, aortic sinus 3.83, sinotubular junction 2.9 and
ascending aorta 4.36
- Echo 04/25/24: EF 60 to 65%, basal inferior akinesis, mild concentric LVH, normal RV size and function, severe peak/mean 73/36 mmHg and CHRISTIAN 0.75 cm sq, no aortic regurgitation, mild TR with PAP 25 to 30 mmHg,
compared to echo 12/19/2023 although not previously noted by visual comparison the basal inferior akinesis persists
- Acute postop blood loss anemia- stable, no transfusion
- Acute postop atelectasis
- Acute postop hypovolemia with subsequent hypervolemia
- Acute post anesthesia confusion/agitation
- Acute post-op encephalopathy due to CVA
- Suspected acute postop orthostasis
Discussed patient care with: Nursing and Care Team
Subjective
-
Date of Service: May 04, 2024
Objective Data
-
Lab Results
05/04/24 03:59
05/04/24 03:59
PT 17.5 Sec (11.4-14.6) H 05/01/24 15:24
INR 1.38 05/01/24 15:24
APTT 30.9 Sec (23.4-35.0) 05/01/24 15:24
Vital Signs
Vital Signs
Temp Pulse Resp BP Pulse Ox
98.4 F 70 16 130/59 93
05/04/24 03:40 05/04/24 06:32 05/04/24 03:40 05/04/24 06:32 05/04/24 03:40
CT Intake/Output/Weight
05/03/24 05/03/24 05/04/24
06:59 18:59 06:59
Intake Total 621.5 / 783.4 580.8 / 1180.8 600 / 1180.8
Output Total 745 / 1405 400 / 1175 775 / 1175
Balance -123.5 / -621.6 180.8 / 5.8 -175 / 5.8
SaO2: 93
Physical Exam
-
General: Awake and AOx3
Cardiovascular: Regular rate & rhythm, No Murmurs and Rub
Respiratory: Decreased Breath Sounds
Sternum: Stable
Incision: Clean, Dry and Intact
Extremities: No Edema
Data Reviewed
-
Lab Results: Results Reviewed
Medications: Active Meds Reviewed
Chest X-Ray: Report Reviewed and Image Reviewed
ECG: Report Reviewed and Image Reviewed
[2024-05-04] MEDS: CALCIUM GLUCONATE 100 IV (06:46)
[2024-05-04] MEDS: FEOSOL 325 MG PO (08:59)
[2024-05-04] MEDS: PLAVIX 75 MG PO (08:59)
[2024-05-04] MEDS: BACTROBAN 2% OINTMENT 1 APPLIC NASAL ×2 (08:59→19:19)
[2024-05-04] MEDS: VITAMIN C 500 MG PO (08:59)
[2024-05-04] MEDS: LOW STRENGTH ASPIRIN 81 MG PO (08:59)
[2024-05-04] MEDS: CYMBALTA DELAYED RELEASE 30 MG PO ×2 (08:59→19:19)
[2024-05-04] MEDS: MAGNESIUM OXIDE 500 MG PO ×2 (08:59→19:19)
[2024-05-04] MEDS: NEURONTIN 100 MG PO ×3 (08:59→20:22)
[2024-05-04] MEDS: PROTONIX 40 MG PO (08:59)
[2024-05-04] MEDS: SENOKOT-S 1 TABLET PO ×2 (08:59→19:19)
--- NOTE | 2024-05-04 09:00 | PTCARENOTE ---
Patient received from drop count associate RN; AAOx4, responds spontaneously to RN and follows commands; MI'KMAQ; Forgetful; VSS; SA with SR, junctional, and prolonged QT; Epicardial V-wire insulated; Trace generalized edema and +1 edema right hand; +2 DP and
radial pulses; Shallow respirations; Lungs diminished at bases; SpO2 91-95% on RA; IS 1500 ml; Patient urinating clear, autumn urine in urinal; Surgical sites intact; PIVx2 - #20 right forearm and #22 right hand; RIJ Cordis with KVO infusing; See
nursing documentation for further information.
--- NOTE | 2024-05-04 10:34 | W.PN.CARDCBS ---
Addendum entered and electronically signed by Damon Monreal MD 05/04/24 11:36:
I saw and examined the patient.
The Director Hedis's note was reviewed and I agree with the note.
Comment:
GEN: No distress, awake, Ox3
HEENT: supple, anicteric, mmm
LUNGS: scatt rhonchi
CV: Reg, S1/S2, no rub/gallop
ABD: soft, BS+, NT/ND
EXT: No edema
NEURO: Gross non-focal
SKIN: sternotomy
Plan:
No further episodes of dizziness or near syncope. Now on midodrine. Increase activity as tolerated.
Hemoglobin improved and stable at 8.4. Continue to follow.
Remains off amiodarone metoprolol for now.
Will need ICD next week.
Original Note:
Today's Communication / Plan
-
No lightheadedness today
Started on midodrine 05/03/2024
ICD prior to discharge
Impression / Plan
-
PCP: Dr. Som Miller
Cardiology: Previously Dr. Boucher
Impression:
Admitted to [facility] with out of hospital cardiac arrest 04/23/2024
Transferred to for cardiac catheterization and possible ICD 04/25/2024
Out of hospital cardiac arrest 04/23/2024
Immediate bystander CPR with 2 defibrillations by AED, EMS administered 2 additional shocks for pulseless VT, 1 amp lidocaine and 1 amp epi given with ROSC
Concern for lrpx-gw-[id number] slow nystagmus and myoclonic movements on admission to [facility], but no overt tonic-clonic movement
Tongue laceration, s/p sutures x2 at [facility] 04/23/24
s/p VDRF 04/23/2024 until 04/24/2024
Targeted temperature management performed at [facility] 04/23/2024
CAD
CAD s/p 2.5 mm Cypher SIMEON to the mid to distal LAD 11/04/2003
Abnormal stress test with basal inferior and basal inferolateral segment fixed defect c/w infarction 01/31/23
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
Permanent A-fib
has been in SR since admission to 04/25/24
Chronic Eliquis OAC
Last dose of Eliquis 04/24/2024 PM
Moderate to severe mean gradient 27 mmHg by echo at 12/19/2023 and mean gradient 22.4 mmHg by echo at [facility] 04/24/2024
Hyperlipidemia
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
Venous cerebral aneurysm seen on MRI 04/04/[address] Bernstein at 04/04/24 and then scheduled for f/u with neurosurgeon at [place] 04/25/24, missed appt due to admission
Acute HFpEF, PCWP 25 by [facility] 04/26/2024
Lexiscan nuclear stress test 01/31/2023: Medium area of severely decreased/absent tracer uptake perfusion that was fixed in the mid inferior segment and apical inferior segment C/W soft tissue attenuation as it improves with prone imaging, small
area of severely decreased/absent perfusion fixed in the basal inferior segment consistent with infarction, EF 52%
Echo 12/19/23: EF 55 to 60%, mild concentric LVH, normal RV size and function, moderate to severe with peak/mean 55/27 mmHg and CHRISTIAN 1.0 cm sq, mildly dilated aortic root and ascending aorta with sinuses of Valsalva 4.1 cm, sinotubular junction 3.7
cm and ascending aorta 4.4 cm
Echo 04/24/24: [facility] study, EF 50 to 55%, normal RV size and function, at least moderate with peak/mean 42.3/22.4 mmHg, trace MR, trace TR, aortic root 4.16, aortic sinus 3.83, sinotubular junction 2.9 and ascending aorta 4.36
Echo 04/25/24: EF 60 to 65%, basal inferior akinesis, mild concentric LVH, normal RV size and function, severe peak/mean 73/36 mmHg and CHRISTIAN 0.75 cm sq, no aortic regurgitation, mild TR with PAP 25 to 30 mmHg, compared to echo 12/19/2023 although
not previously noted by visual comparison the basal inferior akinesis persists
Plan:
-Patient with out of hospital cardiac arrest with bystander CPR and shocks 04/23/24, taken to [facility] and managed with TTM. Once extubated at [facility] patient was transferred to for cardiac work-up 04/25/24
-Patient had cardiac cath 04/26/24 and found to have significant MV CAD including possible ostial LM
-Postop day 3 s/p CABG x 3 related to LAD, GSV to OM, GSV to RPDA, bioprosthetic AVR, left atrial appendage clip, maze 05/01/2024
-with post op delirium. of note, he has had this in past in setting of anesthesia. Mental status now clear
-was having episodes of presyncope particularly with ambulation, associated with hypotension and at times with junctional rhythm. of note, his episode of presyncope 05/02/2024 was not correlated with junctional rhythm. Had echo yesterday
05/03/2024 to evaluate this. Echo was unremarkable, EF 65%, well-functioning AV with 12/7 peak/mean gradients, trivial pericardial effusion
-he was started on Midodrine 5 mg TID 05/03/2024-will change timing to [id number]
- no presyncope today 05/04/2024, pt sitting in chair playing cards with daughter, no LH
-Got 1 uPBCs on 05/03/2024 for Hgb 7.8, Hgb today 8.4
-Telemetry personally reviewed: NSR with runs junctional rhythm. Back on amiodarone, metoprolol remains on hold
-Patient previously diagnosed as permanent A-fib, but has been in SR throughout admission to on review of tele. follow post op. eventual resume DOAC
- plan for ICD prior to DC, tentatively early next week given VT arrest and known inferior scar. Will make NPO after MN for Monday05/06/2024 in case he is scheduled for that day
-follow post op volume status, was on IV lasix 20mg BID prior to surgery. weight down 17-18 pounds from admission and up 8 lbs since surgery. Cr stable. was not on loop diuretic prior to admission
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 Bernstein at 04/04/24 and was scheduled to see Neurosurgeon at [place], but missed appt due to this event/admission. If there is a concern about risks posed by this
aneurysm and need for TAVR or SAVR then patient's daughter (Dr. Yasmin Clark) has offered to reach out to the neurosurgeon to get opinion.
-d/w nursing, d/w daughter Yasmin at bedside
HPI: Patient came to today as a transfer from [facility] for cardiac cath and cardiology has been consulted. Patient was admitted to [facility] on 04/23/24 after a witnessed out of hospital cardiac arrest while swimming for exercise at a local pool. Patient
was removed from the pool immediately and there was no suggestion of inhaled or ingested water. Bystanders started CPR immediately and AED was applied with 2 defibrillations followed by EMS arrival who found the patient to be in pulseless VT and
administered 2 additional defibrillations along with lidocaine x 1 and epinephrine x 1 resulting in ROSC. Patient was intubated upon arrival to [facility] and there was also initial concern for posturing, left to right slow nystagmus and myoclonic
movements along with considerable oral bleeding, but no overt tonic-clonic movement was seen and Ceribell device application indicated no seizures. ECG did not show ST elevation and CT of the head only showed a known cerebral venous aneurysm.
Patient underwent targeted temperature management and was warmed and extubated yesterday. Patient was recommended cardiology evaluation including cardiac catheterization and his daughter, who is a local PCP to and also part of the residency
program here at , requested transfer to .
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
Subjective
Date of Service: May 04, 2024
Feels well, sitting in chair playing cards with daughter
No lightheadedness
Objective
Labs:
05/04/24 03:59
05/04/24 03:59
Labs
Hgb 8.4 g/dL (13.0-18.0) L 05/04/24 03:59
Hct 24.2 % (39.0-52.0) L 05/04/24 03:59
Plt Count 186 10^3/uL (130-400) 05/04/24 03:59
PT 17.5 Sec (11.4-14.6) H 05/01/24 15:24
INR 1.38 05/01/24 15:24
APTT 30.9 Sec (23.4-35.0) 05/01/24 15:24
Sodium 134 mmol/L (135-145) L 05/04/24 03:59
Potassium 4.1 mmol/L (3.5-5.1) 05/04/24 03:59
BUN 22 mg/dl (9-20) H 05/04/24 03:59
Creatinine 0.6 mg/dL (0.7-1.3) L 05/04/24 03:59
Glucose 123 mg/dl (70-99) H 05/04/24 03:59
Vital Signs and I&O:
Vital Signs
Temp Pulse Resp BP Pulse Ox
97.9 F 71 16 114/66 90
05/04/24 08:56 05/04/24 09:00 05/04/24 08:56 05/04/24 08:55 05/04/24 09:00
Vital Signs
Temp Pulse Resp BP Pulse Ox
97.9 F 71 16 114/66 90
05/04/24 08:56 05/04/24 09:00 05/04/24 08:56 05/04/24 08:55 05/04/24 09:00
Intake & Output
05/02/24 05/03/24 05/04/24 05/05/24
06:59 06:59 06:59 06:59
Intake Total 1730.8 / 1745.3 773.0 / 783.4 1180.8 / 1180.8 510 / 510
Output Total 1195 / 1285 1405 / 1405 1175 / 1175 150 / 150
Balance 535.8 / 460.3 -632.0 / -621.6 5.8 / 5.8 360 / 360
Physical Exam
Physical Exam
GEN: No distress, awake, Ox3
HEENT: supple, anicteric, mmm
LUNGS: Few rales at bases
CV: Reg, S1/S2, , no murmur
ABD: soft, BS+, NT/ND
EXT: No edema, wearing BRITTANI stockings
NEURO: Gross non-focal
SKIN: Sternal incision covered with occlusive dressing
--- NOTE | 2024-05-04 12:42 | PTCARENOTE ---
Patient OOB to chair this AM with assist x2; Patient had BM on BSC while OOB; Patient resting comfortably in bed at this time
[2024-05-04] MEDS: NSS IV (14:48)
[2024-05-04] MEDS: TORADOL 15 MG IV (14:48)
--- NOTE | 2024-05-04 15:55 | PTCARENOTE ---
Patient was slowly lowered down to floor in hallway when attempting to ambulate patient. Patient legs noted to be shaking and very weak when passing through door threshold of room into hallway; Patient responsive and talking throughout; no drops in
HR noted on monitor; After patient lifted back into chair and taken into room, vital signs taken - HR 79, BP 146/77, SpO2 98%, RR 20; CVNP Anthony Rose notified and aware; Patient now resting comfortably in chair
--- NOTE | 2024-05-04 20:00 | PTCARENOTE ---
report received from previous RN, walking rounds done. pt in chair, AAOx4. pt denies any pain. VSS. sinus arrhythmia/SR on monitor with prolonged QT and occasional junctional rhythm. HR 70s. b/l radial and DP pulses palpable. heart tones clear.
V.wire intact and insulated. RIJ cordis intact w KVO infusing. b/l breath sounds present. POX 96% on room air. IS encouraged. pt voids in urinal without difficulty. pt assisted to BSC to have BM. first attempt standing from chair, pt became very
weak and dizzy. pt placed back in chair, BP stable. second attempt, pt did well. assisted back to bed. all surgical sites stable. see worklist for full assessment, VS, and interventions. pt resting comfortably w call cai in reach and bed alarm on.
[2024-05-04] MEDS: CRESTOR 20 MG PO (20:22)
[2024-05-05] VITALS (13 sets, daily range): BP systolic 77–128; BP diastolic 54–79
--- NOTE | 2024-05-05 04:00 | PTCARENOTE ---
no changes in assessment. VSS. AM labs drawn and sent. pt sleeping between care.
[2024-05-05 04:18] LABS: Hematocrit 25.6 % (39.0-52.0); Hemoglobin 8.9 g/dL (13.0-18.0); Mean Corp Hgb Conc. 34.8 g/dL (33.0-37.0); Mean Corpuscular Hgb 30.2 pg (27.0-31.0); Mean Corpuscular Volume 86.8 fL (80.0-94.0); Mean Platelet Volume 9.3 fL (7.4-10.4); Platelet Count 242 10^3/uL (130-400); Red Blood Cell Count 2.95 10^6/uL (4.70-6.10); Red Cell Dist. Width 14.8 % (11.5-14.5); White Blood Cell Count 11.9 10^3/uL (4.8-10.8)
[2024-05-05 04:31] LABS: Blood Urea Nitrogen 16 mg/dl (9-20); Carbon Dioxide 28 mmol/L (22-30); Chloride 102 mmol/L (98-107); Estimated Creatinine Clearance 124 ml/min; Glucose 120 mg/dl (70-99); Potassium 3.8 mmol/L (3.5-5.1); Sodium 135 mmol/L (135-145); eGFR > 60.00
[2024-05-05 04:40] LABS: Calcium 8.2 mg/dl (8.4-10.2)
--- NOTE | 2024-05-05 04:49 | W.PN.CT ---
Today's Communication / Plan
-
-no issues overnight
-Avoiding narcotics 2/2 AMS
-started on Midodrine for suspected orthostasis. Holding Amio, BB restarted/ tolerated
-Echo 05/03 was unremarkable: EF 65%, well functioning AV with 12/7 peak/mean gradients, trivial pericardial effusion
-continue rosuvastatin, clopidogrel, metoprolol 12.5 mg, asa, midodrine 5 mg
-noted plans for ICD prior to discharge
-encourage IS, OOB
Assessment / Plan
-
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 Doe on 05/01/24, pod #4
- Post-RAPHAEL: Well-seated AVR w/o PVL/AI, mean 4mmHg, Normal biventricular function, CAROL ANN confirmed excluded at base
- Admitted to [facility] with out of hospital cardiac arrest 04/23/2024
- Transferred to for cardiac catheterization and possible ICD 04/25/2024
Immediate bystander CPR with 2 defibrillations by AED, EMS administered 2 additional shocks for pulseless VT, 1 amp lidocaine and 1 amp epi given with ROSC. Concern for fqvv-iv-rauhn slow nystagmus and myoclonic movements on admission to [facility], but
no overt tonic-clonic movement
- Tongue laceration, s/p sutures x2 at [facility] 04/23/24
- s/p VDRF 04/23/2024 until 04/24/2024
- Targeted temperature management performed at [facility] 04/23/2024
- CAD
CAD s/p 2.5 mm Cypher SIMEON to the mid to distal LAD 11/04/2003
Abnormal stress test with basal inferior and basal inferolateral segment fixed defect c/w infarction 01/31/23
Significant MV CAD possibly involving the ostial LM by cardiac cath 04/26/2024Permanent A-fib
has been in SR since admission to 04/25/24Chronic Eliquis OAC
Last dose of Eliquis 04/24/2024 PM.
- Moderate to severe mean gradient 27 mmHg by echo at 12/19/2023 and mean gradient 22.4 mmHg by echo at [facility] 04/24/2024
- HTN/ Hyperlipidemia
- Psoriatic arthritis
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 Bernstein at 04/04/24 and then scheduled for f/u with neurosurgeon at [place] 04/25/24, missed appt due to admission.
- Acute HFpEF, PCWP 25 by [facility] 04/26/2024
- Echo 12/19/23: EF 55 to 60%, mild concentric LVH, normal RV size and function, moderate to severe with peak/mean 55/27 mmHg and CHRISTIAN 1.0 cm sq, mildly dilated aortic root and ascending aorta with sinuses of
Valsalva 4.1 cm, sinotubular junction 3.7 cm and ascending aorta 4.4 cm
- Echo 04/24/24: [facility] study, EF 50 to 55%, normal RV size and function, at least moderate with peak/mean 42.3/22.4 mmHg, trace MR, trace TR, aortic root 4.16, aortic sinus 3.83, sinotubular junction 2.9 and
ascending aorta 4.36
- Echo 04/25/24: EF 60 to 65%, basal inferior akinesis, mild concentric LVH, normal RV size and function, severe peak/mean 73/36 mmHg and CHRISTIAN 0.75 cm sq, no aortic regurgitation, mild TR with PAP 25 to 30 mmHg,
compared to echo 12/19/2023 although not previously noted by visual comparison the basal inferior akinesis persists
- Acute postop blood loss anemia- stable, no transfusion
- Acute postop atelectasis
- Acute postop hypovolemia with subsequent hypervolemia
- Acute post anesthesia confusion/agitation
- Acute post-op encephalopathy due to CVA
- Suspected acute postop orthostasis
Subjective
-
Date of Service: May 05, 2024
Objective Data
-
Lab Results
05/05/24 03:56
05/05/24 03:56
PT 17.5 Sec (11.4-14.6) H 05/01/24 15:24
INR 1.38 05/01/24 15:24
APTT 30.9 Sec (23.4-35.0) 05/01/24 15:24
Vital Signs
Vital Signs
Temp Pulse Resp BP Pulse Ox
98.3 F 67 17 128/73 96
05/05/24 03:53 05/05/24 04:00 05/05/24 03:53 05/05/24 03:53 05/05/24 03:53
CT Intake/Output/Weight
05/04/24 05/04/24 05/05/24
06:59 18:59 06:59
Intake Total 600 / 1180.8 830 / 880 50 / 880
Output Total 775 / 1175 650 / 1300 650 / 1300
Balance -175 / 5.8 180 / -420 -600 / -420
SaO2: 96
Physical Exam
-
General: Awake, Oriented and AOx3
Cardiovascular: Irregular rate & rhythm, No Murmurs and No Rub
Respiratory: Clear and Equal
Sternum: Stable
Incision: Clean, Dry and Intact
Extremities: No Edema and No Erythema
Data Reviewed
-
Lab Results: Results Reviewed
Medications: Active Meds Reviewed
Chest X-Ray: Report Reviewed
ECG: Report Reviewed
[2024-05-05] MEDS: TYLENOL PO (06:52)
[2024-05-05] MEDS: MAGNESIUM OXIDE 500 MG PO ×2 (08:06→19:52)
[2024-05-05] MEDS: LOPRESSOR 12.5 MG PO ×2 (08:06→19:52)
[2024-05-05] MEDS: BACTROBAN 2% OINTMENT 1 APPLIC NASAL (08:06)
[2024-05-05] MEDS: PLAVIX 75 MG PO (08:06)
[2024-05-05] MEDS: LOW STRENGTH ASPIRIN 81 MG PO (08:07)
[2024-05-05] MEDS: FEOSOL 325 MG PO (08:07)
[2024-05-05] MEDS: ProAmatine 5 MG PO ×3 (08:07→17:00)
[2024-05-05] MEDS: NEURONTIN 100 MG PO ×3 (08:07→21:00)
[2024-05-05] MEDS: VITAMIN C 500 MG PO (08:07)
[2024-05-05] MEDS: CYMBALTA DELAYED RELEASE 30 MG PO ×2 (08:07→19:52)
[2024-05-05] MEDS: PROTONIX 40 MG PO (08:07)
[2024-05-05] MEDS: SENOKOT-S PO (08:07)
--- NOTE | 2024-05-05 08:30 | PTCARENOTE ---
Assumed care of patient at 0700. Pt is awake, alert, and oriented. Minimal complaints of midsternal pain. Pt remains SR/junctional, HR 70's. Epicardial V wire insulated. BP 115/60 MAP 76 while lying in bed. Pt sat on side of bed with assistance,
stood and became light headed BP 77/54 MAP 63, pt sat back down recheck of BP 102/75 MAP 81. Pt was able to stand and pivot to chair with RN assistance x2. Pulse oximetry 95% on room air. Pt achieving 1500 with IS, continued use encouraged. Pt had
bowel movement this morning. Tolerating PO diet. Voiding without issue. Midsternal incision with post-op dressing in place. 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 Right IJ Cordis intact. Pt currently sitting OOB in chair
with call cai within reach.
--- NOTE | 2024-05-05 10:56 | W.PN.CARDCBS ---
Today's Communication / Plan
-
Still with some orthostasis. Continue midodrine. May need to hold metoprolol.
Increase activity as tolerated.
Hemoglobin improved at 8.9.
Plan will be for ICD prior to discharge likely 1 day next week
Continue aspirin, Plavix, and Crestor
Impression / Plan
-
PCP: Dr. Som Miller
Cardiology: Previously Dr. Boucher
Impression:
Admitted to [facility] with out of hospital cardiac arrest 04/23/2024
Transferred to for cardiac catheterization and possible ICD 04/25/2024
Out of hospital cardiac arrest 04/23/2024
Immediate bystander CPR with 2 defibrillations by AED, EMS administered 2 additional shocks for pulseless VT, 1 amp lidocaine and 1 amp epi given with ROSC
Concern for fmdr-by-qfxwz slow nystagmus and myoclonic movements on admission to [facility], but no overt tonic-clonic movement
Tongue laceration, s/p sutures x2 at [facility] 04/23/24
s/p VDRF 04/23/2024 until 04/24/2024
Targeted temperature management performed at [facility] 04/23/2024
CAD
CAD s/p 2.5 mm Cypher SIMEON to the mid to distal LAD 11/04/2003
Abnormal stress test with basal inferior and basal inferolateral segment fixed defect c/w infarction 01/31/23
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
Permanent A-fib
has been in SR since admission to 04/25/24
Chronic Eliquis OAC
Last dose of Eliquis 04/24/2024 PM
Moderate to severe mean gradient 27 mmHg by echo at 12/19/2023 and mean gradient 22.4 mmHg by echo at [facility] 04/24/2024
Hyperlipidemia
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
Venous cerebral aneurysm seen on MRI 04/04/[address] Bernstein at 04/04/24 and then scheduled for f/u with neurosurgeon at [place] 04/25/24, missed appt due to admission
Acute HFpEF, PCWP 25 by [facility] 04/26/2024
Lexiscan nuclear stress test 01/31/2023: Medium area of severely decreased/absent tracer uptake perfusion that was fixed in the mid inferior segment and apical inferior segment C/W soft tissue attenuation as it improves with prone imaging, small
area of severely decreased/absent perfusion fixed in the basal inferior segment consistent with infarction, EF 52%
Echo 12/19/23: EF 55 to 60%, mild concentric LVH, normal RV size and function, moderate to severe with peak/mean 55/27 mmHg and CHRISTIAN 1.0 cm sq, mildly dilated aortic root and ascending aorta with sinuses of Valsalva 4.1 cm, sinotubular junction 3.7
cm and ascending aorta 4.4 cm
Echo 04/24/24: [facility] study, EF 50 to 55%, normal RV size and function, at least moderate with peak/mean 42.3/22.4 mmHg, trace MR, trace TR, aortic root 4.16, aortic sinus 3.83, sinotubular junction 2.9 and ascending aorta 4.36
Echo 04/25/24: EF 60 to 65%, basal inferior akinesis, mild concentric LVH, normal RV size and function, severe peak/mean 73/36 mmHg and CHRISTIAN 0.75 cm sq, no aortic regurgitation, mild TR with PAP 25 to 30 mmHg, compared to echo 12/19/2023 although
not previously noted by visual comparison the basal inferior akinesis persists
Plan:
-Patient with out of hospital cardiac arrest with bystander CPR and shocks 04/23/24, taken to [facility] and managed with TTM. Once extubated at [facility] patient was transferred to for cardiac work-up 04/25/24
-Patient had cardiac cath 04/26/24 and found to have significant MV CAD including possible ostial LM
-Postop day 3 s/p CABG x 3 related to LAD, GSV to OM, GSV to RPDA, bioprosthetic AVR, left atrial appendage clip, maze 05/01/2024
-with post op delirium. of note, he has had this in past in setting of anesthesia. Mental status now clear
-was having episodes of presyncope particularly with ambulation, associated with hypotension and at times with junctional rhythm. of note, his episode of presyncope 05/02/2024 was not correlated with junctional rhythm. Had echo yesterday
05/03/2024 to evaluate this. Echo was unremarkable, EF 65%, well-functioning AV with 12/7 peak/mean gradients, trivial pericardial effusion
-he was started on Midodrine 5 mg TID 05/03/2024-will change timing to [id number]
-Still having some episodes of orthostasis and low blood pressure. Continue to hold beta-blockers.
-Got 1 uPBCs on 05/03/2024 for Hgb 7.8, Hgb today 8.9
-Telemetry personally reviewed: NSR with runs junctional rhythm. Back on amiodarone, metoprolol remains on hold
-Patient previously diagnosed as permanent A-fib, but has been in SR throughout admission to on review of tele. follow post op. eventual resume DOAC
- plan for ICD prior to DC, tentatively early next week given VT arrest and known inferior scar. Will make NPO after MN for Monday05/06/2024 in case he is scheduled for that day
-follow post op volume status, was on IV lasix 20mg BID prior to surgery. weight down 17-18 pounds from admission and up 8 lbs since surgery. Cr stable. was not on loop diuretic prior to admission
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 Bernstein at 04/04/24 and was scheduled to see Neurosurgeon at [place], but missed appt due to this event/admission. If there is a concern about risks posed by this
aneurysm and need for TAVR or SAVR then patient's daughter (Dr. Yasmin Clark) has offered to reach out to the neurosurgeon to get opinion.
-d/w nursing, d/w daughter Yasmin at bedside
HPI: Patient came to today as a transfer from [facility] for cardiac cath and cardiology has been consulted. Patient was admitted to [facility] on 04/23/24 after a witnessed out of hospital cardiac arrest while swimming for exercise at a local pool. Patient
was removed from the pool immediately and there was no suggestion of inhaled or ingested water. Bystanders started CPR immediately and AED was applied with 2 defibrillations followed by EMS arrival who found the patient to be in pulseless VT and
administered 2 additional defibrillations along with lidocaine x 1 and epinephrine x 1 resulting in ROSC. Patient was intubated upon arrival to [facility] and there was also initial concern for posturing, left to right slow nystagmus and myoclonic
movements along with considerable oral bleeding, but no overt tonic-clonic movement was seen and Ceribell device application indicated no seizures. ECG did not show ST elevation and CT of the head only showed a known cerebral venous aneurysm.
Patient underwent targeted temperature management and was warmed and extubated yesterday. Patient was recommended cardiology evaluation including cardiac catheterization and his daughter, who is a local PCP to and also part of the residency
program here at , requested transfer to .
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
Subjective
Date of Service: May 05, 2024
Still with orthostasis. Energy is improving. Denies chest pains or significant shortness of breath.
Objective
Labs:
05/05/24 03:56
05/05/24 03:56
Labs
Hgb 8.9 g/dL (13.0-18.0) L 05/05/24 03:56
Hct 25.6 % (39.0-52.0) L 05/05/24 03:56
Plt Count 242 10^3/uL (130-400) D 05/05/24 03:56
PT 17.5 Sec (11.4-14.6) H 05/01/24 15:24
INR 1.38 05/01/24 15:24
APTT 30.9 Sec (23.4-35.0) 05/01/24 15:24
Sodium 135 mmol/L (135-145) 03/23/25 03:56
Potassium 3.8 mmol/L (3.5-5.1) 05/05/24 03:56
BUN 16 mg/dl (9-20) 05/05/24 03:56
Creatinine 0.6 mg/dL (0.7-1.3) L 05/05/24 03:56
Glucose 120 mg/dl (70-99) H 05/05/24 03:56
Vital Signs and I&O:
Vital Signs
Temp Pulse Resp BP Pulse Ox
98.7 F 62 18 94/56 95
05/05/24 08:05 05/05/24 10:00 05/05/24 08:05 05/05/24 07:59 05/05/24 08:45
Vital Signs
Temp Pulse Resp BP Pulse Ox
98.7 F 62 18 95
05/05/24 08:05 05/05/24 10:00 05/05/24 08:05 05/05/24 07:59 05/05/24 08:45
Intake & Output
05/03/24 05/04/24 05/05/24 05/06/24
06:59 06:59 06:59 06:59
Intake Total 773.0 / 783.4 1180.8 / 1180.8 880 / 880 10 / 10
Output Total 1405 / 1405 1175 / 1175 1300 / 1300 200 / 200
Balance -632.0 / -621.6 5.8 / 5.8 -420 / -420 -190 / -190
Physical Exam
Physical Exam
GEN: No distress, awake, Ox3
HEENT: supple, anicteric, mmm
LUNGS: CTA, no wheezes/rales
CV: Reg, S1/S2, 1/6 syst LSB, no rub
ABD: soft, BS+, NT/ND
EXT: No edema
NEURO: Gross non-focal
SKIN: sternotomy
[2024-05-05] MEDS: NSS 500 IV (11:22)
--- NOTE | 2024-05-05 11:30 | PTCARENOTE ---
Pt remains OOB in chair, tolerating well. Remains SR/junctional at times, HR 70's. BP 112/70 MAP 80. Pulse oximetry 97% on room air. No complaints of light headed/dizziness while sitting in chair.
[2024-05-05] MEDS: TYLENOL 1000 MG PO ×2 (13:03→21:00)
--- NOTE | 2024-05-05 16:44 | PTCARENOTE ---
Pt stood with RN assistance x2, pt was able to stand and march in place. Initial BP while sitting 124/63 MAP 78. Pt became slightly dizzy and was ready to sit down, once seated BP 121/61 MAP 74.
[2024-05-05] MEDS: SENOKOT-S 1 TABLET PO (19:53)
--- NOTE | 2024-05-05 20:05 | PTCARENOTE ---
assumed care of pt from previous rn. Pt is awake, alert, and oriented. . Pt remains SR/junctional, HR 70's. Epicardial V wire insulated. Pulse oximetry 95% on room air. Pt achieving 1500 with IS. +bs, Voiding without issue. Midsternal incision with
post-op dressing in place. Right leg incision and right groin puncture approximated and TELECOM MANAGER. Right IJ Cordis intact. plan of care discussed questions encouraged
[2024-05-05] MEDS: CRESTOR 20 MG PO (21:00)
--- NOTE | 2024-05-05 23:02 | PTCARENOTE ---
pt resting comfortably in bed, VSS, NSR per tele monitor HR 70s, assessment remains unchanged.
[2024-05-06] VITALS (16 sets, daily range): BP systolic 100–143; BP diastolic 53–83; PULSE 60–79; O2SAT 95–97; BMI 28.7
--- NOTE | 2024-05-06 03:57 | PTCARENOTE ---
routine labs obtained, VSS, pt ambulating to commode w/ no c/o dizziness, NSR per tele monitor HR 70s
[2024-05-06 04:04] LABS: Hematocrit 26.1 % (39.0-52.0); Mean Corp Hgb Conc. 34.5 g/dL (33.0-37.0); Mean Corpuscular Hgb 29.9 pg (27.0-31.0); Mean Corpuscular Volume 86.7 fL (80.0-94.0); Mean Platelet Volume 8.8 fL (7.4-10.4); Platelet Count 308 10^3/uL (130-400); Red Blood Cell Count 3.01 10^6/uL (4.70-6.10); White Blood Cell Count 12.6 10^3/uL (4.8-10.8)
[2024-05-06 04:12] LABS: PT 14.5 Sec (11.4-14.6)
[2024-05-06 04:13] LABS: APTT 34.3 Sec (23.4-35.0)
[2024-05-06 04:31] LABS: Blood Urea Nitrogen 15 mg/dl (9-20); Calcium 8.5 mg/dl (8.4-10.2); Carbon Dioxide 28 mmol/L (22-30); Chloride 105 mmol/L (98-107); Estimated Creatinine Clearance 124 ml/min; Glucose 111 mg/dl (70-99); Potassium 4.2 mmol/L (3.5-5.1); Sodium 138 mmol/L (135-145); eGFR > 60.00
--- NOTE | 2024-05-06 04:48 | W.PN.CT ---
Today's Communication / Plan
-
-no issues overnight
-Avoiding narcotics 2/2 AMS, melatonin started
-Continued on Midodrine for suspected orthostasis. Holding Amio, BB restarted/ tolerated
-Echo 05/03 was unremarkable: EF 65%, well functioning AV with 12/7 peak/mean gradients, trivial pericardial effusion
-continue rosuvastatin, clopidogrel, metoprolol 12.5 mg, asa, midodrine 5 mg
-possible ICD prior to discharge
-encourage IS, OOB
Assessment / Plan
-
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 Doe on 05/01/24, pod #5
- Post-RAPHAEL: Well-seated AVR w/o PVL/AI, mean 4mmHg, Normal biventricular function, CAROL ANN confirmed excluded at base
- Admitted to [facility] with out of hospital cardiac arrest 04/23/2024
- Transferred to for cardiac catheterization and possible ICD 04/25/2024
Immediate bystander CPR with 2 defibrillations by AED, EMS administered 2 additional shocks for pulseless VT, 1 amp lidocaine and 1 amp epi given with ROSC. Concern for afas-iv-wvrhr slow nystagmus and myoclonic movements on admission to [facility], but
no overt tonic-clonic movement
- Tongue laceration, s/p sutures x2 at [facility] 04/23/24
- s/p VDRF 04/23/2024 until 04/24/2024
- Targeted temperature management performed at [facility] 04/23/2024
- CAD
CAD s/p 2.5 mm Cypher SIMEON to the mid to distal LAD 11/04/2003
Abnormal stress test with basal inferior and basal inferolateral segment fixed defect c/w infarction 01/31/23
Significant MV CAD possibly involving the ostial LM by cardiac cath 04/26/2024Permanent A-fib
has been in SR since admission to 04/25/24Chronic Eliquis OAC
Last dose of Eliquis 04/24/2024 PM.
- Moderate to severe mean gradient 27 mmHg by echo at 12/19/2023 and mean gradient 22.4 mmHg by echo at [facility] 04/24/2024
- HTN/ Hyperlipidemia
- Psoriatic arthritis
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 Bernstein at 04/04/24 and then scheduled for f/u with neurosurgeon at [place] 04/25/24, missed appt due to admission.
- Acute HFpEF, PCWP 25 by [facility] 04/26/2024
- Echo 12/19/23: EF 55 to 60%, mild concentric LVH, normal RV size and function, moderate to severe with peak/mean 55/27 mmHg and CHRISTIAN 1.0 cm sq, mildly dilated aortic root and ascending aorta with sinuses of
Valsalva 4.1 cm, sinotubular junction 3.7 cm and ascending aorta 4.4 cm
- Echo 04/24/24: [facility] study, EF 50 to 55%, normal RV size and function, at least moderate with peak/mean 42.3/22.4 mmHg, trace MR, trace TR, aortic root 4.16, aortic sinus 3.83, sinotubular junction 2.9 and
ascending aorta 4.36
- Echo 04/25/24: EF 60 to 65%, basal inferior akinesis, mild concentric LVH, normal RV size and function, severe peak/mean 73/36 mmHg and CHRISTIAN 0.75 cm sq, no aortic regurgitation, mild TR with PAP 25 to 30 mmHg,
compared to echo 12/19/2023 although not previously noted by visual comparison the basal inferior akinesis persists
- Acute postop blood loss anemia- stable, no transfusion
- Acute postop atelectasis
- Acute postop hypovolemia with subsequent hypervolemia
- Acute post anesthesia confusion/agitation
- Acute post-op encephalopathy due to CVA
- Suspected acute postop orthostasis
Subjective
-
Date of Service: May 06, 2024
Objective Data
-
Lab Results
05/06/24 03:50
05/06/24 03:50
PT 14.5 Sec (11.4-14.6) 05/06/24 03:50
INR 1.10 05/06/24 03:50
APTT 34.3 Sec (23.4-35.0) 05/06/24 03:50
Vital Signs
Vital Signs
Temp Pulse Resp BP Pulse Ox
98.0 F 66 18 105/79 95
05/06/24 03:30 05/06/24 03:26 05/06/24 03:30 05/06/24 03:26 05/06/24 03:30
CT Intake/Output/Weight
05/05/24 05/05/24 05/06/24
06:59 18:59 06:59
Intake Total 50 / 880
Output Total 650 / 1300 400 / 1550 1150 / 1550
Balance -600 / -420 -390 / -1520 -1130 / -1520
SaO2: 95
Physical Exam
-
General: Awake, Oriented and AOx3
Cardiovascular: Regular rate & rhythm, No Murmurs and No Rub
Respiratory: Clear and Equal
Sternum: Stable
Incision: Clean, Dry and Dressing Intact
Extremities: No Edema and No Erythema
Data Reviewed
-
Lab Results: Results Reviewed
Medications: Active Meds Reviewed
Chest X-Ray: Report Reviewed
ECG: Report Reviewed
[2024-05-06] MEDS: TYLENOL 1000 MG PO ×3 (05:45→21:16)
--- NOTE | 2024-05-06 08:45 | PTCARENOTE ---
assumed care of pt from previous shift RN, sinus rhythm on tele, VSS, + peripheral pulses, +1 edema to bilateral lower extremities, epicardial wire insulated. Lungs diminished, coughing and deep breathing encouraged. +bs, tolerating PO intake, voids
spontaneously. Right IJ cordis w KVO infusing, PIV x2 flush easily. Surgical sites stable. Plan of care reviewed w the pt and questions encouraged.
[2024-05-06] MEDS: CYMBALTA DELAYED RELEASE 30 MG PO ×2 (08:56→19:13)
[2024-05-06] MEDS: PROTONIX 40 MG PO (08:56)
[2024-05-06] MEDS: ProAmatine 5 MG PO ×3 (08:56→17:13)
[2024-05-06] MEDS: LOW STRENGTH ASPIRIN 81 MG PO (08:57)
[2024-05-06] MEDS: LOPRESSOR 12.5 MG PO ×2 (08:57→19:13)
[2024-05-06] MEDS: FEOSOL 325 MG PO (08:57)
[2024-05-06] MEDS: MAGNESIUM OXIDE 500 MG PO ×2 (08:57→19:13)
[2024-05-06] MEDS: NEURONTIN 100 MG PO ×3 (08:57→21:16)
[2024-05-06] MEDS: VITAMIN C 500 MG PO (08:57)
[2024-05-06] MEDS: SENOKOT-S 1 TABLET PO ×2 (08:57→19:13)
[2024-05-06] MEDS: PLAVIX 75 MG PO (08:57)
--- NOTE | 2024-05-06 10:24 | W.PN.CARDCBS ---
Today's Communication / Plan
-
Supportive postoperative care
ICD implant tentatively tomorrow 05/07/2024; patient and CT surgery aware�n.p.o. after midnight
Impression / Plan
-
PCP: Dr. Som Miller
Cardiology: Previously Dr. Boucher
Impression:
Admitted to [facility] with out of hospital cardiac arrest 04/23/2024
Transferred to for cardiac catheterization and possible ICD 04/25/2024
Out of hospital cardiac arrest 04/23/2024
Immediate bystander CPR with 2 defibrillations by AED, EMS administered 2 additional shocks for pulseless VT, 1 amp lidocaine and 1 amp epi given with ROSC
Concern for sfha-lk-[id number] slow nystagmus and myoclonic movements on admission to [facility], but no overt tonic-clonic movement
Tongue laceration, s/p sutures x2 at [facility] 04/23/24
s/p VDRF 04/23/2024 until 04/24/2024
Targeted temperature management performed at [facility] 04/23/2024
CAD
CAD s/p 2.5 mm Cypher SIMEON to the mid to distal LAD 11/04/2003
Abnormal stress test with basal inferior and basal inferolateral segment fixed defect c/w infarction 01/31/23
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
Permanent A-fib
has been in SR since admission to 04/25/24
Chronic Eliquis OAC
Last dose of Eliquis 04/24/2024 PM
Moderate to severe mean gradient 27 mmHg by echo at 12/19/2023 and mean gradient 22.4 mmHg by echo at [facility] 04/24/2024
Hyperlipidemia
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
Venous cerebral aneurysm seen on MRI 04/04/[address] Bernstein at 04/04/24 and then scheduled for f/u with neurosurgeon at [place] 04/25/24, missed appt due to admission
Acute HFpEF, PCWP 25 by [facility] 04/26/2024
Lexiscan nuclear stress test 01/31/2023: Medium area of severely decreased/absent tracer uptake perfusion that was fixed in the mid inferior segment and apical inferior segment C/W soft tissue attenuation as it improves with prone imaging, small
area of severely decreased/absent perfusion fixed in the basal inferior segment consistent with infarction, EF 52%
Echo 12/19/23: EF 55 to 60%, mild concentric LVH, normal RV size and function, moderate to severe with peak/mean 55/27 mmHg and CHRISTIAN 1.0 cm sq, mildly dilated aortic root and ascending aorta with sinuses of Valsalva 4.1 cm, sinotubular junction 3.7
cm and ascending aorta 4.4 cm
Echo 04/24/24: [facility] study, EF 50 to 55%, normal RV size and function, at least moderate with peak/mean 42.3/22.4 mmHg, trace MR, trace TR, aortic root 4.16, aortic sinus 3.83, sinotubular junction 2.9 and ascending aorta 4.36
Echo 04/25/24: EF 60 to 65%, basal inferior akinesis, mild concentric LVH, normal RV size and function, severe peak/mean 73/36 mmHg and CHRISTIAN 0.75 cm sq, no aortic regurgitation, mild TR with PAP 25 to 30 mmHg, compared to echo 12/19/2023 although
not previously noted by visual comparison the basal inferior akinesis persists
Plan:
-Patient with out of hospital cardiac arrest with bystander CPR and shocks 04/23/24, taken to [facility] and managed with TTM. Once extubated at [facility] patient was transferred to for cardiac work-up 04/25/24
-Patient had cardiac cath 04/26/24 and found to have significant MV CAD including possible ostial LM
-Postop day 5 s/p CABG x 3 related to LAD, GSV to OM, GSV to RPDA, bioprosthetic AVR, left atrial appendage clip, maze 05/01/2024
-Doing well, out of bed to chair and states he is feeling stronger today.
-Echo 05/03/2024 EF 65%, well-functioning AV with 12/7 peak/mean gradients, trivial pericardial effusion
- s/p 1 uPBCs on 05/03/2024 for Hgb 7.8, Hgb today 9
-Postop orthostasis has improved with midodrine; he states today is the first day he is not dizzy.
-Postop volume overload appears improved now euvolemic on oral Lasix.
-Continued on Midodrine for suspected orthostasis. Holding Amio, BB restarted/ tolerated
-Patient previously diagnosed as permanent A-fib, but has been in SR throughout admission to on review of tele. follow post op. eventual resume DOAC
-Plan for ICD prior to DC, tentatively 05/07/24 given VT arrest and known inferior scar.
-Supportive postoperative care with increased activity, cardiac rehab, incentive spirometry
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 Bernstein at 04/04/24; plan for outpatient follow-up
HPI: Patient came to today as a transfer from [facility] for cardiac cath and cardiology has been consulted. Patient was admitted to [facility] on 04/23/24 after a witnessed out of hospital cardiac arrest while swimming for exercise at a local pool. Patient
was removed from the pool immediately and there was no suggestion of inhaled or ingested water. Bystanders started CPR immediately and AED was applied with 2 defibrillations followed by EMS arrival who found the patient to be in pulseless VT and
administered 2 additional defibrillations along with lidocaine x 1 and epinephrine x 1 resulting in ROSC. Patient was intubated upon arrival to [facility] and there was also initial concern for posturing, left to right slow nystagmus and myoclonic
movements along with considerable oral bleeding, but no overt tonic-clonic movement was seen and Ceribell device application indicated no seizures. ECG did not show ST elevation and CT of the head only showed a known cerebral venous aneurysm.
Patient underwent targeted temperature management and was warmed and extubated yesterday. Patient was recommended cardiology evaluation including cardiac catheterization and his daughter, who is a local PCP to and also part of the residency
program here at , requested transfer to .
Progress Note - Test Case Developer
Subjective
Date of Service: May 06, 2024
Seen and examined sitting out of bed to chair and feeling well. Offers no complaints. Denies chest pain or pressure, shortness of breath. States dizziness is finally resolved as of today.
Objective
Labs:
05/06/24 03:50
05/06/24 03:50
Labs
Hgb 9.0 g/dL (13.0-18.0) L 05/06/24 03:50
Hct 26.1 % (39.0-52.0) L 05/06/24 03:50
Plt Count 308 10^3/uL (130-400) D 05/06/24 03:50
PT 14.5 Sec (11.4-14.6) 05/06/24 03:50
INR 1.10 05/06/24 03:50
APTT 34.3 Sec (23.4-35.0) 05/06/24 03:50
Sodium 138 mmol/L (135-145) 05/06/24 03:50
Potassium 4.2 mmol/L (3.5-5.1) 05/06/24 03:50
BUN 15 mg/dl (9-20) 05/06/24 03:50
Creatinine 0.6 mg/dL (0.7-1.3) L 05/06/24 03:50
Glucose 111 mg/dl (70-99) H 05/06/24 03:50
Vital Signs and I&O:
Vital Signs
Temp Pulse Resp BP Pulse Ox
98.2 F 64 16 108/56 95
05/06/24 08:00 05/06/24 08:00 05/06/24 08:00 05/06/24 07:55 05/06/24 09:15
Vital Signs
Temp Pulse Resp BP Pulse Ox
98.2 F 64 16 108/56 95
05/06/24 08:00 05/06/24 08:00 05/06/24 08:00 05/06/24 07:55 05/06/24 09:15
Intake & Output
05/04/24 05/05/24 05/06/24 05/07/24
06:59 06:59 06:59 06:59
Intake Total 1180.8 / 1180.8 880 / 880
Output Total 1175 / 1175 1300 / 1300 1550 / 1550
Balance 5.8 / 5.8 -420 / -420 -1520 / -1520
Physical Exam
Physical Exam
GEN: No distress, awake, Ox3
HEENT: supple, anicteric, mmm
LUNGS: CTA, no wheezes/rales. Right IJ cordis
CV: Reg, S1/S2, 1/6 syst LSB, no rub. Pacing wires present
ABD: soft, BS+, NT/ND
EXT: No edema
NEURO: Gross non-focal
SKIN: sternotomy
[2024-05-06] MEDS: LASIX 40 MG PO (10:50)
[2024-05-06] MEDS: NSS IV (13:30)
--- NOTE | 2024-05-06 13:30 | PTCARENOTE ---
Patient received from Arlene RN; AAOx4, responds spontaneously to RN and follows commands; PRAIRIE BAND; Forgetful; VSS; SA with SR; Epicardial V-wire insulated; +1 B/L LE edema; +2 DP and radial pulses; Lungs with crackles at bases; SpO2 92-96% on RA;
Patient urinating clear, yellow urine in urinal; Surgical sites intact; PIVx2 - #20 right forearm and #22 right hand; RIJ Cordis with KVO infusing; 2 view CXR completed; See nursing documentation for further information.
--- NOTE | 2024-05-06 16:11 | PTCARENOTE ---
RIJ Cordis removed; No complications noted and VSS throughout; Patient OOB in chair
[2024-05-06] MEDS: CRESTOR 20 MG PO (21:16)
--- NOTE | 2024-05-06 21:28 | PTCARENOTE ---
Patient ambulating in hallways with RN; PIV inserted - #20 LAC; CHG cloth bath given; Patient now resting comfortably in bed
--- NOTE | 2024-05-06 23:00 | PTCARENOTE ---
Assumed care of pt @2300. Walking rounds completed. Pt oriented to person, place, and time. SR on the tele monitor. HR 70s. Temporary epicardial v-wire intact and insulated. BP stable. Palpable pulses throughout. +1 LE edema. Augustus stocking and SCD's
in place. Pt is 95% on RA. Lung sounds diminished throughout. Crackles auscultated in B/L base. Deep breathing and IS encourage. CT dressing C/D/I. Abdomen round/nontender. +BS. Pt voiding w/o issue. Per report - intermittently incontinent. Pt will
be NPO @midnight for ICD procedure tomorrow. All surgical sites stable. PIV x3 intact. Pt updated w/ plan of care. Per report pt can be forgetful at times - bed alarm on. See worklist for full nursing assessment and interventions. Call cai within
reach.
[2024-05-07] VITALS (17 sets, daily range): BP systolic 91–128; BP diastolic 45–75; PULSE 65–75; O2SAT 93–99; BMI 28.4
--- NOTE | 2024-05-07 03:32 | PTCARENOTE ---
No acute change in assessment. Pt SR on the tele monitor. HR 60s. BP stable. Pt 94% on RA. Voiding w/o issue. Pt NPO since midnight. All surgical sites stable. Pt repositioned in bed. Call cai within reach.
--- NOTE | 2024-05-07 05:05 | W.PN.CT ---
Today's Communication / Plan
-
-no issues overnight
-Continued on Midodrine for suspected orthostasis. Holding Amio, BB continued, changed to Toprol XL 25 mg
-Echo 05/03 was unremarkable: EF 65%, well functioning AV with 12/7 peak/mean gradients, trivial pericardial effusion
-continue rosuvastatin, clopidogrel, Toprol 25 mg, asa, midodrine 5 mg
-NPO for ICD prior to discharge
-encourage IS, OOB
Assessment / Plan
-
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 Doe on 05/01/24, pod #6
- Post-RAPHAEL: Well-seated AVR w/o PVL/AI, mean 4mmHg, Normal biventricular function, CAROL ANN confirmed excluded at base
- Admitted to [facility] with out of hospital cardiac arrest 04/23/2024
- Transferred to for cardiac catheterization and possible ICD 04/25/2024
Immediate bystander CPR with 2 defibrillations by AED, EMS administered 2 additional shocks for pulseless VT, 1 amp lidocaine and 1 amp epi given with ROSC. Concern for [id number] slow nystagmus and myoclonic movements on admission to [facility], but
no overt tonic-clonic movement
- Tongue laceration, s/p sutures x2 at [facility] 04/23/24
- s/p VDRF 04/23/2024 until 04/24/2024
- Targeted temperature management performed at [facility] 04/23/2024
- CAD
CAD s/p 2.5 mm Cypher SIMEON to the mid to distal LAD 11/04/2003
Abnormal stress test with basal inferior and basal inferolateral segment fixed defect c/w infarction 01/31/23
Significant MV CAD possibly involving the ostial LM by cardiac cath 04/26/2024Permanent A-fib
has been in SR since admission to 04/25/24Chronic Eliquis OAC
Last dose of Eliquis 04/24/2024 PM.
- Moderate to severe mean gradient 27 mmHg by echo at 12/19/2023 and mean gradient 22.4 mmHg by echo at [facility] 04/24/2024
- HTN/ Hyperlipidemia
- Psoriatic arthritis
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 Bernstein at 04/04/24 and then scheduled for f/u with neurosurgeon at [place] 04/25/24, missed appt due to admission.
- Acute HFpEF, PCWP 25 by [facility] 04/26/2024
- Echo 12/19/23: EF 55 to 60%, mild concentric LVH, normal RV size and function, moderate to severe with peak/mean 55/27 mmHg and CHRISTIAN 1.0 cm sq, mildly dilated aortic root and ascending aorta with sinuses of
Valsalva 4.1 cm, sinotubular junction 3.7 cm and ascending aorta 4.4 cm
- Echo 04/24/24: [facility] study, EF 50 to 55%, normal RV size and function, at least moderate with peak/mean 42.3/22.4 mmHg, trace MR, trace TR, aortic root 4.16, aortic sinus 3.83, sinotubular junction 2.9 and
ascending aorta 4.36
- Echo 04/25/24: EF 60 to 65%, basal inferior akinesis, mild concentric LVH, normal RV size and function, severe peak/mean 73/36 mmHg and CHRISTIAN 0.75 cm sq, no aortic regurgitation, mild TR with PAP 25 to 30 mmHg,
compared to echo 12/19/2023 although not previously noted by visual comparison the basal inferior akinesis persists
- Acute postop blood loss anemia- stable, no transfusion
- Acute postop atelectasis
- Acute postop hypovolemia with subsequent hypervolemia
- Acute post anesthesia confusion/agitation
- Acute post-op encephalopathy due to CVA
- Suspected acute postop orthostasis
Subjective
-
Date of Service: May 07, 2024
Objective Data
-
Lab Results
05/06/24 03:50
05/06/24 03:50
PT 14.5 Sec (11.4-14.6) 05/06/24 03:50
INR 1.10 05/06/24 03:50
APTT 34.3 Sec (23.4-35.0) 05/06/24 03:50
Vital Signs
Vital Signs
Temp Pulse Resp BP Pulse Ox
98.7 F 66 20 119/63 94
05/07/24 03:20 05/07/24 03:20 05/07/24 03:20 05/07/24 03:20 05/07/24 03:20
CT Intake/Output/Weight
05/06/24 05/06/24 05/07/24
06:59 18:59 06:59
Intake Total 20 / 30 800 / 1280 480 / 1280
Output Total 1150 / 1550 200 / 500 300 / 500
Balance -1130 / -1520 600 / 780 180 / 780
SaO2: 94
Physical Exam
-
General: Awake, Oriented and AOx3
Cardiovascular: Regular rate & rhythm and No Murmurs
Respiratory: Clear and Equal
Sternum: Stable
Incision: Clean and Dry
Extremities: No Edema and No Erythema
Data Reviewed
-
Lab Results: Results Reviewed
Medications: Active Meds Reviewed
Chest X-Ray: Report Reviewed
ECG: Report Reviewed
[2024-05-07] MEDS: TYLENOL 1000 MG PO ×2 (06:30→21:18)
[2024-05-07] MEDS: CYMBALTA DELAYED RELEASE 30 MG PO ×2 (08:02→20:00)
[2024-05-07] MEDS: MAGNESIUM OXIDE 500 MG PO ×2 (08:02→20:00)
[2024-05-07] MEDS: PROTONIX 40 MG PO (08:02)
[2024-05-07] MEDS: ProAmatine 5 MG PO ×2 (08:02→17:37)
[2024-05-07] MEDS: NEURONTIN 100 MG PO ×3 (08:03→21:18)
[2024-05-07] MEDS: LOW STRENGTH ASPIRIN 81 MG PO (08:03)
[2024-05-07] MEDS: LASIX 40 MG PO (08:03)
[2024-05-07] MEDS: SENOKOT-S 1 TABLET PO ×2 (08:03→20:00)
[2024-05-07] MEDS: VITAMIN C 500 MG PO (08:03)
[2024-05-07] MEDS: PLAVIX 75 MG PO (08:03)
[2024-05-07] MEDS: FEOSOL 325 MG PO (08:04)
--- NOTE | 2024-05-07 08:34 | PTCARENOTE ---
Received pt from date night sitter RN; pt AAOx3 and resting comfortably in chair; NSR on monitor and VSS; PIV x3 patent; Lungs diminished with fine crackles at bases; IS to 1200; positive bowel sounds; pt voiding yellow urine; +1 lower extremity edema
noted; palpable pulses throughout; all surgical sites C/D/I; see nursing documentation for further documentation.
[2024-05-07] MEDS: TOPROL XL PO (09:54)
--- NOTE | 2024-05-07 11:44 | PTCARENOTE ---
Assessment unchanged; PT/OT in with pt; NSR on monitor and VSS; pt awaiting ICD placement; family at bedside.
--- NOTE | 2024-05-07 12:12 | W.PN.UPDATE ---
Update Note
Progress Note Update
Discussed with patient and daughter and at the bedside plan for dual-chamber ICD implant today. He requests Medtronic device given formulary already with the company. Plan would be for dual-chamber ICD given his secondary prevention arrhythmia and
class I indication for ICD implant. Given some periods of sick sinus syndrome and junctional rhythm we will plan to add an atrial lead for potential AV synchrony as well as the need for atrial rhythm monitoring post surgery. I discussed a 1 of
thousand risk of FL stroke and a 1 to 2% risk of infection bleeding tamponade or pneumothorax. I took time to answer all questions. He is agreeable to proceeding today to implant.
[2024-05-07] MEDS: NSS IV (13:54)
--- NOTE | 2024-05-07 14:15 | PTCARENOTE ---
Pt washed with CHG wipes for EP lab.
[2024-05-07] MEDS: TYLENOL PO (14:17)
--- NOTE | 2024-05-07 15:08 | PTCARENOTE ---
Pt sent to EP lab via bed and report given to EP RN.
--- NOTE | 2024-05-07 15:40 | W.ICD.CONTRA ---
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
-
History of [place]?: Yes
LV Function
Left ventricular function study result?: Ejection Fraction >/= 40%
ACEI/ARB/ARNI
Patient already on ACEI/ARB/ARNI: No
ACEI/ARB/ARNI Not Indicated: Left Ventricular EF >/= 40%
Beta-Myranda
Patient already on Beta Myranda: Yes
--- NOTE | 2024-05-07 16:31 | ITS.CL.ICD ---
Addendum entered and electronically signed by Brendan Parikh MD 05/07/24 16:41:
As long as blood pressure allows would be comfortable with amiodarone 200 mg daily and metoprolol 25 mg daily as ordered. With regards to amiodarone would plan a 6 to 8-week course only for AF control as the family and patient are concerned about
long-term amiodarone use.
Original Note:
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
Implantable Cardioverter Defibrillator
Procedure Report:
Date of Procedure: May 07, 2024
Patient : [id number]
Procedures: Dual-chamber ICD implant
Indication: Secondary prevention ICD implant for documented ventricular fibrillation associated with syncope. The patient also has inferior wall scar in the left ventricle and depressed ejection fraction.
Implants:
Pulse Generator: [employer]; Model# DTPA 2 D4; Serial#�[id number]
Atrial Lead: Medtronic: Model# 4574; Serial# [id number]
Right Ventricular Lead: Medtronic; Model# 6935; Serial# [id number]
Technique: The patient was prepped and draped in the usual fashion. Local anesthetic was applied to the left prepectoral subcutaneous tissue. A 4 inch incision was made. The left axillary vein was accessed��without difficulty. A subcutaneous pocket
was CREATED. Hemostasis was excellent. The leads were introduced with hemostatic peel away introducer sheaths. The right ventricular lead was placed at the right ventricular apex. The atrial lead was placed in the right atrial appendage. 10 volt
pacing did not capture the diaphragm. The leads were secured to the pectoralis muscle and fascia. The leads were appropriately attached to the device. The pocket was irrigated with antibiotic solution. The device and leads were placed in the pocket
and the device was secured to pectoralis muscle and facia. The incision was closed with absorbable sutures. The estimated blood loss was minimal. There were no complications. Device based testing was performed as described below. IV contrast total:
5 cc for subclavian axillary system venography.
System Analysis:
RA lead: P: 2.8 mV; Threshold: 0.5 V @ 0.5 ms; Impedance: 456 ohms.
RV lead: R: 9.0 mV; Threshold: 0.5 V @ 0.5 ms; Impedance: 456 ohms.
Final Programming: Tachy: VT/VF: 1 81�200; Wallace: DDD 60-120.
Conclusion: Uncomplicated dual-chamber ICD implant
Recommendation: Routine post ICD care
cc: Dr. Nba Velazquez
--- NOTE | 2024-05-07 17:00 | PTCARENOTE ---
Received pt S/P pacer insertion. VSS, monitor showing NSR, 1st deg AV block. Left chest dressing c/d/i, immobilizer in place, +cms check to left hand/fingers. Post-op EKG complete. Tolerating fluids. c/o sternal chest pain-medicated with
tylenol. at bedside, call cai in reach.
[2024-05-07] MEDS: TYLENOL 650 MG PO (17:37)
[2024-05-07] MEDS: ULTRAM 25 MG PO (20:00)
[2024-05-07] MEDS: CRESTOR 20 MG PO (21:18)
[2024-05-07] MEDS: ANCEF 5 IV (21:18)
[2024-05-07 22:00] LABS: Glucose - Point of Care 131 mg/dl (70-99)
[2024-05-08] VITALS (11 sets, daily range): BP systolic 100–140; BP diastolic 53–88; PULSE 72–77; BMI 28.4
[2024-05-08] MEDS: ANCEF 5 IV (05:02)
[2024-05-08] MEDS: TYLENOL 1000 MG PO ×2 (05:02→14:31)
[2024-05-08 05:43] LABS: Hematocrit 25.9 % (39.0-52.0); Hemoglobin 8.8 g/dL (13.0-18.0); Mean Corpuscular Hgb 29.4 pg (27.0-31.0); Mean Corpuscular Volume 86.6 fL (80.0-94.0); Mean Platelet Volume 8.4 fL (7.4-10.4); Platelet Count 354 10^3/uL (130-400); Red Blood Cell Count 2.99 10^6/uL (4.70-6.10); Red Cell Dist. Width 15.1 % (11.5-14.5)
[2024-05-08 06:01] LABS: Blood Urea Nitrogen 13 mg/dl (9-20); Calcium 8.5 mg/dl (8.4-10.2); Carbon Dioxide 27 mmol/L (22-30); Chloride 107 mmol/L (98-107); Estimated Creatinine Clearance 124 ml/min; Glucose 116 mg/dl (70-99); Magnesium 2.1 mg/dl (1.6-2.3); Potassium 4.5 mmol/L (3.5-5.1); Sodium 143 mmol/L (135-145); eGFR > 60.00
--- NOTE | 2024-05-08 06:12 | W.PN.CT ---
Today's Communication / Plan
-
-no acute events overnight
-Continued on Midodrine for suspected orthostasis. Holding Amio, BB continued, changed to Toprol XL 25 mg
-Echo 05/03 was unremarkable: EF 65%, well functioning AV with 12/7 peak/mean gradients, trivial pericardial effusion
-continue rosuvastatin, clopidogrel, Toprol 25 mg, asa, midodrine 5 mg
-s/p ICD placed 05/07
-encourage IS, OOB
-dispo planning
Assessment / Plan
-
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 Doe on 05/01/24, pod #7
- Post-RAPHAEL: Well-seated AVR w/o PVL/AI, mean 4mmHg, Normal biventricular function, CAROL ANN confirmed excluded at base
-s/p ICD insertion 05/07/24 - POD #1
- Admitted to [facility] with out of hospital cardiac arrest 04/23/2024
- Transferred to for cardiac catheterization and possible ICD 04/25/2024
Immediate bystander CPR with 2 defibrillations by AED, EMS administered 2 additional shocks for pulseless VT, 1 amp lidocaine and 1 amp epi given with ROSC. Concern for [id number] slow nystagmus and myoclonic movements on admission to [facility], but
no overt tonic-clonic movement
- Tongue laceration, s/p sutures x2 at [facility] 04/23/24
- s/p VDRF 04/23/2024 until 04/24/2024
- Targeted temperature management performed at [facility] 04/23/2024
- CAD
CAD s/p 2.5 mm Cypher SIMEON to the mid to distal LAD 11/04/2003
Abnormal stress test with basal inferior and basal inferolateral segment fixed defect c/w infarction 01/31/23
Significant MV CAD possibly involving the ostial LM by cardiac cath 04/26/2024Permanent A-fib
has been in SR since admission to 04/25/24Chronic Eliquis OAC
Last dose of Eliquis 04/24/2024 PM.
- Moderate to severe mean gradient 27 mmHg by echo at 12/19/2023 and mean gradient 22.4 mmHg by echo at [facility] 04/24/2024
- HTN/ Hyperlipidemia
- Psoriatic arthritis
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 Bernstein at 04/04/24 and then scheduled for f/u with neurosurgeon at [place] 04/25/24, missed appt due to admission.
- Acute HFpEF, PCWP 25 by [facility] 04/26/2024
- Echo 12/19/23: EF 55 to 60%, mild concentric LVH, normal RV size and function, moderate to severe with peak/mean 55/27 mmHg and CHRISTIAN 1.0 cm sq, mildly dilated aortic root and ascending aorta with sinuses of
Valsalva 4.1 cm, sinotubular junction 3.7 cm and ascending aorta 4.4 cm
- Echo 04/24/24: [facility] study, EF 50 to 55%, normal RV size and function, at least moderate with peak/mean 42.3/22.4 mmHg, trace MR, trace TR, aortic root 4.16, aortic sinus 3.83, sinotubular junction 2.9 and
ascending aorta 4.36
- Echo 04/25/24: EF 60 to 65%, basal inferior akinesis, mild concentric LVH, normal RV size and function, severe peak/mean 73/36 mmHg and CHRISTIAN 0.75 cm sq, no aortic regurgitation, mild TR with PAP 25 to 30 mmHg,
compared to echo 12/19/2023 although not previously noted by visual comparison the basal inferior akinesis persists
- Acute postop blood loss anemia- stable, no transfusion
- Acute postop atelectasis
- Acute postop hypovolemia with subsequent hypervolemia
- Acute post anesthesia confusion/agitation
- Acute post-op encephalopathy due to CVA
- Suspected acute postop orthostasis
Discussed patient care with: Care Team
Subjective
-
Date of Service: May 08, 2024
Objective Data
-
Lab Results
05/06/24 03:50
05/06/24 03:50
PT 14.5 Sec (11.4-14.6) 05/06/24 03:50
INR 1.10 05/06/24 03:50
APTT 34.3 Sec (23.4-35.0) 05/06/24 03:50
Vital Signs
Vital Signs
Temp Pulse Resp BP Pulse Ox
98.2 F 79 20 126/75 95
05/07/24 19:35 05/07/24 18:38 05/07/24 19:35 05/07/24 20:00 05/07/24 19:35
CT Intake/Output/Weight
05/07/24 05/07/24 05/08/24
06:59 18:59 06:59
Intake Total 480 / 1280
Output Total 300 / 500 300 / 300
Balance 180 / 780 -300 / -300
SaO2: 95
Physical Exam
-
General: Awake, Oriented and AOx3
Cardiovascular: Regular rate & rhythm
Respiratory: Clear
Sternum: Stable
Incision: Clean, Dry and Intact
Extremities: No Edema
Data Reviewed
-
Lab Results: Results Reviewed
Medications: Active Meds Reviewed
Chest X-Ray: Image Reviewed
Vital Signs / Labs
-
Vital Signs and Labs:
Temp Pulse Resp BP Pulse Ox
98.8 F 68 20 138/67 94
05/08/24 04:50 05/08/24 06:00 05/07/24 19:35 05/08/24 04:54 05/08/24 04:50
05/08/24 05:01
05/08/24 05:01
05/07/24 05/08/24
21:59 05:01
RBC 2.99 L
Hgb 8.8 L
Hct 25.9 L
RDW 15.1 H
Creatinine 0.6 L
Glucose 116 H
POC Glucose 131 H
--- NOTE | 2024-05-08 07:14 | PTCARENOTE ---
At change of shift, pt had 17 beats of Vtach. VETERANS SERVICE REPRESENTATIVE on called notified. VETERANS SERVICE REPRESENTATIVE informed about the magnesium and potassium values.
--- NOTE | 2024-05-08 08:30 | PTCARENOTE ---
Pt noted to have a 17 beat run of VT. Pt asleep at time of the VT episode. [employer]hift EMPLOYMENT INSTRUCTIONAL ASSOCIATE aware. Will monitor.
--- NOTE | 2024-05-08 09:04 | W.PN.CARDCBS ---
Addendum entered and electronically signed by Brendan Parikh MD 05/08/24 09:54:
Patient seen and examined
Agree with RADHA Coats's note and assessment
Agree with RADHA Coats's plan
Appropriate atrial sensing and ventricular sensing
Chest x-ray reviewed without pneumothorax with stable leads in the right atrium and in the right ventricle
Exam:
He is awake alert and oriented
Nonfocal neurologically
ICD site is clean dry and intact
Cor regular no murmur
Lungs clear to auscultation bilaterally
Abdomen soft nontender positive bowel sounds
Impression:
Admitted to [facility] with out of hospital cardiac arrest 04/23/2024
Transferred to for cardiac catheterization and possible ICD 04/25/2024
Out of hospital cardiac arrest 04/23/2024
Immediate bystander CPR with 2 defibrillations by AED, EMS administered 2 additional shocks for pulseless VT, 1 amp lidocaine and 1 amp epi given with ROSCConcern for [id number] slow nystagmus and myoclonic movements on admission to [facility], but no
overt tonic-clonic movement
Tongue laceration, s/p sutures x2 at [facility] 04/23/24
s/p VDRF 04/23/2024 until 04/24/2024
Targeted temperature management performed at [facility] 04/23/2024
CAD
CAD s/p 2.5 mm Cypher SIMEON to the mid to distal LAD 11/04/2003
Abnormal stress test with basal inferior and basal inferolateral segment fixed defect c/w infarction 01/31/23
Significant MV CAD possibly involving the ostial LM by cardiac cath 04/26/2024Permanent A-fib
has been in SR since admission to 04/25/24Chronic Eliquis OAC
Last dose of Eliquis 04/24/2024 PMModerate to severe mean gradient 27 mmHg by echo at 12/19/2023 and mean gradient 22.4 mmHg by echo at [facility] 04/24/2024
Hyperlipidemia
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
Venous cerebral aneurysm seen on MRI 04/04/[address] Bernstein at 04/04/24 and then scheduled for f/u with neurosurgeon at [place] 04/25/24, missed appt due to admissionAcute HFpEF, PCWP 25 by [facility] 04/26/2024
Lexiscan nuclear stress test 01/31/2023: Medium area of severely decreased/absent tracer uptake perfusion that was fixed in the mid inferior segment and apical inferior segment C/W soft tissue attenuation as it improves with prone imaging, small
area of severely decreased/absent perfusion fixed in the basal inferior segment consistent with infarction, EF 52%
Echo 12/19/23: EF 55 to 60%, mild concentric LVH, normal RV size and function, moderate to severe with peak/mean 55/27 mmHg and CHRISTIAN 1.0 cm sq, mildly dilated aortic root and ascending aorta with sinuses of Valsalva 4.1 cm, sinotubular junction 3.7
cm and ascending aorta 4.4 cm
Echo 04/24/24: [facility] study, EF 50 to 55%, normal RV size and function, at least moderate with peak/mean 42.3/22.4 mmHg, trace MR, trace TR, aortic root 4.16, aortic sinus 3.83, sinotubular junction 2.9 and ascending aorta 4.36
Echo 04/25/24: EF 60 to 65%, basal inferior akinesis, mild concentric LVH, normal RV size and function, severe peak/mean 73/36 mmHg and CHRISTIAN 0.75 cm sq, no aortic regurgitation, mild TR with PAP 25 to 30 mmHg, compared to echo 12/19/2023 although
not previously noted by visual comparison the basal inferior akinesis persists
Plan:
-Patient with out of hospital cardiac arrest with bystander CPR and shocks 04/23/24, taken to [facility] and managed with TTM. Once extubated at [facility] patient was transferred to for cardiac work-up 04/25/24
-Discussed with his daughter who is a physician as well as patient that we can plan short-term amiodarone for 6 to 8 weeks then discontinue as he had longstanding persistent atrial fibrillation prior to maze surgery
-remains with immobilizer in place.
-reviewed activity restrictions with patient
-Patient previously diagnosed as permanent A-fib, but has been in SR throughout admission to on review of tele. hgb stable at 8.8. plan to resume eliquis in AM
-noted to have 17 beat run of NSVT this AM on review of tele. patient asymptomatic. started on amiodarone 200mg daily(x 6 to 8 weeks) and toprol 25mg daily, to continue upon DC
-weight remains up from preop weight. currently on po lasix 40mg daily. would consider escalating po lasix to 40mg BID if BP tolerates
-continue midodrine 5mg BID PRN.
-Supportive postoperative care with increased activity, cardiac rehab, incentive spirometry. DC planning, patient being evaluated for [facility] upon DC
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 Bernstein at 04/04/24; plan for outpatient follow-up
-d/w nursing, CT surgery [employer]
Original Note:
Today's Communication / Plan
-
follow BPs
increase lasix if possible
start amiodarone 200mg daily and toprol 25mg daily
midodrine PRN
PT/OT. DC planning ongoing
Impression / Plan
-
PCP: Dr. Som Miller
Cardiology: Previously Dr. Boucher
Impression:
Admitted to [facility] with out of hospital cardiac arrest 04/23/2024
Transferred to for cardiac catheterization and possible ICD 04/25/2024
Out of hospital cardiac arrest 04/23/2024
Immediate bystander CPR with 2 defibrillations by AED, EMS administered 2 additional shocks for pulseless VT, 1 amp lidocaine and 1 amp epi given with ROSC
Concern for [id number] slow nystagmus and myoclonic movements on admission to [facility], but no overt tonic-clonic movement
Tongue laceration, s/p sutures x2 at [facility] 04/23/24
s/p VDRF 04/23/2024 until 04/24/2024
Targeted temperature management performed at [facility] 04/23/2024
CAD
CAD s/p 2.5 mm Cypher SIMEON to the mid to distal LAD 11/04/2003
Abnormal stress test with basal inferior and basal inferolateral segment fixed defect c/w infarction 01/31/23
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
Permanent A-fib
has been in SR since admission to 04/25/24
Chronic Eliquis OAC
Last dose of Eliquis 04/24/2024 PM
Moderate to severe mean gradient 27 mmHg by echo at 12/19/2023 and mean gradient 22.4 mmHg by echo at [facility] 04/24/2024
Hyperlipidemia
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
Venous cerebral aneurysm seen on MRI 04/04/[address] Bernstein at 04/04/24 and then scheduled for f/u with neurosurgeon at [place] 04/25/24, missed appt due to admission
Acute HFpEF, PCWP 25 by [facility] 04/26/2024
Lexiscan nuclear stress test 01/31/2023: Medium area of severely decreased/absent tracer uptake perfusion that was fixed in the mid inferior segment and apical inferior segment C/W soft tissue attenuation as it improves with prone imaging, small
area of severely decreased/absent perfusion fixed in the basal inferior segment consistent with infarction, EF 52%
Echo 12/19/23: EF 55 to 60%, mild concentric LVH, normal RV size and function, moderate to severe with peak/mean 55/27 mmHg and CHRISTIAN 1.0 cm sq, mildly dilated aortic root and ascending aorta with sinuses of Valsalva 4.1 cm, sinotubular junction 3.7
cm and ascending aorta 4.4 cm
Echo 04/24/24: [facility] study, EF 50 to 55%, normal RV size and function, at least moderate with peak/mean 42.3/22.4 mmHg, trace MR, trace TR, aortic root 4.16, aortic sinus 3.83, sinotubular junction 2.9 and ascending aorta 4.36
Echo 04/25/24: EF 60 to 65%, basal inferior akinesis, mild concentric LVH, normal RV size and function, severe peak/mean 73/36 mmHg and CHRISTIAN 0.75 cm sq, no aortic regurgitation, mild TR with PAP 25 to 30 mmHg, compared to echo 12/19/2023 although
not previously noted by visual comparison the basal inferior akinesis persists
Plan:
-Patient with out of hospital cardiac arrest with bystander CPR and shocks 04/23/24, taken to [facility] and managed with TTM. Once extubated at [facility] patient was transferred to for cardiac work-up 04/25/24
-Patient had cardiac cath 04/26/24 and found to have significant MV CAD including possible ostial LM
-s/p CABG x 3 related to LAD, GSV to OM, GSV to RPDA, bioprosthetic AVR, left atrial appendage clip, maze 05/01/2024
-he had significant post op orthostasis and post op delirium coming out of anesthesia, both improving
-s/p ICD given VT arrest and known inferior scar 05/07/24.
-remains with immobilizer in place.
-reviewed activity restrictions with patient
-Patient previously diagnosed as permanent A-fib, but has been in SR throughout admission to on review of tele. hgb stable at 8.8. plan to resume eliquis in AM
-noted to have 17 beat run of NSVT this AM on review of tele. patient asymptomatic. started on amiodarone 200mg daily and toprol 25mg daily, to continue upon DC
-weight remains up from preop weight. currently on po lasix 40mg daily. would consider escalating po lasix to 40mg BID if BP tolerates
-continue midodrine 5mg BID PRN.
-Supportive postoperative care with increased activity, cardiac rehab, incentive spirometry. DC planning, patient being evaluated for [place] re[facility] upon DC
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 Bernstein at 04/04/24; plan for outpatient follow-up
-d/w nursing, CT surgery [employer]
HPI: Patient came to today as a transfer from [facility] for cardiac cath and cardiology has been consulted. Patient was admitted to [facility] on 04/23/24 after a witnessed out of hospital cardiac arrest while swimming for exercise at a local pool. Patient
was removed from the pool immediately and there was no suggestion of inhaled or ingested water. Bystanders started CPR immediately and AED was applied with 2 defibrillations followed by EMS arrival who found the patient to be in pulseless VT and
administered 2 additional defibrillations along with lidocaine x 1 and epinephrine x 1 resulting in ROSC. Patient was intubated upon arrival to [facility] and there was also initial concern for posturing, left to right slow nystagmus and myoclonic
movements along with considerable oral bleeding, but no overt tonic-clonic movement was seen and Ceribell device application indicated no seizures. ECG did not show ST elevation and CT of the head only showed a known cerebral venous aneurysm.
Patient underwent targeted temperature management and was warmed and extubated yesterday. Patient was recommended cardiology evaluation including cardiac catheterization and his daughter, who is a local PCP to and also part of the residency
program here at , requested transfer to .
Progress Note - Ticket Maker
Subjective
Date of Service: May 08, 2024
Reports feeling well. Anxious to get immobilizer off
Objective
Labs:
05/08/24 05:01
05/08/24 05:01
Labs
Hgb 8.8 g/dL (13.0-18.0) L 05/08/24 05:01
Hct 25.9 % (39.0-52.0) L 05/08/24 05:01
Plt Count 354 10^3/uL (130-400) 05/08/24 05:01
PT 14.5 Sec (11.4-14.6) 05/06/24 03:50
INR 1.10 05/06/24 03:50
APTT 34.3 Sec (23.4-35.0) 05/06/24 03:50
Sodium 143 mmol/L (135-145) 05/08/24 05:01
Potassium 4.5 mmol/L (3.5-5.1) 05/08/24 05:01
BUN 13 mg/dl (9-20) 05/08/24 05:01
Creatinine 0.6 mg/dL (0.7-1.3) L 05/08/24 05:01
Glucose 116 mg/dl (70-99) H 05/08/24 05:01
Vital Signs and I&O:
Vital Signs
Temp Pulse Resp BP Pulse Ox
98.7 F 68 18 138/67 94
05/08/24 08:05 05/08/24 06:00 05/08/24 08:05 05/08/24 04:54 05/08/24 08:05
Vital Signs
Temp Pulse Resp BP Pulse Ox
98.7 F 68 18 138/67 94
05/08/24 08:05 05/08/24 06:00 05/08/24 08:05 05/08/24 04:54 05/08/24 08:05
Intake & Output
05/06/24 05/07/24 05/08/24 05/09/24
07:59 07:59 07:59 07:59
Intake Total 20 / 30 1280 / 1280 360 / 360
Output Total 1350 / 1350 500 / 500 1100 / 1100
Balance -1330 / -1320 780 / 780 -740 / -740
Physical Exam
Physical Exam
GEN: No distress, awake, alert, oriented x3. immobilizer in place
HEENT: supple, anicteric, mmm, eomi
LUNGS: Crackles B/L bases, no wheezes
CV: Reg, S1/S2, no murmur
ABD: soft, BS+, NT/ND
EXT: No cyanosis, clubbing. trace edema of B/L LE
NEURO: Gross non-focal
SKIN: Warm, pink, dry. No rash. Sternotomy and L chest dressings c/d/i.
--- NOTE | 2024-05-08 09:40 | CON.MD ---
Documented by User: Candelaria Lopez DO, Resident 05/08/24 14:40
Consultation - Medical
-
Referring Provider: Abby Ngo
Chief Complaint: Cardiac arrest
History of Present Illness: Mr. Nader Clark is a pleasant 73yo M h CAD s/p stent, paroxysmal afib, HTN, HLD, RANDY who had an out of hospital witnessed cardiac arrest while swimming. Transferred from [facility] to for catheterization and
implantable cardioverter-defibrillator placement. 04/26 Left and Right heart catheterization. 05/01 pt underwent CABGx3, AVR, and ELAA. Pt extubated in ICU. ICD placed 05/07. Additionally, pt had an asymptomatic venous cerebral aneurysm on MRI 04/04/24.
He saw Dr. Bernstein at on 04/04 and was scheduled to f/u w [place] neurosurgeon 04/25, but missed appt due to admission.
Past Medical History:
Coronary artery disease s/p stent
Paroxysmal atrial fibrillation
Essential hypertension
Hyperlipidemia
Psoriatic arthritis
Depression
Obstructive sleep apnea
Gastroesophageal reflux disease
Procedure History:
Right Hip Replacement
Left Knee Replacement
Family History: not pertinent
Social History:
Functional Level Premorbidly: active, including swimming multiple days a week
Functional Level Currently: using a rolling walker, assist of 1
Tobacco: 3 pack years, quit age 19
Alcohol: occasionally, quit w this hospitalization
Drug use: Denies
Lives with:
24-hour assistance available: yes
Number of floors: 2
# steps to enter: 1
Potential First floor set up: BR on first floor
Driving: yes
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
Review of Systems:
Constitutional: (x) Normal _
Eye: (x) Normal _
Ear/Nose/Throat: (x) Normal _
Respiratory: SOB
Cardiovascular: CP
Gastrointestinal: (x) Normal _
Genitourinary: (x) Normal _
Musculoskeletal: (x) Normal _
Integumentary: (x) Normal _
Neurologic: occasional 'zings' on side of head
Psychiatric: hallucinations on opioids
Endocrine: (x) Normal _
Hematologic/Lymphatic: (x) Normal _
Allergic/Immunologic: (x) Normal _
Allergies
Allergy/AdvReac Type Severity Reaction Status Date / Time
oxycodone Allergy hallucinati Verified 04/03/24 17:38
ons
Home Medications
chlorthalidone 25 mg tablet 25 mg PO DAILY Blood pressure 05/31/18
duloxetine 30 mg capsule,delayed release 30 mg PO BID Mental Health/Anxiety 05/31/18
metoprolol succinate 25 mg tablet,extended release 24 hr 25 mg PO DAILY Blood pressure 05/31/18
rosuvastatin 10 mg tablet (Crestor) 10 mg PO HS High cholesterol 05/31/18
apixaban 5 mg tablet (Eliquis) 5 mg PO BID Blood Clot Prevention/Tx 03/05/20
certolizumab pegol 400 mg/2 mL (200 mg/mL x2) subcutaneous syringe kit (Cimzia) 400 mg SC Q4W Autoimmune Disorder 12/20/23
pantoprazole 20 mg tablet,delayed release 40 mg PO DAILY Blood Pressure 12/20/23
tamsulosin 0.4 mg capsule 0.4 mg PO DAILY #30 caps 12/21/23
aspirin 81 mg chewable tablet 81 mg PO HS Blood Clot Prevention/Tx 04/03/24
Vitals:
BP 138/67, HR68, RR 18, T98.7F, SpO2 94%
Physical Exam:
General Appearance/Observation: Well-developed, well-nourished individual in no apparent distress.
Pain/Comfort Assessment: Denies
Location _ Onset/Pattern _ Radiation _ Severity 0-10 _ Description/Quality _
Mood/Affect: Appropriate
Integumentary/Operative Site:
Pressure Ulcer Evaluation: absent over heels.
Other Type of Wound: sternotomy site
If present, Type: x_ Operative Site _ IV Access _ Tattoo _ Lesion _ Other
Describe: no signs of wound dehiscence
Eyes: Conjunctiva/Lids: normal Pupils: pupils equal round and reactive to light and Accommodation. Left and right beating nystagmus
Ears/Nose/Throat: oral mucosa moist, throat clear. sutures on tongue Lips/Teeth/Gums: normal
Neck: No muscle spasm or tenderness
Cardiovascular: Heart: irregular, no murmur
Pulses: dorsalis pedis 2+ bilaterally
Respiratory: Respiratory Effort/Chest Expansion: normal Auscultation: clear to auscultation bilaterally
Gastrointestinal: abdomen not tender, no distension, normal abdominal bowel sounds
Genitourinary: No Abarham
Rectal Exam: Deferred
Extremities: Edema: None Cyanosis: None Trophic changes: None
Neurology Exam:
Orientation: Alert, Oriented to self, Time, Place
Memory: Intact immediately and at 3 minutes
Higher cortical function
Repetition: Intact
Comprehension: Intact
Two step command: Intact
Naming: Intact
Cranial Nerves:
CNII: Pupillary light reflex: Intact Visual Field: Intact
CN III, IV, : Extraocular muscles: Intact
CN V: Facial Sensation at Forehead: Intact, Maxilla: Intact, Mandible: Intact
CN VII: Facial movement: Symmetric
CN VIII: Hearing: Normal
CN IX/X: Speech & swallow: Normal, Position of Uvula: Midline
CN XI: Shoulder shrug: Symmetric
CN XII: Tongue protrusion: Midline
Sensory:
Light touch: Intact in bilateral upper and lower extremities
Reflexes:
Biceps: 2+ bilaterally
Brachioradialis: 2+ bilaterally
Triceps: 2+ bilaterally
Patellar: 2+ bilaterally
Achilles: 2+ bilaterally
Babinski: Down going bilaterally
Clonus: None
Martha: Negative bilaterally
Cerebellar: Dysmetria/Ataxia: unable to stand without assistance
Musculoskeletal:
Motor: (Manual muscle scale 0-5)
Muscle SA EF WE EE FF FA HF KE DF EHL PF
Right 5 5 5 5 5 5 5 5 5 5 5
Left 5 5 5 5 5 5 5 5 5 5 5
Tone: Normal in all extremities
Range of Motion: Passively within normal limits in all extremities
Diagnostic Results: as per HPI
Assessment
Out of hospital cardiac arrest
Venous cerebral aneurysm
Paroxysmal afib
CAD s/p stent, CABGx3
Sick sinus syndrome s/p ICD
HTN
HLD
RANDY
Normocytic anemia
Psoriatic arthritis
Plan
PM&R PT/OT to increase independence with ADLs, improve balance, coordination, endurance, strength, mobility, community reintegration, decreased burden of care on others and family education.
HTN: continue medications, monitor closely
HLD: Statin
Coronary artery disease s/p CABG x3: Aspirin, statin, beta-kiesha. Sternal precautions. BP control. Monitor incision, pain control.
Atrial fibrillation: Continue anticoagulation and rate control medications.
COPD: Continue nebulizer treatments DuoNeb and Pulmicort.
RANDY: possible CPAP use.
Anemia: Likely multifactorial. Continue to monitor.
Skin: monitor for pressure sores/rashes/lesions.
Pain: acetaminophen or oxycodone as needed.
DVT Prophylaxis: SCDs
Safety: Continue to reinforce assistance with all transfers.
Code Status: Full code
Dispo (date/plan/equipment needs): Acute rehab
Functional and Medical Goals: Modified Independent with ADL�s, ambulation, transfers
SUMMARY
Things that must be addressed in Hospital prior to discharge:
1. Patient must be stable on oral pain medications.
2. Blood pressure must be less than 180 systolic and 100 diastolic for 24 hours before being stable for transfer to SNF/acute rehab.
Discharge Destination: acute rehab
Summary of recommendations:
- Discharge Destination: acute rehab
Pt requires 3 hours of therapy daily as he is unable to complete ADLs and he was completely independent prior to admission.
Will continue to follow patient.
Thank you for allowing me to care for your patient. Please contact me with any questions or concerns.
This note was dictated using a voice recognition system. Please excuse any typographical errors from hoop driving machine operator helper. If you believe there are any discrepancies, please notify our office.

Documented by User: Nicola Mancia MD 05/08/24 22:55
Consultation - Medical
-
Referring Provider: Abby Ngo
Chief Complaint: Cardiac arrest
History of Present Illness: Mr. Nader Clark is a pleasant 73yo M [facility] CAD s/p stent, paroxysmal afib, HTN, HLD, RANDY who had an out of hospital witnessed cardiac arrest while swimming. Transferred from [facility] to for catheterization and
implantable cardioverter-defibrillator placement. 04/26 Left and Right heart catheterization. 05/01 pt underwent CABGx3, AVR, and ELAA. Pt extubated in ICU. ICD placed 05/07. Additionally, pt had an asymptomatic venous cerebral aneurysm on MRI 04/04/24.
He saw Dr. Bernstein at on 04/04 and was scheduled to f/u [facility] neurosurgeon 04/25, but missed appt due to admission.
Past Medical History:
Coronary artery disease s/p stent
Paroxysmal atrial fibrillation
Essential hypertension
Hyperlipidemia
Psoriatic arthritis
Depression
Obstructive sleep apnea
Gastroesophageal reflux disease
Procedure History:
Right Hip Replacement
Left Knee Replacement
Family History: not pertinent
Social History:
Functional Level Premorbidly: active, including swimming multiple days a week
Functional Level Currently: using a rolling walker, assist of 1
Tobacco: 3 pack years, quit age 19
Alcohol: occasionally, quit w this hospitalization
Drug use: Denies
Lives with:
24-hour assistance available: yes
Number of floors: 2
# steps to enter: 1
Potential First floor set up: BR on first floor
Driving: yes
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
Review of Systems:
Constitutional: (x) Normal _
Eye: (x) Normal _
Ear/Nose/Throat: (x) Normal _
Respiratory: SOB
Cardiovascular: CP
Gastrointestinal: (x) Normal _
Genitourinary: (x) Normal _
Musculoskeletal: (x) Normal _
Integumentary: (x) Normal _
Neurologic: occasional 'zings' on side of head
Psychiatric: hallucinations on opioids
Endocrine: (x) Normal _
Hematologic/Lymphatic: (x) Normal _
Allergic/Immunologic: (x) Normal _
Allergies
Allergy/AdvReac Type Severity Reaction Status Date / Time
oxycodone Allergy hallucinati Verified 04/03/24 17:38
ons
Home Medications
chlorthalidone 25 mg tablet 25 mg PO DAILY Blood pressure 05/31/18
duloxetine 30 mg capsule,delayed release 30 mg PO BID Mental Health/Anxiety 05/31/18
metoprolol succinate 25 mg tablet,extended release 24 hr 25 mg PO DAILY Blood pressure 05/31/18
rosuvastatin 10 mg tablet (Crestor) 10 mg PO HS High cholesterol 05/31/18
apixaban 5 mg tablet (Eliquis) 5 mg PO BID Blood Clot Prevention/Tx 03/05/20
certolizumab pegol 400 mg/2 mL (200 mg/mL x2) subcutaneous syringe kit (Cimzia) 400 mg SC Q4W Autoimmune Disorder 12/20/23
pantoprazole 20 mg tablet,delayed release 40 mg PO DAILY Blood Pressure 12/20/23
tamsulosin 0.4 mg capsule 0.4 mg PO DAILY #30 caps 12/21/23
aspirin 81 mg chewable tablet 81 mg PO HS Blood Clot Prevention/Tx 04/03/24
Vitals:
BP 138/67, HR68, RR 18, T98.7F, SpO2 94%
Physical Exam:
General Appearance/Observation: Well-developed, well-nourished male in no apparent distress.
Pain/Comfort Assessment: Denies
Mood/Affect: Appropriate
Integumentary/Operative Site: Right medial thigh vein donor site healing well
Pressure Ulcer Evaluation: absent over heels.
Other Type of Wound: sternotomy site
If present, Type: x_ Operative Site
Describe: no signs of wound dehiscence, sternal incision with drain sites scabbed over and healing well. Left defibrillator site with Aquacel
Eyes: Conjunctiva/Lids: normal Pupils: pupils equal round and reactive to light and Accommodation. Left and right beating nystagmus
Ears/Nose/Throat: oral mucosa moist, throat clear. sutures on tongue Lips/Teeth/Gums: normal
Neck: No muscle spasm or tenderness
Cardiovascular: Heart: Irregularly irregular, no murmur
Pulses: dorsalis pedis 2+ bilaterally
Respiratory: Respiratory Effort/Chest Expansion: normal Auscultation: clear to auscultation bilaterally
Gastrointestinal: abdomen not tender, no distension, normal abdominal bowel sounds
Genitourinary: No Abraham
Rectal Exam: Deferred
Extremities: Edema: None Cyanosis: None Trophic changes: None
Neurology Exam:
Orientation: Alert, Oriented to self, Time, Place
Memory: Intact for recent medical concerns
Higher cortical function
Repetition: Intact
Comprehension: Intact
Two step command: Intact
Naming: Intact
Cranial Nerves:
CNII: Pupillary light reflex: Intact Visual Field: Intact
CN III, IV, : Extraocular muscles: Intact
CN V: Facial Sensation at Forehead: Intact, Maxilla: Intact, Mandible: Intact
CN VII: Facial movement: Symmetric
CN VIII: Hearing: Normal
CN IX/X: Speech & swallow: Normal, Position of Uvula: Midline
CN XI: Shoulder shrug: Symmetric
CN XII: Tongue protrusion: Midline
Sensory:
Light touch: Intact in bilateral upper and lower extremities
Reflexes:
Biceps: 2+ bilaterally
Brachioradialis: 2+ bilaterally
Triceps: 2+ bilaterally
Patellar: 2+ bilaterally
Achilles: 2+ bilaterally
Babinski: Down going bilaterally
Clonus: None
Martha: Negative bilaterally
Cerebellar: Dysmetria/Ataxia: No dysmetria bilaterally. No ataxia noted during exam.
Musculoskeletal: 5/5 bilateral upper lower extremities.
Tone: Normal in all extremities
Range of Motion: Passively within normal limits in all extremities
Diagnostic Results: as per HPI
Assessment
Out of hospital cardiac arrest
Venous cerebral aneurysm
Paroxysmal afib
CAD s/p stent, CABGx3
Sick sinus syndrome s/p ICD
HTN
HLD
RANDY
Normocytic anemia
Psoriatic arthritis
73-year-old male with [id number] cardiac arrest with return of spontaneous circulation status post cardiac catheterization, status post 05/01/2024 AVR, CABG x 3, atrial clip placement and maze by Dr. Doe complicated by hypotension requiring
midodrine and NSVT status post ICD 05/07/2024, acute heart failure with preserved ejection fraction with continued ambulatory and ADL dysfunction.
Plan
PM&R PT/OT to increase independence with ADLs, improve balance, coordination, endurance, strength, mobility, community reintegration, decreased burden of care on others and family education.
HTN/orthostasis: On Lasix for diuresis and metoprolol. Wean down as able as discussed with cardiology. Did require midodrine for orthostasis. Will use teds at this time to minimize edema and try to help prevent orthostasis. Check orthostatic
vital signs daily. Monitor closely
HLD: Statin
Coronary artery disease s/p CABG x3: Aspirin/Plavix, statin, beta-kiesha. Sternal precautions. BP control. Monitor incision, pain control.
Atrial fibrillation status post Maze procedure: Apixaban anticoagulation and rate control with amiodarone.
Acute HFpEF: Metoprolol, on Lasix for fluid management.
Venous cerebral aneurysm: Outpatient follow-up with neurology/neurosurgery
RANDY: CPAP use.
Normocytic anemia: Likely multifactorial including postoperative. Consider checking B12 and folate as well as iron studies. Continue to monitor.
Skin: monitor for pressure sores/rashes/lesions.
Bowel: Moving bowels with Colace/senna. Monitor.
Bladder: Denies any urinary symptoms, no incontinence, no dysuria
Pain: acetaminophen or tramadol as needed. Gabapentin 100 mg 3 times daily, Cymbalta 30 mg twice daily
DVT Prophylaxis: SCDs and apixaban
Safety: Continue to reinforce assistance with all transfers.
Code Status: Full code
Dispo (date/plan/equipment needs): Acute rehab
Functional and Medical Goals: Modified Independent with ADL�s, ambulation, transfers
Discharge Destination: acute rehab
Summary of recommendations:
Discharge Destination: acute inpatient rehab, Pt requires 3 hours of therapy daily as he is unable to complete ADLs and he was completely independent prior to admission.
Normocytic anemia: Likely multifactorial including postoperative. Consider checking B12 and folate as well as iron studies. Continue to monitor.
HTN/orthostasis: On Lasix 40 mg twice daily for diuresis. Wean down as able as discussed with cardiology. Did require midodrine for orthostasis. Will use teds at this time to minimize edema and try to help prevent orthostasis. Check orthostatic
vital signs daily. Monitor closely
I personally performed a full consult of the patient and discussed management with the resident. I reviewed the resident�s note and agree with findings and plan as documented in the resident�s note with findings and plan and adjustments as noted.
Will continue to follow patient.
Thank you for allowing me to care for your patient. Please contact me with any questions or concerns.
--- NOTE | 2024-05-08 09:51 | W.DCSUMMARY ---
Discharge Summary
Discharge Data
Date of Admission: 04/25/24
Date of Discharge: 05/08/24
Total time spent discharging patient (in min): 55
-
Pending Results: No
Hospital Course
Primary care physician:
Dr. Som Miller
Outpatient medart operator:
Dr. Velazquez
Inpatient consultants:
[facility], skip load driver, anesthesia, ENT, neurology, pulmonary, physical therapy/Occupational Therapy
Procedures:
1. Coronary artery bypass x 3/AVR #29 Inspiris Resilia tissue valve, left atrial appendage clip, maze
Primary Diagnosis:
1. Multivessel coronary artery disease with recent [id number] cardiac arrest
Secondary Diagnoses:
1. Moderate to severe aortic stenosis
2. Atrial fibrillation on Eliquis
3. Benign prostatic hypertrophy
4. Coronary artery disease with previous stent to LAD in 2003
5. Venous cerebral aneurysm
6. Psoriatic arthritis
7. Obstructive sleep apnea
HPI: 73-year-old male presented to [facility] after suffering from a cardiac arrest on 04/23. He was initially taken to [facility] where he was resuscitated and started on targeted temperature management protocol. Afterwards he was
started on antibiotics for pneumonia and was extubated on 04/24/2024. He was transferred to [facility] on 04/25 for a left heart cath and ICD placement. Upon transfer to [facility] he was found to have multivessel disease on 04/26
and was referred to CT surgery for revascularization.
Hospital course: Patient was taken to the CV OR on 05/01 for an AVR/CABG/left atrial appendage clip/maze with Dr. Doe. Postoperatively he returned to the CVICU on Levophed, insulin, and Precedex. Patient initially did very well and was
extubated. Overnight patient did become very confused which was not new for this admission. Patient on 05/02 postoperative day 1, he was weaned off Levophed and Delined. He was initially sitting in the chair however while he was getting out of bed
patient had a near syncopal episode and was placed back into bed. Rhythm was analyzed which showed he had periods of junctional rhythm. Per cardiology we continued amiodarone and held Lopressor. On 05/03 postoperative day 2 patient's mental status
was slowly improving. Chest tubes were removed. Patient again had a near syncopal episode with standing x 2 so amiodarone and beta-blockers were held. Transthoracic echocardiogram did not show a pericardial effusion and he was given 1 unit of
packed red blood cells for hemoglobin of 7.8. Due to the repeated episodes of orthostatic hypotension patient was started on midodrine 5 mg 3 times a day. On 05/04 postoperative day 3 patient's blood pressure improved on midodrine he remained in
sinus rhythm in the 70s. Given patient's blood pressure later that evening he was resumed on Lopressor 12.5 mg twice daily. On 05/05 postoperative day 4 physical therapy/Occupational Therapy was consulted for acute rehab placement. Blood pressure
and heart rate remained stable. On 05/06 postoperative day 5 patient was awaiting ICD placement and he was started on oral Lasix and metoprolol tartrate was transition to metoprolol succinate with better tolerance. On 05/07 postoperative day 6
midodrine again was weaned to 5 mg twice a day and an AICD was placed by cardiology. On 05/08 postoperative day 7 patient's midodrine was discontinued. He was restarted on amiodarone due to a 17 beat run of NSVT in the morning, due to this episode
he was started on amiodarone 200 mg daily for 6 to 8 weeks and continued on Toprol. Patient was deemed stable for discharge to acute rehab for the remainder of his care.
Home medication changes:
see below
Discharge Plan
-
Patient Disposition: Home (Routine Discharge)
Discharge Diagnosis/Procedures: Aortic Valve Replacement, CABG x 3, MAZE, left atrial appendage clip, ICD implant (05/07)
Condition: Good
Diet: Low Cholesterol and Low Sodium
Activity: No strenuous activity
Driving Restrictions: No driving for 24 hours
Bathing Restrictions: OK to Shower
Other Services: Cardiac Rehab
Specialty Instructions: Weigh Daily- Call MD for wt gain/loss 3 lbs overnight/5 lbs in 1 week
Activity Restrictions/Additional Instructions:
ACTIVITY:
-No strenuous activity: no heavy lifting, pushing, pulling anything over 15 pounds for one month
-continue to use stairs as tolerated
DRIVING RESTRICTIONS:
-No driving for one month or until approved by your surgeon
WOUND CARE:
-Shower daily. Use soap & water.
-No lotions, creams or powders on incision area.
DIET:
-continue a low fat/low cholesterol diet.
-IF you are diabetic, continue carb controlled diet.
CARDIAC REHAB:
-Please make appointment to start in 5-6 weeks with your local hospital program. (See Cardiac Rehabilitation Discharge Booklet).
SPECIALTY INSTRUCTIONS:
-Weigh yourself daily. Call your physician for any weight gain/loss of 3 lbs overnight or 5 lbs in one week.
-REPORT any clicking noise or uneven appearance of your sternum to your surgeon immediately.
-If you smoke, you are instructed to quit. The [place] smoking hotline phone number is [phone]
Stand Alone Forms: DC Instructions- Cath/EP Lab, DC Inst - Implanted Device
Referrals:
[facility] [Other]
.[facility] [Provider Group] - 05/14/24 11:20 am (Incision check appointment)
[facility] [Outside] - 06/10/24 1:00 pm
(Cardiac Rehab Orientation and� First Exercise appointment is on ____Saturday 06/10 at 1:00 pm.
The Cardiac Rehab gym is located on the first floor of the [facility].)
Derik Meraz MD [Active] - in four to six weeks (full PFTs on day of office visit)
Giacomo Miller MD [Family Provider] -
Clotilde Ramirez PA-C [Specified Professional Personl] - 06/10/24 10:20 am
Yfn Doe MD [Active] - 05/28/24 2:30 pm
Additional Discharge Medication Instructions: Please lasix twice a day tomorrow as blood pressure tolerates
Please start eliquis tomorrow morning
only take midodrine if your systolic blood pressure is <90
Please take amiodarone 200mg BID for 6-8 weeks per cardiology
Prescriptions:
New
acetaminophen 325 mg Tablet
650 mg PO Q4HPRN PRN (Reason: mild pain,headache,temp >101F ) Qty: 0 0RF
amiodarone 200 mg Tablet
200 mg PO DAILY Qty: 30 0RF
midodrine 5 mg Tablet
5 mg PO BIDPRN PRN (Reason: sbp <90) Qty: 10 0RF
rosuvastatin 20 mg Tablet
20 mg PO HS Qty: 30 0RF
furosemide 40 mg Tablet
40 mg PO BID Qty: 15 0RF
sennosides-docusate sodium 8.6-50 mg Tablet
1 tab PO Q12 Qty: 0 0RF
tramadol 50 mg Tablet
25 mg PO Q6HPRN PRN (Reason: severe pain) Qty: 10 0RF
melatonin 5 mg Tablet
5 mg PO HS PRN (Reason: insomnia) Qty: 0 0RF
Continued
metoprolol succinate 25 MG tablet extended release 24 hr
25 mg PO DAILY
duloxetine 30 MG capsule,delayed release(DR/EC)
30 mg PO BID
pantoprazole 20 mg Tablet,Delayed Release (Dr/Ec)
40 mg PO DAILY
Cimzia 400 mg/2 mL (200 mg/mL x 2) Syringe Kit
400 mg SC Q4W
aspirin 81 mg Tablet,Chewable
81 mg PO HS
Held
Eliquis 5 MG tablet
5 mg PO BID
Hold Instructions: Resume on 05/09/24.
Discontinued
chlorthalidone 25 MG tablet
25 mg PO DAILY
rosuvastatin [Crestor] 10 MG tablet
10 mg PO HS
tamsulosin 0.4 mg Capsule
0.4 mg PO DAILY Qty: 30 0RF
Care Plan Goals
Care Plan Goals:
Problem: Readiness for enhanced knowledge related to diagnosis and treatment plan
Goal: Understand your diagnosis and treatment plan needs, including medications if applicable.
Instructions: Know your diagnosis, underlying causes and treatment plan options, including medications if applicable. Consult with your health care team to learn about your diagnosis and treatment plan, including medications if applicable.
Discharge Date and Time
Print Language: CITIZEN [place]
--- NOTE | 2024-05-08 10:07 | CM ---
Addendum entered by Lily Greenberg 05/08/24 13:25:
Met with and Mrs. Clark to confirm discharge plans. They have selected to go to [facility]. The discharge plan is to go [facility] when medically stable.
Original Note:
Reviewed chart. Mr. Clark was transferred to IVU. Met with Mr. Clark , spouse and daughter to review discharge plans. Reviewed with them that [facility]. has a bed and they can accept today. Patient and family states they are still
deciding if he wants to go to [facility]. or go directly home. Spouse has an appointment today at 12:30 p.m. to visit [facility]. They want to wait until therapy see him here before they make the final decision on disposition. Prior to admission
he resides with his spouse in a two story home with two steps to enter. He has a a full flight of steps to get to bedroom/full bathroom. He has a powder room on the first floor. Prior to admission he was independent with ambulation and adls. He
has a CPAP Machine at home and no other DME in the home. He has a prescription plan and uses [facility]. His daughter and son-in-law reside in the addition to there home and her other daughter resides in a house near by. He will need VNA
Services if he goes home. Medical work-up in progress. The discharge plan is to go to [facility]. versus home with spouse and [facility]NA Services when medically stable.
[2024-05-08] MEDS: PLAVIX PO (10:15)
[2024-05-08] MEDS: LOW STRENGTH ASPIRIN 81 MG PO (10:44)
[2024-05-08] MEDS: VITAMIN C 500 MG PO (10:44)
[2024-05-08] MEDS: NEURONTIN 100 MG PO (10:44)
[2024-05-08] MEDS: MAGNESIUM OXIDE 500 MG PO (10:44)
[2024-05-08] MEDS: PROTONIX 40 MG PO (10:44)
[2024-05-08] MEDS: CYMBALTA DELAYED RELEASE 30 MG PO (10:45)
[2024-05-08] MEDS: PACERONE 200 MG PO (10:45)
[2024-05-08] MEDS: FEOSOL 325 MG PO (10:46)
[2024-05-08] MEDS: TOPROL XL 25 MG PO (10:46)
[2024-05-08] MEDS: LASIX 40 MG PO (10:46)
[2024-05-08] MEDS: SENOKOT-S 1 TABLET PO (10:46)
--- NOTE | 2024-05-08 12:18 | PTOTSP ---
GAMEWELL OPERATOR Note
MOCA version 8.2 Kinyarwanda, completed. Score= , improved compared to prior testing ( on MOCA version 8.1 04/25/2024). Today points were lost for executive function, visuospatial skills, attention, and delayed recall. Score is still below
normal (26 or higher).
Recommend:
1. Neuropsych evaluation
2. Cognitive evaluation and tx at the next level of care as able/appropriate
--- NOTE | 2024-05-08 14:19 | TRANSFER ---
Report given to LELO Wang at [facility]. [phone]. Pt to be transferred to room 311. Awaiting to transfer pt, when room ready. Will monitor.
[2024-05-08] MEDS: NSS IV (14:32)
== END 2024-05-08 16:01 | DRG 216 ==
LOC: IVU 08:01
PROVIDERS: Anesthesiology; Clinical Nurse Specialist Acute Care; Family Medicine; Internal Medicine; Internal Medicine Cardiovascular Disease; Internal Medicine Interventional Cardiology; Nurse Practitioner; Nurse Practitioner Adult Health; Physician Assistant Medical; Student in an Organized Health Care Education/Training Program; ADMITTING PHYSICIAN Hospitalist; ATTENDING PHYSICIAN Thoracic Surgery (Cardiothoracic Vascular Surgery); CONSULT PHYSICIAN Internal Medicine; CONSULT PHYSICIAN Internal Medicine Cardiovascular Disease; CONSULT PHYSICIAN Internal Medicine Critical Care Medicine; CONSULT PHYSICIAN Physical Medicine & Rehabilitation; CONSULT PHYSICIAN Psychiatry & Neurology Clinical Neurophysiology; CONSULT PHYSICIAN Thoracic Surgery (Cardiothoracic Vascular Surgery); FAMILY PHYSICIAN Internal Medicine; OTHER PHYSICIAN Otolaryngology
PROC: 4A023N8 Measurement of Cardiac Sampling and Pressure, Bilateral, Percutaneous Approach (ICD-10-PCS; 2024-04-26)
PROC: B2111ZZ Fluoroscopy of Multiple Coronary Arteries using Low Osmolar Contrast (ICD-10-PCS; 2024-04-26)
PROC: B2151ZZ Fluoroscopy of Left Heart using Low Osmolar Contrast (ICD-10-PCS; 2024-04-26)
PROC: 5A09357 Assistance with Respiratory Ventilation, Less than 24 Consecutive Hours, Continuous Positive Airway Pressure (ICD-10-PCS; 2024-04-27)
PROC: 02100ZC Bypass Coronary Artery, One Artery from Thoracic Artery, Open Approach (ICD-10-PCS; 2024-05-01)
PROC: 5A1221Z Performance of Cardiac Output, Continuous (ICD-10-PCS; 2024-05-01)
PROC: B24BZZ4 Ultrasonography of Heart with Aorta, Transesophageal (ICD-10-PCS; 2024-05-01)
PROC: 06BP4ZZ Excision of Right Saphenous Vein, Percutaneous Endoscopic Approach (ICD-10-PCS; 2024-05-01)
PROC: 02580ZZ Destruction of Conduction Mechanism, Open Approach (ICD-10-PCS; 2024-05-01)
PROC: 02RF08Z Replacement of Aortic Valve with Zooplastic Tissue, Open Approach (ICD-10-PCS; 2024-05-01)
PROC: 02L70CK Occlusion of Left Atrial Appendage with Extraluminal Device, Open Approach (ICD-10-PCS; 2024-05-01)
PROC: 021109W Bypass Coronary Artery, Two Arteries from Aorta with Autologous Venous Tissue, Open Approach (ICD-10-PCS; 2024-05-01)
PROC: 30233N1 Transfusion of Nonautologous Red Blood Cells into Peripheral Vein, Percutaneous Approach (ICD-10-PCS; 2024-05-03)
PROC: 0JH608Z Insertion of Defibrillator Generator into Chest Subcutaneous Tissue and Fascia, Open Approach (ICD-10-PCS; 2024-05-07)
PROC: 02H63KZ Insertion of Defibrillator Lead into Right Atrium, Percutaneous Approach (ICD-10-PCS; 2024-05-07)
PROC: 02HK3KZ Insertion of Defibrillator Lead into Right Ventricle, Percutaneous Approach (ICD-10-PCS; 2024-05-07)
DX: I21.4 Non-ST elevation (NSTEMI) myocardial infarction (principal); I46.2 Cardiac arrest due to underlying cardiac condition; I49.01 Ventricular fibrillation; J69.0 Pneumonitis due to inhalation of food and vomit; I50.33 Acute on chronic diastolic (congestive) heart failure; D62 Acute posthemorrhagic anemia; T82.855A Stenosis of coronary artery stent, initial encounter; J98.11 Atelectasis; G93.49 Other encephalopathy; I48.21 Permanent atrial fibrillation; I47.21 Torsades de pointes; I35.0 Nonrheumatic aortic (valve) stenosis; S01.512A Laceration without foreign body of oral cavity, initial encounter; I67.1 Cerebral aneurysm, nonruptured; I25.10 Atherosclerotic heart disease of native coronary artery without angina pectoris; K21.9 Gastro-esophageal reflux disease without esophagitis; L40.50 Arthropathic psoriasis, unspecified; W45.8XXA Other foreign body or object entering through skin, initial encounter; Y83.1 Surgical operation with implant of artificial internal device as the cause of abnormal reaction of the patient, or of later complication, without mention of misadventure at the time of the procedure; I49.5 Sick sinus syndrome; I95.1 Orthostatic hypotension; E86.1 Hypovolemia; Y83.2 Surgical operation with anastomosis, bypass or graft as the cause of abnormal reaction of the patient, or of later complication, without mention of misadventure at the time of the procedure; I11.0 Hypertensive heart disease with heart failure; N40.0 Benign prostatic hyperplasia without lower urinary tract symptoms; J44.9 Chronic obstructive pulmonary disease, unspecified; E78.00 Pure hypercholesterolemia, unspecified; F41.9 Anxiety disorder, unspecified; F32.A Depression, unspecified; G47.33 Obstructive sleep apnea (adult) (pediatric); Z11.52 Encounter for screening for COVID-19; Z79.01 Long term (current) use of anticoagulants; Z79.82 Long term (current) use of aspirin; Z79.899 Other long term (current) drug therapy; Z82.49 Family history of ischemic heart disease and other diseases of the circulatory system; Z87.891 Personal history of nicotine dependence; Z95.5 Presence of coronary angioplasty implant and graft; Z87.01 Personal history of pneumonia (recurrent)
CPT/HCPCS: 88305; 88311; 93308; 33249; 33259; 70355; 71045; 71046; 74174; 75572; 76937; 80048; 80053; 80061; 81003; 81015; 82248; 82330; 82565; 82805; 82810; 82947; 82962; 83036; 83735; 84132; 84302; 84443; 84484; 84520; 85014; 85018; 85027; 85049; 85610; 85730; 86850; 86900; 86901; 86920; 87070; 87205; 87811; 92507; 92523; 92526; 92610; 93005; 93306; 93312; 93320; 93321; 93325; 93460; 93880; 94002; 94660; 95816; 97112; 97116; 97129; 97163; 97164; 97167; 97168; 97530; 97535; 99152; 99153; C1713; C1892; C1894; J7197; P9016; Q9967

== ENCOUNTER → 2024-05-24 09:08 | Outpatient (REF) | payer MEDICARE, SELFPAY ==
[2024-05-24 09:55] LABS: % Basophils 0.9 % (0-2); % Eosinophils 3.3 % (0-6); % Immature Granulocytes 0.5 % (0-0.5); % Lymphocytes 19.8 % (20.5-51.1); % Monocytes 8.7 % (1.7-9.3); % Neutrophils 66.8 % (42.2-75.2); Absolute Basophils 0.1 10^3/uL (0-0.2); Absolute Eosinophils 0.3 10^3/uL (0-0.7); Absolute Lymphocytes 1.6 10^3/uL (1.2-3.4); Absolute Monocytes 0.7 10^3/uL (0.1-0.6); Absolute Neutrophils 5.2 10^3/uL (1.4-6.5); Hematocrit 33.8 % (39.0-52.0); Hemoglobin 10.8 g/dL (13.0-18.0); Mean Corpuscular Volume 87.6 fL (80.0-94.0); Mean Platelet Volume 8.4 fL (7.4-10.4); Nucleated Red Blood Cells % 0 % (-); Platelet Count 325 10^3/uL (130-400); Red Blood Cell Count 3.86 10^6/uL (4.70-6.10); Red Cell Dist. Width 14.5 % (11.5-14.5); White Blood Cell Count 7.8 10^3/uL (4.8-10.8)
[2024-05-24 10:25] LABS: ALT (SGPT) 35 U/L (0-50); AST (SGOT) 32 U/L (17-59); Albumin 4.2 g/dl (3.5-5.0); Alkaline Phosphatase 122 U/L (38-126); Blood Urea Nitrogen 15 mg/dl (9-20); Calcium 9.7 mg/dl (8.4-10.2); Carbon Dioxide 25 mmol/L (22-30); Chloride 108 mmol/L (98-107); Glucose 109 mg/dl (70-99); Sodium 145 mmol/L (135-145); Total Bilirubin 0.8 mg/dl (0.2-1.3); Total Protein 6.8 g/dl (6.3-8.2); eGFR > 60.00
[2024-05-24 10:52] LABS: TSH 2.27 uIU/ml (0.47-4.68)
== END ==
LOC: REG 09:08
PROVIDERS: ATTENDING PHYSICIAN Internal Medicine
DX: I46.9 Cardiac arrest, cause unspecified (principal); I47.20 Ventricular tachycardia, unspecified; Z95.810 Presence of automatic (implantable) cardiac defibrillator; I48.20 Chronic atrial fibrillation, unspecified; I35.0 Nonrheumatic aortic (valve) stenosis; Z95.2 Presence of prosthetic heart valve; I25.10 Atherosclerotic heart disease of native coronary artery without angina pectoris; D50.0 Iron deficiency anemia secondary to blood loss (chronic); N40.1 Benign prostatic hyperplasia with lower urinary tract symptoms; Z98.890 Other specified postprocedural states; G47.33 Obstructive sleep apnea (adult) (pediatric); Z09 Encounter for follow-up examination after completed treatment for conditions other than malignant neoplasm
CPT/HCPCS: 36415; 80053; 84443; 85025

== ENCOUNTER 2024-06-11 13:23 | Outpatient (RCR) | payer MEDICARE, SELFPAY | END 2024-06-11 23:59 | disposition home or self-care (01) | LOC: CRHB 13:23 | PROVIDERS: ATTENDING PHYSICIAN Internal Medicine Cardiovascular Disease; FAMILY PHYSICIAN Internal Medicine | DX: Z95.1 Presence of aortocoronary bypass graft (principal); Z95.2 Presence of prosthetic heart valve | CPT/HCPCS: G0422; G0423 ==

== ENCOUNTER 2024-06-12 06:19 | Outpatient (RCR) | payer MEDICARE, SELFPAY | END 2024-06-12 23:59 | disposition home or self-care (01) | LOC: ROT 06:19 | PROVIDERS: ATTENDING PHYSICIAN Physical Medicine & Rehabilitation; FAMILY PHYSICIAN Internal Medicine | DX: I95.1 Orthostatic hypotension (principal); I25.739 Atherosclerosis of nonautologous biological coronary artery bypass graft(s) with unspecified angina pectoris; Z73.6 Limitation of activities due to disability; R26.89 Other abnormalities of gait and mobility; Z86.74 Personal history of sudden cardiac arrest; Z95.1 Presence of aortocoronary bypass graft; Z95.5 Presence of coronary angioplasty implant and graft | CPT/HCPCS: 36415; 80069; 83735; 85025; 97110; 97112; 97116; 97163; 97167; 97530; 97535; 97537 ==

== ENCOUNTER → 2024-06-13 14:39 | Outpatient (REF) | payer MEDICARE, SELFPAY | LOC: RCS 14:39 | PROVIDERS: ATTENDING PHYSICIAN Internal Medicine Cardiovascular Disease; FAMILY PHYSICIAN Internal Medicine | DX: R55 Syncope and collapse (principal); Z95.2 Presence of prosthetic heart valve; I25.10 Atherosclerotic heart disease of native coronary artery without angina pectoris | CPT/HCPCS: 93308; 93321; 93325 ==

== ENCOUNTER 2024-06-14 07:23 | Outpatient (RCR) | payer MEDICARE, SELFPAY | END 2024-06-14 10:12 | disposition home or self-care (01) | LOC: ROT 07:23 | PROVIDERS: ATTENDING PHYSICIAN Physical Medicine & Rehabilitation; FAMILY PHYSICIAN Internal Medicine | DX: I95.1 Orthostatic hypotension (principal); I25.739 Atherosclerosis of nonautologous biological coronary artery bypass graft(s) with unspecified angina pectoris; Z73.6 Limitation of activities due to disability; R26.89 Other abnormalities of gait and mobility; Z86.74 Personal history of sudden cardiac arrest; Z95.1 Presence of aortocoronary bypass graft; Z95.5 Presence of coronary angioplasty implant and graft | CPT/HCPCS: 97535; 97537 ==

== ENCOUNTER 2024-07-11 08:59 | Outpatient (RCR) | payer MEDICARE, SELFPAY | END 2024-07-11 23:59 | disposition home or self-care (01) | LOC: CRHB 08:59 | PROVIDERS: ATTENDING PHYSICIAN Internal Medicine Cardiovascular Disease; FAMILY PHYSICIAN Internal Medicine | DX: Z95.1 Presence of aortocoronary bypass graft (principal); I25.10 Atherosclerotic heart disease of native coronary artery without angina pectoris (principal); Z95.2 Presence of prosthetic heart valve | CPT/HCPCS: G0422; G0423 ==

== ENCOUNTER → 2024-07-18 08:51 | Outpatient (REF) | payer MEDICARE, SELFPAY ==
[2024-07-18 09:27] LABS: % Basophils 1.1 % (0-2); % Eosinophils 2.1 % (0-6); % Immature Granulocytes 0.5 % (0-0.5); % Lymphocytes 22.6 % (20.5-51.1); % Monocytes 8.8 % (1.7-9.3); % Neutrophils 64.9 % (42.2-75.2); Absolute Basophils 0.1 10^3/uL (0-0.2); Absolute Eosinophils 0.1 10^3/uL (0-0.7); Absolute Lymphocytes 1.4 10^3/uL (1.2-3.4); Absolute Monocytes 0.6 10^3/uL (0.1-0.6); Absolute Neutrophils 4.1 10^3/uL (1.4-6.5); Hematocrit 37.3 % (39.0-52.0); Hemoglobin 11.8 g/dL (13.0-18.0); Mean Corp Hgb Conc. 31.6 g/dL (33.0-37.0); Mean Corpuscular Volume 82.3 fL (80.0-94.0); Mean Platelet Volume 9.1 fL (7.4-10.4); Nucleated Red Blood Cells % 0 % (-); Platelet Count 275 10^3/uL (130-400); Red Blood Cell Count 4.53 10^6/uL (4.70-6.10); Red Cell Dist. Width 14.5 % (11.5-14.5); White Blood Cell Count 6.3 10^3/uL (4.8-10.8)
[2024-07-18 10:28] LABS: C-Reactive Protein < 5.00 mg/L (0.0-10.00)
[2024-07-18 10:31] LABS: ALT (SGPT) 41 U/L (0-50); Albumin 4.4 g/dl (3.5-5.0); Alkaline Phosphatase 88 U/L (38-126); Blood Urea Nitrogen 15 mg/dl (9-20); Calcium 9.9 mg/dl (8.4-10.2); Carbon Dioxide 25 mmol/L (22-30); Chloride 109 mmol/L (98-107); Glucose 98 mg/dl (70-99); HDL Cholesterol 37 mg/dl; Potassium 4.6 mmol/L (3.5-5.1); Sodium 143 mmol/L (135-145); Total Cholesterol 134 mg/dl (50-199); eGFR > 60.00
[2024-07-18 10:35] LABS: AST (SGOT) 39 U/L (17-59)
[2024-07-18 10:42] LABS: LDL Cholesterol, Calculated 59 mg/dl; Total Bilirubin 0.7 mg/dl (0.2-1.3); Triglyceride 194 mg/dl (10-149); Very Low Density Lipoprotein 38 mg/dl (0-30)
[2024-07-20 14:32] LABS: Quantiferon Mitogen minus NIL 6.51 IU/mL; Quantiferon NIL 0.03 IU/mL; Quantiferon TB Gold Plus Negative (Negative)
== END ==
LOC: REG 08:51
PROVIDERS: ATTENDING PHYSICIAN Internal Medicine Rheumatology; FAMILY PHYSICIAN Internal Medicine; REFERRING PHYSICIAN Internal Medicine Cardiovascular Disease
DX: E55.9 Vitamin D deficiency, unspecified (principal); L40.50 Arthropathic psoriasis, unspecified; L40.9 Psoriasis, unspecified; M19.031 Primary osteoarthritis, right wrist; M19.049 Primary osteoarthritis, unspecified hand; M25.511 Pain in right shoulder; S43.101S Unspecified dislocation of right acromioclavicular joint, sequela; Z11.1 Encounter for screening for respiratory tuberculosis; Z79.899 Other long term (current) drug therapy; I10 Essential (primary) hypertension; E78.00 Pure hypercholesterolemia, unspecified; D64.9 Anemia, unspecified
CPT/HCPCS: 36415; 80053; 80061; 85025; 86140; 86480

== ENCOUNTER 2024-08-06 11:29 | Outpatient (RCR) | payer MEDICARE, SELFPAY | END 2024-08-06 23:59 | disposition home or self-care (01) | LOC: CRHB 11:29 | PROVIDERS: ATTENDING PHYSICIAN Internal Medicine Cardiovascular Disease; FAMILY PHYSICIAN Internal Medicine | DX: I25.10 Atherosclerotic heart disease of native coronary artery without angina pectoris (principal); Z95.1 Presence of aortocoronary bypass graft; Z95.2 Presence of prosthetic heart valve | CPT/HCPCS: G0422; G0423 ==

== ENCOUNTER 2024-09-12 10:46 | Outpatient (RCR) | payer MEDICARE, SELFPAY ==
[2024-09-12 11:06] LABS: HDL Cholesterol 36 mg/dl; LDL Cholesterol, Calculated 70 mg/dl; Very Low Density Lipoprotein 36 mg/dl (0-30)
== END 2024-09-12 23:59 | disposition home or self-care (01) ==
LOC: CRHB 10:46
PROVIDERS: ATTENDING PHYSICIAN Internal Medicine Cardiovascular Disease; FAMILY PHYSICIAN Internal Medicine
DX: I25.10 Atherosclerotic heart disease of native coronary artery without angina pectoris (principal); Z95.1 Presence of aortocoronary bypass graft; Z95.2 Presence of prosthetic heart valve
CPT/HCPCS: 36415; 80053; 80061; 81003; 82607; 82746; 84155; 84165; 84443; 85025; G0103; G0422; G0423

== ENCOUNTER 2024-10-10 06:00 | Outpatient (RCR) | payer MEDICARE, SELFPAY | END 2024-10-10 23:59 | disposition home or self-care (01) | LOC: CRHB 06:00 | PROVIDERS: ATTENDING PHYSICIAN Internal Medicine Cardiovascular Disease; FAMILY PHYSICIAN Internal Medicine | DX: I25.10 Atherosclerotic heart disease of native coronary artery without angina pectoris (principal); Z95.1 Presence of aortocoronary bypass graft; Z95.2 Presence of prosthetic heart valve | CPT/HCPCS: 93005; G0422; G0423 ==

== ENCOUNTER → 2024-11-06 08:56 | Outpatient (REF) | payer MEDICARE, SELFPAY | LOC: REG 08:56 | PROVIDERS: ATTENDING PHYSICIAN Internal Medicine Cardiovascular Disease; FAMILY PHYSICIAN Internal Medicine | DX: I51.7 Cardiomegaly (principal) | CPT/HCPCS: 36415; 82784; 83520; 83521; 84155; 84156; 84165; 86334; 86335 ==

== ENCOUNTER → 2025-01-13 11:11 | Outpatient (REF) | payer MEDICARE, SELFPAY ==
[2025-01-13 12:15] LABS: Hematocrit 37.8 % (39.0-52.0); Hemoglobin 12.8 g/dL (13.0-18.0); Mean Corp Hgb Conc. 33.9 g/dL (33.0-37.0); Mean Corpuscular Volume 84.4 fL (80.0-94.0); Nucleated Red Blood Cells % 0 % (-); Platelet Count 251 10^3/uL (130-400); Red Cell Dist. Width 13.7 % (11.5-14.5)
[2025-01-13 13:01] LABS: ALT (SGPT) 31 U/L (0-50); AST (SGOT) 35 U/L (17-59); Albumin 4.2 g/dl (3.5-5.0); Alkaline Phosphatase 80 U/L (38-126); Blood Urea Nitrogen 16 mg/dl (9-20); Calcium 9.3 mg/dl (8.4-10.2); Carbon Dioxide 26 mmol/L (22-30); Chloride 104 mmol/L (98-107); Glucose 92 mg/dl (70-99); Potassium 4.4 mmol/L (3.5-5.1); Sodium 136 mmol/L (135-145); Total Protein 6.9 g/dl (6.3-8.2); eGFR > 60.00
[2025-01-13 13:02] LABS: C-Reactive Protein < 5.00 mg/L (0.0-10.00)
== END ==
LOC: REG 11:11
PROVIDERS: ATTENDING PHYSICIAN Internal Medicine Rheumatology; FAMILY PHYSICIAN Internal Medicine
DX: E55.9 Vitamin D deficiency, unspecified (principal); L40.9 Psoriasis, unspecified; L40.50 Arthropathic psoriasis, unspecified; M19.031 Primary osteoarthritis, right wrist; M19.049 Primary osteoarthritis, unspecified hand; M25.511 Pain in right shoulder; S43.101S Unspecified dislocation of right acromioclavicular joint, sequela; Z11.1 Encounter for screening for respiratory tuberculosis; Z68.29 Body mass index [BMI] 29.0-29.9, adult; Z79.899 Other long term (current) drug therapy
CPT/HCPCS: 36415; 80053; 85025; 86140